=== PATIENT | male | born 1965 | race African-American/Black ===

== ENCOUNTER 2016-09-02 20:37 | Emergency (ER) | payer MEDICAID ==
[~2016-09-02] VITALS: Ht 175.3 cm; Wt 72.6 kg
[~2016-09-02 20:37] MED LIST: ALBUTEROL2 PUFFS/17 IN; AMLO5TAB PO; AMLODIPINE BES10 MG PO; APRESOLINE 10MG10 MG PO; ASPIRIN ADULT L81 M2 PO; ASPIRIN EC81 MG PO; ATORVASTATIN CA20 MG PO; ATORVASTATIN CA80 MG PO; AUGMENTIN 875 M1 TAB PO; CARVEDILOL 25MG25 MG PO; CHEWABLE ASPIRI81 MG PO; COLACE GENERIC100 MG PO; DILTIAZEM CD 2240 MG PO; DILTIAZEM ER 3300 MG PO; FIORINAL CAPSU1 EACH PO; GABAPENTIN300 M1 PO; HYDRALAZINE HCL10 MG OR; HYDROCHLOROTHIA25 M1 PO; HYDROCODONE1 TABLET PO; KEFLEX 500MG.500 MG PO; LISINOPRIL 5MG T5 MG PO; LISINOPRIL40 MG PO; MEDROL 4MG. DOSE4 MG PO; METOPROLOL50 MG PO; NITROGLYCERIN0.4 MG SL; NOMEDS *; PERCOCET 5/3251 EACH PO; PERCOCET1 TAB PO; SEPTRA DS 800 M1 TAB PO; SERTRALINE 50MG50 MG PO; ULTRAM50 MG PO; WARFARIN SOD5 M1 PO
[2016-09-02] MEDS ORDERED: GABAPENTIN 600600 MG PO (20:46)
--- NOTE | 2016-09-02 20:56 | Emergency Room Report ---
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 Onset of symptoms date/time:09/02 or onset unknown for:MEDICAL HX UNKNOWN Treatment Prior to Arrival: NONE, PT RPTS HE WAS PAIN FREE ONCE AMBULANCE ARRIVED TO HIS RESIDENCE. 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 N Clinical Suspician of Infection? N Mental Status: 1 - Regular (Normal Baseline) Sepsis Risk:Low Sepsis Risk Have you (or family members/close friends) recently traveled outside the [place]? N If Yes, where/when: Have you had exposure to infectious disease within the past month? N TB? Other? Specify: Comment The patient states that he was watching TV at home about an hour ago when he had sudden onset of severe pain in his LEFT anterior chest that felt "like it was going to pop". He says the pain is similar to when he had an aortic dissection a year ago. He had surgery at [facility] for that. His pain lasted 1 minute and then went away and now he is completely pain-free as far as his chest pain. He had no shortness of breath, nausea, vomiting, or diaphoresis. He also has pain and redness in his RIGHT leg that he says just started today. He says that his sister trim his toenails yesterday. He has a chronic ulcer on the plantar aspect of his great toe and chronic hyperkeratosis of the skin of his great toe. He also had what sounds like a blood clot with a compartment syndrome in his RIGHT leg when he had the aortic dissection and appears to have had a fasciotomy. He says that this is the first time it has gotten red and painful since that procedure. He denies fever. ALLERGIES Coded Allergies: hydrocodone (From LORTAB) (Mild, VOMITING 11/08/15) Home Medications Active Scripts Amlodipine Besylate (Amlodipine) 5 MG PO DAILY #30 TAB Prov: 01/07/16 Reported Medications Lisinopril (Lisinopril 40MG) 40 MG PO DAILY #60 Aspirin 81 MG PO DAILY #30 Carvedilol (Carvedilol 25MG) 25 MG PO BID #60 Atorvastatin Calcium 80 MG PO DAILY #30 Sertraline Hcl (Sertraline 50MG) 25 MG PO DAILY #30 Warfarin Sodium 5 MG PO QHS Hydralazine Hcl 10 MG OR TID Gabapentin (Gabapentin 600MG) 800 MG PO TID History Medical History General CAD? Yes Angina: Yes [place]: Yes Hypertension? Yes Hyperlipidemia? Yes CHF? No DVT? Yes PE? No COPD? No Asthma? Yes Anemia? No GERD? No Gastric ulcers? No GI Bleed? No Hernia? No Thyroid Problems? No Hypothyroidism? No CVA? Yes Seizures? No Diabetes? No Renal Insuffiency? No End Stage Renal Disease? No UTI? No Stones? No BPH? No GB Disease: No Nephritic Syndrome? No Asplenia? No Hepatitis? No Sickle Cell Disease? No Arthritis? No Migraines? No Cataracts? No Glaucoma? No MRSA? No HIV? No TB? No Anxiety? No Depression? No Cancer? No More? No Immunization Hx DT/Tetanus Unknown Flu Refused Pneumonia Never Had Surgical Hx Previous Surgery?Y CARDIAC CATH X4 AAA RIGHT LEG FASCIOTOMY OPEN HEART SURGERY Family History Family Hx Diabetes Yes CAD Yes Hypertension Yes Hyperlipidemia Yes Cancer Yes TB No Social History Smoking Hx Smoker: Former Smoker Tobacco: No Packs/day N/A Alcohol Alcohol: Yes Additionial History Additional History Last troponins January 2016 was 0.39. His last several troponins have been in that range. Review of Systems All Other Systems Reviewed and Negative Constitutional denies diaphoresis, denies fever Respiratory denies shortness of breath Cardiovascular chest pain, denies syncope Gastrointestinal denies abdominal pain, denies nausea, denies vomiting Musculoskeletal see HPI Physical Exam Vital Signs Vital Signs Date Time Temp Pulse Resp B/P Pulse O2 O2 Flow FiO2 Ox Delivery Rate 09/024 98.0 86 18 131/68 99 09/02 2324 98.0 86 18 131/68 99 09/02 2255 98.4 87 18 121/76 100 09/02 2221 98.4 89 18 134/64 98 04/15 2134 85 16 118/80 97 09/02 2038 98.4 85 16 120/82 97 General Appearance normal appearance, WD/WN Eye Exam - bilateral eye normal exam, bilateral eye PERRL, bilateral eye EOMI Ear, Nose, Throat hearing grossly normal, normal ENT inspection Neck normal inspection, non-tender, supple, full range of motion Respiratory Status Yes: trachea midline, chest symmetrical, non tender chest. No: respiratory distress. Lung Sounds bilateral: normal breath sounds, lungs clear. Cardiovascular normal exam, regular rate/rhythm, no peripheral edema, no gallop, no JVD, no murmur, no rub, normal peripheral pulses Peripheral Pulses Pulses normal Yes Gastrointestinal normal bowel sounds, normal exam, non tender, soft, no organomegaly Extremities fasciotomy scars RIGHT lower leg., generalized erythema and tenderness of RIGHT lower leg from ankle to knee. No palpable cords., foot is warm with good capillary refill and sensation, but pedal pulses not palpable in the RIGHT foot., normal pedal pulses LEFT foot. Normal radial pulses bilaterally., good dorsalis pedis and posterior tibialis pulses on the RIGHT foot by Doppler, 2 cm diameter skin ulcer on the plantar aspect of his RIGHT great toe. Hyperkeratosis of his RIGHT great toe. No drainage or odor. 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 No Results/Orders Laboratory Tests 09/02/162114: PT 12.3 H, INR 1.15 H 09/02/162114: Lactic Acid 1.2, D-Dimer 3390 *H 09/02/162039: Sodium 138, Potassium 3.0 L, Chloride 100, Carbon Dioxide 28, BUN 30 H, Creatinine 1.6 H, Estimated Creat Clear 56, Estimated GFR (MDRD) 46, Glucose 97 , Calcium 9.7, Total Bilirubin 1.9 H, AST 24, ALT 27, Alkaline Phosphatase 86, Creatine Kinase 204, CK-MB (CK-2) Rel Index 1.1, CK and CKMB Interp 2.2, Troponin I 2.20 H, Total Protein 8.4 H, Albumin 3.0 L, Globulin 5.4 H, Albumin/Globulin Ratio 0.6 L, WBC 8.5, RBC 3.95 L, Hgb 13.4 L, Hct 40.4 L, MCV 102.2 H, RDW 11.8, Plt Count 218, MPV 7.1 L, Gran % 73.4, Gran # 6.2, Lymphocytes % 18.2, Monocytes % 5.6, Eosinophils % 2.5, Basophils % 0.3, Lymphocytes # 1.5, Monocytes # 0.5, Eosinophils # 0.2, Basophils # 0.0, PUBS MCHC 33.1, MCH 33.8 H Current Medication Orders Sig/Paul Start time Last Medication Dose Route Stop Time Status Admin Enoxaparin Sodium 70 MG ONCE ONE 09/02 2300 DC 09/02 SC 09/02 230 230 Enoxaparin Sodium 0 .STK-MED ONE 09/02 2300 DC SC Potassium Chloride 40 MEQ ONCE ONE 09/02 2300 DC 09/02 PO 09/02 230 2302 Potassium Chloride 0 .STK-MED ONE 09/02 2300 DC PO Aspirin 0 .STK-MED ONE 09/02 2234 DC .ROUTE Aspirin 324 MG ONCE ONE 09/02 2230 DC 09/02 PO 09/02 223 2235 Enoxaparin Sodium 70 MG ONCE ONE 09/02 2230 CAN SC 09/02 223 Sodium Chloride 10 ML PRN PRN 09/02 2230 AC IV 09/03 222 Sodium Chloride 10 ML PRN PRN 09/02 2100 AC IV 09/03 204 Orders Procedure Date/time Status PROTHROMBIN TIME 09/02 2229 Complete IV SALINE LOCK 09/02 2226 Active D-DIMER 09/02 2129 Complete CULTURE, BLOOD 09/02 2128 Active LACTIC ACID 09/02 2128 Complete ELECTROCARDIOGRAM REQUEST 09/02 2048 Active CHEST(2 VIEWS-NOT PORTABLE) 09/02 2048 Active IV SALINE LOCK 09/02 2048 Active PATCH DRILLER 09/02 2048 Active CBC WITH AUTO DIFF 09/02 2048 Complete CARDIAC ENZYMES 09/02 2048 Complete CHEM 12 PROFILE 09/02 2048 Complete 12 LEAD EKG-RUTH (INITIAL) 09/02 UNK Active CM/EKG CM/EKG Comments EKG interpreted by Lambert Benjamin MD: Rhythm: sinus Rate: 85 [place]: normal Ectopy: none Conduction: normal ST Segment Changes: LVH with repolarization changes T Wave Changes: LVH with repolarization changes Q Waves: none Prior electrocardiograms reviewed, no significant change from prior. ST segments and T waves are all similar. XRAY/CT/US XRAY/CT/US XRAY chest Comment X-ray interpreted by Lambert Benjamin M.D.: Prior sternotomy procedure. No change in the appearance of the mediastinum or heart compared to previous x-ray. No acute change. Progress - 10:25 PM: Case discussed with Dr. 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 We discussed the patient's presentation and laboratory data. He does not feel that a recurrent aortic dissection is in the differential diagnosis since he is artery had a repaired with a [place] graft. He is concerned about possible DVT, PE, and possible non-ST elevation myocardial infarction. We discussed the disposition and imaging. He does not feel imaging needs to be performed here. He recommends treating with aspirin and Lovenox and transferred to [facility] because he is high risk. 11:00 PM: Case discussed with Dr. Faulkner, [facility] emergency physician. He accepts the patient to their emergency department. Departure Departure Disposition DC/XFER from ER to [facility] Clinical Impression Primary Impression: Chest pain Qualifiers: Chest pain type: precordial pain Qualified Code: R07.2 - Precordial pain Secondary Impressions: Elevated d-dimer, Elevated troponin, Leg edema, right, Right leg pain Condition STABLE Referrals Dwight RAMÍREZ,Jefferson Friedman (Family) ED Critical Care Critical Care Yes Time spent 30-74 min Vital system(s) involved: Circulatory Failure I was present at bedside for Coordinating pt's care, Interpreting EKGs/Strips , During my initial exam, Reviewing lab results, Reviewing old records, Discussing pt condition, For re-examinations, Examining radiographs at 2336
[2016-09-02 21:33] LABS: HEMOGLOBIN 13.4 g/dL (14.1-18.0); LYMPH # 1.5 K/mm3 (0.7-4.5); LYMPH % 18.2 % (10-50)
[2016-09-02 23:34] VITALS: BP 131/68
--- NOTE | 2016-09-03 14:14 | RADIOLOGY REPORT PS360 ---
CHEST(2 VIEWS-NOT PORTABLE) COMPARISON: PA and lateral chest 01/06/2016 HISTORY: Chest TECHNIQUE: The a and lateral chest FINDINGS: The lung castañeda are well expanded and appear clear of infiltrate. There is mild aortic tortuosity but no cardiomegaly. Sternal wire sutures are again noted. There is a calcified right hilar node. There are surgical clips projecting over the right upper lateral chest. IMPRESSION: Nonacute chest findings
== END 2016-09-02 23:36 | disposition short-term general hospital (02) ==
LOC: ER 20:37
PROVIDERS: Emergency Medicine
DX: R07.2 Precordial pain (principal); R79.89 Other specified abnormal findings of blood chemistry; R79.1 Abnormal coagulation profile; R60.0 Localized edema; M79.604 Pain in right leg

== ENCOUNTER 2017-03-05 03:54 | Observation (INO) | payer MEDICAID ==
[~2017-03-05] VITALS: Ht 175.3 cm; Wt 75.0 kg
[2017-03-05] VITALS (7 sets, daily range): BP systolic 113–200; BP diastolic 56–119
[~2017-03-05 03:54] MED LIST changes: +GABAPENTIN 600600 MG PO
[2017-03-05 04:19] LABS: HEMOGLOBIN 14.6 g/dL (14.1-18.0); LYMPH # 1.8 K/mm3 (0.7-4.5); LYMPH % 32.4 % (10-50)
--- NOTE | 2017-03-05 05:07 | Emergency Room Report ---
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 N Clinical Suspician of Infection? N Mental Status: 1 - Regular (Normal Baseline) Sepsis Risk:Possible Sepsis Risk Have you (or family members/close friends) recently traveled outside the [place]? N If Yes, where/when: Have you had exposure to infectious disease within the past month? N TB? Other? Specify: Source patient, RN notes reviewed, old records Exam Limitations no limitations Comment pt with onset of intermittant chest pain with pain tonight and today - pt has been noncompliant with meds - last cath last [facility] at [facility] Cardiac Chest Pain Chest pain indicative of cardiac Yes Timing/Duration 1-3 hours, intermittent Severity/Quality moderate, pressure Location central Chest Pain Radiation no radiation Activities at Onset light activity Nitro Today/Relief no nitro taken today Aspirin Treatment Today 325 mg x 1, provided by ED Beta jennifer treatment today no beta jennifer taken Cardiac risk factors + cardiovascular disease, + family history Prior Workup/Intervention cardiac cath Timing/Duration this morning Severity moderate ALLERGIES Coded Allergies: hydrocodone (From LORTAB) (Mild, VOMITING 11/08/15) Home Medications Active Scripts Amlodipine Besylate (Amlodipine) 5 MG PO DAILY #30 TAB Prov: 01/07/16 Reported Medications Lisinopril (Lisinopril 40MG) 40 MG PO DAILY #60 Aspirin 81 MG PO DAILY #30 Carvedilol (Carvedilol 25MG) 25 MG PO BID #60 Atorvastatin Calcium 80 MG PO DAILY #30 Sertraline Hcl (Sertraline 50MG) 25 MG PO DAILY #30 Warfarin Sodium 5 MG PO QHS Hydralazine Hcl 10 MG OR TID Gabapentin (Gabapentin 600MG) 800 MG PO TID History Medical History General CAD? Yes Angina: Yes [place]: Yes Hypertension? Yes Hyperlipidemia? Yes CHF? No DVT? Yes PE? No COPD? No Asthma? Yes Anemia? No GERD? No Gastric ulcers? No GI Bleed? No Hernia? No Thyroid Problems? No Hypothyroidism? No CVA? Yes Seizures? No Diabetes? No Renal Insuffiency? No End Stage Renal Disease? No UTI? No Stones? No BPH? No GB Disease: No Nephritic Syndrome? No Asplenia? No Hepatitis? No Sickle Cell Disease? No Arthritis? No Migraines? No Cataracts? No Glaucoma? No MRSA? No HIV? No TB? No Anxiety? No Depression? No Cancer? No More? No Immunization Hx DT/Tetanus Unknown Flu Refused Pneumonia Never Had Surgical Hx Previous Surgery?Y CARDIAC CATH X4 AAA RIGHT LEG FASCIOTOMY OPEN HEART SURGERY Family History Family Hx Diabetes Yes CAD Yes Hypertension Yes Hyperlipidemia Yes Cancer Yes TB No Social History Smoking Hx Smoker: Never Smoker Tobacco: No Packs/day N/A Alcohol Alcohol: Yes Drugs none Review of Systems All Other Systems Reviewed and Negative Constitutional denies fever Eyes denies drainage ENT denies: ear discharge, epistaxis, throat pain. Respiratory denies cough, denies shortness of breath, denies wheezing Cardiovascular see HPI, chest pain, denies palpitations, denies syncope Gastrointestinal denies abdominal pain, denies diarrhea, denies vomiting Genitourinary denies: dysuria, frequency, hesitancy, hematuria. Musculoskeletal denies back pain, denies joint pain, denies joint swelling, denies neck pain Skin denies rash Psychiatric/Neurological denies headache, denies seizure Physical Exam Vital Signs Vital Signs Date Time Temp Pulse Resp B/P Pulse O2 O2 Flow FiO2 Ox Delivery Rate 03/05 0356 98.5 90 20 200/111 96 - WBC >12,000 or <4,000 or 10% bands? 2 or more SIRS Criteria Met? B/P:200/111 MAP:140 Creatinine >2.0? UA output<0.5ml/kg/hr for 2 hrs? Platelet count >100,000? Lactate >2.0mmol/1? INR >1.2 or PTT > than 60 sec? Evidence of Organ Dysfunction? Provider documented clinical suspician of infection? N Sepsis Criteria Count: 2 Sepsis Risk: Possible Sepsis Risk General Appearance no apparent distress Eye Exam - bilateral eye PERRL, bilateral eye EOMI Ear, Nose, Throat normal ENT inspection Neck supple Respiratory Status No: respiratory distress. Lung Sounds bilateral: lungs clear. 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 No Results/Orders Laboratory Tests 03/05/17 0405: Sodium 138, Potassium 3.3 L, Chloride 103, Carbon Dioxide 27, BUN 16, Creatinine 1.1, Estimated Creat Clear 88, Estimated GFR (MDRD) 70, Glucose 119 H, Calcium 9.0, Total Bilirubin 0.8, AST 20, ALT 21, Alkaline Phosphatase 110, Creatine Kinase 518 H, CK-MB (CK-2) Rel Index 2.2, CK and CKMB Interp 11.2 *H, Troponin I 1.16 H, Total Protein 8.3 H, Albumin 3.7, Globulin 4.6 H, Albumin/ Globulin Ratio 0.8 L, PT 10.7, INR 0.99, APTT 29.7, WBC 5.7, RBC 4.49 L, Hgb 14.6, Hct 45.4, MCV 101.1 H, RDW 12.2, Plt Count 205, MPV 7.8, Gran % 54.9, Gran # 3.1, Lymphocytes % 32.4, Monocytes % 6.6, Eosinophils % 5.1, Basophils % 0.9, Lymphocytes # 1.8, Monocytes # 0.4, Eosinophils # 0.3, Basophils # 0.1, PUBS MCHC 32.2, MCH 32.5 H Current Medication Orders Sig/Paul Start time Last Medication Dose Route Stop Time Status Admin Clopidogrel Bisulfate 300 MG ONCE ONE 03/05 515 DC 03/05 PO 03/05 Clopidogrel Bisulfate 0 .STK-MED ONE 03/05 514 DC PO Aspirin 324 MG ONCE ONE 03/05 415 DC 03/05 PO 03/05 Aspirin 0 .STK-MED ONE 03/05 413 DC .ROUTE Orders Procedure Date/time Status Decision to admit 10/16 0518 Active URINALYSIS/COMPLETE 03/05 050 Active DRUG ABUSE SCREEN (TRIAGE) 03/05 050 Active PARTIAL THROMBOPLASTIN TIME 03/05 040 Complete PROTHROMBIN TIME 03/05 407 Complete ELECTROCARDIOGRAM REQUEST 03/05 359 Active CHEST(2 VIEWS-NOT PORTABLE) 03/05 359 Active IV SALINE LOCK 03/05 359 Active ADMITTING MANAGER 03/05 359 Active CBC WITH AUTO DIFF 03/05 359 Complete CARDIAC ENZYMES 03/05 359 Complete CHEM 12 PROFILE 03/05 359 Complete 12 LEAD EKG-BESSON (INITIAL) 03/05 UNK Active CM/EKG CM/supervisor burling and joining Rhythm Normal Sinus Rhythm EKG compared w/(date of old), non-spec. ST/Twave chgs XRAY/CT/US XRAY/CT/US XRAY chest XR interpretation by reviewed by me Xray Results abnormal (old ) ALAN Score for N-Stemi/Angina ALAN N-STEMI SCORE ALAN N-STEMI SCORE Response Value Age of patient Less than 65 yrs 0 Number of risk factors for CAD Presence of 3 or more 1 Prior coronary artery stenosis (seen in angiography) Less than 50% 0 ST-Segment deviation on ECG (>1 min) Present 1 Prior aspirin intake No ASA in the last 7 days 0 Severe anginal chest pain 2 or more episodes/24hr 1 Elevated cardiac markers(CK-MB or troponin) Present 1 Total 4 Risk Stratification 3-4= Medium Risk Patients Departure Departure Time of Disposition 0514 Disposition Still a Patient Clinical Impression Primary Impression: Non-STEMI (non-ST elevated myocardial infarction) Condition STABLE Referrals Dwight RAMÍREZ,Jefferson Friedman (Family) discussed with dr hogan ED Critical Care Critical Care No at 0521
--- NOTE | 2017-03-05 05:07 | Emergency Room Report ---
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 N Clinical Suspician of Infection? N Mental Status: 1 - Regular (Normal Baseline) Sepsis Risk:Possible Sepsis Risk Have you (or family members/close friends) recently traveled outside the [place]? N If Yes, where/when: Have you had exposure to infectious disease within the past month? N TB? Other? Specify: Source patient, RN notes reviewed, old records Exam Limitations no limitations Comment pt with onset of intermittant chest pain with pain tonight and today - pt has been noncompliant with meds - last cath last yr at [facility] Cardiac Chest Pain Chest pain indicative of cardiac Yes Timing/Duration 1-3 hours, intermittent Severity/Quality moderate, pressure Location central Chest Pain Radiation no radiation Activities at Onset light activity Nitro Today/Relief no nitro taken today Aspirin Treatment Today 325 mg x 1, provided by ED Beta jennifer treatment today no beta jennifer taken Cardiac risk factors + cardiovascular disease, + family history Prior Workup/Intervention cardiac cath Timing/Duration this morning Severity moderate ALLERGIES Coded Allergies: hydrocodone (From LORTAB) (Mild, VOMITING 11/08/15) Home Medications Active Scripts Amlodipine Besylate (Amlodipine) 5 MG PO DAILY #30 TAB Prov: 01/07/16 Reported Medications Lisinopril (Lisinopril 40MG) 40 MG PO DAILY #60 Aspirin 81 MG PO DAILY #30 Carvedilol (Carvedilol 25MG) 25 MG PO BID #60 Atorvastatin Calcium 80 MG PO DAILY #30 Sertraline Hcl (Sertraline 50MG) 25 MG PO DAILY #30 Warfarin Sodium 5 MG PO QHS Hydralazine Hcl 10 MG OR TID Gabapentin (Gabapentin 600MG) 800 MG PO TID History Medical History General CAD? Yes Angina: Yes MO: Yes Hypertension? Yes Hyperlipidemia? Yes CHF? No DVT? Yes PE? No COPD? No Asthma? Yes Anemia? No GERD? No Gastric ulcers? No GI Bleed? No Hernia? No Thyroid Problems? No Hypothyroidism? No CVA? Yes Seizures? No Diabetes? No Renal Insuffiency? No End Stage Renal Disease? No UTI? No Stones? No BPH? No GB Disease: No Nephritic Syndrome? No Asplenia? No Hepatitis? No Sickle Cell Disease? No Arthritis? No Migraines? No Cataracts? No Glaucoma? No MRSA? No HIV? No TB? No Anxiety? No Depression? No Cancer? No More? No Immunization Hx DT/Tetanus Unknown Flu Refused Pneumonia Never Had Surgical Hx Previous Surgery?Y CARDIAC CATH X4 AAA RIGHT LEG FASCIOTOMY OPEN HEART SURGERY Family History Family Hx Diabetes Yes CAD Yes Hypertension Yes Hyperlipidemia Yes Cancer Yes TB No Social History Smoking Hx Smoker: Never Smoker Tobacco: No Packs/day N/A Alcohol Alcohol: Yes Drugs none Review of Systems All Other Systems Reviewed and Negative Constitutional denies fever Eyes denies drainage ENT denies: ear discharge, epistaxis, throat pain. Respiratory denies cough, denies shortness of breath, denies wheezing Cardiovascular see HPI, chest pain, denies palpitations, denies syncope Gastrointestinal denies abdominal pain, denies diarrhea, denies vomiting Genitourinary denies: dysuria, frequency, hesitancy, hematuria. Musculoskeletal denies back pain, denies joint pain, denies joint swelling, denies neck pain Skin denies rash Psychiatric/Neurological denies headache, denies seizure Physical Exam Vital Signs Vital Signs Date Time Temp Pulse Resp B/P Pulse O2 O2 Flow FiO2 Ox Delivery Rate 03/05 0356 98.5 90 20 200/111 96 - WBC >12,000 or <4,000 or 10% bands? 2 or more SIRS Criteria Met? B/P:200/111 MAP:140 Creatinine >2.0? UA output<0.5ml/kg/hr for 2 hrs? Platelet count >100,000? Lactate >2.0mmol/1? INR >1.2 or PTT > than 60 sec? Evidence of Organ Dysfunction? Provider documented clinical suspician of infection? N Sepsis Criteria Count: 2 Sepsis Risk: Possible Sepsis Risk General Appearance no apparent distress Eye Exam - bilateral eye PERRL, bilateral eye EOMI Ear, Nose, Throat normal ENT inspection Neck supple Respiratory Status No: respiratory distress. Lung Sounds bilateral: lungs clear. 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 No Results/Orders Laboratory Tests 03/05/17 0405: Sodium 138, Potassium 3.3 L, Chloride 103, Carbon Dioxide 27, BUN 16, Creatinine 1.1, Estimated Creat Clear 88, Estimated GFR (MDRD) 70, Glucose 119 H, Calcium 9.0, Total Bilirubin 0.8, AST 20, ALT 21, Alkaline Phosphatase 110, Creatine Kinase 518 H, CK-MB (CK-2) Rel Index 2.2, CK and CKMB Interp 11.2 *H, Troponin I 1.16 H, Total Protein 8.3 H, Albumin 3.7, Globulin 4.6 H, Albumin/ Globulin Ratio 0.8 L, PT 10.7, INR 0.99, APTT 29.7, WBC 5.7, RBC 4.49 L, Hgb 14.6, Hct 45.4, MCV 101.1 H, RDW 12.2, Plt Count 205, MPV 7.8, Gran % 54.9, Gran # 3.1, Lymphocytes % 32.4, Monocytes % 6.6, Eosinophils % 5.1, Basophils % 0.9, Lymphocytes # 1.8, Monocytes # 0.4, Eosinophils # 0.3, Basophils # 0.1, PUBS MCHC 32.2, MCH 32.5 H Current Medication Orders Sig/Paul Start time Last Medication Dose Route Stop Time Status Admin Clopidogrel Bisulfate 300 MG ONCE ONE 03/05 515 DC 03/05 PO 03/05 Clopidogrel Bisulfate 0 .STK-MED ONE 03/05 514 DC PO Aspirin 324 MG ONCE ONE 03/05 415 DC 03/05 PO 03/05 Aspirin 0 .STK-MED ONE 03/05 413 DC .ROUTE Orders Procedure Date/time Status Decision to admit 10/16 0518 Active URINALYSIS/COMPLETE 03/05 050 Active DRUG ABUSE SCREEN (TRIAGE) 03/05 050 Active PARTIAL THROMBOPLASTIN TIME 03/05 040 Complete PROTHROMBIN TIME 03/05 407 Complete ELECTROCARDIOGRAM REQUEST 03/05 359 Active CHEST(2 VIEWS-NOT PORTABLE) 03/05 359 Active IV SALINE LOCK 03/05 359 Active GLOVE CUFFER 03/05 359 Active CBC WITH AUTO DIFF 03/05 359 Complete CARDIAC ENZYMES 03/05 359 Complete CHEM 12 PROFILE 03/05 359 Complete 12 LEAD EKG-BESSON (INITIAL) 03/05 UNK Active 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 ST/Twave chgs XRAY/CT/US XRAY/CT/US XRAY chest XR interpretation by reviewed by me Xray Results abnormal (old ) ALAN Score for N-Stemi/Angina ALAN N-STEMI SCORE ALAN N-STEMI SCORE Response Value Age of patient Less than 65 yrs 0 Number of risk factors for CAD Presence of 3 or more 1 Prior coronary artery stenosis (seen in angiography) Less than 50% 0 ST-Segment deviation on ECG (>1 min) Present 1 Prior aspirin intake No ASA in the last 7 days 0 Severe anginal chest pain 2 or more episodes/24hr 1 Elevated cardiac markers(CK-MB or troponin) Present 1 Total 4 Risk Stratification 3-4= Medium Risk Patients Departure Departure Time of Disposition 0514 Disposition Still a Patient Clinical Impression Primary Impression: Non-STEMI (non-ST elevated myocardial infarction) Condition STABLE Referrals Dwight RAMÍREZ,Jefferson Friedman (Family) discussed with dr hogan ED Critical Care [place] Care No [place] 0501
--- OUTSIDE RECORDS SUMMARY | 2017-03-05 05:25 | External Medical Summary Rpt | CCD ---
Author Author , DEVENDRA Organization DEVENDRA Address Unknown Phone [email or web address] Care Team Providers Care Prepress Stripper Name Role Phone [facility] [place], Unavailable Unavailable [facility] [place] [facility] [place], Unavailable Unavailable [facility] [place] AJAY LIS, AJAY Unavailable Unavailable LIS AYOOB AND, AYOOB AND Unavailable Unavailable BEINEKE MELY, BEINEKE Unavailable Unavailable MELY BESSON, BESSON Unavailable Unavailable BESSON GWENDOLYN, BESSON Unavailable Unavailable GWENDOLYN TYLER ALL, TYLER ALL Unavailable Unavailable ANDRE ALHAJI, ANDRE Unavailable Unavailable ALHAJI [facility] Unavailable Unavailable SERVICE, [facility] Unavailable Unavailable SERVICE, [facility] PAIGE LAVELLE, PAIGE Unavailable Unavailable LAVELLE [facility], [facility] TITUS, TITUS Unavailable Unavailable GEORGE, GEORGE Unavailable Unavailable HENRIQUE, HENRIQUE Unavailable Unavailable [facility] Unavailable [facility]available [facility] JORGE ALBERTO SOUMYA, Unavailable Unavailable JORGE ALBERTO SOUMYA RIDGE ADR, RIDGE Unavailable Unavailable ADR DELAHOUSAY ANTOINE, Unavailable Unavailable DELAHOUSAY ANTOINE SHAILA ANT, SHAILA Unavailable Unavailable ANT MARTINEZ, MARTINEZ Unavailable Unavailable ECKERLE GUNNER, ECKERLE Unavailable Unavailable GUNNER EL KHOULI, EL KHOULI Unavailable Unavailable ERLANDSON JUANY, Unavailable Unavailable ERLANDSON JUANY FALLUJI ARELY, FALLUJI Unavailable Unavailable ARELY [facility] Unavailable Unavailable TRANSPORTATION SER, [facility] SAENZ SURJIT, SAENZ Unavailable Unavailable SURJIT PAULINO NAN, PAULINO Unavailable Unavailable JR PROSPER THORPE, Unavailable Unavailable JR PROSPER MOORE SAM ALHAJI, SAM Unavailable Unavailable ALHAJI SAM ALHAJI, SAM Unavailable Unavailable ALHAJI JOSAFAT MAURICE Unavailable Unavailable EWELINA THO, EWELINA THO Unavailable Unavailable [facility] Unavailable Unavailable INC, [facility] Unavailable [facility]available HOSPITAL P, [facility] AIME ANTOINE, AIME Unavailable Unavailable ANTOINE [facility], Unavailable Unavailable [facility] PAYAN GWENDOLYN, PAYAN GWENDOLYN Unavailable Unavailable DB CARL, DB CARL Unavailable Unavailable [facility] Unavailable Unavailable MEDICAL G, [facility] G AVA ROSALBA, AVA ROSALBA Unavailable Unavailable [facility] Un[facility] ZAHEER JAM, ZAHEER JAM Unavailable Unavailable MARTINEZ GWENDOLYN, MARTINEZ GWENDOLYN Unavailable Unavailable ERIN JR DWI, ERIN Unavailable Unavailable JR DWI [facility] Unavailable Unavailable COGOVT, BARRIE FAYETTE URBAN COGOVT [facility] Unavailable Unavailable COGOVT, BARRIE FAYETTE U[facility] COGOVT STAN ROWENA, Unavailable Unavailable STAN ROWENA GOPAL, GOPAL Unavailable Unavailable PÉREZ LIAM, PÉREZ Unavailable Unavailable LIAM Simba Quintanilla MD, Unavailable Unavailable Simba Quintanilla MD MARCHINO GWENDOLYN, Unavailable Unavailable MARCHINO GWENDOLYN RAMOS ROSEMARY, Unavailable Unavailable RAMOS ROSEMARY MINION REINALDO, MINION Unavailable Unavailable REINALDO DUNCAN JUS, Unavailable Unavailable DUNCAN JUS JAY DAVID, JAY DAVID Unavailable Unavailable NELTNER MENDEZ, NELTNER Unavailable Unavailable MENDEZ NICKELS REINALDO, NICKELS Unavailable Unavailable REINALDO ADAM RANDI, ADAM Unavailable Unavailable RANDI GRIFFITH FABIENNE, GRIFFITH FABIENNE Unavailable Unavailable REMINGTON NOHEMY, REMINGTON NOHEMY Unavailable [facility]available [facility]available [facility], [facility], Unavailable Unavailable [facility] CHRISTIE LETY Unavailable Unavailable TOMMY, CHRISTIE LETY TOMMY RASLAU FLA, RASLAU Unavailable Unavailable FLA RENUSCH, RENUSCH Unavailable Unavailable RENUSCH NOHEMY, RENUSCH Unavailable Unavailable NOHEMY CARRILLO JOSESITO, CARRILLO Unavailable Unavailable JOSESITO MARK ANIRUDH, MARK ANIRUDH Unavailable Unavailable MARIA LUZ ANIRUDH, MARIA LUZ Unavailable Unavailable ANIRUDH SCHLEENBAKER RAN, Unavailable Unavailable SCHLEENBAKER RAN [facility], Unavailable Unavailable [facility] SCIFRES ANG, SCIFRES Unavailable Unavailable ANG SCIFRES ANG, SCIFRES Unavailable Unavailable ANG LARISA LIANNA, LARISA LIANNA Unavailable Unavailable SHIRAKBARI ALI, Unavailable Unavailable SHIRAKBARI ALI BELKIS MAT, Unavailable Unavailable BELKIS MAT LEI VIRGILIO, LEI VIRGILIO Unavailable Unavailable [facility] ALOK SHE, Unavailable Unavailable ALOK SHE SZABUNIO MAR, Unavailable Unavailable SZABUNIO MAR [facility] Un[facility], [facility], Unavailable Unavailable [facility] Unavailable [facility]available [facility], [facility] Unavailable Unavailable MARVIN ALHAJI, MARVIN Unavailable Unavailable ALHAJI XENOS TYLER, XENOS TYLER Unavailable Unavailable ZAGUROVSKAYA MAR, Unavailable Unavailable ZAGUROVSKAYA MAR Purpose Continuity of Care Document - 09-10-2012 through 2016 Problems Code Diagnosis DOS Provider Status I10 ESSENTIAL 01-09-2017 [facility], HYPERTENSIO [facility] N Z0289 ENCOUNTER 01-09-2017 [facility] FOR OTHER PHYSICIANS, ADMINISTRAT [facility] IMAN EXAMINATION S I72262 OTHER LONG 01-09-2017 [facility] CURRENT INC DRUG THERAPY Z9114 PATIENTS 01-09-2017 [facility] OT [facility], NONCOMPLIAN [facility] CE W/MEDICATIO N REGIMEN I2510 ASHD LOWER BRULE 09-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 HEALTHCARE 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 HOSPITALS ANGINA 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 HOSPITALS I4581 LONG QT 09-03-2016 [facility] I517 CARDIOMEGAL 09-03-2016 [facility] Y [facility] I7100 DISSECTION 09-03-2016 [facility] OF SERV UNSPECIFIED FOUNDATION SITE OF AORTA I739 PERIPHERAL 09-03-2016 VASCULAR HEALTHCARE DISEASE HOSPITALS UNSPECIFIED M7989 OTHER 09-03-2016 [facility] SPECIFIED SERV SOFT TISSUE FOUNDATION DISORDERS R079 CHEST PAIN 09-03-2016 UNSPECIFIED HEALTHCARE HOSPITALS R9431 ABNORMAL 09-03-2016 [facility] ELECTROCARD SERV IOGRAM FOUNDATION Z8673 PERSONAL HX 09-03-2016 [facility] CEREB HOSPITALS INFARCT NO RESID DEFICIT 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 R0789 OTHER CHEST 01-27-2016 [facility] [facility] Z7901 FORENSIC AUDIT EXPERT 01-27-2016 [facility] NTS Z7982 FORENSIC AUDIT EXPERT 01-27-2016 [facility] Z951 PRESENCE OF 01-27-2016 [facility] AORTOCORONA RY BYPASS GRAFT Z9989 DEPENDENCE 01-27-2016 [facility] ON OTHER [place] ENABLING MACHINES & DEVICES R55 SYNCOPE AND 01-06-2016 [facility] COLLAPSE [facility]IANS, [facility] Z955 PRESENCE OF 01-06-2016 [facility] P IMPLANT & GRAFT I639 CEREBRAL 01-03-2016 [facility] INFARCTION PHYSICIANS UNSPECIFIED GROUP [id number] COMPARTMENT 01-03-2016 [facility] SYNDROME PHYSICIANS UNSPECIFIED GROUP INITIAL ENCNTR G8918 OTHER ACUTE 01-01-2016 [facility] POSTPROCEDU INC RAL PAIN H04035 PAIN IN 01-01-2016 [place] RIGHT LOWER [facility]OS[facility] LEG INC 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 V38485 DYSPHAGIA 12-28-2015 PATIENT FOLLOWING [facility] INC CEREBRAL INFARCTION 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 R1310 DYSPHAGIA 12-28-2015 PATIENT UNSPECIFIED AIDS INC R2681 UNSTEADINES 12-28-2015 PATIENT S ON FEET [facility] INC R269 UNSPECIFIED 12-28-2015 [facility] ABNORMALITI ES OF GAIT AND MOBILITY R5381 OTHER 12-27-2015 [facility] R95033 ENCOUNTER 12-13-2015 [facility] FOLLOW ION SURGERY CIRC SYS M62117 ENCOUNTER 12-13-2015 [facility] FLW SURG ION SKIN&SUBQ TISS Z9889 OTHER 12-13-2015 [facility] SPECIFIED SERV POSTPROCEDU FOUNDATION RAL STATES J90 PLEURAL 12-11-2015 [facility] EFFUSION SERV NOT FOUNDATION ELSEWHERE CLASSIFIED R001 BRADYCARDIA 12-06-2015 [facility] UNSPECIFIED FOUNDATION C41369 ELEVATED 12-01-2015 [facility] WHITE BLOOD SERV CELL COUNT FOUNDATION UNSPECIFIED I447 LEFT 12-01-2015 [facility] BUNDLE-BRAN SERV CH BLOCK FOUNDATION UNSPECIFIED R0602 SHORTNESS 12-01-2015 [facility] OF BREATH SERV [facility]OUNDATION R109 UNSPECIFIED 12-01-2015 [facility] ABDOMINAL SERV PAIN FOUNDATION R932 ABNORMAL 12-01-2015 [facility] FIND ON DX SERV IMAGING FOUNDATION LIVER & BILI TRACT K810 ACUTE 11-30-2015 [facility] CHOLECYSTIT SERV IS FOUNDATION R112 NAUSEA WITH 11-30-2015 [facility] VOMITING SERV UNSPECIFIED FOUNDATION R509 FEVER 11-30-2015 [facility] UNSPECIFIED SERV FOUNDATION J9811 ATELECTASIS 11-29-2015 [facility] Z430 ENCOUNTER 11-29-2015 [facility] FOR SERV ATTENTION FOUND[facility] TO TRACHEOSTOM Y T96187 ACUTE 11-25-2015 [facility] EMBOLISM & SERV THROMBOSIS FOUNDATION SUP VEINS RT UP EXT R0989 OTH SPEC SX 11-25-2015 [facility] & SIGNS SERV INVLV THE FOUNDATION CIRC & RESP SYS Z049 ENCOUNTER 11-25-2015 [facility] EXAMINATION SERV &OBSERVATIO FOUNDATION N FOR UNS REASON I083 COMB 11-23-2015 [facility] RHEUMAT D/O SERV MITRAL FOUNDATION AORTC & TRICUSPID VALVES I371 NONRHEUMATI 11-23-2015 [facility] C PULMONARY SERV VALVE FOUNDATION INSUFFICIEN CY I619 NONTRAUMATI 11-23-2015 [facility] C SERV INTRACEREBR FOUNDATION AL HEMORRHAGE UNS I7771 DISSECTION 11-23-2015 [facility] OF CAROTID SERV ARTERY FOUNDATION I998 OTHER 11-23-2015 [facility] DISORDER OF SERV [facility] CIRCULATORY SYSTEM [id number] TRAUMAT 11-23-2015 [facility] COMPARTMENT SERV SYND RT FOUNDATION LOW EXTREM INIT ENC Z452 ENCOUNTER 11-23-2015 [facility] ADJUSTMENT& SERV MGMT FOUNDATION VASCULAR ACCESS DEVICE D62 ACUTE 11-22-2015 [facility] POSTHEMORRH SERV AGIC ANEMIA FOUNDATION E870 HYPEROSMOLA 11-22-2015 [facility] LITY AND SERV HYPERNATREM FOUNDATION IA I638 OTHER 11-22-2015 [facility] CEREBRAL SERV INFARCTION FOUNDATION J951 ACUTE 11-22-2015 [facility] PULMONARY SERV INSUFF FOUNDATION FOLLOW THORACIC SURGERY R531 WEAKNESS 11-22-2015 [place] [facility] Z4659 ENCOUNTER 11-22-2015 [facility] FIT & SERV ADJUST OTH FOUNDATION GI APPLIANCE & DEVICE Z4682 ENCOUNTER 11-22-2015 [facility] FITTING & SERV ADJUST FOUNDATION NON-VASCULA R CATHETER J984 OTHER 11-21-2015 [facility] DISORDERS SERV OF LUNG FOUNDATION R609 EDEMA 11-21-2015 [facility] UNSPECIFIED SERV FOUNDATION R930 ABNORMAL 11-21-2015 [facility] FINDINGS ON SERV DX IMAGING FOUNDATION SKULL & HEAD NEC E8770 FLUID 2015 [facility] OVERLOAD SERV UNSPECIFIED FOUNDATION J811 CHRONIC 2015 [facility] PULMONARY SERV EDEMA FOUNDATION J9600 ACUTE 2015 [facility] RESPIRATORY SERV FAIL UNS FOUNDATION HYPOXIA/HYP ERCAPNIA M6282 RHABDOMYOLY 2015 [facility] SIS [facility] N179 ACUTE 2015 [facility] KIDNEY SERV FAILURE FOUND[facility] UNSPECIFIED Z930 TRACHEOSTOM 2015 [facility] Y STATUS SERV F[facility] M6289 OTHER 11-17-2015 [facility] DISORDERS HOSPI OF MUSCLE E878 OTHER D/O 11-14-2015 [facility] OF SERV ELECTROLYTE FOUNDATION AND FLUID BALANCE NEC J9691 RESPIRATORY 11-14-2015 [facility] FAILURE SERV UNSPECIFIED FOUNDATION WITH HYPOXIA R633 FEEDING 11-14-2015 [facility] DIFFICULTIE SERV S FOUNDATION R918 OTHER 11-12-2015 [facility] NONSPECIFIC SERV ABNORMAL FOUNDATION FINDING OF LUNG FIELD F80319 ACUTE 11-11-2015 [facility] EMBOLISM & [facility] THROMBOSIS HOSPI RIGHT POPLITEAL VEIN D649 ANEMIA 11-10-2015 [facility] UNSPECIFIED SERV FOUNDATION I743 EMBOLISM & 11-10-2015 [facility] THROMBOSIS SERV ART THE FOUNDATION LOWER EXTREMITIES J982 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[facility] L EMPHYSEMA SERV FOUNDATION R739 HYPERGLYCEM 11-10-2015 [facility] IA SERV UNSPECIFIED FOUNDATION Z048 ENCOUNTER 11-10-2015 [facility] EXAM & SERV OBSERVATION FOUNDATION OTHER SPEC REASONS E785 HYPERLIPIDE 11-09-2015 [facility] NIGEL PHYSICIANS UNSPECIFIED GROUP I209 ANGINA 11-09-2015 [facility] PECTORIS PHYSICIANS UNSPECIFIED GROUP I4901 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-09-2015 [facility] FIBRILLATIO N I493 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-09-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 FOUNDATION ION I700 ATHEROSCLER 11-09-2015 [facility] AORTA HOSPI I7102 DISSECTION 11-09-2015 [facility] OF SERV ABDOMINAL FOUNDATION AORTA 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 J189 PNEUMONIA 11-09-2015 [facility] OR[facility] J09301 ACUTE 11-09-2015 [facility] POSTPROCEDU SERV RAL FOUNDATION RESPIRATORY FAILURE R200 ANESTHESIA 11-09-2015 [facility] OF SKIN SERV FOUNDATION R570 CARDIOGENIC 11-09-2015 [facility] SHOCK SERV [facility] N51793 THORACIC 11-08-2015 [place] [facility] MED[facility] ECTASIA IMAGING ASS M545 LOW BACK 05-04-2015 [place] [facility] INC R030 ELEVATED 03-09-2015 [facility] BLOOD-PRESS AMBULANCE URE READING SERVICE WITHOUT DX HTN R071 CHEST PAIN 03-09-2015 [facility] ON AMBULANCE BREATHING SERVICE 00510 11-09-2014 [facility] ION SER 64094 HELICOBACTE 09-17-2014 [facility] INFECTION 57400 OTHER SPEC 09-17-2014 [facility] GA[facility] WITHOUT MENTION HEMORRHAGE 14392 UNS 09-17-2014 [facility] GASTRITIS&G PHYSICIANS ASTRODUODIT GROUP IS W/O MENTION HEMORR 67189 DIVERTICULO 09-17-2014 [facility] SIS OF PHYSICIANS COLON GROUP 5693 HEMORRHAGE 09-17-2014 [facility] OF RECTUM PHYSICIANS AND ANUS GROUP 5780 HEMATEMESIS 09-17-2014 [facility] PHYSICIANS GROUP 00112 HEMOPTYSIS 09-17-2014 [facility] UNSPECIFIED ANESTH OF THE BLUE 7921 NONSPECIFIC 09-17-2014 COMMUNITY ABNORMAL ANESTH OF FINDING IN THE BLUE STOOL CONTENTS 5781 BLOOD IN 09-03-2014 [facility] STOOL PHYSICIANS GROUP 7871 HEARTBURN 09-03-2014 [facility] PHYSICIANS GROUP V7651 SPECIAL 09-03-2014 [facility] SCREENING PHYSICIANS FOR GROUP MALIGNANT NEOPLASMS COLON 73950 BORDERLINE 08-21-2014 SCIF[facility] ANG GLAUC OPEN ANGLE BL FINDINGS LOW RSK 4019 UNSPECIFIED 08-19-2014 [facility] P N 86103 COR 08-19-2014 [place] ATHEROSLERO [facility] P TYPE VESSEL LOWER BRULE/KI T 96416 ASTHMA, 08-19-2014 [facility] P UNSPECIFIED STATUS 13967 PAIN IN 08-19-2014 [place] [facility] PELVIC IMAGING ASS REGION AND THIGH 7295 PAIN IN 08-19-2014 [place] SOFT MEDICAL TISSUES OF IMAGING ASS LIMB 88951 CHEST PAIN 08-19-2014 [facility] UNSPECIFIED AMBULANCE SERVICE 43565 ACUT W[place] 08-18-2014 [facility] IAL INFARCT MEDICAL G EPIS CARE UNS 5990 URINARY 08-18-2014 [place] TRACT [facility] INFECTION INC SITE NOT SPECIFIED 91014 ABDOMINAL 08-17-2014 [place] PAIN, [facility] UNSPECIFIED HOSPITAL P SITE V4589 OTHER 08-17-2014 [place] [facility] P OTHER 7991 RESPIRATORY 06-05-2014 [facility] FAYETTE ARREST URBAN [place] 63226 POISONING 06-05-2014 [facility] BY HEROIN N EMERGENCY PHYS 9779 POISONING 06-05-2014 [place] [facility] UNSPECIFIED SERV [facility] DRUG/MEDICI NAL SUBSTANCE E9800 POISN-ANALG 06-05-2014 [facility] N EMERGENCY T-ANTIRHEUM PHYS -UNDETERM CAUSE 2724 OTHER AND 04-15-2014 [facility] UNSPECIFIED PHYSICIANS GROUP HYPERLIPIDE NIGEL 56981 CORONARY 02-26-2014 [facility] MEDICAL OSIS LOWER BRULE IMAGING ASS CORONARY ARTERY 41143 OTHER 02-25-2014 [place] [facility] DYSPNEA AND [email or web address] [place] [address] ACUT [place] 02-24-2014 [facility] EMERGENCY IAL INFARCT PHYS INIT EPIS CARE 67853 SHORTNESS 02-24-2014 [place] OF BREATH MEDICAL IMAGING ASS 5939 UNSPECIFIED 10-01-2013 [facility] ALHAJI DISORDER OF KIDNEY AND URETER 29857 PRECORDIAL 10-01-2013 [facility] 401.9 401.9 09-10-2012 Wil[facility] HYPERTENSIO [facility] 410.71 410.71 AC 09-10-2012 Wil[place] MYOCARDIAL [facility] INFARCT,SUB Hospital ENDO INFARCT,INI TIAL EPIS 493.90 493.90 09-10-2012 Wilsey ASTHMA, [facility] UNSPECIFIED Hospital Allergies, Adverse Reactions, Alerts Type Drug Allergy Adverse Reaction to Substance Substance Reaction Severity Hydrocodone I-RASH Intermediate Medications Na ND Rx Da Fi Fi Am Da Di Ph RX Ph St me C No te ll ll ou ys ag ar # ys at rm s nt no ma ic us Or Da si cy ia de te s n re d AM 00 03 04 30 30 00 WA Ac LO 37 -3 -2 .0 00 L- ti DI 85 0- 8- 00 07 MA ve PI 20 20 20 43 RT NE 90 17 17 65 5 16 PH BE AR SY MA LA CY TE 5 #5 91 MG TA B HY 16 03 04 [address] 72 -3 -2 .0 00 L- ti OC 90 0- 8- 00 07 MA ve HL 18 20 20 47 RT OR 31 17 17 51 OT 7 18 PH HI AR AZ MA ID CY E 25 #5 91 MG TA B LI 68 03 04 18 90 00 [place] Ac SI 18 -3 -2 0. 00 L- ti NO 00 0- 8- 00 07 MA ve DC 51 20 20 0 47 RT IL 70 17 17 51 1 34 PH 40 AR MA MG CY TA #5 BL 91 ET CA 68 03 04 60 30 00 WA Ac RV 46 -3 -2 .0 00 L- ti ED 20 0- 8- 00 07 MA ve IL 16 20 20 43 RT OL 50 17 17 47 5 40 PH 25 AR MA MG CY TA #5 BL 91 ET SE 68 03 04 60 30 00 WA Ac RT 64 -3 -2 .0 00 L- ti RA 50 0- 8- 00 07 MA ve LI 52 20 20 43 RT NE 15 17 17 47 4 37 PH HC AR L MA 25 CY MG #5 91 TA BL ET GA 00 03 04 90 30 00 WA Ac BA 22 -3 -2 .0 00 L- ti PE 82 0- 8- 00 07 MA ve NT 63 20 20 44 RT IN 71 17 17 08 1 14 PH 80 AR 0 MA MG CY TA #5 BL 91 ET WA 57 03 04 30 30 00 WA Ac RF 23 -3 -2 .0 00 L- ti AR 70 0- 8- 00 07 MA ve IN 12 20 20 43 RT 40 17 17 47 SO 1 39 PH DI AR UM MA 5 CY MG #5 91 TA BL ET BA 00 03 04 45 30 00 WA Ac CL 83 -3 -2 .0 00 L- ti OF 21 0- 8- 00 07 MA ve EN 02 20 20 44 RT 45 17 17 08 10 0 11 PH AR MG MA CY TA BL #5 ET 91 CA 68 12 01 60 30 00 WA Ac RV 46 -2 -2 .0 00 L- ti ED 20 7- 7- 00 07 MA ve IL 16 20 20 45 RT OL 50 16 17 00 5 57 PH 25 AR MA MG CY TA #5 BL 91 ET SE 68 12 01 60 30 00 WA Ac RT 64 -2 -2 .0 00 L- ti RA 50 7- 7- 00 07 MA ve LI 52 20 20 45 RT NE 15 16 17 00 4 56 PH HC AR L MA 25 CY MG #5 91 TA BL ET LI 68 12 01 60 30 00 WA Ac SI 18 -2 -2 .0 00 L- ti NO 00 8- 7- 00 07 MA ve DC 51 20 20 46 RT IL 70 16 17 10 1 93 PH 40 AR MA MG CY TA #5 BL 91 ET BA 00 12 01 45 30 00 WA Ac CL 83 -2 -2 .0 00 L- ti OF 21 7- 7- 00 07 MA ve EN 02 20 20 44 RT 45 16 17 08 10 0 11 PH AR MG MA CY TA BL #5 ET 91 GA 00 12 01 90 30 00 WA Ac BA 22 -2 -2 .0 00 L- ti PE 82 7- 7- 00 07 MA ve NT 63 20 20 44 RT IN 71 16 17 08 1 14 PH 80 AR 0 MA MG CY TA #5 BL 91 ET AM 00 12 30 30 00 WA Ac LO 37 -2 -2 .0 00 L- ti DI 85 7- 7- 00 07 MA ve PI 20 20 20 44 RT NE 90 16 17 12 5 21 PH BE AR SY MA LA CY TE 5 #5 91 MG TA B HY 68 12 30 [address] 64 -2 -2 .0 00 L- ti OC 50 7- 7- 00 07 MA ve HL 51 20 20 44 RT OR 07 16 17 99 OT 0 71 PH HI AR AZ MA ID CY E 25 #5 91 MG TA B HY 49 12 01 [address] 88 -2 -2 .0 00 L- ti AL 40 7- 7- 00 07 MA ve AZ 02 20 20 44 RT IN 90 16 17 99 E 1 87 PH 10 AR MA MG CY TA #5 BL 91 ET AT 68 12 30 30 00 WA Ac OR 64 -2 -2 .0 00 L- ti VA 50 7- 7- [address] 46 20 20 44 RT AT 05 16 17 12 IN 4 22 PH AR 40 MA CY MG #5 TA 91 BL ET ## 08 01 60 30 00 WA Ac ## -1 -0 .0 00 L- ti ## 0- 9- 00 08 MA ve ## 20 20 83 RT ## 16 17 56 # 47 PH AR MA CY #5 91 Sa 63 04 0 No li 80 -2 ne 70 3- Lo 10 20 ng Fl 07 13 er us 5 h Ac 10 ti ML ve Sy ri ng e As 51 04 0 No pi 07 -2 ri 90 3- Lo n 00 20 ng 32 52 13 er 5M 0 G Ac Ta ti bl ve et Ni 00 04 0 No tr 08 -2 og 81 3- Lo ly 55 20 ng ce 24 13 er ri 9 n Ac 1 ti In ve ch Oi nt Ud p Vital Signs 09-10-2012 22:38 Name Value Interpretat Reference Comment ion Range Body 98.1 [degF] Temperature BP 111 mm[Hg] Diastolic BP Systolic 173 mm[Hg] Heart 72 /min Rate/Pulse O2% 98 % Respiratory 20 /min Rate 09-10-2012 22:20 Name Value Interpretat Reference Comment ion Range Body 98.1 [degF] Temperature 09-10-2012 19:22 Name Value Interpretat Reference Comment ion Range BP 102 mm[Hg] Diastolic BP Systolic 170 mm[Hg] Heart 62 /min Rate/Pulse O2% 100 % Respiratory 24 /min Rate Results Labs Lab Lab Date Result Refere Interp Status Commen Order Detail nces retati t Range on CBC w auto diff (03-05-2017 04:05) Automat = 0.1 0-0.2 complet ed 017 K/MM3 ed blood 04:05 basophi l count (count/ vo Baso % = 0.9 % 0.1-2.0 complet 017 ed 04:05 Automat = 0.3 0.0-0.4 complet ed 017 K/mm3 ed blood 04:05 eosinop hil count Automat = 5.1 % 0.1-12. complet ed 017 0 ed blood 04:05 eosinop hils/10 0 leukocy t Blood = 3.1 1.3-8.0 complet granulo 017 K/mm3 ed cytes 04:05 automat ed count (numb Granulo = 54.9 37.0-80 complet cyte 017 % .0 ed percent 04:05 age Blood = 45.4 42.0-52 complet hematoc 017 % .0 ed rit 04:05 (volume fractio n) Blood = 14.6 14.1-18 complet hemoglo 017 g/dL .0 ed bin 04:05 measure ment (mass/v olum Absolut = 1.8 0.7-4.5 complet e 017 K/mm3 ed lymphoc 04:05 yte count Lymphoc = 32.4 10-50 complet yte 017 % ed count, 04:05 blood, automat ed Mean = 32.5 27-31.2 complet corpusc 017 pg ed ular 04:05 hemoglo bin (MCH) determ Automat = 32.2 31.8-35 complet ed 017 g/dl .4 ed erythro 04:05 cyte mean corpusc ular h Automat = 101.1 82.2-97 complet ed 017 fl .8 ed erythro 04:05 cyte mean corpusc ular v Absolut = 0.4 0.1-1.0 complet e 017 K/mm3 ed monocyt 04:05 e count Harris % = 6.6 % 1.7-9.3 complet 017 ed 04:05 Automat = 7.8 7.4-10. complet ed 017 fl 4 ed blood 04:05 platele t mean volume lakshmi Blood = 205 142-424 complet platele 017 K/mm3 ed t count 04:05 Red = 4.49 4.6-6.2 complet blood 017 M/mm3 ed cell 04:05 count Automat = 12.2 11.5-17 complet ed 017 % .5 ed erythro 04:05 cyte distrib ution width Blood = 5.7 4.8-10. complet leukocy 017 K/MM3 8 ed kailee 04:05 count (number /volume ) Whole blood INR measurement (03-05-2017 04:05) Comment: IS PATIENT ON ANTICOAGULANTS? Y Comment: LIST ANTICOAGULANTS: Comment: COUMADIN Comment: WARFARIN Comment: PTT RESULTS MUST BE CALLED IF PT ON HEPARIN!!! Y Whole = 0.99 0.9-1.1 complet blood 017 ed INR 04:05 measure ment Comment: INDICATION INR RANGE Comment: Comment: THERAPY FOR DVT, PE, ATRIAL FIB; 2.0 - 3.0 Comment: PROPHYLAXIS FOR VTE Comment: Comment: THERAPY FOR MECHANICAL HEART 2.5 - 3.5 Comment: VALVE; PREVENTION OF SYSTEMIC Comment: EMBOLISM SECONDARY TO AMI Prothro 10-16-2 = 10.7 9.4-11. complet mbin 017 SECONDS 8 ed time 04:05 (PT) in platele t poor p Activated partial thromboplastin time (a (03-05-2017 04:05) Comment: IS PATIENT ON ANTICOAGULANTS? Y Comment: LIST ANTICOAGULANTS: Comment: COUMADIN Comment: WARFARIN Comment: PTT RESULTS MUST BE CALLED IF PT ON HEPARIN!!! Y Activat = 29.7 23.6-34 complet ed 017 SECONDS .0 ed partial 04:05 thrombo plastin time (a Cardiac enzymes (03-05-2017 04:05) Serum = 2.2 0-4.0 complet or 017 U/L ed plasma 04:05 creatin e kinase MB (CK-M Serum = 11.2 0.0-3.6 complet or 017 ng/mL ed plasma 04:05 creatin e kinase MB measu Comment: CRITICAL RESULTS Comment: RESULTS CALLED TO: [place] DE LA CRUZ RN 03/05/17450 Gutierrez Das Serum = 518 39-308 complet or 017 U/L ed plasma 04:05 creatin e kinase measure m Serum = 1.16 0.00-0. complet or 017 ng/mL 06 ed plasma 04:05 troponi n i.cardi ac measu Comment: CRITICAL RESULTS Comment: RESULTS CALLED TO: [place] ED LA CRUZ RN 03/05/17 0452 Gutierrez Das Comment: > 0.5 IS CONSISTENT WITH MYOCARDIAL ISCHEMIA OR INFARCTION Comprehensive metabolic panel (03-05-2017 04:05) Serum = 0.8 1.1-1.8 complet or 017 ed plasma 04:05 albumin /globul in mass ra Serum = 3.7 3.4-5.0 complet or 017 gm/dL ed plasma 04:05 albumin measure ment (mas Serum = 110 46-116 complet or 017 U/L ed plasma 04:05 alkalin e phospha tase lakshmi Serum = 0.8 0.2-1.0 complet or 017 mg/dL ed plasma 04:05 total bilirub in measure m Serum = 16 7-18 complet or 017 mg/dL ed plasma 04:05 urea nitroge n measure men Serum = 9.0 8.5-10. complet or 017 mg/dL 1 ed plasma 04:05 calcium measure ment (mas Serum = 103 98-107 complet or 017 mmoL/L ed plasma 04:05 chlorid e measure ment (mo Carbon = 27 21.0-32 complet dioxide 017 mmoL/L .0 ed 04:05 measure ment Serum = 1.1 0.70-1. complet or 017 mg/dL 30 ed plasma 04:05 creatin ine measure ment ( Estimat = 88 50-200 complet ion of 017 ML/MIN ed creatin 04:05 ine renal clearan ce Estimat = 70 >60 complet ed 017 ML/MIN ed glomeru 04:05 lar filtrat ion rate (GF Comment: REFERENCE RANGE: >60 ML/MIN/1.73 SQUARE METERS Comment: If this patient is -Jordanian, then multiply the Comment: result by 1.210. 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 ed SerPl-m 02:01 Cnc Phosphate SerPl-mCnc (09-03-2016 02:01) Phospha 09-03-2 2.8 2.5-4.5 complet te 017 mg/dL ed SerPl-m 02:01 Cnc Magnesium SerPl-mCnc (09-03-2016 02:01) Magnesi 09-03-2 2.2 1.9-2.4 complet um 017 mg/dL ed SerPl-m 02:01 Cnc COMPREHENSIVE METABOLIC PANEL (09-10-2012 18:40) Glucose 09-10-2 98 74-106 complet 013 mg/dL ed Bld-mCn 18:40 c BUN 23-2 16 7-18 complet Bld-mCn 013 mg/dL ed c 18:40 Creat 09-10-2 1.6 0.8-1.3 complet SerPl-m 013 mg/dL ed Cnc 18:40 GFR 09-10-2 47 Greater complet (ESTIMA 013 ML/MIN than ed CHRISTIE) 18:40 60 Sodium 23-2 140 136-145 complet SerPl-s 013 mmoL/L ed Cnc 18:40 Potassi 23-2 4.4 3.5-5.1 complet um 013 mmoL/L ed SerPl-s 18:40 Cnc Chlorid 23-2 103 98-107 complet e 013 mmoL/L ed SerPl-s 18:40 Cnc CO2 23-2 30 21.0-32 complet SerPl-s 013 mmoL/L .0 ed Cnc 18:40 Calcium -23-2 9.2 8.5-10. complet 013 mg/dL 1 ed SerPl-m 18:40 Cnc Prot -23-2 7.5 6.4-8.2 complet SerPl-m 013 gm/dL ed Cnc 18:40 Albumin -23-2 3.8 3.4-5.0 complet 013 gm/dL ed SerPl-m 18:40 Cnc Globuli 23-2 3.7 1.3-3.2 complet n 013 gm/dL ed Ser-mCn 18:40 c Albumin 23-2 1.0 UNK 1.1-1.8 complet /Glob 013 ed SerPl-m 18:40 Rto Bilirub 23-2 0.6 0.2-1.0 complet 013 mg/dL ed SerPl-m 18:40 Cnc AST 23-2 17 U/L 15-37 complet SerPl-c 013 ed Cnc 18:40 ALT 23-2 34 U/L 30-65 complet SerPl-c 013 ed Cnc 18:40 ALP 23-2 117 U/L 50-136 complet SerPl-c 013 ed Cnc 18:40 BNP Bld-mCnc (09-10-2012 18:40) BNP -23-2 184 0-100 complet Bld-mCn 013 pg/mL ed c 18:40 CBC with AUTO DIFF (09-10-2012 18:40) WBC # -23-2 9.0 4.8-10. complet Bld 013 K/MM3 8 ed Auto 18:40 RBC # 04-23-2 4.58 4.6-6.2 complet Bld 013 M/mm3 ed Auto 18:40 Hgb -23-2 14.5 14.1-18 complet Bld-mCn 013 g/dL .0 ed c 18:40 Hct Fr -23-2 46.0 % 42.0-52 complet Bld 013 .0 ed 18:40 MCV RBC 04-23-2 100.5 82.2-97 complet 013 fl .8 ed 18:40 MCH RBC 04-23-2 31.7 pg 27-31.2 complet Qn 013 ed Auto 18:40 MEAN -23-2 31.6 31.8-35 complet CORPUSC 013 g/dl .4 ed ULAR 18:40 HGB CONC RDW RBC 04-23-2 11.9 % 11.5-17 complet Auto 013 .5 ed 18:40 Platele 04-23-2 272 142-424 complet t Bld 013 K/mm3 ed Ql 18:40 Manual MEAN 04-23-2 7.6 fl 7.4-10. complet PLATELE 013 4 ed T 18:40 VOLUME Granulo 04-23-2 64.1 % 37.0-80 complet cytes 013 .0 ed Fr Bld 18:40 Auto LYMPH % 04-23-2 22.8 % 10-50 complet 013 ed 18:40 Monocyt 04-23-2 5.4 % 1.7-9.3 complet es Fr 013 ed Bld 18:40 Auto Eosinop 04-23-2 7.1 % 0.1-12. complet hil Fr 013 0 ed Bld 18:40 Auto Basophi 04-23-2 0.6 % 0.1-2.0 complet ls Fr 013 ed Bld 18:40 Auto Granulo 04-23-2 5.8 1.3-8.0 complet cytes # 013 K/mm3 ed Bld 18:40 Auto Lymphoc 04-23-2 2.1 0.7-4.5 complet ytes Fr 013 K/mm3 ed Bld 18:40 Auto Monocyt 04-23-2 0.5 0.1-1.0 complet es # 013 K/mm3 ed Bld 18:40 Auto Eosinop 04-23-2 0.6 0.0-0.4 complet hil # 013 K/mm3 ed Bld 18:40 Auto Basophi 04-23-2 0.1 0-0.2 complet ls # 013 K/MM3 ed Bld 18:40 Auto Procedures Procedure DOS Code Location Performer Comment BASIC 71316 [place] METABOLIC 7 [facility] PANEL E E CALCIUM [facility] TOTAL THROMBOPL 64976 [facility] ASTIN 7 [facility] TIME E E PARTIAL [facility] PLASMA/[place] [address] [place] MAGNESIUM 7 [facility] HEALTHCAR E E [facility] [place] [address] [place] PHOSPHORU 7 [facility] HEALTH[facility] S E E INORGANIC [facility] ECG 11726 [place] ROUTINE 7 [facility] HE[facility] ECG E E W/LEAST [facility] 12 LDS TRCG ONLY W/O I&R DUP-SCAN 10863 [place] XTR VEINS 7 [facility]ALTH[facility] HEALTHCAR E E UNILATERA [facility] L/LIMITED STUDY INFUSION J7040 [place] NORMAL 7 [facility] HE[facility] SALINE E E SOLUTION [facility] STERILE PROTHROMB 03290 [place] IN TIME 7 [facility] HEALTHCAR E E [facility] DRUG TST G0483 [place] [facility] DEFINITV [address] ID E E METH P [facility] DAY [address] [address] [place] [facility] ANGIOGRAP 7 [facility] HY CHEST E E W/CONTRAS [facility] T/NONCONT RAST NATRIURET 96481 [place] [facility] IC 7 [facility] PEPTIDE [place] [address] [place] [facility] TROPONIN 7 [facility] QUANTITAT E [facility] LOCM Q9967 [facility] 300-399 7 [facility]CAR HEALTHCAR MG/ML E E IODINE [facility] HOSPITALS CONCENTRA TION PER ML ECG 11087 MELISSA VAZQUEZ ROUTINE 7 MEDICAL ECG SERV W/LEAST [facility] 12 LDS N I&R ONLY RADIOLOGI 67180 [place] C EXAM 7 [facility] CHEST 2 E E VIEWS [facility] FRONTAL&L ATERAL RADIOLOGI 41394 ROBBIN SIEGEL C EXAM 7 [facility] CHEST 2 INC INC VIEWS FRONTAL&L ATERAL CULTURE 83933 [facility] SIEGEL BACTERIAL 7 [facility] BLOOD INC INC AEROBIC W/ID ISOLATES ECG 16161 ROB[facility] MIRANDA ROUTINE 7 [facility] W/LEAST P 12 LDS I&R ONLY BLOOD 65119 [facility] SIEGEL COUNT 7 [facility] COMPLETE INC INC AUTO&[place] [address] [facility] SIEGEL TROPONIN 7 [facility] QUANTITAT INC INC IMAN GROUND A0425 [facility] AM[facility]UL[facility] PER SERVICE SERVICE STATUTE MILE AMB A0427 [facility] SERVICE 7 AMBULANCE AMBULANCE ALS SERVICE SERVICE EMERGENCY TRANSPORT LEVEL 1 COMPREHEN 24169 [facility] SIEGEL SIVE 7 [facility] METABOLIC INC INC PANEL PROTHROMB 60919 [facility] SIEGEL IN TIME 7 [facility] INC INC CREATINE 11573 ROBBIN SIEGEL KINASE MB 7 [facility] [place] [address] [facility] SIEGEL LACTATE 7 [facility] INC INC COLLECTIO 62817 [facility] SIEGEL N VENOUS 7 [facility] BLOOD INC INC VENIPUNCT URE CRITICAL 59401 [facility] 7 PHYSICIAN ILL/INJUR S, PLLC ED PATIENT INIT 30-74 MIN THERAPEUT 99535 ROBBIN ROBBIN IC 7 [facility] PROPHYLAC INC INC TIC/DX INJECTION SUBQ/IM ECG 79490 ROBBIN SIEGEL ROUTINE 7 [facility] ECG INC INC W/LEAST 12 LDS TRCG ONLY W/O I&R FIBRIN 47460 [facility] SIEGEL DGRADJ 7 [facility] PRODUCTS INC INC D-DIMER QUAL/SEMI MICHELLE CREATINE 09081 ROB[facility] SIEGEL KINASE 7 MEM [facility] TOTAL INC INC UNCLASSIF J3490 RBOBIN SIEGEL IED DRUGS 7 [facility] INC INC ECG 76780 [facility] ROUTINE 6 Y Y ECG [facility] W/LEAST 12 LDS TRCG ONLY W/O I&R RADEX 04590 [place] [facility] ANKLE 6 MEDICAL Y JUS COMPLETE SERV MINIMUM 3 FOUNDATIO VIEWS N RADEX 45688 [place] FOOT 6 MEDICAL Y JUS COMPLETE SERV MINIMUM 3 FOUNDATIO VIEWS N DRUG TST G0483 [facility] DEFINITV [address] [facility] METH P DAY [address]/[place] [address] [facility] TROPONIN 6 Y [facility] G0378 [facility] OBSERVATI 6 Y Y ON HOSPITAL HOSPITAL SERVICE PER HOUR ECG 60339 [place] CHI ROUTINE 6 MEDICAL ECG SERV W/LEAST FOUNDATIO 12 LDS N I&R ONLY ECG 97809 [place] ROUTINE 6 MEDICAL ECG SERV W/LEAST FOUNDATIO 12 LDS N I&R ONLY BLOOD 93601 UNIVERS UNIVERSIT COUNT 6 Y Y [facility] [place] [address] [facility] TROPONIN 6 Y [facility] B[facility] 07084 [facility] SIEGEL COUNT 6 [facility] COMPLETE INC INC AUTO&AUTO DIFRNTL WBC COMPATIBI 62484 [facility] LITY EACH 6 Y Y UNIT [facility] ELECTRONI C GROUND A0425 [facility] MILEAGE 6 AMBULANCE LAVELLE PER SERVICE STATUTE MILE AMB A0431 AIR AIR SERVICE 6 METHODS METHODS CONVNTION [facility] AIR SRVC TRANSPORT [address] INITIAL 04894 ROB[facility] SIEGEL OBSERVATI 6 [facility] ON INC INC CARE/DAY 50 [place] [address] [facility] INFUSION 6 Y Y THERAPY/P [facility] ROPLAXI S /DX 1ST TO 1 HR ARTL 94017 [place] TITUS CATHJ/CAN 6 MEDICAL NULJ SERV MNTR/PEREYRA FOUNDATIO SFUSION N SPX PRQ PLATELETS P9035 [facility] PHERESIS 6 Y Y [facility] LEUKOCYTE S REDUCED EACH UNIT COMPREHEN 66933 [facility] SIEGEL SIVE 6 [facility] [address] ROB[facility] SIEGEL ANGIOGRAP 6 MEM [facility] HOSP HY CHEST INC INC W/CONTRAS T/NONCONT RAST ANTIBODY 20646 [facility] SCREEN 6 Y Y RBC EACH [facility] SERUM TECHNIQUE BLOOD 46937 [facility] TYPING 6 Y Y SEROLOGIC [facility] ABO AMB A0427 [facility] SERVICE 6 AMBULANCE [place] ALS SERVICE EMERGENCY TRANSPORT LEVEL 1 PROTHROMB 28984 [facility] IN TIME 6 Y Y [facility] CREATINE 62722 ROBBIN SIEGEL KINASE MB 6 MEM [facility] HOSP FRACTION INC INC ONLY COLLECTIO 18477 ROB[facility] SIEGEL N VENOUS 6 MEM [facility] BLOOD INC INC VENIPUNCT URE ECG 80175 [facility] ROUTINE 6 Y Y ECG [facility] W/LEAST 12 LDS TRCG ONLY W/O I&R CREATINE 81878 ROB[facility] SIEGEL KINASE 6 MEM [facility] HOSP TOTAL INC INC BLOOD 31609 [facility] TYPING 6 Y Y SEROLOGIC [facility] RH (D) THROMBOPL 74901 [facility] ASTIN 6 Y Y TIME [facility] PARTIAL PLASMA/WH OLE BLOOD BASIC 21729 [facility] METABOLIC 6 Y Y [facility] CALCIUM TOTAL INFUSION J7040 [facility] NORMAL 6 Y Y [facility] SOLUTION STERILE CRITICAL [address] [place] [address] PHYSICIAN ALHAJI ILL/INJUR S, PLLC ED PATIENT INIT 30-74 MIN INFUSION J7030 [facility] 6 Y Y [facility] SOLUTION [address] [place] [address] [facility] 6 Y Y [facility] PROPHYLAX IS/DX EA HOUR RADIOLOGI 27565 [place] [facility] [facility] C 6 MEDICAL EXAMINATI IMAGING ON CHEST ASS SINGLE VIEW FRONTAL CT THORAX 18470 [facility] ALL 6 MEDICAL W/CONTRAS IMAGING T ASS MATERIAL RADIOLOGI 30155 [place] [facility] C 6 MEDICAL EXAMINATI IMAGING [place] [address] [place] [facility] HEAD/BRAI 6 MEDICAL N W/O IMAGING CONTRAST ASS MATERIAL COLLECTIO 34304 [facility] SIEGEL N VENOUS 6 [facility] BLOOD INC INC VENIPUNCT URE PROTHROMB 93959 [facility] SIEGEL IN TIME 6 [facility] INC INC ECG 89597 ROBBIN MIRANDA ROUTINE 6 [facility] [place] W/LEAST P 12 LDS I&R ONLY DRUG TST G0477 [facility] SIEGEL PRESUMP;C 6 [facility] PBL BEING INC INC READ DC OPT OBV ONLY THERAPEUT 91057 [facility] SIEGEL IC 6 [facility] PROPHYLAC INC INC TIC/DX INJECTION SUBQ/IM PROTHROMB 15691 [facility] SIEGEL IN TIME 6 [facility]OS[facility] INC INC COLLECTIO 53914 ROB[facility] SIEGEL N VENOUS 6 [facility]OS[facility] BLOOD INC INC VENIPUNCT [facility] 67449 [facility] 6 MEDICAL DAY SERV MANAGEMEN FOUNDATIO T > 30 N MIN WALKER E0143 PATIENT MARCHINO FOLDING 6 AIDS INC GWENDOLYN WHEELED ADJUSTABL E/FIXED HEIGHT SBS [address] [place] [address] MEDICAL CARE/DAY SERV 35 FOUNDATIO MINUTES N [facility] [address] [place] [facility] 6 MEDICAL KER RAN CARE/DAY SERV 35 FOUNDATIO MINUTES N SBSQ 92095 [facility] 6 MEDICAL KER RAN CARE/DAY SERV 35 FOUNDATIO MINUTES N SBSQ 09090 [facility] 6 MEDICAL ANIRUDH CARE/DAY SERV 35 FOUNDATIO MINUTES N SBSQ 15019 [facility] 6 MEDICAL JUANY CARE/DAY SERV 35 FOUNDATIO MINUTES N SBSQ 15776 [facility] 6 MEDICAL JUANY CARE/DAY SERV 35 FOUNDATIO MINUTES N SBSQ 06007 [facility] 6 MEDICAL JUANY CARE/DAY SERV 35 FOUNDATIO MINUTES N SBSQ 55835 [facility] 6 MEDICAL JUANY CARE/DAY SERV 35 FOUNDATIO MINUTES N SBSQ [address]805 [place] [address] MEDICAL ROSEMARY CARE/DAY SERV 35 FOUNDATIO MINUTES N SBSQ [address]223 [place] [address] MEDICAL ROSEMARY CARE/DAY SERV 35 FOUNDATIO MINUTES N SBSQ 77004 [place] [address] MEDICAL CARE/DAY SERV 35 FOUNDATIO MINUTES N SBSQ 82195 [facility] 6 MEDICAL CARE/DAY SERV 35 FOUNDATIO MINUTES N SBSQ 06107 [facility] 6 MEDICAL CARE/DAY SERV 35 FOUNDATIO MINUTES N SBSQ [address]187 [place] [address] MEDICAL CARE/DAY SERV 35 FOUNDATIO MINUTES N INITIAL 21714 [facility] 6 MEDICAL CARE/DAY SERV 70 FOUNDATIO MINUTES N RADIOLOGI 98420 [place] GOPAL C 6 MEDICAL EXAMINATI SERV ON CHEST FOUNDATIO SINGLE N VIEW FRONTAL RADIOLOGI 63760 [place] ZAGUROVSK C 6 MEDICAL AYA MAR EXAMINATI SERV ON CHEST FOUNDATIO SINGLE N VIEW FRONTAL ECG 78971 [place] [facility]I ROUTINE 6 MEDICAL ECG SERV W/LEAST FOUNDATIO 12 LDS N I&R ONLY SWALLOWIN 15350 [place] AYOOB AND G FUNCJ 6 MEDICAL W/CINERAD SERV IOGRAPY/V FOUNDATIO IDRADIOG N HEPATOBIL 65085 [place] EL RASHMIOULI IARY SYST 6 MEDICAL IMAGING SERV INCLUDING FOUNDATIO N GALLBLADD ER RADIOLOGI 06078 [place] MARVIN C 6 MEDICAL ALHAJI EXAMINATI SERV ON CHEST FOUNDATIO SINGLE N VIEW FRONTAL ECG 28528 [place] PAULINO ROUTINE 6 MEDICAL NAN ECG SERV W/LEAST FOUNDATIO 12 LDS N I&R ONLY ECG 72921 [place] MARK ANIRUDH ROUTINE 6 MEDICAL ECG SERV W/LEAST FOUNDATIO 12 LDS N I&[place] [address] [place] JAY DAVID ABDOMEN & 6 MEDICAL PELVIS SERV [place] [address] [place] CHRISTIE ABDOMINAL 6 MEDICAL LETY REAL SERV TOMMY TIME FOUNDATIO W/IMAGE N LIMITED ECG 13914 [place] MARK ANIRUDH ROUTINE 6 MEDICAL ECG SERV W/LEAST FOUNDATIO 12 LDS N I&R ONLY RADIOLOGI 46573 [place] GOPAL C 6 MEDICAL EXAMINATI SERV ON CHEST FOUNDATIO SINGLE N VIEW FRONTAL RADIOLOGI 94245 [place] C 6 MEDICAL MEDICAL EXAMINATI SERV SERV ON CHEST FOUNDATIO FOUNDATIO SINGLE N N VIEW FRONTAL RADEX ABD 32908 [place] JAY DAVID COMPL 6 MEDICAL AQT ABD SERV W/S/E/D FOUNDATIO VIEWS 1 N VIEW CH MRI BRAIN 00840 [place] RASLAU BRAIN 6 MEDICAL FLA STEM W/O SERV CONTRAST FOUNDATIO MATERIAL N DUP-SCAN 84131 [place] GRIFFITH FABIENNE XTR VEINS 6 MEDICAL COMPLETE SERV FOUNDATIO BILATERAL N STUDY SWALLOWIN 60187 [place] JAY DAVID G FUNCJ 6 MEDICAL W/CINERAD SERV IOGRAPY/V FOUNDATIO IDRADIOG N RADIOLOGI 31606 [place] GOPAL C 6 MEDICAL EXAMINATI SERV ON CHEST FOUNDATIO SINGLE N VIEW FRONTAL RADIOLOGI 88211 [place] IVELISSEK C 6 MEDICAL AYA MAR EXAMINATI SERV ON CHE[place] [address] [place] AVA ROSALBA ANGIOGRAP 6 MEDICAL HY NECK SERV W/CONTRAS FOUNDATIO T/NONCONT N RAST RADEX 69455 [place] [facility] NOHEMY ABDOMEN 1 6 MEDICAL SERV ANTEROPOS FOUNDATIO TERIOR N VIEW ECHO 34750 [place] JUAN GWENDOLYN TTHRC R-T 6 MEDICAL 2D SERV W/WOM-MOD FOUNDATIO E COMPL N SPEC&[place] [address] [place] AVA NAVARRETE ANGIOGRAP 6 MEDICAL HY HEAD SERV W/CONTRAS FOUNDATIO T/NONCONT N RAST SBSQ 89165 [place] [facility] 6 MEDICAL REINALDO CARE/DAY SERV 15 FOUNDATIO MINUTES N INSERTION [id number] [facility] 6 Y Y [facility] SUPERIOR VENA CAVA PERQ INITIAL 98986 [place] ECKER INPATIENT 6 MEDICAL GUNNER CONSULT SERV NEW/ESTAB FOUNDATIO PT 55 N MIN RADEX 28438 [place] [facility] NOHEMY ABDOMEN 1 6 MEDICAL SERV ANTEROPOS FOUNDATIO TERIOR N VIEW RADIOLOGI 35620 [place] THAI C 6 MEDICAL ALHAJI EXAMINATI SERV ON CHEST FOUNDATIO SINGLE N VIEW FRONTAL SBSQ 73882 [place] [facility] 6 MEDICAL ANT CARE/DAY SERV 25 FOUNDATIO MINUTES N RADIOLOGI 05996 [place] THAI 6 MEDICAL ALHAJI EXAMINATI SERV ON CHEST [place] [address] [place] RASLAU HEAD/BRAI 6 MEDICAL FLA N W/O SERV CONTRAST FOUNDATIO MATERIAL N CRITICAL 01086 [place] [facility] 6 MEDICAL ANT ILL/INJUR SERV ED FOUNDATIO PATIENT N INIT 30-74 MIN CRITICAL 48131 [place] [facility] 6 MEDICAL ANT ILL/INJUR SERV ED FOUNDATIO PATIENT N INIT 30-74 MIN RADIOLOGI 05674 [place] THAI C 6 MEDICAL ALHAJI EXAMINATI SERV ON CHEST FOUNDATIO SINGLE N VIEW FRONTAL RADIOLOGI 78662 [place] JEIMY C 6 MEDICAL AYA MAR EXAMINATI SERV ON CHEST FOUNDATIO SINGLE N VIEW FRONTAL CRITICAL 60214 [place] [facility] 6 MEDICAL ANT ILL/INJUR SERV ED FOUNDATIO PATIENT N INIT 30-74 MIN RADIOLOGI 82822 [place] ANDRE C 6 MEDICAL ALHAJI EXAMINATI SERV ON CHEST FOUNDATIO SINGLE N VIEW FRONTAL RADIOLOGI 96047 [place] JEIMY C 6 MEDICAL AYA MAR EXAMINATI SERV ON CHEST FOUNDATIO SINGLE N VIEW FRONTAL ANES 84377 [place] AJAY NERVE 6 MEDICAL LIS MUSC SERVICES TENDON FASCIA & BURSAE UPPER LEG DEBRIDEME 42746 [place] XENOS TYLER NT MUSCLE 6 MEDICAL & FASCIA SERV 20 SQ FOUNDATIO CM/< N DEBRIDEME 13316 [place] XENOS TYLER NT MUSCLE 6 MEDICAL &/FASCIA SERV EA ADDL FOUNDATIO 20 SQ CM N LEVEL III 42853 [facility] 6 Y OF PATHOLOGY [place] [facility]&ALHAJI ROSCOPIC EXAM RADIOLOGI 76991 [place] REM[facility] SLATER C 6 MEDICAL EXAMINATI SERV ON CHEST FOUNDATIO SINGLE N VIEW FRONTAL RADIOLOGI 36137 [place] ORA GWENDOLYN C 6 MEDICAL EXAMINATI SERV ON CHEST FOUNDATIO SINGLE N VIEW FRONTAL RADIOLOGI 61907 [place] LILA C 6 MEDICAL MAR EXAMINATI SERV ON CHEST FOUNDATIO SINGLE N VIEW FRONTAL CRITICAL 68340 [place] [facility] 6 MEDICAL ANTOINE ILL/INJUR SERV ED FOUNDATIO PATIENT N INIT 30-74 MIN CRITICAL 46907 [place] [facility] 6 MEDICAL ANTOINE ILL/INJUR SERV ED FOUNDATIO PATIENT N INIT 30-74 MIN RADIOLOGI 84527 [place] [facility] NOHEMY C 6 MEDICAL EXAMINATI SERV ON CHEST FOUNDATIO SINGLE N VIEW FRONTAL RADEX 72741 [place] AYOOB AND ABDOMEN 1 6 MEDICAL SERV ANTEROPOS FOUNDATIO TERIOR N VIEW RADEX 09513 [place] RIDGE ABDOMEN 1 6 MEDICAL ADR SERV ANTEROPOS FOUNDATIO TERIOR N VIEW ANES 21519 [place] DELAHOUSA NRV/MUS/T 6 MEDICAL Y ANTOINE ND/FASC SERVICES LOWER LEG/ANKLE /FOOT NOS RADIOLOGI 76130 [place] PAYAN GWENDOLYN C 6 MEDICAL EXAMINATI SERV ON CHEST FOUNDATIO SINGLE N VIEW FRONTAL DCMPRN 17995 [place] GRIFFITH FABIENNE FASCT LEG 6 MEDICAL SERV ANT&/LAT& FOUNDATIO PST CMPRT N CRITICAL 77705 [place] [facility] 6 MEDICAL ANTOINE ILL/INJUR SERV ED FOUNDATIO PATIENT N INIT 30-74 MIN CRITICAL 52664 [place] [facility] 6 MEDICAL ANTOINE ILL/INJUR SERV ED FOUNDATIO PATIENT N INIT 30-74 MIN RADIOLOGI 70154 [place] ANDRE C 6 MEDICAL ALHAJI EXAMINATI SERV ON CHEST FOUNDATIO SINGLE N VIEW FRONTAL REVSC 21969 [place] MELISSA OPN/PRQ 6 MEDICAL MEDICAL ILIAC ART SERV SERV W/STNT FOUNDATIO FOUNDATIO PLMT & N N ANGIOPLST Y LEVEL III 42009 [facility] SURG 6 Y [facility] PATHOLOGY [place] [facility]&ALHAJI ROSCOPIC EXAM INTRAVASC 54617 MELISSA PUCKETTSTAN ULAR US 6 MEDICAL ROWENA NONCORONA SERV RY RS&I FOUNDATIO INTIAL N VESSEL ANESTHESI 79229 [place] ADAM A THER 6 MEDICAL RANDI IVNTL SERVICES RADIOLOGI CORIN ARTERIAL EMBLC/THR 57610 MELISSA PUCKETTSTAN MBC 6 MEDICAL ROWENA FEMORAL SERV POPLITEAL FOUNDATIO N AORTO-YUKO AC ART EXTIRPATI [id number] [facility] ON MATTER 6 Y Y RT EXT [facility] ILIAC ART OPEN APPRCH DIL RT [id number] [facility] ILIAC 6 Y Y ART [facility] INTRALUM DEVICE PERQ APPR DIL LT [id number] [facility] ILIAC 6 Y Y ART [facility] INTRALUM DEVICE PERQ APPR ECG 91785 MELISSA LIMA CHI ROUTINE 6 MEDICAL ECG SERV W/LEAST FOUNDATIO 12 LDS N I&R ONLY CTA ABDL 06935 [place] THAI AORTA&BI 6 MEDICAL ALHAJI ILIOFEM SERV W/CONTRAS FOUNDATIO T&POSTP N RADIOLOGI 77709 [place] PAYAN GWENDOLYN C 6 MEDICAL EXAMINATI SERV ON CHEST FOUNDATIO SINGLE N VIEW FRONTAL CRITICAL 95546 [place] [facility] 6 MEDICAL ANTOINE ILL/INJUR SERV ED FOUNDATIO PATIENT N INIT 30-74 MIN CRITICAL 38284 [facility] 6 MEDICAL SURJIT ILL/INJUR SERV ED FOUNDATIO PATIENT N INIT 30-74 MIN SBSQ 12244 [facility] 6 PHYSICIAN MAT CARE/DAY S GROUP [address] [facility] HRT & 6 PHYSICIAN MAT ARTS S GROUP W/NJX & ANGIO IMG S&I CT ANGIO 97892 MELISSA NICKELS ABD&PLVIS 6 MEDICAL REINALDO CNTRST SERV MTRL W/WO FOUNDATIO CNTRST N IMG AMB A0427 [facility] 6 AMBULANCE AMBULANCE ALS SERVICE SERVICE EMERGENCY TRANSPORT LEVEL 1 LEVEL III 80206 [facility] SURG 6 Y OF MAY PATHOLOGY [place] [facility]&[place] [address] MELISSA RASLAU ANGIOGRAP 6 MEDICAL FLA HY NECK SERV W/CONTRAS FOUNDATIO T/[place] [address] MELISSA NICKELS ANGIOGRAP 6 MEDICAL REINALDO HY CHEST SERV W/CONTRAS FOUNDATIO T/NONCONT N RAST ECG 58847 MELISSA LIMA CHI ROUTINE 6 MEDICAL ECG SERV W/LEAST FOUNDATIO 12 LDS N I&[place] [address] MELISSA RASLAU ANGIOGRAP 6 MEDICAL FLA HY HEAD SERV W/CONTRAS FOUNDATIO T/NONCONT N RAST SPCL STN 19246 [place] [address] I&R 6 Y OF MAY EXCPT [place] [facility] ENZYME/IM CYT INITIAL 42669 [place] [facility] 6 MEDICAL CARE/DAY SERV 70 FOUNDATIO MINUTES N GROUND A0425 [facility]UL[facility] PER SERVICE SERVICE STATUTE MILE REPLACEME [id number] [facility] 6 Y Y [facility] W/SYNTH SUBST OPEN APPRCH GROUND A0425 [facility] AM[facility]ULANCE PER SERVICE SERVICE STATUTE MILE CT THORAX 62817 [place] JORGE ALBERT[facility] W/O 6 MEDICAL [place] CONTRAST IMAGING MATERIAL ASS AMB A0427 [facility] 6 AMBULANCE AMBULANCE ALS SERVICE SERVICE [place] [address] [place] [facility] ABDOMEN & 6 MEDICAL [place] PELVIS IMAGING W/O ASS CONTRAST MATERIAL RADIOLOGI 09195 [place] [facility] C 6 [facility] [place] EXAMINATI IMAGING ON CHEST ASS SINGLE VIEW FRONTAL RADEX ABD 21851 [facility] AZUL COMPL 6 [facility] [place] AQT ABD IMAGING W/S/E/D ASS VIEWS 1 VIEW PHYSICAL 30730 [facility] SIEGEL THERAPY 5 [facility] HOSP EVALUATIO INC INC N GROUND A0425 [facility] 5 AMBULANCE AMBULANCE PER SERVICE SERVICE STATUTE MILE RADIOLOGI 31993 [facility] C 5 MEDICAL EXAMINATI IMAGING ON CHEST ASS SINGLE VIEW FRONTAL AMB A0427 [facility] SERVICE 5 AMBULANCE AMBULANCE ALS SERVICE SERVICE EMERGENCY TRANSPORT LEVEL 1 NONEMERG A0120 FEDERATED FEDERATED TRNSPRT: 5 MINI-BUS TRANSPORT TRANSPORT MTN ATION SER ATION SER AREA/OTH SYS SPECIAL 80468 [facility], PÉREZ STAIN 5 [facility] LIAM GROUP 1 MICROORGA NISMS I&R EGD 80676 ROB[facility] SIEGEL TRANSORAL 5 [facility] HOSP BIOPSY INC INC SING[place] [address] [facility], PÉREZ SURG 5 [facility] LIAM PATHOLOGY GROSS&ALHAJI ROSCOPIC EXAM COLONOSCO 45228 [facility] SUKHDEV PY FLX DX 5 PHYSICIAN CAM W/COLLJ S GROUP SPEC WHEN PFRMD ANES 35026 [facility] LOWER 5 ANESTH SHE INTESTINE OF THE BLUE ENDOSCOPY DISTAL DUODENUM RADIOLOGI 82868 [facility] TOP[facility] C 5 MEDICAL MELY EXAMINATI IMAGING ON CHEST ASS SINGLE VIEW FRONTAL DUP-SCAN 52817 [facility] JORGE ALBERTO XTR VEINS 5 [facility] [place] IMAGING UNILATERA ASS L/LIMITED STUDY RADIOLOGI 81998 [facility] C 5 MEDICAL MELY EXAMINATI IMAGING ON PELVIS ASS 1/2 VIEWS GROUND A0425 [facility] 5 AMBULANCE AMBULANCE PER SERVICE SERVICE STATUTE MILE ECG 33357 ROBBIN KHAN JR ROUTINE 5 [facility] W/LEAST P 12 LDS I&R ONLY AMBULANCE A0429 GENEVIEVE [facility] SERVICE 5 AMBULANCE AMBULANCE BLS SERVICE SERVICE EMERGENCY TRANSPORT CULTURE 33734 [facility] SIEGEL BACTERIAL 5 [facility] INC INC QUANTTATI VE COLONY COUNT URINE CATH PLMT 97709 [facility] FALLUJI L HRT & 5 [facility] W/NJX & G ANGIO IMG S&I CREATINE 90863 [facility] SIEGEL KINASE 5 [facility] TOTAL INC INC CYANOCOBA 66059 [facility] SIEGEL ISSAC 5 [facility] VITAMIN INC INC B-12 CRITICAL 55215 ROB[facility] SIEGEL CARE 5 [facility] ED P P PATIENT INIT 30-74 MIN HEPATITIS 26873 [facility]IEGEL A 5 [facility] ANTIBODY INC INC HAAB COMPREHEN 98923 [facility]GEL SIVE 5 [facility] METABOLIC INC INC PANEL PROTHROMB 23417 [facility] SIEGEL IN TIME 5 [facility] INC INC COLLECTIO 75936 [facility] S[facility] N VENOUS 5 [facility] BLOOD INC INC VENIPUNCT URE CREATINE 38124 [facility] SIEGEL KINASE MB 5 [facility] [place] [address] [facility] SIEGEL FREE 5 [facility] [place] [address] [facility] SIEGEL THYROID 5 [facility] STIMULATI [place] [address] ROBBIN SIEGEL VITAMIN A 5 [facility] INC INC HEPATITIS 93243 [facility] SIEGEL B CORE 5 [facility] [place] [address] [facility] SIEGEL AMMONIA 5 [facility] INC INC ECG 00757 ROBBIN MIRANDA ROUTINE 5 [facility] W/LEAST P 12 LDS I&R ONLY HEMOGLOBI 92110 [facility] SIEGEL N 5 [facility] GLYCOSYLA INC INC CHRISTIE A1C CRITICAL 23768 ROBBIN QUINTANILLA CARE 5 [facility] ILL/INJUR [facility] ED P PATIENT ADDL 30 MIN BLOOD 74938 [facility] SIEGEL COUNT 5 [facility] COMPLETE INC INC AUTO&[place] [address] ROB[facility] SIEGEL TROPONIN 5 [facility] QUANTITAT INC INC IMAN HEPATITIS 75222 [facility] SIEGEL C 5 [facility] ANTIBODY INC INC RADIOLOGI 16664 [facility] EX[facility] 5 MEDICAL MELY CHEST 2 IMAGING VIEWS ASS FRONTAL&L ATERAL HEPATITIS 35971 ROB[facility] SIEGEL B SURF 5 [facility] [address] ROB[facility] SIEGEL HEPATITIS 5 [facility] B INC INC SURFACE ANTIGEN OPHTH 23236 [facility] 5 ANG ANG XM&EVAL COMPRHNSV ESTAB PT 1/> AMB A0427 BARRIE BARRIE SERVICE 5 [facility]AY[facility] FAYET[facility] U[facility]AN U[facility]AN EMERGENCY COGOVT COGOVT TRANSPORT LEVEL 1 RADIOLOGI 92699 MELISSA ZAHEER LAIRD C 5 MEDICAL EXAMINATI SERV ON CHEST FOUNDATIO SINGLE N VIEW FRONTAL GROUND A0425 BARRIE BARRIE MILEAGE 5 FAYETTE FAYETTE PER URBAN URBAN STATUTE COGOVT COGOVT MILE MYOCARDIA 98078 [place] JORGE ALBERT[facility] L SPECT 4 [facility] [place] MULTIPLE IMAGING STUDIES ASS ECHO 04610 MELISSA POOLE TTHRC R-T 4 MEDICAL 2D SERV W/WOM-MOD FOUNDATIO E COMPL N SPEC&COLR D RADIOLOGI 99580 [facility] 4 MEDICAL MELY EXAMINATI IMAGING ON CHEST ASS SINGLE VIEW FRONTAL CRITICAL 47903 [facility] CARE 4 MONCHO ILL/INJUR EMERGENCY ED PHYS PATIENT INIT 30-74 MIN AMB A0427 GENEVIEVE VALLEJO SERVICE 4 AMBULANCE AMBULANCE ALS SERVICE SERVICE EMERGENCY TRANSPORT LEVEL 1 ECG 26060 EWELINA THO EWELINA THO ROUTINE 4 ECG W/LEAST 12 LDS I&R ONLY GROUND A0425 GENEVIEVE VALLEJO MILEAGE 4 AMBULANCE AMBULANCE PER SERVICE SERVICE STATUTE MILE Encounters Encounter Start End Date Code Location Performer Type Date EMERGENCY 02387 [facility] 7 7 [facility] DEPARTMEN INC T VISIT LOW/MODER SEVERITY [facility]OSPITAL [facility] - 7 7 [facility] OUTPATIEN INC T EMERGENCY 50283 MELISSA MARTINEZ 7 7 MEDICAL DEPARTMEN SERV T VISIT FOUNDATIO HIGH/URGE N NT SEVERITY EMERGENCY 96461 DEPT 7 7 [facility] SEVERITY& THREAT [facility] - 7 7 [facility] OUTPATIEN E T HOSPITALS EMERGENCY 29619 [facility] DEPT 7 7 [facility] VISIT INC HIGH SEVERITY& THREAT [facility] ROBBIN - 7 7 [facility] OUTPATIEN INC T EMERGENCY 44302 GABE POLK 6 6 PHYSICIAN NOHEMY [facility] S, [facility] T VISIT MODERATE SEVERITY OFFICE 88437 [facility] 6 6 PHYSICIAN ALHAJI T VISIT S GROUP 15 MINUTES EMERGENCY 64748 [facility] DEPT 6 6 Y VISIT HOSPITAL HIGH SEVERITY& THREAT [facility] UN[facility]IT - 6 6 Y OUTPATI HOSPITAL T EMERGENCY 21283 MELISSA QURESHI 6 6 MEDICAL DEPARTMEN SERV T VISIT FOUNDATIO HIGH/URGE N NT SEVERITY HOSPITAL ROBBIN - 6 6 [facility] OUTPATIEN INC T EMERGENCY 91987 GABE MOORE 6 6 PHYSICIAN JR CHENG [facility] S, [facility] VIS[facility] HIGH/URGE NT SEVERITY OFFICE 70592 [facility] ALHAJI T VISIT S GROUP 15 MINUTES HOSPITAL [facility]BIN - 6 6 [facility] OUTPATIEN INC T EMERGENCY 85026 [facility] 6 6 [facility] DEPARTMEN INC T VISIT LOW/MODER SEVERITY HOSPITAL [facility] - 6 6 [facility] OUTPATIEN INC T EMERGENCY 28244 GABE QUINTANILLA 6 6 PHYSICIAN ALHAJI [facility] S, [facility] T VISIT MODERATE SEVERITY HOSPITAL ROBBIN - 6 6 [facility] OUTPATIEN INC T HOSPITAL CARDINAL - 6 6 [facility] UNIVERSIT - 6 6 INPATIENT HOSPITAL EMERGENCY 81280 MELISSA LORENA 6 6 [facility] T VISIT FOUNDATIO MODERATE N SEVERITY HOSPITAL ROBBIN - 5 5 [facility] OUTPATIEN INC EMERGENCY 24700 GABE QUINTANILLA DEPT 5 5 PHYSICIAN ALHAJI VISIT [facility] SE[facility]& THREAT [facility] ROBBIN - 5 5 [facility] INC T OFFICE 17181 [facility] SUKHDEV OUTPATIEN 5 5 PHYSICIAN CAM T NEW 45 S GROUP MINUTES OFFICE 58863 SCIFRJOHN SCIFRES OUTPATIEN 5 5 ANG ANG T VISIT 15 MINUTES EMERGENCY 74415 ROBBIN QUINTANILLA 5 5 [facility] ALICE T VISIT P HIGH/URGE NT SEVERITY HOSPITAL ROBBIN - 5 5 [facility] OUTPATIEN INC T HOSPITAL ROBBIN - 5 5 [facility] OUTPATIEN INC T EMERGENCY 61864 [facility] DEPT 5 5 [facility] I ALI VISIT EMERGENCY HIGH PHYS SEVERITY& THREAT FUN OFFICE 20542 [facility] [place] 4 4 PHYSICIAN ALHAJI T NEW 30 S GROUP MINUTES EMERGENCY 84305 SAM QUINTANILLA DEPT 4 4 ALHAJI ALHAJI VISIT HIGH SEVERITY& THREAT FUNJ Emergency ARMIDA Quintanilla MD (ER) 3 18:12 3 22:52 [facility]
--- OUTSIDE RECORDS SUMMARY | 2017-03-05 05:25 | External Medical Summary Rpt | CCD ---
Author Author , DEVENDRA Organization DEVENDRA Address Unknown Phone [email or web address] Care Team Providers Care Respite Provider Name Role Phone [facility] [place], Unavailable Unavailable [facility] [place] [facility] [place], Unavailable Unavailable [facility] [place] AJAY LIS, AJAY Unavailable Unavailable LIS AYOOB AND, AYOOB AND Unavailable Unavailable BEINEKE MELY, BEINEKE Unavailable Unavailable MELY BESSON, BESSON Unavailable Unavailable BESSON GWENDOLYN, BESSON Unavailable Unavailable GWENDOLYN TYLER ALL, TYLER ALL Unavailable Unavailable ANDRE ALHAJI, ANDRE Unavailable Unavailable ALHAJI [facility] Unavailable Unavailable SERVICE, [facility]available Unavailable SERVICE, [facility] PAIGE LAVELLE, PAIGE Unavailable Unavailable [facility], [facility] TITUS, TITUS Unavailable Unavailable GEORGE, GEORGE [...] Unavailable EWELINA THO, EWELINA THO Unavailable Unavailable [facility] Un[facility] Unavailable INC, [facility] Unavailable Unavailable HOSPITAL P, [facility] P AIME ANTOINE, AIME Unavailable Unavailable ANTOINE [facility], Unavailable Unavailable [facility] PAYAN GWENDOLYN, PAYAN GWENDOLYN Unavailable Unavailable DB CARL, DB CARL Unavailable Unavailable [facility] Unavailable Unavailable MEDICAL G, [facility] G AVA ROSALBA, AVA ROSALBA Unavailable [...] HEALTHC[facility] Unavailable Unavailable [facility], [facility], Unavailable Unavailable [facility] Unavailable Unavailable [facility] [facility] Unavailable Unavailable MARVIN ALHAJI, MARVIN Unavailable Unavailable ALHAJI XENOS TYLER, XENOS TYLER Unavailable Unavailable ZAGUROVSKAYA MAR, Unavailable Unavailable ZAGUROVSKAYA MAR Purpose Continuity of Care Document - 09-10-2012 through 2016 Problems Code Diagnosis DOS Provider Status I10 ESSENTIAL 01-09-2017 [facility], HYPERTENSIO [facility] N Z0289 ENCOUNTER 01-09-2017 [facility] FOR OTHER PHYSICIANS, ADMINISTRAT [facility] IMAN EXAMINATION S H23877 OTHER LONG 01-09-2017 [facility] CURRENT INC DRUG THERAPY Z9114 PATIENTS 01-09-2017 [facility] OT PHYSICIANS, NONCOMPLIAN [facility] CE W/MEDICATIO N REGIMEN I2510 [facility] [place] 09-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 HEALTHCARE ARTERY W/O HOSPITALS ANGINA 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 I4581 LONG QT 09-03-2016 [facility] SYNDROME SERV [facility]ATION I517 CARDIOMEGAL 09-03-2016 [facility] [employer] MEDICAL Y SERV FOUNDATION I7100 DISSECTION 09-03-2016 [employer] [employer] MEDICAL OF SERV UNSPECIFIED FOUNDATION SITE OF AORTA I739 PERIPHERAL 09-03-2016 VASCULAR [facility]CARE DISEASE HOSPITALS UNSPECIFIED M7989 OTHER 09-03-2016 [place] [facility] SPECIFIED SERV SOFT TISSUE FOUNDATION DISORDERS R079 CHEST PAIN 09-03-2016 UNSPECIFIED HEALTHCARE HOSPITALS R9431 ABNORMAL 09-03-2016 [place] [facility] ELECTROCARD SERV IOGRAM FOUNDATION Z8673 PERSONAL HX 09-03-2016 [facility] INFARCT NO RESID DEFICIT 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 C66904 PAIN IN 09-02-2016 [facility] RIGHT LEG PHYSICIANS, [facility] R072 PRECORDIAL 09-02-2016 [facility] PAIN PHYSICIANS, [facility] R600 LOCALIZED 09-02-2016 [facility] EDEMA PHYSICIANS, [facility] R791 ABNORMAL 09-02-2016 [facility] P R7989 OTHER SPEC 09-02-2016 [facility] ABNORMAL PHYSICIANS, FINDINGS [facility] BLOOD CHEMISTRY Z0389 ENCOUNTER 09-02-2016 [place] [facility] MEDICAL SUSPCT DZ & IMAGING ASS COND RULED OUT V44634 PAIN IN 01-28-2016 [place] [facility] RIGHT FOOT SERV [facility] 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 I7101 DISSECTION 01-27-2016 [facility] AORTA [facility] P I719 AORTIC 01-27-2016 [facility] ANEURYSM PHYSICIANS, UNSPECIFIED PLL SITE WITHOUT RUPTURE 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 R0789 OTHER CHEST 01-27-2016 [place] [facility] 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-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 [facility] Z951 PRESENCE OF 01-27-2016 [facility] AORTOCORONA RY BYPASS GRAFT Z9989 DEPENDENCE 01-27-2016 [facility] ON OTHER [place] ENABLING MACHINES & DEVICES R55 SYNCOPE AND 01-06-2016 [facility] COLLAPSE PHYSICIANS, [facility] Z955 PRESENCE OF 01-06-2016 [facility] P IMPLANT & GRAFT 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 PHYSICIANS UNSPECIFIED GROUP [id number] COMPARTMENT 01-03-2016 [facility] SYNDROME PHYSICIANS UNSPECIFIED GROUP INITIAL ENCNTR G8918 OTHER ACUTE 01-01-2016 [facility] POSTPROCEDU INC RAL PAIN U71233 PAIN IN 01-01-2016 [facility] RIGHT LOWER [facility] LEG INC 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 Y95752 DYSPHAGIA 12-28-2015 PATIENT FOLLOWING 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 R1310 DYSPHAGIA 12-28-2015 PATIENT UNSPECIFIED AIDS INC R2681 UNSTEADINES 12-28-2015 PATIENT S ON FEET AIDS INC R269 UNSPECIFIED 12-28-2015 PATIENT AIDS INC ABNORMALITI ES OF GAIT AND MOBILITY R5381 OTHER 12-27-2015 [place] [facility] MALAISE SERV [facility] H24977 ENCOUNTER 12-13-2015 [facility] FOLLOW ION SURGERY CIRC SYS X48744 ENCOUNTER 12-13-2015 [facility] AFTERCARE REHABILITAT FLW SURG ION SKIN&SUBQ TISS Z9889 OTHER 12-13-2015 [place] [facility] SPECIFIED SERV POSTPROCEDU FOUNDATION RAL STATES J90 PLEURAL 12-11-2015 [place] [facility] EFFUSION SERV NOT FOUNDATION ELSEWHERE CLASSIFIED R001 BRADYCARDIA 12-06-2015 [place] [facility] SERV UNSPECIFIED FOUNDATION H35895 ELEVATED 12-01-2015 [place] [facility] WHITE BLOOD SERV CELL COUNT FOUNDATION UNSPECIFIED I447 LEFT 12-01-2015 [place] [facility] BUNDLE-BRAN SERV CH BLOCK FOUNDATION UNSPECIFIED R0602 SHORTNESS 12-01-2015 [place] [facility] OF BREATH SERV FOUNDATION R109 UNSPECIFIED 12-01-2015 [place] [facility] ABDOMINAL SERV PAIN FOUNDATION R932 ABNORMAL 12-01-2015 [place] [facility] FIND ON DX SERV IMAGING FOUNDATION LIVER & BILI TRACT K810 ACUTE 11-30-2015 [place] [facility] CHOLECYSTIT SERV IS FOUNDATION R112 NAUSEA WITH 11-30-2015 [place] [facility] VOMITING SERV UNSPECIFIED FOUNDATION R509 FEVER 11-30-2015 [place] [facility] UNSPECIFIED SERV FOUNDATION J9811 ATELECTASIS 11-29-2015 [place] [facility] SERV [facility] Z430 ENCOUNTER 11-29-2015 [place] [facility] FOR SERV ATTENTION FOUNDATION TO TRACHEOSTOM Y A53522 ACUTE 11-25-2015 [place] [facility] EMBOLISM & SERV THROMBOSIS FOUNDATION SUP VEINS RT UP EXT R0989 OTH SPEC SX 11-25-2015 [place] [facility] & SIGNS SERV INVLV THE FOUNDATION CIRC & RESP SYS Z049 ENCOUNTER 11-25-2015 [place] [facility] EXAMINATION SERV &OBSERVATIO FOUNDATION N FOR UNS REASON I083 COMB 11-23-2015 [place] [facility] RHEUMAT D/O SERV MITRAL FOUNDATION AORTC & TRICUSPID VALVES I371 NONRHEUMATI 11-23-2015 [place] [facility] C PULMONARY SERV VALVE FOUNDATION INSUFFICIEN CY I619 NONTRAUMATI 11-23-2015 [place] [facility] C SERV INTRACEREBR FOUNDATION AL HEMORRHAGE UNS I7771 DISSECTION 11-23-2015 [place] [facility] OF CAROTID SERV ARTERY FOUNDATION I998 OTHER 11-23-2015 [place] [facility] DISORDER OF SERV FOUNDATION CIRCULATORY SYSTEM [id number] TRAUMAT 11-23-2015 [place] [facility] COMPARTMENT SERV SYND RT FOUNDATION LOW EXTREM INIT ENC Z452 ENCOUNTER 11-23-2015 [place] [facility] ADJUSTMENT& SERV MGMT FOUNDATION VASCULAR ACCESS DEVICE D62 ACUTE 11-22-2015 [place] [facility] POSTHEMORRH SERV AGIC ANEMIA FOUNDATION E870 HYPEROSMOLA 11-22-2015 [place] [facility] LITY AND SERV HYPERNATREM FOUNDATION IA I638 OTHER 11-22-2015 [place] [facility] CEREBRAL SERV INFARCTION FOUNDATION J951 ACUTE 11-22-2015 [place] [facility] PULMONARY SERV INSUFF FOUNDATION FOLLOW THORACIC SURGERY R531 WEAKNESS 11-22-2015 [place] [facility] SERV [facility] Z4659 ENCOUNTER 11-22-2015 [place] [facility] FIT & SERV ADJUST OTH FOUNDATION GI APPLIANCE & DEVICE Z4682 ENCOUNTER 11-22-2015 [place] [facility] FITTING & SERV ADJUST FOUNDATION NON-VASCULA R CATHETER J984 OTHER 11-21-2015 [place] [facility] DISORDERS SERV OF LUNG FOUNDATION R609 EDEMA 11-21-2015 [place] [facility] UNSPECIFIED SERV FOUNDATION R930 ABNORMAL 11-21-2015 [place] [facility] FINDINGS ON SERV DX IMAGING FOUNDATION SKULL & HEAD NEC E8770 FLUID 2015 [place] [facility] OVERLOAD SERV UNSPECIFIED FOUNDATION J811 CHRONIC 2015 [place] [facility] PULMONARY SERV EDEMA FOUNDATION J9600 ACUTE 2015 [place] [facility] RESPIRATORY SERV FAIL UNS FOUNDATION HYPOXIA/HYP ERCAPNIA M6282 RHABDOMYOLY 2015 [place] [facility] SIS [facility] N179 ACUTE 2015 [place] [facility] KIDNEY SERV FAILURE FOUNDATION UNSPECIFIED Z930 TRACHEOSTOM 2015 [place] [facility] Y STATUS SERV FOUNDATION M6289 OTHER 11-17-2015 [facility] DISORDERS HOSPI OF MUSCLE E878 OTHER D/O 11-14-2015 [place] [facility] OF SERV ELECTROLYTE FOUNDATION AND FLUID BALANCE NEC J9691 RESPIRATORY 11-14-2015 [place] [facility] FAILURE SERV UNSPECIFIED FOUNDATION WITH HYPOXIA R633 FEEDING 11-14-2015 [place] [facility] DIFFICULTIE SERV S FOUNDATION R918 OTHER 11-12-2015 [place] [facility] NONSPECIFIC SERV ABNORMAL FOUNDATION FINDING OF LUNG FIELD T67187 ACUTE 11-11-2015 [facility] THROMBOSIS HOSPI RIGHT POPLITEAL VEIN D649 ANEMIA 11-10-2015 [place] [facility] UNSPECIFIED SERV FOUNDATION I743 EMBOLISM & 11-10-2015 [place] [facility] THROMBOSIS SERV ART THE FOUNDATION LOWER EXTREMITIES J982 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[place] [facility] L EMPHYSEMA SERV FOUNDATION R739 HYPERGLYCEM 11-10-2015 [place] [facility] IA SERV UNSPECIFIED FOUNDATION Z048 ENCOUNTER 11-10-2015 [place] [facility] EXAM & SERV OBSERVATION FOUNDATION OTHER SPEC REASONS E785 HYPERLIPIDE 11-09-2015 [facility] NIGEL PHYSICIANS UNSPECIFIED GROUP I209 ANGINA 11-09-2015 [facility] PECTORIS PHYSICIANS UNSPECIFIED GROUP I4901 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-09-2015 [facility] FIBRILLATIO N 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 ION I700 ATHEROSCLER 11-09-2015 [place] [facility] [facility] AORTA HOSPI I7102 DISSECTION 11-09-2015 [place] [facility] OF SERV ABDOMINAL FOUNDATION AORTA 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 J189 PNEUMONIA 11-09-2015 [facility] [facility] ORGAN[facility] T88637 ACUTE 11-09-2015 [place] [facility] POSTPROCEDU SERV RAL FOUNDATION RESPIRATORY FAILURE R200 ANESTHESIA 11-09-2015 [place] [facility] OF SKIN SERV FOUNDATION R570 CARDIOGENIC 11-09-2015 [place] [facility] SHOCK SERV [facility]OUNDATION I24630 THORACIC 11-08-2015 [place] [facility] MEDICAL ECTASIA IMAGING ASS M545 LOW BACK 05-04-2015 [facility] INC R030 ELEVATED 03-09-2015 [facility] BLOOD-PRESS AMBULANCE URE READING SERVICE WITHOUT DX HTN R071 CHEST PAIN 03-09-2015 [facility] ON AMBULANCE BREATHING SERVICE 49852 11-09-2014 [facility] 50985 HELICOBACTE 09-17-2014 [facility] INFECTION 90065 OTHER SPEC 09-17-2014 [facility] WITHOUT MENTION HEMORRHAGE 39698 UNS 09-17-2014 [facility] GASTRITIS&G PHYSICIANS ASTRODUODIT GROUP IS W/O MENTION HEMORR 19399 DIVERTICULO 09-17-2014 [facility] SIS OF PHYSICIANS COLON GROUP 5693 HEMORRHAGE 09-17-2014 [facility] OF RECTUM PHYSICIANS AND ANUS GROUP 5780 HEMATEMESIS 09-17-2014 [facility] PHYSICIANS GROUP 35792 HEMOPTYSIS 09-17-2014 [facility] UNSPECIFIED ANESTH OF THE BLUE 7921 NONSPECIFIC 09-17-2014 COMMUNITY ABNORMAL ANESTH OF FINDING IN THE BLUE STOOL CONTENTS 5781 BLOOD IN 09-03-2014 [facility] STOOL PHYSICIANS GROUP 7871 HEARTBURN 09-03-2014 [facility] PH[facility]ANS GROUP V7651 SPECIAL 09-03-2014 [facility] SCREENING PHYSICIANS FOR GROUP MALIGNANT NEOPLASMS COLON 74250 BORDERLINE 08-21-2014 [facility] OPEN ANGLE BL FINDINGS LOW RSK 4019 UNSPECIFIED 08-19-2014 [facility] P N 52167 COR 08-19-2014 [place] ATHEROSLERO [facility] P TYPE VESSEL [place]/KI T [address] ASTHMA, 08-19-2014 [facility] P UNSPECIFIED STATUS 71840 PAIN IN 08-19-2014 [place] JOINT MEDICAL PELVIC IMAGING ASS REGION AND THIGH 7295 PAIN IN 08-19-2014 [place] SOFT MEDICAL TISSUES OF IMAGING ASS LIMB 29322 CHEST PAIN 08-19-2014 [facility] UNSPECIFIED AMBULANCE SERVICE 32883 ACUT ND 08-18-2014 [facility] IAL INFARCT MEDICAL G EPIS CARE UNS 5990 URINARY 08-18-2014 [facility] TRACT [facility] INFECTION INC SITE NOT SPECIFIED 98659 ABDOMINAL 08-17-2014 [place] PAIN, [facility] UNSPECIFIED HOSPITAL P SITE V4589 OTHER 08-17-2014 [facility] P OTHER 7991 RESPIRATORY 06-05-2014 [facility] ARREST URBAN COGOVT 95577 POISONING 06-05-2014 [facility] BY HEROIN N EMERGENCY PHYS 9779 POISONING 06-05-2014 [place] [facility] UNSPECIFIED SERV [facility] DRUG/MEDICI NAL SUBSTANCE E9800 POISN-ANALG 06-05-2014 [facility] N EMERGENCY T-ANTIRHEUM PHYS -UNDETERM CAUSE 2724 OTHER AND 04-15-2014 [facility] UNSPECIFIED PHYSICIANS GROUP HYPERLIPIDE NIGEL 72793 CORONARY 02-26-2014 [facility] MEDICAL [place] IMAGING ASS CORONARY ARTERY 78247 OTHER 02-25-2014 [place] [facility] DYSPNEA AND [facility] [place] [address] ACUT ND 02-24-2014 [facility] EMERGENCY IAL INFARCT PHYS INIT EPIS CARE 72168 SHORTNESS 02-24-2014 [place] OF BREATH MEDICAL IMAGING ASS 5939 UNSPECIFIED 10-01-2013 [facility] ALHAJI DISORDER OF KIDNEY AND URETER 49352 PRECORDIAL 10-01-2013 [facility] 401.9 401.9 09-10-2012 [place] HYPERTENSIO [facility] 410.71 410.71 AC 09-10-2012 [place] MYOCARDIAL [facility] INFARCT,SUB Hospital ENDO INFARCT,INI TIAL EPIS 493.90 493.90 09-10-2012 [place] ASTHMA, [facility] UNSPECIFIED Hospital Allergies, Adverse Reactions, Alerts [...] 00 0- 8- 00 07 MA ve GA 51 20 20 0 47 RT IL [...] 00 8- 7- 00 07 MA ve GA 51 20 20 46 RT IL 70 [...] B HY 68 12 [address] 64 -2 -2 .0 00 L- ti OC 50 7- 7- 00 07 MA ve HL 51 20 20 44 RT OR 07 16 17 99 OT 0 71 PH HI AR AZ MA ID CY E 25 #5 91 MG TA B HY 49 12 01 [address] 88 -2 -2 .0 00 [...] 017 K/mm3 ed monocyt 04:05 e count [place] % = 6.6 % 1.7-9.3 complet 017 [...] CALLED TO: Kenya DE LA CRUZ RN 03/05/17 0452 Gutierrez Das [...] SQUARE METERS Comment: If this patient is -Nigerien, then multiply the Comment: result by 1.210. 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 SERVICE SPECIALIST 017 pg/mL ed SerPl-m 02:01 Cnc Phosphate [...] Procedure DOS Code Location Performer Comment BASIC 92798 [facility] METABOLIC 7 [facility] PANEL E E CALCIUM [facility] TOTAL THROMBOPL 91748 [facility] ASTIN 7 [facility] TIME E E PARTIAL [facility] PLASMA/[place] B[place] [address] [facility] MAGNESIUM 7 [facility]ALTH[facility] HEALTH[facility] [place] [facility] [place] [address] [facility] PHOSPHORU 7 [facility]ALTH[facility] S E E INORGANIC [facility] ECG 16050 [facility] ROUTINE 7 [facility] ECG E E W/LEAST [facility] 12 LDS TRCG ONLY W/O I&R DUP-SCAN 88226 [facility] XTR VEINS 7 [facility] HEALTHCAR E E UNILATERA [facility] L/LIMITED STUDY INFUSION J7040 [facility] NORMAL 7 [facility] SALINE E E SOLUTION [facility] STERILE PROTHROMB 02932 [facility] IN TIME 7 [facility] HEALTHCAR E E HOSP[facility]ALS [facility] DRUG TST G0483 [facility] DEFINITV [address] ID E E METH P [facility] DAY 22/[place] [address] [facility] ANGIOGRAP 7 [facility] HY CHEST E E W/CONTRAS [facility]ALS [facility]ALS T/NONCONT RAST NATRIURET 00428 [facility] IC 7 [facility] PEPTIDE [place] [address] [facility] TROPONIN 7 [facility] QUANTITAT E E IMAN [facility] LOCM Q9967 [facility] [phone] HEALTHCAR HEALTHCAR MG/ML E E IODINE [facility] HOSPITALS CONCENTRA TION PER ML ECG 25425 MELISSA VAZQUEZ ROUTINE 7 MEDICAL ECG SERV W/LEAST FOUNDAT[facility] 12 LDS N I&R ONLY RADIOLOGI 21850 [facility] C EXAM 7 [facility]ALTHCAR HEALTHCAR CHEST 2 E E VIEWS [facility] FRONTAL&L ATERAL RADIOLOGI 45275 [facility] SIEGEL C EXAM 7 MEM H[facility] CHEST 2 INC INC VIEWS FRONTAL&L ATERAL CULTURE 28122 [facility] S[facility] BACTERIAL 7 [facility] H[facility] BLOOD INC INC AEROBIC W/ID ISOLATES ECG 34507 [facility] MIRANDA ROUTINE 7 [facility] W/LEAST P 12 LDS I&R ONLY BLOOD 73410 [facility] SIEGEL COUNT 7 [facility] COMPLETE INC INC AUTO&[place] [address] [facility] SIEGEL TROPONIN 7 MEM HOSP [facility] QUANTITAT INC INC IMAN GROUND A0425 [facility] AMBULANCE PER SERVICE SERVICE STATUTE MILE AMB A0427 [facility] SERVICE 7 AMBULANCE AMBULANCE ALS SERVICE SERVICE EMERGENCY TRANSPORT LEVEL 1 COMPREHEN 79602 [facility] SIVE 7 MEM H[facility] METABOLIC INC INC PANEL PROTHROMB 35661 [facility] IN TIME 7 MEM H[facility] INC INC CREATINE 81141 ROB[facility] SIEGEL KINASE MB 7 MEM HOS[facility] [place] [address] [facility] SIE[facility] LACTATE 7 MEM H[facility]OS[facility] INC INC COLLECTIO 53874 [facility] SIEGEL N VENOUS 7 MEM HOS[facility]OS[facility] BLOOD INC INC VENIPUNCT URE CRITICAL 93283 [facility] 7 PHYSICIAN ILL/INJUR S, PLLC ED PATIENT INIT 30-74 MIN THERAPEUT 69290 ROBBIN ROBBIN IC 7 [facility] PROPHYLAC INC INC TIC/DX INJECTION SUBQ/IM ECG 89350 [facility]EL ROUTINE 7 [facility] ECG INC INC W/LEAST 12 LDS TRCG ONLY W/O I&R FIBRIN 70410 [facility] DGRADJ 7 MEM [facility] PRODUCTS INC INC D-DIMER QUAL/SEMI MICHELLE CREATINE 09368 [facility] KINASE 7 MEM HOSP [facility] TOTAL INC INC UNCLASSIF J3490 [facility] IED DRUGS 7 [facility] INC INC ECG 56471 [facility] ROUTINE [address] [facility] W/LEAST 12 LDS TRCG ONLY W/O I&R RADEX 33351 [place] [facility] ANKLE 6 MEDICAL Y JUS COMPLETE SERV MINIMUM 3 FOUNDATIO VIEWS N RADEX 74924 [place] [facility] FOOT 6 MEDICAL Y JUS COMPLETE SERV MINIMUM 3 FOUNDATIO VIEWS N DRUG TST G0483 [facility] DEFINITV [address] [facility] METH P DAY 22/[place] [address] [facility] TROPONIN 6 [facility] G[facility]8 [facility] OBSERVATI 6 Y Y ON HOSPITAL HOSPITAL SERVICE PER HOUR ECG 90505 [place] [facility] ROUTINE 6 MEDICAL ECG SERV W/LEAST FOUNDATIO 12 LDS N I&R ONLY ECG 26005 [place] [facility] [facility] ROUTINE 6 MEDICAL ECG SERV W/LEAST FOUNDATIO 12 LDS N I&R ONLY BLOOD 07168 [facility] UNIVERSIT COUNT 6 Y Y [facility] [place] [address] [facility] TROPONIN 6 Y Y QUANTITGOOD [facility] BLOOD 85812 [facility]IEGEL COUNT 6 [facility] COMPLETE INC INC AUTO&AUTO DIFRNTL WBC COMPATIBI 51523 [facility] LITY EACH [address] [facility] ELECTRONI C GROUND A0425 [facility] MILEAGE 6 AMBULANCE LAVELLE PER SERVICE STATUTE MILE AMB A0431 AIR AIR SERVICE 6 METHODS METHODS CONVNTION [facility] AIR SRVC TRANSPORT [address] INITIAL 94103 [facility] ISEGEL OBSERVATI 6 [facility] ON INC INC CARE/DAY 50 [place] [address] [facility] INFUSION 6 Y Y THERAPY/P [facility] ROPLAXI S /DX 1ST TO 1 HR ARTL 55272 [place] TITUS CATHJ/CAN 6 MEDICAL NULJ SERV MNTR/PEREYRA FOUNDATIO SFUSION N SPX PRQ PLATELETS P9035 [facility] PHERESIS [address] [facility] LEUKOCYTE S REDUCED EACH UNIT COMPREHEN 85506 [facility] S[facility] SIVE 6 [facility] [address] [facility] SIEGEL ANGIOGRAP 6 MEM [facility] HOSP HY CHEST INC INC W/CONTRAS T/NONCONT RAST ANTIBODY 98784 [facility] SCREEN 6 Y Y RBC EACH [facility] SERUM TECHNIQUE BLOOD 31881 [facility] TYPING [address] [facility] ABO AMB A0427 [facility] SERVICE 6 AMBULANCE LAVELLE ALS SERVICE EMERGENCY TRANSPORT LEVEL 1 PROTHROMB 73882 [facility] IN TIME [address] [facility] CREATINE 20964 [facility] SIEGEL KINASE MB 6 MEM [facility] HOSP FRACTION INC INC ONLY COLLECTIO 26661 [facility] SIEGEL N VENOUS 6 MEM [facility] BLOOD INC INC VENIPUNCT URE ECG 65497 [facility] ROUTINE [address] [facility] W/LEAST 12 LDS TRCG ONLY W/O I&R CREATINE 17143 [facility] KINASE 6 MEM [facility] HOSP TOTAL INC INC BLOOD 61326 [facility] TYPING [address] [facility] RH (D) THROMBOPL 37008 [facility] ASTIN [address] [facility] PARTIAL PLASMA/WH OLE BLOOD BASIC 81481 [facility] METABOLIC [address] [facility] CALCIUM TOTAL INFUSION J7040 [facility] NORMAL 6 Y Y [facility] SOLUTION STERILE CRITICAL [address] [place] [address] PHYSICIAN ALHAJI ILL/INJUR S, PLLC ED PATIENT INIT 30-74 MIN INFUSION J7030 [facility] 6 Y Y [facility] [place] [address] [place] [address] [facility] [place] 6 Y Y [facility] PROPHYLAX IS/DX EA HOUR RADIOLOGI 12070 [place] [facility] C 6 MEDICAL EXAMINATI IMAGING ON CHEST ASS SINGLE VIEW FRONTAL CT THORAX 26294 [facility] ALL 6 MEDICAL W/CONTRAS IMAGING T ASS MATERIAL RADIOLOGI 86406 [place] [facility] C 6 MEDICAL EXAMINATI IMAGING [place] [address] [place] [facility] ALL HEAD/BRAI 6 MEDICAL N W/O IMAGING CONTRAST ASS MATERIAL COLLECTIO 61978 [facility] N VENOUS 6 [facility] BLOOD INC INC VENIPUNCT URE PROTHROMB 40083 [facility] IN TIME 6 [facility] INC INC ECG 11019 ROB[facility] MIRANDA ROUTINE [address] [facility] W/LEAST P 12 LDS I&R ONLY DRUG TST G0477 [facility] PRESUMP;C 6 [facility] INC READ DC OPT OBV ONLY THERAPEUT 95296 [facility] IC 6 [facility] PROPHYLAC INC INC TIC/DX INJECTION SUBQ/IM PROTHROMB 68294 [facility] IN TIME 6 [facility] INC INC COLLECTIO 99288 [facility] N VENOUS 6 [facility] BLOOD INC INC VENIPUNCT [facility] 35184 [facility] 6 MEDICAL DAY SERV MANAGEMEN FOUNDATIO T > 30 N MIN WALKER [id number] PATIENT [facility] [facility] 6 AIDS INC [facility] WHEELED ADJUSTABL E/FIXED HEIGHT SBS [address] [place] [address] MEDICAL CARE/DAY SERV 35 FOUNDATIO MINUTES N [facility] [address] [facility] 6 MEDICAL KER RAN CARE/DAY SERV 35 FOUNDATIO MINUTES N SBSQ 35917 [facility] 6 MEDICAL KER RAN CARE/DAY SERV 35 FOUNDATIO MINUTES N SBSQ 88982 [facility] 6 MEDICAL ANIRUDH CARE/DAY SERV 35 FOUNDATIO MINUTES N SBSQ 46770 [facility] 6 MEDICAL JUANY CARE/DAY SERV 35 FOUNDATIO MINUTES N [place] [address] [place] [facility] 6 MEDICAL JUANY CARE/DAY SERV 35 FOUNDATIO MINUTES N SBSQ 63836 [place] [facility] 6 MEDICAL JUANY CARE/DAY SERV 35 FOUNDATIO MINUTES N SBSQ 50872 [place] [facility] 6 MEDICAL JUANY CARE/DAY SERV 35 FOUNDATIO MINUTES N SBSQ [address]48 [place] [address] MEDICAL ROSEMARY CARE/DAY SERV 35 FOUNDATIO MINUTES N SBSQ 94227 [place] [address] MEDICAL ROSEMARY CARE/DAY SERV 35 FOUNDATIO MINUTES N SBSQ 94150 [place] [address] MEDICAL CARE/DAY SERV 35 FOUNDATIO MINUTES N SBSQ 98451 [facility] 6 MEDICAL CARE/DAY SERV 35 FOUNDATIO MINUTES N SBSQ 02687 [facility] 6 MEDICAL CARE/DAY SERV 35 FOUNDATIO MINUTES N SBSQ 53060 [place] [address] MEDICAL CARE/DAY SERV 35 FOUNDATIO MINUTES N INITIAL 74315 [facility] 6 MEDICAL CARE/DAY SERV 70 FOUNDATIO MINUTES N RADIOLOGI 71244 [place] GOPAL C 6 MEDICAL EXAMINATI SERV ON CHEST FOUNDATIO SINGLE N VIEW FRONTAL RADIOLOGI 84741 [place] ZAGUROVSK C 6 MEDICAL AYA MAR EXAMINATI SERV ON CHEST FOUNDATIO SINGLE N VIEW FRONTAL ECG 10150 [place] LIM[place] CHI ROUTINE 6 MEDICAL ECG SERV W/LEAST FOUNDATIO 12 LDS N I&R ONLY SWALLOWIN 63702 [place] AYOOB AND G FUNCJ 6 MEDICAL W/CINERAD SERV IOGRAPY/V FOUNDATIO IDRADIOG N HEPATOBIL 49542 [place] EL RASHMIOULI IARY SYST 6 MEDICAL IMAGING SERV INCLUDING FOUNDATIO N GALLBLADD ER RADIOLOGI 32206 [place] MARVIN C 6 MEDICAL ALHAJI EXAMINATI SERV ON CHEST FOUNDATIO SINGLE N VIEW FRONTAL ECG 92002 [place] PAULINO ROUTINE 6 MEDICAL NAN ECG SERV W/LEAST FOUNDATIO 12 LDS N I&R ONLY ECG 42126 [place] MARK ANIRUDH ROUTINE 6 MEDICAL ECG SERV W/LEAST FOUNDATIO 12 LDS N I&[place] [address] [place] JAY DAVID ABDOMEN & 6 MEDICAL PELVIS SERV [place] [address] [place] CHRISTIE ABDOMINAL 6 MEDICAL LETY REAL SERV TOMMY TIME FOUNDATIO W/IMAGE N LIMITED ECG 90588 [place] MARK ANIRUDH ROUTINE 6 MEDICAL ECG SERV W/LEAST FOUNDATIO 12 LDS N I&R ONLY RADIOLOGI 26577 [place] GOPAL C 6 MEDICAL EXAMINATI SERV ON CHEST FOUNDATIO SINGLE N VIEW FRONTAL RADIOLOGI 01176 [place] C 6 MEDICAL MEDICAL EXAMINATI SERV SERV ON CHEST FOUNDATIO FOUNDATIO SINGLE N N VIEW FRONTAL RADEX ABD 81699 [place] JAY DAVID COMPL 6 MEDICAL AQT ABD SERV W/S/E/D FOUNDATIO VIEWS 1 N VIEW CH MRI BRAIN 74075 [place] RASLAU BRAIN 6 MEDICAL FLA STEM W/O SERV CONTRAST FOUNDATIO MATERIAL N DUP-SCAN 58629 [place] GRIFFITH FABIENNE XTR VEINS 6 MEDICAL COMPLETE SERV FOUNDATIO BILATERAL N STUDY SWALLOWIN 76058 [place] JAY DAVID G FUNCJ 6 MEDICAL W/CINERAD SERV IOGRAPY/V FOUNDATIO IDRADIOG N RADIOLOGI 88425 [place] GOPAL C 6 MEDICAL EXAMINATI SERV ON CHEST FOUNDATIO SINGLE N VIEW FRONTAL RADIOLOGI 89745 [place] IVELISSEK C 6 MEDICAL AYA MAR EXAMINATI SERV ON CHE[place] [address] [place] AVA ROSALBA ANGIOGRAP 6 MEDICAL HY NECK SERV W/CONTRAS FOUNDATIO T/NONCONT N RAST RADEX 93105 [place] [facility] NOHEMY ABDOMEN 1 6 MEDICAL SERV ANTEROPOS FOUNDATIO TERIOR N VIEW ECHO 62893 [place] JUAN GWENDOLYN TTHRC R-T 6 MEDICAL 2D SERV W/WOM-MOD FOUNDATIO E COMPL N SPEC&[place] [address] [place] AVA NAVARRETE ANGIOGRAP 6 MEDICAL HY HEAD SERV W/CONTRAS FOUNDATIO T/NONCONT N RAST SBSQ 86377 [place] [facility] 6 MEDICAL REINALDO CARE/DAY SERV 15 FOUNDATIO MINUTES N INSERTION [id number] [facility] [place] 6 Y Y [facility] SUPERIOR VENA CAVA PERQ INITIAL 61680 [place] ECKER INPATIENT 6 MEDICAL GUNNER CONSULT SERV NEW/ESTAB FOUNDATIO PT 55 N MIN RADEX 64459 [place] [facility] ABDOMEN 1 6 MEDICAL SERV ANTEROPOS FOUNDATIO TERIOR N VIEW RADIOLOGI 76763 [place] THAI C 6 MEDICAL ALHAJI EXAMINATI SERV ON CHEST FOUNDATIO SINGLE N VIEW FRONTAL SBSQ 84531 [place] [facility] 6 MEDICAL ANT CARE/DAY SERV 25 FOUNDATIO MINUTES N RADIOLOGI 99259 [place] THAI 6 MEDICAL ALHAJI EXAMINATI SERV ON CHE[place] [address] [place] RASLAU HEAD/BRAI 6 MEDICAL FLA N W/O SERV CONTRAST FOUNDATIO MATERIAL N CRITICAL 23409 [place] [facility] 6 MEDICAL ANT ILL/INJUR SERV ED FOUNDATIO PATIENT N INIT 30-74 MIN CRITICAL 15824 [place] [facility] 6 MEDICAL ANT ILL/INJUR SERV ED FOUNDATIO PATIENT N INIT 30-74 MIN RADIOLOGI 74862 [place] THAI C 6 MEDICAL ALHAJI EXAMINATI SERV ON CHEST FOUNDATIO SINGLE N VIEW FRONTAL RADIOLOGI 07312 [place] JEIMY C 6 MEDICAL AYA MAR EXAMINATI SERV ON CHEST FOUNDATIO SINGLE N VIEW FRONTAL CRITICAL 82829 [place] [facility] 6 MEDICAL ANT ILL/INJUR SERV ED FOUNDATIO PATIENT N INIT 30-74 MIN RADIOLOGI 79631 [place] ANDRE C 6 MEDICAL ALHAJI EXAMINATI SERV ON CHEST FOUNDATIO SINGLE N VIEW FRONTAL RADIOLOGI 09898 [place] JEIMY C 6 MEDICAL AYA MAR EXAMINATI SERV ON CHEST FOUNDATIO SINGLE N VIEW FRONTAL ANES 76599 [place] AJAY NERVE 6 MEDICAL LIS MUSC SERVICES TENDON FASCIA & BURSAE UPPER LEG DEBRIDEME 75147 [place] XENOS TYLER NT MUSCLE 6 MEDICAL & FASCIA SERV 20 SQ FOUNDATIO CM/< N DEBRIDEME 86868 [place] XENOS TYLER NT MUSCLE 6 MEDICAL &/FASCIA SERV EA ADDL FOUNDATIO 20 SQ CM N LEVEL III 93872 [facility] SURG 6 [facility] PATHOLOG[facility] [place] [facility]&ALHAJI ROSCOPIC EXAM RADIOLOGI 64487 [place] [facility] C 6 MEDICAL EXAMINATI SERV ON CHEST FOUNDATIO SINGLE N VIEW FRONTAL RADIOLOGI 60221 [place] ORA GWENDOLYN C 6 MEDICAL EXAMINATI SERV ON CHEST FOUNDATIO SINGLE N VIEW FRONTAL RADIOLOGI 07999 [place] LILA C 6 MEDICAL MAR EXAMINATI SERV ON CHEST FOUNDATIO SINGLE N VIEW FRONTAL CRITICAL 85233 [place] [facility] 6 MEDICAL ANTOINE ILL/INJUR SERV ED FOUNDATIO PATIENT N INIT 30-74 MIN CRITICAL 88071 [place] [facility] 6 MEDICAL ANTOINE ILL/INJUR SERV ED FOUNDATIO PATIENT N INIT 30-74 MIN RADIOLOGI 00346 [place] [facility] NO[facility]MY C 6 MEDICAL EXAMINATI SERV ON CHEST FOUNDATIO SINGLE N VIEW FRONTAL RADEX 06421 [place] AYOOB AND ABDOMEN 1 6 MEDICAL SERV ANTEROPOS FOUNDATIO TERIOR N VIEW RADEX 63864 [place] RIDGE ABDOMEN 1 6 MEDICAL ADR SERV ANTEROPOS FOUNDATIO TERIOR N VIEW ANES 97298 [place] DELAHOUSA NRV/MUS/T 6 MEDICAL Y ANTOINE ND/FASC SERVICES LOWER LEG/ANKLE /FOOT NOS RADIOLOGI 53430 [place] PAYAN GWENDOLYN C 6 MEDICAL EXAMINATI SERV ON CHEST FOUNDATIO SINGLE N VIEW FRONTAL DCMPRN 37928 [place] GRIFFITH FABIENNE FASCT LEG 6 MEDICAL SERV ANT&/LAT& FOUNDATIO PST CMPRT N CRITICAL 26132 [place] [facility] 6 MEDICAL ANTOINE ILL/INJUR SERV ED FOUNDATIO PATIENT N INIT 30-74 MIN CRITICAL 30651 [place] [facility] 6 MEDICAL ANTOINE ILL/INJUR SERV ED FOUNDATIO PATIENT N INIT 30-74 MIN RADIOLOGI 03581 [place] ANDRE C 6 MEDICAL ALHAJI EXAMINATI SERV ON CHEST FOUNDATIO SINGLE N VIEW FRONTAL REVSC 62978 [place] MELISSA OPN/PRQ 6 MEDICAL MEDICAL ILIAC ART SERV SERV W/STNT FOUNDATIO FOUNDATIO PLMT & N N ANGIOPLST Y LEVEL III [address] [facility] SURG 6 [place] [facility] PATHOLOGY [place] [facility] GROSS&ALHAJI ROSCOPIC EXAM INTRAVASC 12560 MELISSA PUCKETTSTAN ULAR US 6 MEDICAL ROWENA NONCORONA SERV RY RS&I FOUNDATIO INTIAL N VESSEL ANESTHESI 63728 [place] ADAM A THER 6 MEDICAL RANDI IVNTL SERVICES RADIOLOGI CORIN ARTERIAL EMBLC/THR 57496 MELISSA PUCKETTSTAN MBC 6 MEDICAL ROWENA FEMORAL SERV POPLITEAL FOUNDATIO N AORTO-YUKO AC ART EXTIRPATI [id number] [facility] ON MATTER 6 Y Y RT EXT HOSP[facility] ILIAC ART OPEN APPRCH DIL RT [id number] [facility] ILIAC [address] [facility] INTRALUM DEVICE PERQ APPR DIL LT [id number] [facility] ILIAC [address] [facility] INTRALUM DEVICE PERQ APPR ECG 48225 MELISSA LIMA CHI ROUTINE 6 MEDICAL ECG SERV W/LEAST FOUNDATIO 12 LDS N I&R ONLY CTA ABDL 13514 [place] THAI AORTA&BI 6 MEDICAL ALHAJI ILIOFEM SERV W/CONTRAS FOUNDATIO T&POSTP N RADIOLOGI 78094 [place] PAYAN GWENDOLYN C 6 MEDICAL EXAMINATI SERV ON CHEST FOUNDATIO SINGLE N VIEW FRONTAL CRITICAL 00167 [place] [facility] 6 MEDICAL ANTOINE ILL/INJUR SERV ED FOUNDATIO PATIENT N INIT 30-74 MIN CRITICAL [address] [facility] 6 MEDICAL SURJIT ILL/INJUR SERV ED FOUNDATIO PATIENT N INIT 30-74 MIN SBSQ 09271 [facility] 6 PHYSICIAN MAT CARE/DAY S GROUP 25 MINUTES CATH PLMT 27575 [facility] HRT & 6 PHYSICIAN MAT ARTS S GROUP W/NJX & ANGIO IMG S&I CT ANGIO 46951 MELISSA NICKELS ABD&PLVIS 6 MEDICAL REINALDO CNTRST SERV MTRL W/WO FOUNDATIO CNTRST N IMG AMB A0427 [facility] 6 AMBULANCE AMBULANCE ALS SERVICE SERVICE EMERGENCY TRANSPORT LEVEL 1 LEVEL III 46627 [facility] SURG 6 Y OF MAY PATHOLOGY [place] [facility] [address] MELISSA RASLAU ANGIOGRAP 6 MEDICAL FLA HY NECK SERV W/CONTRAS FOUNDAT[place] T/[place] [address] MELISSA NICKELS ANGIOGRAP 6 MEDICAL REINALDO HY CHEST SERV W/CONTRAS FOUNDATIO T/NONCONT N RAST ECG 83294 MELISSA LIMA CHI ROUTINE 6 MEDICAL ECG SERV W/LEAST FOUNDATIO 12 LDS N I&[place] [address] MELISSA RASLAU ANGIOGRAP 6 MEDICAL FLA HY HEAD SERV W/CONTRAS FOUNDATIO T/NONCONT N RAST SPCL STN 84681 [place] [address] I&R 6 Y OF MAY EXCPT [place] [facility] ENZYME/IM CYT INITIAL 08718 [place] [facility] 6 MEDICAL CARE/DAY SERV 70 FOUNDATIO MINUTES N GROUND A0425 [facility]ULANCE AMBULANCE PER SERVICE SERVICE STATUTE MILE REPLACEME [id number] [facility] 6 Y Y [facility] W/SYNTH SUBST OPEN APPRCH GROUND A0425 [facility] 6 AMBULANCE AMBULANCE PER SERVICE SERVICE STATUTE MILE CT THORAX 20630 [place] JORGE ALBERTO W/O 6 MEDICAL [place] CONTRAST IMAGING MATERIAL ASS AMB A0427 [facility] 6 AMBULANCE AMBULANCE ALS SERVICE [place] [address] [place] JORGE ALBERTO ABDOMEN & 6 MEDICAL [place] PELVIS IMAGING W/O ASS CONTRAST MATERIAL RADIOLOGI 20958 [place] JORGE ALBERTO C 6 MEDICAL [place] EXAMINATI IMAGING ON CHEST ASS SINGLE VIEW FRONTAL RADEX ABD 13885 [place] AZUL COMPL 6 MEDICAL [place] AQT ABD IMAGING W/S/E/D ASS VIEWS 1 VIEW PHYSICAL 63526 [facility] SIEGEL THERAPY 5 [facility] EVALUATIO INC INC N GROUND A0425 [facility] 5 AMBULANCE AMBULANCE PER SERVICE SERVICE STATUTE MILE RADIOLOGI 29350 [facility] C 5 MEDICAL EXAMINATI IMAGING ON CHEST ASS SINGLE VIEW FRONTAL AMB A0427 [facility] SERVICE 5 AMBULANCE AMBULANCE ALS SERVICE SERVICE EMERGENCY TRANSPORT LEVEL 1 NONEMERG A0120 [facility] FEDERATED TRNSPRT: 5 MINI-BUS TRANSPORT TRANSPORT MTN ATION SER ATION SER AREA/OTH SYS SPECIAL 64474 [facility] STAIN 5 [facility] GROUP 1 MICROORGA NISMS I&R EGD 68361 [facility] SIEGEL TRANSORAL 5 [facility] HOSP BIOPSY INC INC SINGLE/[place] [address] [facility] SURG [facility] PATHOLOG[facility] GROSS&ALHAJI ROSCOPIC EXAM COLONOSCO 85019 [facility] SUKHDEV PY FLX DX 5 PHYSICIAN CAM W/COLLJ S GROUP SPEC WHEN PFRMD ANES 27602 [facility] LOWER 5 ANESTH SHE INTESTINE OF THE BLUE ENDOSCOPY DISTAL DUODENUM RADIOLOGI 02847 [facility] 5 MEDICAL MELY EXAMINATI IMAGING ON CHEST ASS SINGLE VIEW FRONTAL DUP-SCAN 20611 [facility] JORGE ALBERTO XTR VEINS 5 MEDICAL [place] IMAGING UNILATERA ASS L/LIMITED STUDY RADIOLOGI 60487 [facility] GWINNET[facility] OBANDO C 5 MEDICAL MELY EXAMINATI IMAGING ON PELVIS ASS 1/2 VIEWS GROUND A0425 [facility] 5 AMBULANCE AMBULANCE PER SERVICE SERVICE STATUTE MILE ECG 46537 ROB[facility] KHAN JR ROUTINE 5 [facility] W/LEAST P 12 LDS I&R ONLY AMBULANCE A0429 GENEVIEVE [facility] SERVICE 5 AMBULANCE AMBULANCE BLS SERVICE SERVICE EMERGENCY TRANSPORT CULTURE 95159 [facility] SIEGEL BACTERIAL 5 [facility] INC INC QUANTTATI VE COLONY COUNT URINE CATH PLMT 91735 [facility] FALLUJI L HRT & 5 [facility] W/NJX & G ANGIO IMG S&I CREATINE 36027 [facility] SIEGEL KINASE 5 [facility] TOTAL INC INC CYANOCOBA 93562 [facility] SIEGEL ISSAC 5 [facility] VITAMIN INC INC B-12 CRITICAL 70412 ROB[facility] SIEGEL CARE 5 [facility] ED P P PATIENT INIT 30-74 MIN HEPATITIS 97186 [facility] SIEGEL A 5 [facility] ANTIBODY INC INC HAAB COMPREHEN 65709 [facility] SIEGEL SIVE 5 [facility] METABOLIC INC INC PANEL PROTHROMB 43697 [facility] SIEGEL IN TIME 5 [facility] INC INC COLLECTIO 94628 [facility] S[facility]GEL N VENOUS 5 [facility] BLOOD INC INC VENIPUNCT URE CREATINE 16355 [facility] SIEGEL KINASE MB 5 [facility] [place] [address] [facility] SIEGEL FREE 5 [facility] [place] [address] [facility] SIEGEL THYROID 5 [facility] STIMULATI [place] [address] [facility] SIEGEL VITAMIN A 5 [facility] INC INC HEPATITIS 13081 [facility] SIEGEL B CORE 5 [facility] [place] [address] [facility] SIEGEL AMMONIA 5 [facility] INC INC ECG 70347 ROB[facility] MIRANDA ROUTINE [address] [facility] W/LEAST P 12 LDS I&R ONLY HEMOGLOBI 86099 [facility] SIEGEL N 5 [facility] GLYCOSYLA INC INC CHRISTIE A1C CRITICAL 46428 ROBBIN QUINTANILLA CARE 5 [facility] ILL/INJUR [facility] ED P PATIENT ADDL 30 MIN BLOOD 06727 [facility] SIEGEL COUNT 5 [facility] COMPLETE INC INC AUTO&[place] [address] [facility] SIEGEL TROPONIN 5 [facility] QUANTITAT INC INC IMAN HEPATITIS 60773 [facility] SIEGEL C 5 [facility] ANTIBODY INC INC RADIOLOGI 77222 [place] [facility] 5 MEDICAL MELY CHEST 2 IMAGING VIEWS ASS FRONTAL&L ATERAL HEPATITIS 42775 [facility] SIEGEL B SURF 5 [facility] [address] ROB[facility] SIEGEL HEPATITIS 5 [facility] B INC INC SURFACE ANTIGEN OPHTH 35710 [facility] MEDICAL 5 ANG ANG XM&EVAL COMPRHNSV ESTAB PT 1/> AMB A0427 BARRIE BARRIE SERVICE 5 [facility]AY[facility] FAYETTE ALS URBAN URBAN EMERGENCY COGOVT COGOVT TRANSPORT LEVEL 1 RADIOLOGI 10114 MELISSA ZAHEER LAIRD C 5 MEDICAL EXAMINATI SERV ON CHEST FOUNDATIO SINGLE N VIEW FRONTAL GROUND A0425 BARRIE BARRIE MILEAGE 5 FAYETTE FAYETTE PER URBAN URBAN STATUTE COGOVT COGOVT MILE MYOCARDIA 50609 [place]ORGE ALBERTO L SPECT 4 MEDICAL [place] MULTIPLE IMAGING STUDIES ASS ECHO 16752 MELISSA POOLE TTHRC R-T 4 MEDICAL 2D SERV W/WOM-MOD FOUNDATIO E COMPL N SPEC&COLR D RADIOLOGI 59512 [facility] 4 MEDICAL MELY EXAMINATI IMAGING ON CHEST ASS SINGLE VIEW FRONTAL CRITICAL 80545 [facility] CARE 4 MON[place] ILL/INJUR EMERGENCY ED PHYS PATIENT INIT 30-74 MIN AMB A0427 GENEVIEVE VALLEJO SERVICE 4 AMBULANCE AMBULANCE ALS SERVICE SERVICE EMERGENCY TRANSPORT LEVEL 1 ECG 52794 EWELINA THO EWELINA THO ROUTINE 4 ECG W/LEAST 12 LDS I&R ONLY GROUND A0425 GENEVIEVE VALLEJO MILEAGE 4 AMBULANCE AMBULANCE PER SERVICE SERVICE STATUTE MILE Encounters Encounter Start End Date Code Location Performer Type Date EMERGENCY 33216 [facility] 7 7 [facility] DEPARTMEN INC T VISIT LOW/MODER SEVERITY [facility]OSPITAL [facility] - 7 7 [facility] OUTPATIEN INC T EMERGENCY 32539 MELISSA MARTINEZ 7 7 MEDICAL DEPARTMEN SERV T VISIT FOUNDATIO HIGH/URGE N NT SEVERITY EMERGENCY 10022 DEPT 7 7 [facility] VIS[facility] SEVERITY& THREAT [facility]ICAL [facility] HOSP[facility] - 7 7 [facility] OUTPATIEN E T HOSPITALS EMERGENCY 17252 ROB[facility] DEPT 7 7 [facility] VISIT INC HIGH SEVERITY& THREAT [facility] ROBBIN - 7 7 [facility] OUTPATIEN INC T EMERGENCY 78802 GABE POLK 6 6 PHYSICIAN NOHEMY [facility], [facility] T VISIT MODERATE SEVERITY OFFICE 19329 [facility] 6 6 PHYSICIAN ALHAJI T VISIT S GROUP 15 MINUTES EMERGENCY 53614 [facility] DEPT 6 6 Y VISIT HOSPITAL HIGH SEVERITY& THREAT CRITICAL ACCESS HOSPITAL HOSPITAL UNIVERSIT - 6 6 Y OUTPATI HOSPITAL T EMERGENCY 29717 MELISSA QURESHI 6 6 MEDICAL DEPARTMEN SERV T VISIT FOUNDATIO HIGH/URGE N NT SEVERITY HOSPITAL ROBBIN - 6 6 [facility] OUTPATIEN INC T EMERGENCY 25851 GABE MOORE 6 6 PHYSICIAN JR CHENG [facility] HIGH/URGE NT SEVERITY OFFICE 49865 [facility] 6 6 PHYSICIAN ALHAJI T VISIT S GROUP 15 MINUTES HOSPITAL ROBBIN - 6 6 [facility] OUTPATIEN INC T EMERGENCY 86803 [facility] 6 6 [facility] DEPARTMEN INC T VISIT LOW/MODER SEVERITY HOSPITAL ROBBIN - 6 6 [facility] OUTPATIEN INC T EMERGENCY 22602 GABE QUINTANILLA 6 6 PHYSICIAN ALHAJI [facility] S, [facility] T VISIT MODERATE SEVERITY HOSPITAL ROBBIN - 6 6 [facility] OUTPATIEN INC T HOSPITAL CARDINAL - 6 6 [facility] UNIVERSIT - 6 6 INPATIENT HOSPITAL EMERGENCY 64119 MELISSA LORENA 6 6 [facility] T VISIT FOUNDATIO MODERATE N SEVERITY HOSPITAL ROBBIN - 5 5 [facility] OUTPATIEN INC EMERGENCY 18266 GABE QUINTANILLA DEPT 5 5 PHYSICIAN ALHAJI VISIT [facility] HIGH SEVERITY& THREAT [facility] ROBBIN - 5 5 [facility] OUTPATIEN INC T OFFICE 18011 [facility] SUKHDEV OUTPATIEN 5 5 PHYSICIAN CAM T NEW 45 S GROUP MINUTES OFFICE 69475 [facility] OUTPATIEN 5 5 ANG ANG T VISIT 15 MINUTES EMERGENCY 95909 [facility] QUINTANILLA 5 5 [facility] T VISIT P HIGH/URGE NT SEVERITY HOSPITAL ROBBIN - 5 5 [facility] OUTPATIEN INC T HOSPITAL ROBBIN - 5 5 [facility] OUTPATIEN INC T EMERGENCY 26430 [facility] DEPT 5 5 [place] I ALI VISIT EMERGENCY HIGH PHYS SEVERITY& THREAT FUN OFFICE 73508 [facility] SAM [place] 4 4 PHYSICIAN ALHAJI T NEW 30 S GROUP MINUTES EMERGENCY 88516 SAM QUINTANILLA DEPT 4 4 ALHAJI ALHAJI VISIT HIGH SEVERITY& THREAT FUNJ Emergency ARMIDA Quintanilla MD (ER) 3 18:12 3 22:52 [facility]
--- OUTSIDE RECORDS SUMMARY | 2017-03-05 05:30 | External Medical Summary Rpt | CCD ---
Author Author , DEVENDRA CARABALLOBRIAN Address Unknown Phone [email or web address] Care Team Providers Care Federal Appellate Law Clerk Name Role Phone [facility], Unavailable Unavailable [facility], Unavailable Unavailable [facility] AJAY LIS, AJAY Unavailable Unavailable LIS AYOOB AND, AYOOB AND Unavailable Unavailable BEINEKE MELY, BEINEKE Unavailable Unavailable MELY BESSON, BESSON Unavailable Unavailable BESSON GWENDOLYN, BESSON Unavailable Unavailable GWENDOLYN TYLER ALL, TYLER ALL Unavailable Unavailable ANDRE ALHAJI, ANDRE Unavailable Unavailable ALHAJI [facility] Unavailable Unavailable SERVICE, [facility] Unavailable Unavailable SERVICE, [facility] PAIGE LAVELLE, PAIGE Unavailable Unavailable LAVELLE [facility] Unavailable Unavailable REHABILITATION, [facility] TITUS, TITUS Unavailable Unavailable GEORGE, GEORGE Unavailable Unavailable HENRIQUE, HENRIQUE Unavailable Unavailable [facility] Unavailable Unavailable [facility], [facility] JORGE ALBERTO SOUMYA, Unavailable Unavailable JORGE ALBERTO SOUMYA DELAHOUSAY ANTOINE, Unavailable Unavailable DELAHOUSAY ANTOINE SHAILA ANT, SHAILA Unavailable Unavailable ANT MARTINEZ, MARTINEZ Unavailable Unavailable ECKERLE GUNNER, ECKERLE Unavailable Unavailable GUNNER EL KHOULI, EL KHOULI Unavailable Unavailable ERLANDSON JUANY, Unavailable Unavailable ERLANDSON JUANY FALLUJI ARELY, FALLUJI Unavailable Unavailable ARELY [facility] Unavailable Unavailable TRANSPORTATION SER, [facility] SAENZ SURJIT, SAENZ Unavailable Unavailable SURJIT PAULINO NAN, PAULINO Unavailable Unavailable DIANE MOORE JR ELZ, Unavailable Unavailable JR DANIEL MOOREZ SAM ALHAJI, SAM Unavailable Unavailable ALHAJI SAM ALHAJI, SAM Unavailable Unavailable ALHAJI MAURICE, MAURICE Unavailable Unavailable EWELINA THO, EWELINA THO Unavailable Unavailable [facility] Unavailable Unavailable INC, [facility] Unavailable Un[facility]ITAL P, [facility] AIME ANTOINE, AIME Unavailable Unavailable ANTOINE [facility], Unavailable Unavailable [facility] PAYAN GWENDOLYN, PAYAN GWENDOLYN Unavailable Unavailable DB CARL, DB CARL Unavailable Unavailable [facility] Unavailable Unavailable MEDICAL G, [facility] AVA ROSALBA, AVA ROSALBA [...] Unavailable PÉREZ LIAM, PÉREZ Unavailable Unavailable LIAM MARCHINO GWENDOLYN, Unavailable Unavailable MARCHINO GWENDOLYN RAMOS ROSEMARY, Unavailable Unavailable RAMOS ROSEMARY MINION REINALDO, MINION Unavailable Unavailable REINALDO JAY DAVID, JAY DAVID Unavailable Unavailable NELTNER [...] SHE [facility], Unavailable Unavailable [facility] Unavailable Unavailable [facility], [facility], Unavailable [facility]available [facility] Unavailable Unavailable [facility] DOYLINE SHA, DOYLINE SHA Unavailable Unavailable MARVIN ALHAJI, MARVIN Unavailable Unavailable ALHAJI XENOS TYLER, XENOS TYLER Unavailable Unavailable ZAGUROVSKAYA MAR, Unavailable Unavailable ZAGUROVSKAYA MAR Purpose Continuity of Care Document - 10-01-2013 through 2016 Problems Code Diagnosis DOS Provider Status I10 ESSENTIAL 01-09-2017 [facility]IMARY [facility], HYPERTENSIO [facility] N Z0289 ENCOUNTER 01-09-2017 [facility] FOR OTHER PHYSICIANS, ADMINISTRAT [facility] IMAN EXAMINATION S I77690 OTHER LONG 01-09-2017 [facility] CURRENT INC DRUG THERAPY Z9114 PATIENTS 01-09-2017 [facility] OT PHYSICIANS, NONCOMPLIAN [facility] CE W/MEDICATIO N REGIMEN 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 HEALTHCARE 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 HOSPITALS ANGINA 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 [facility] I4581 LONG QT 09-03-2016 [place] [facility] I517 CARDIOMEGAL 09-03-2016 [facility] Y [facility] I7100 DISSECTION 09-03-2016 [place] [facility] UNSPECIFIED FOUNDATION SITE OF AORTA I739 PERIPHERAL 09-03-2016 VASCULAR HEALTHCARE DISEASE HOSPITALS UNSPECIFIED M7989 OTHER 09-03-2016 [facility] SPECIFIED SERV SOFT TISSUE FOUNDATION DISORDERS R079 CHEST PAIN 09-03-2016 UNSPECIFIED HEALTHCARE HOSPITALS R9431 ABNORMAL 09-03-2016 [facility] ELECTROCARD SERV IOGRAM FOUNDATION Z8673 PERSONAL HX 09-03-2016 [facility] INFARCT NO RESID DEFICIT 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-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 [facility] [place] DEPENDENCE D49638 PAIN IN 09-02-2016 [facility] RIGHT LEG PHYSICIANS, [facility] R072 PRECORDIAL 09-02-2016 [facility] PAIN PHYSICIANS, [facility] R600 LOCALIZED 09-02-2016 [facility] EDEMA PHYSICIANS, [facility] R791 ABNORMAL 09-02-2016 [facility] CO[facility]UL[facility] P R7989 OTHER SPEC 09-02-2016 [facility] ABNORMAL PHYSICIANS, FINDINGS [facility] BLOOD CHEMISTRY Z0389 ENCOUNTER 09-02-2016 [facility] MEDICAL SUSPCT DZ & IMAGING ASS COND RULED OUT S84726 PAIN IN 01-28-2016 [place] [facility] RIGHT FOOT [facility] 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 R0789 OTHER CHEST 01-27-2016 [facility] Z7901 EPIC AMBULATORY SPECIALISTS 01-27-2016 [facility] NTS Z7982 EPIC AMBULATORY SPECIALISTS 01-27-2016 [facility] Z951 PRESENCE OF 01-27-2016 [facility] AORTOCORONA RY BYPASS GRAFT Z9989 DEPENDENCE 01-27-2016 AIR [facility] ON OTHER [facility] ENABLING MACHINES & DEVICES R55 SYNCOPE AND 01-06-2016 [facility] COLLAPSE PHYSICIANS, [facility] Z955 PRESENCE OF 01-06-2016 [facility] IMPLANT & GRAFT 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 PHYSICIANS UNSPECIFIED GROUP [id number] COMPARTMENT 01-03-2016 [facility] SYNDROME PHYSICIANS UNSPECIFIED GROUP INITIAL ENCNTR G8918 OTHER ACUTE 01-01-2016 [facility] POSTPROCEDU INC RAL PAIN Y41001 PAIN IN 01-01-2016 [facility] RIGHT LOWER [facility] LEG INC 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 O02040 DYSPHAGIA 12-28-2015 PATIENT FOLLOWING AIDS INC CEREBRAL INFARCTION 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-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 R1310 DYSPHAGIA 12-28-2015 PATIENT UNSPECIFIED AIDS INC R2681 UNSTEADINES 12-28-2015 PATIENT S ON FEET AIDS INC R269 UNSPECIFIED 12-28-2015 PATIENT AIDS INC ABNORMALITI ES OF GAIT AND MOBILITY R5381 OTHER 12-27-2015 [facility] K01892 ENCOUNTER 12-13-2015 [facility] FOLLOW ION SURGERY CIRC SYS U80061 ENCOUNTER 12-13-2015 [facility] FLW SURG ION SKIN&SUBQ TISS Z9889 OTHER 12-13-2015 [facility] SPECIFIED SERV POSTPROCEDU FOUNDATION RAL STATES J90 PLEURAL 12-11-2015 [place] [facility] EFFUSION SERV NOT FOUNDATION ELSEWHERE CLASSIFIED R001 BRADYCARDIA 12-06-2015 [place] [facility] UNSPECIFIED FOUNDATION Z95517 ELEVATED 12-01-2015 [facility] WHITE BLOOD SERV CELL COUNT FOUNDATION UNSPECIFIED I447 LEFT 12-01-2015 [facility] BUNDLE-BRAN SERV CH BLOCK FOUNDATION UNSPECIFIED R0602 SHORTNESS 12-01-2015 [place] [facility] OF BREATH SERV [facility] R109 UNSPECIFIED 12-01-2015 [facility] ABDOMINAL SERV PAIN [facility]OUNDATION R932 ABNORMAL 12-01-2015 [facility] FIND ON DX SERV IMAGING FOUNDATION LIVER & BILI TRACT K810 ACUTE 11-30-2015 [facility] CHOLECYSTIT SERV IS FOUNDATION R112 NAUSEA WITH 11-30-2015 [facility] VOMITING SERV UNSPECIFIED FOUNDATION R509 FEVER 11-30-2015 [facility] UNSPECIFIED SERV [facility] J9811 ATELECTASIS 11-29-2015 [facility] Z430 ENCOUNTER 11-29-2015 [facility] FOR [facility] ATTENTION [facility]OUND[facility] TO TRACHEOSTOM Y S97837 ACUTE 11-25-2015 [facility] EMBOLISM & SERV THROMBOSIS FOUNDATION SUP VEINS RT UP EXT R0989 OTH SPEC SX 11-25-2015 [facility] & SIGNS SERV INVLV THE FOUNDATION CIRC & RESP SYS Z049 ENCOUNTER 11-25-2015 [facility] EXAMINATION SERV &OBSERVATIO FOUNDATION N FOR UNS REASON I083 COMB 11-23-2015 [facility] RHEUMAT D/O SERV MITRAL FOUNDATION AORTC & TRICUSPID VALVES I371 NONRHEUMATI 11-23-2015 [facility] C PULMONARY SERV VALVE FOUNDATION INSUFFICIEN CY I619 NONTRAUMATI 11-23-2015 [facility] C SERV INTRACEREBR [facility]OUNDATION AL HEMORRHAGE UNS I7771 DISSECTION 11-23-2015 [place] [facility] OF CAROTID SERV ARTERY FOUNDATION I998 OTHER 11-23-2015 [facility] DISORDER OF SERV [facility] CIRCULATORY SYSTEM [id number] TRAUMAT 11-23-2015 [facility] COMPARTMENT [facility] SYND RT FOUNDATION LOW EXTREM INIT ENC Z452 ENCOUNTER 11-23-2015 [facility] ADJUSTMENT& SERV MGMT [facility]OUNDATION VASCULAR ACCESS DEVICE D62 ACUTE 11-22-2015 [facility] POSTHEMORRH SERV AGIC ANEMIA FOUNDATION E870 HYPEROSMOLA 11-22-2015 [facility] LITY AND SERV HYPERNATREM FOUNDATION IA I638 OTHER 11-22-2015 [facility] CEREBRAL SERV INFARCTION FOUNDATION J951 ACUTE 11-22-2015 [facility] PULMONARY SERV INSUFF [facility]OUNDATION FOLLOW THORACIC SURGERY R531 WEAKNESS 11-22-2015 [facility] Z4659 ENCOUNTER 11-22-2015 [facility] FIT [facility] ADJUST OTH [facility]OUNDATION GI APPLIANCE & DEVICE Z4682 ENCOUNTER 11-22-2015 [facility]TING [facility] SERV ADJUST [facility] NON-VASCULA R CATHETER J984 OTHER 11-21-2015 [facility] DISORDERS SERV OF LUNG FOUNDATION R609 EDEMA 11-21-2015 [facility] UNSPECIFIED SERV FOUNDATION R930 ABNORMAL 11-21-2015 [facility] FINDINGS ON SERV DX IMAGING FOUNDATION SKULL & HEAD NEC E8770 FLUID 2015 [facility] OVERLOAD SERV UNSPECIFIED FOUNDATION J811 CHRONIC 2015 [facility] PULMONARY SERV EDEMA FOUNDATION J9600 ACUTE 2015 [facility] RESPIRATORY SERV FAIL UNS FOUNDATION HYPOXIA/HYP ERCAPNIA M6282 RHABDOMYOLY 2015 [facility] SIS [facility] N179 ACUTE 2015 [facility] KIDNEY SERV FAILURE [facility]OUND[facility] UNSPECIFIED Z930 TRACHEOSTOM 2015 [facility] Y STATUS SERV [facility] M6289 OTHER 11-17-2015 [facility] DISORDERS HOSPI OF MUSCLE E878 OTHER D/O 11-14-2015 [place] [facility] OF SERV ELECTROLYTE FOUNDATION AND FLUID BALANCE NEC J9691 RESPIRATORY 11-14-2015 [facility] FAILURE SERV UNSPECIFIED FOUNDATION WITH HYPOXIA R633 FEEDING 11-14-2015 [facility] DIFFICULTIE SERV S FOUNDATION R918 OTHER 11-12-2015 [facility] NONSPECIFIC SERV ABNORMAL FOUNDATION FINDING OF LUNG FIELD G58314 ACUTE 11-11-2015 [facility] EMBOLISM & [facility]ROM[facility] HOSPI RIGHT POPLITEAL VEIN D649 ANEMIA 11-10-2015 [facility] UNSPECIFIED SERV FOUNDATION I743 EMBOLISM & 11-10-2015 [facility] THROMBOSIS SERV ART THE FOUNDATION LOWER EXTREMITIES J982 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[facility] L EMPHYSEMA SERV FOUNDATION R739 HYPERGLYCEM 11-10-2015 [facility] IA SERV UNSPECIFIED FOUNDATION Z048 ENCOUNTER 11-10-2015 [facility] EXAM & SERV OBSERVATION FOUNDATION OTHER SPEC REASONS E785 HYPERLIPIDE 11-09-2015 [facility] NIGEL PHYSICIANS UNSPECIFIED GROUP I209 ANGINA 11-09-2015 [facility] PECTORIS PHYSICIANS UNSPECIFIED GROUP I4901 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-09-2015 [facility] FIBRILLATIO N 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 ION I700 ATHEROSCLER 11-09-2015 [facility] AORTA HOSPI I7102 DISSECTION 11-09-2015 [facility] OF SERV ABDOMINAL FOUNDATION AORTA 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 J189 PNEUMONIA 11-09-2015 [facility] ORGANISM L35157 ACUTE 11-09-2015 [facility] POSTPROCEDU SERV RAL FOUNDATION RESPIRATORY FAILURE R200 ANESTHESIA 11-09-2015 [facility] SKIN SERV FOUNDATION R570 CARDIOGENIC 11-09-2015 [facility] SHOCK [facility] P60566 THORACIC 11-08-2015 [facility] MEDICAL ECTASIA IMAGING ASS M545 LOW BACK 05-04-2015 [facility] INC R030 ELEVATED 03-09-2015 [facility] BLOOD-PRESS AMBULANCE URE READING SERVICE WITHOUT DX HTN R071 CHEST PAIN 03-09-2015 [facility] ON AMBULANCE BREATHING SERVICE 56869 11-09-2014 [facility] ION SER 74268 HELICOBACTE 09-17-2014 [facility] INFECTION 13026 OTHER SPEC 09-17-2014 [facility] WITHOUT MENTION HEMORRHAGE 19917 UNS 09-17-2014 [facility] GA[facility]&G PHYSICIANS ASTRODUODIT GROUP IS W/O MENTION HEMORR 08740 DIVERTICULO 09-17-2014 [facility] SIS OF PHYSICIANS COLON GROUP 5693 HEMORRHAGE 09-17-2014 [facility] OF RECTUM PHYSICIANS AND ANUS GROUP 5780 HEMATEMESIS 09-17-2014 [facility] PHYSICIANS GROUP 64716 HEMOPTYSIS 09-17-2014 [facility] UNSPECIFIED ANESTH OF THE BLUE 7921 NONSPECIFIC 09-17-2014 COMMUNITY ABNORMAL ANESTH OF FINDING IN THE BLUE STOOL CONTENTS 5781 BLOOD IN 09-03-2014 [facility] STOOL PHYSICIANS GROUP 7871 HEARTBURN 09-03-2014 [facility] PHYSICIANS GROUP V7651 SPECIAL 09-03-2014 [facility] SCREENING PHYSICIANS FOR GROUP MALIGNANT NEOPLASMS COLON 15609 BORDERLINE 08-21-2014 [facility]LAUC OPEN ANGLE BL FINDINGS LOW RSK 4019 UNSPECIFIED 08-19-2014 [facility] P N 22566 COR 08-19-2014 [facility] P TYPE VESSEL STILLAGUAMISH/KI T [address]11 ASTHMA, 08-19-2014 [facility] P UNSPECIFIED STATUS 71271 PAIN IN 08-19-2014 [facility] JOINT [facility]ICAL PELVIC IMAGING ASS REGION AND THIGH 7295 PAIN IN 08-19-2014 [facility] SOFT MEDICAL TISSUES OF IMAGING ASS LIMB 09070 CHEST PAIN 08-19-2014 [facility] UNSPECIFIED AMBULANCE SERVICE 92817 ACUT [place] 08-18-2014 [facility] IAL INFARCT MEDICAL G EPIS CARE UNS 5990 URINARY 08-18-2014 [facility] INFECTION INC SITE NOT SPECIFIED 03065 ABDOMINAL 08-17-2014 [facility] P SITE V4589 OTHER 08-17-2014 [facility] POSTSURGICA [facility]US [facility] P OTHER 7991 RESPIRATORY 06-05-2014 [facility]REST [facility] 81416 POISONING 06-05-2014 [facility] BY HEROIN N EMERGENCY PHYS 9779 POISONING 06-05-2014 [facility] UNSPECIFIED SERV [place] [facility] DRUG/MEDICI NAL SUBSTANCE E9800 POISN-ANALG 06-05-2014 [facility] ES-ANTIPYRE N EMERGENCY T-ANTIRHEUM PHYS -UNDETERM CAUSE 2724 OTHER AND 04-15-2014 [facility] UNSPECIFIED PHYSICIANS GROUP HYPERLIPIDE NIGEL 64312 CORONARY 02-26-2014 [facility] MEDICAL OSIS STILLAGUAMISH IMAGING ASS CORONARY ARTERY 12552 OTHER 02-25-2014 [facility] DYSPNEA AND [employer] [place] [facility] [place] [address] ACUT [place] 02-24-2014 [facility] SUBENDOCARD N EMERGENCY IAL INFARCT PHYS INIT EPIS CARE 78494 SHORTNESS 02-24-2014 [facility] MEDICAL IMAGING ASS 5939 UNSPECIFIED 10-01-2013 [facility] DISORDER OF KIDNEY AND URETER 71024 PRECORDIAL 10-01-2013 [facility] AMBULANCE SERVICE Medications Na ND Rx Da Fi Fi Am Da Di Ph RX Ph St me C No te ll ll ou ys ag ar # ys at rm s nt no ma ic us Or Da si cy ia de te s n re d BA 00 03 04 45 30 00 ND Ac CL 83 -3 -2 .0 00 L- ti OF 21 0- 8- 00 07 MA ve EN 02 20 20 44 RT 45 17 17 08 10 0 11 PH AR MG MA CY TA BL #5 ET 91 AM 00 03 04 30 30 00 ND Ac LO 37 -3 -2 .0 00 L- ti DI 85 0- 8- 00 07 MA ve PI 20 20 20 43 RT NE 90 17 17 65 5 16 PH BE AR SY MA LA CY TE 5 #5 91 MG TA B HY 16 03 04 30 [address] 72 -3 -2 .0 00 L- ti OC 90 0- 8- 00 07 MA ve HL 18 20 20 47 RT OR 31 17 17 51 OT 7 18 PH HI AR AZ MA ID CY E 25 #5 91 MG TA B LI 68 03 04 18 90 00 ND Ac SI 18 -3 -2 0. 00 L- ti NO 00 0- 8- 00 07 MA ve MN 51 20 20 0 47 RT IL 70 17 17 51 1 34 PH 40 AR MA MG CY TA #5 BL 91 ET CA 68 03 04 60 30 00 ND Ac RV 46 -3 -2 .0 00 [...] #5 91 TA BL ET BA 00 12 01 45 30 [...] #5 BL 91 ET AM 00 12 01 30 30 00 ND Ac LO 37 -2 -2 .0 00 L- ti DI 85 7- 7- 00 07 MA ve PI 20 20 20 44 RT NE 90 16 17 12 5 21 PH BE AR SY MA LA CY TE 5 #5 91 MG TA B HY 68 12 01 30 [address] 64 -2 -2 .0 00 L- ti OC 50 7- 7- 00 07 MA ve HL 51 20 20 44 RT OR 07 16 17 99 OT 0 71 PH HI AR AZ MA ID CY E 25 #5 91 MG TA B HY 49 12 01 90 [address] 88 -2 -2 .0 00 L- ti AL 40 7- 7- 00 07 MA ve AZ 02 20 20 44 RT IN 90 16 17 99 E 1 87 PH 10 AR MA MG CY TA #5 BL 91 ET AT 68 12 01 30 30 00 WA Ac OR 64 -2 -2 .0 00 L- ti VA 50 7- 7- [address] 46 20 20 44 RT AT 05 16 17 12 IN 4 22 PH AR 40 MA CY MG #5 TA 91 BL ET CA 68 12 01 60 30 00 [...] 00 8- 7- 00 07 MA ve MN 51 20 20 46 RT IL 70 16 17 10 1 93 PH 40 AR MA MG CY TA #5 BL 91 ET ## 08 01 60 30 00 WA Ac ## -1 -0 .0 00 L- ti ## 0- 9- 00 08 MA ve ## 20 20 83 RT ## 16 17 56 # 47 PH AR MA CY #5 91 Procedures Procedure DOS Code Location Performer Comment BASIC 75998 [facility] METABOLIC 7 [facility] PANEL E E [facility] TOTAL THROMBOPL 61387 [facility] ASTIN 7 [facility] TIME E E PARTIAL [facility]OSPITALS HOSPITALS PLASMA/WH OLE BLOOD RADIOLOGI 13971 [facility] C EXAM 7 [facility] CHEST 2 E E VIEWS [facility] FRONTAL&L ATERAL LOCM Q9967 [facility] [phone] [facility] MG/ML E E IODINE [facility] CONCENTRA TION PER ML PROTHROMB 64857 [facility] IN TIME 7 [facility] HEALTH[facility] E E HOSPITALS HOSPITALS DRUG TST G0483 [facility] DEFINITV [address] ID E E METH P [facility] DAY 22/MORE DR CL ECG 06227 [facility] ROUTINE 7 [facility] HEALTHCAR ECG E E W/LEAST [facility] 12 LDS TRCG ONLY W/O I&R DUP-SCAN 77135 [facility] XTR VEINS 7 [facility] E E [facility] L/[place] [address] [facility] ANGIOGRAP 7 [facility] HY CHEST E E W/[facility]AS [facility] HOSP[facility]ALS T/[place] [address] [facility] MAGNESIUM 7 [facility]ALTH[facility] [place] [address] [facility] PHOSPHORU 7 [facility] HEALTHCAR S E E INORGANIC [facility]OSPITALS HOSPITALS INFUSION J7040 [facility] NORMAL 7 [facility] HEALTHCAR SALINE E E SOLUTION HOSPITALS HOSPITALS STERILE ECG 62537 [place] [facility] ROUTINE 7 MEDICAL ECG SERV W/LEAST FOUNDATIO 12 LDS N I&R ONLY NATRIURET 89274 [facility] IC 7 [facility] [place]PT[place] [address] [facility] TROPONIN 7 [facility]ALTHCAR HEALTHCAR QUANTITAT E E IMAN [facility] [place] [address] [facility] TROPONIN 7 MEM HOSP MEM HOSP QUANTITAT INC INC IMNA BLOOD 99712 [facility] COUNT 7 [facility] MEM [facility]OS[facility] COMPLETE INC INC AUTO&AUTO DIFRNTL WBC ECG 63032 [facility] MIRANDA ROUTINE 7 [facility] W/LEAST P 12 LDS I&R ONLY CREATINE 07807 [facility]IEGEL KINASE MB 7 MEM HOSP [place] [address] [facility] LACTATE 7 [facility]OS[facility] INC INC FIBRIN 69120 [facility] DGRADJ 7 MEM HOS[facility] MEM HOSP PRODUCTS INC INC D-DIMER QUAL/SEMI MICHELLE THERAPEUT 12942 [facility] IC 7 MEM H[facility] MEM HOSP PROPHYLAC INC INC TIC/DX INJECTION SUBQ/IM CREATINE 66899 [facility] KINASE 7 [facility]OS[facility] TOTAL INC INC ECG 24324 [facility] ROUTINE 7 [facility] ECG INC INC W/LEAST 12 LDS TRCG ONLY W/O I&R UNCLASSIF J3490 [facility] IED DRUGS 7 [facility]OS[facility] INC INC PROTHROMB 26157 [facility] IN TIME 7 [facility]OS[facility] INC INC COLLECTIO 92195 [facility] S[facility] N VENOUS 7 [facility] BLOOD INC INC VENIPUNCT URE RADIOLOGI 41722 [facility] C EXAM 7 [facility] CHEST 2 INC INC VIEWS FRONTAL&L ATERAL CULTURE 73910 [facility] BACTERIAL 7 [facility] HOSP BLOOD INC INC AEROBIC W/ID ISOLATES AMB A0427 [facility] SERVICE 7 AMBULANCE AMBULANCE ALS SERVICE SERVICE EMERGENCY TRANSPORT LEVEL 1 GROUND A0425 [facility] MILEAGE 7 AMBULANCE AMBULANCE PER SERVICE SERVICE STATUTE MILE CRITICAL 52545 [facility] 7 PHYSICIAN ILL/INJUR S, PLLC ED PATIENT INIT 30-74 MIN COMPREHEN 30940 [facility] SIVE 7 [facility]OSP METABOLIC INC INC PANEL ECG 26343 [facility] ROUTINE 6 Y Y ECG [facility] W/LEAST 12 LDS TRCG ONLY W/O I&R DRUG TST G0483 [facility] DEFINITV [address] ID [facility]PITAL METH P DAY 22/MORE DR CL RADEX 17068 [facility] ANKLE 6 Y Y [facility] MINIMUM 3 VIEWS RADEX 32809 [facility] FOOT 6 Y Y [facility] MINIMUM 3 VIEWS [facility] G0378 [facility] OBSERVATI 6 Y Y ON HOSPITAL HOSPITAL SERVICE PER HOUR ECG 35914 [place] [facility] ROUTINE 6 MEDICAL ECG SERV W/LEAST FOUNDATIO 12 LDS [place] I&[place] [address] [facility] TROPONIN 6 Y Y [facility] [place] [address] [facility] TROPONIN 6 MEM H[facility] QUANTITAT INC INC IMAN BLOOD 35596 [facility] COUNT 6 [facility] COMPLETE INC INC AUTO&[place] [address] [facility] INFUSION 6 Y Y THERAPY/P [facility] ROPHYLAXI S /DX 1ST TO 1 HR BLOOD 47151 [facility] COUNT 6 Y Y [facility] AUTOMATED ECG 42104 [facility] MIRANDA ROUTINE 6 [facility] W/LEAST P 12 LDS I&R ONLY CREATINE 52728 [facility] S[facility] KINASE MB 6 [facility] HOSP FRACTION INC INC ONLY INFUSION J7040 [facility] NORMAL Y Y [facility] SOLUTION STERILE CREATINE 08931 ROBBIN SIEGEL KINASE 6 [facility] [place] [address] [facility] INFUSION Y Y [facility] PROPHYLAX IS/DX EA HOUR ECG 61346 ROBBIN SIEGEL ROUTINE 6 [facility] ECG INC INC W/LEAST 12 LDS TRCG ONLY W/O I&R INFUSION J7030 [place] [address] Y Y [facility] SOLUTION 1000 CC PROTHROMB 38968 ROBBIN SIEGEL IN TIME 6 [facility] INC INC AMB A0431 AIR AIR SERVICE 6 METHODS METHODS CONVNTION [facility] AIR SRVC TRANSPORT [address] COMPREHEN [id number] ROBBIN SIEGEL SIVE 6 [facility] METABOLIC INC INC PANEL BASIC 17284 [facility] METABOLIC Y Y [facility] CALCIUM TOTAL GROUND A0425 [facility] MILEAGE 6 AMBULANCE [place] PER SERVICE STATUTE MILE INITIAL 87125 ROBBIN SIEGEL OBSERVATI 6 [facility] ON INC INC CARE/DAY 50 MINUTES AMB A0427 [facility] SERVICE 6 [facility]BULANCE [place] ALS SERVICE EMERGENCY TRANSPORT LEVEL 1 THROMBOPL 28952 [facility] ASTIN 6 Y Y TIME [facility] PARTIAL PLASMA/WH OLE BLOOD BLOOD 38146 [facility] TYPING 6 Y Y SEROLOGIC [facility] RH (D) PLATELETS P9035 [facility] PHERESIS [address] [place] [address] LEUKOCYTE S REDUCED EACH UNIT CRITICAL 06315 [facility] 6 PHYSICIAN ALHAJI ILL/INJUR S, PLLC ED PATIENT INIT 30-74 MIN ARTL 00581 [place] TIT[place] CATHJ/CAN 6 MEDICAL NULJ SERV MNTR/PEREYRA FOUNDATIO SFUSION N SPX PRQ COMPATIBI 77315 [facility] LITY EACH 6 Y Y UNIT [facility] ELECTRONI C RADIOLOGI 20759 ROBBIN SIEGEL C 6 [facility] EXAMINATI INC [place] [address] ROB[facility] SIEGEL ANGIOGRAP 6 [facility] HY CHEST INC INC W/CONTRAS T/NONCONT RAST COLLECTIO 88668 ROBBIN SIEGEL N VENOUS 6 [facility] BLOOD INC INC VENIPUNCT URE ANTIBODY 52790 [facility] SCREEN 6 Y Y [facility] SERUM TECHNIQUE BLOOD 90704 [facility] TYPING 6 Y Y SEROLOGIC [facility] ABO CT THORAX 94781 [place] [facility] ALL 6 MEDICAL W/CONTRAS IMAGING T ASS MATERIAL COLLECTIO 46687 ROBBIN SIEGEL N VENOUS 6 [facility] BLOOD INC INC VENIPUNCT URE RADIOLOGI 90707 [place] [facility] ALL C 6 MEDICAL EXAMINATI IMAGING [place] [address] [place] [facility] ALL HEAD/BRAI 6 MEDICAL N W/O IMAGING CONTRAST ASS MATERIAL PROTHROMB 47573 ROBBIN SIEGEL IN TIME 6 [facility] INC INC ECG 65090 ROBBIN MIRANDA ROUTINE 6 [facility] W/LEAST P 12 LDS I&R ONLY DRUG TST [id number] ROBBIN SIEGEL PRESUMP;C 6 [facility] PBL BEING INC INC READ DC OPT OBV ONLY THERAPEUT 31800 ROBBIN SIEGEL IC 6 [facility] PROPHYLAC INC INC TIC/DX INJECTION SUBQ/IM PROTHROMB 47364 ROBBIN SIEGEL IN TIME 6 [facility] INC INC COLLECTIO 19684 ROBBIN SIEGEL N VENOUS 6 [facility] HOSP BLOOD INC INC VENIPUNCT URE WALKER E0143 PATIENT MARCHINO FOLDING 6 [facility] E/FIXED [facility] [address] [place] [address] MEDICAL DAY SERV MANAGEMEN FOUNDATIO T > 30 N MIN SBSQ 17093 [facility] 6 MEDICAL CARE/DAY SERV 35 FOUNDATIO MINUTES N SBSQ 08953 [facility] 6 MEDICAL KER RAN CARE/DAY SERV 35 FOUNDATIO MINUTES N SBSQ 62614 [facility] 6 MEDICAL KER RAN CARE/DAY SERV 35 FOUNDATIO MINUTES N SBSQ 77771 [place] [address] MEDICAL ANIRUDH CARE/DAY SERV 35 FOUNDATIO MINUTES N SBSQ 29001 [facility] 6 MEDICAL JUANY CARE/DAY SERV 35 FOUNDATIO MINUTES N SBSQ 19898 [place] [address] MEDICAL JUANY CARE/DAY SERV 35 FOUNDATIO MINUTES N SBSQ 32842 [facility] 6 MEDICAL JUANY CARE/DAY SERV 35 FOUNDATIO MINUTES N SBSQ 36460 [place] [address] MEDICAL JUANY CARE/DAY SERV 35 FOUNDATIO MINUTES N SBSQ 66591 [place] [address] MEDICAL ROSEMARY CARE/DAY SERV 35 FOUNDATIO MINUTES N SBSQ 78081 [place] [address] MEDICAL ROSEMARY CARE/DAY SERV 35 FOUNDATIO MINUTES N SBSQ 42425 [place] [address] MEDICAL CARE/DAY SERV 35 FOUNDATIO MINUTES N SBSQ 18044 [place] [address] MEDICAL CARE/DAY SERV 35 FOUNDATIO MINUTES N SBSQ 80876 [place] [address] MEDICAL CARE/DAY SERV 35 FOUNDATIO MINUTES N SBSQ 85111 [place] [address] MEDICAL CARE/DAY SERV 35 FOUNDATIO MINUTES N RADIOLOGI 71964 [facility] 6 MEDICAL EXAMINATI SERV ON CHEST FOUNDATIO SINGLE N [place]IEW FRONTAL INITIAL 89537 [facility] 6 MEDICAL CARE/DAY SERV 70 FOUNDATIO MINUTES N RADIOLOGI 57238 [place] JEIMY 6 MEDICAL AYA MAR EXAMINATI SERV ON CHEST FOUNDATIO SINGLE N VIEW FRONTAL ECG 80243 [place] LIMA CHI ROUTINE 6 MEDICAL ECG SERV W/LEAST FOUNDATIO 12 LDS N I&R ONLY SWALLOWIN 20798 [place] AYOOB AND G FUNCJ 6 MEDICAL W/CINERAD SERV IOGRAPY/V FOUNDATIO IDRADIOG N ECG 34378 [place] PAULINO ROUTINE 6 MEDICAL NAN ECG SERV W/LEAST FOUNDATIO 12 LDS N I&R ONLY RADIOLOGI 84444 [place] MARVIN C 6 MEDICAL ALHAJI EXAMINATI SERV ON CHEST FOUNDATIO SING[place] HEPATOBIL 71248 [place] EL KHOULI IARY SYST 6 MEDICAL IMAGING [place] [address] [place] CHRISTIE ABDOMINAL 6 MEDICAL LETY REAL SERV TOMMY TIME FOUNDATIO W/[place] [address] [place] JAY DAVID ABDOMEN & 6 MEDICAL PELVIS SERV W/CONTRAS FOUNDATIO T N MATERIAL ECG 35661 [place] MARK ANIRUDH ROUTINE 6 MEDICAL ECG SERV W/LEAST FOUNDATIO 12 LDS N I&R ONLY ECG 11575 [place] MARK ANIRUDH ROUTINE 6 MEDICAL ECG SERV W/LEAST FOUNDATIO 12 LDS N I&R ONLY RADIOLOGI 49985 [place] GOPAL C 6 MEDICAL EXAMINATI SERV ON CHEST FOUNDATIO SINGLE N VIEW FRONTAL RADIOLOGI 97288 [place] C 6 MEDICAL MEDICAL EXAMINATI SERV SERV ON CHEST FOUNDATIO FOUNDATIO SINGLE N N VIEW FRONTAL RADEX ABD 46239 [place] JAY DAVID COMPL 6 MEDICAL AQT ABD SERV W/S/E/D FOUNDATIO VIEWS 1 N VIEW CH DUP-SCAN 92267 [place] GRIFFITH FABIENNE XTR VEINS 6 MEDICAL COMPLETE SERV FOUNDATIO BILATERAL N STUDY MRI BRAIN 97163 [place] RASLAU BRAIN 6 MEDICAL FLA STEM W/O SERV CONTRAST FOUNDATIO MATERIAL N SWALLOWIN 46166 [place] JAY DAVID G FUNCJ 6 MEDICAL W/CINERAD SERV IOGRAPY/V FOUNDATIO IDRADIOG N RADIOLOGI 66844 [place] GOPAL C 6 MEDICAL EXAMINATI SERV ON CHE[place] [address] [place] AVA ROSALBA ANGIOGRAP 6 MEDICAL HY HEAD SERV W/CONTRAS FOUNDATIO T/NONCONT N RAST RADIOLOGI 55079 [place] JEIMY C 6 MEDICAL AYA MAR EXAMINATI SERV ON CHEST [place] [address] [place] AVA ROSALBA ANGIOGRAP 6 MEDICAL HY NECK SERV W/CONTRAS FOUNDATIO T/NONCONT N RAST SBSQ 86532 [place] [facility] 6 MEDICAL REINALDO CARE/DAY SERV 15 FOUNDATIO MINUTES N RADEX 29343 [place] [facility] NO[facility]MY ABDOMEN 1 6 MEDICAL SERV ANTEROPOS FOUNDATIO TERIOR N VIEW ECHO 34454 [place] JUAN GWENDOLYN TTHR R-T 6 MEDICAL 2D SERV W/WOM-MOD FOUNDATIO E COMPL N SPEC&COLR D INSERTION [id number] [facility] 6 Y Y [facility] SUPERIOR VENA CAVA PERQ RADEX 76009 [place] [facility] NOHEMY ABDOMEN 1 6 MEDICAL SERV ANTEROPOS FOUNDATIO TERIOR N VIEW RADIOLOGI 11314 [place] ANDRE C 6 MEDICAL ALHAJI EXAMINATI SERV ON CHEST FOUNDATIO SINGLE N [place]IEW FRONTAL INITIAL 81793 [place] [facility] IN[facility] 6 MEDICAL GUNNER CONSULT SERV NEW/ESTAB FOUNDATIO PT 55 N MIN SBSQ [address] [place] [facility] 6 MEDICAL ANT CARE/DAY SERV 25 FOUNDATIO MINUTES N CRITICAL 69202 [place] [facility] 6 MEDICAL ANT ILL/INJUR SERV ED FOUNDATIO PATIENT N INIT 30-74 MIN RADIOLOGI 04886 [place] ANDRE C 6 MEDICAL ALHAJI EXAMINATI SERV ON CHEST [place] [address] [place] RASLAU HEAD/BRAI 6 MEDICAL FLA N W/O SERV CONTRAST FOUNDATIO MATERIAL N RADIOLOGI 41801 [place] ANDRE C 6 MEDICAL ALHAJI EXAMINATI SERV ON CHEST FOUNDATIO SINGLE N VIEW FRONTAL CRITICAL 71239 [place] [facility] 6 MEDICAL ANT ILL/INJUR SERV ED FOUNDATIO PATIENT N INIT 30-74 MIN CRITICAL 48755 [place] [facility] 6 MEDICAL ANT ILL/INJUR SERV ED FOUNDATIO PATIENT N INIT 30-74 MIN RADIOLOGI 92828 [place] JEIMY C 6 MEDICAL AYA MAR EXAMINATI SERV ON CHEST FOUNDATIO SINGLE N VIEW FRONTAL RADIOLOGI 59807 [place] ANDRE C 6 MEDICAL ALHAJI EXAMINATI SERV ON CHEST FOUNDATIO SINGLE N VIEW FRONTAL RADIOLOGI 54790 [place] JEIMY C 6 MEDICAL AYA MAR EXAMINATI SERV ON CHEST FOUNDATIO SINGLE N VIEW FRONTAL LEVEL III 81852 [facility] SURG 6 Y OF PATHOLOGY [facility] GROSS&ALHAJI ROSCOPIC EXAM ANES 69640 [place] AJAY NERVE 6 MEDICAL LIS MUSC SERVICES TENDON FASCIA & BURSAE UPPER LEG DEBRIDEME 71739 [place] XENOS TYLER NT MUSCLE 6 MEDICAL & FASCIA SERV 20 SQ FOUNDATIO CM/< N DEBRIDEME 66458 [place] XENOS TYLER NT MUSCLE 6 MEDICAL &/FASCIA SERV EA ADDL FOUNDATIO 20 SQ CM N RADIOLOGI 19670 [place] [facility] C 6 MEDICAL EXAMINATI SERV ON CHEST FOUNDATIO SINGLE N VIEW FRONTAL RADIOLOGI 60422 [place] PAYAN GWENDOLYN C 6 MEDICAL EXAMINATI SERV ON CHEST FOUNDATIO SINGLE N VIEW FRONTAL RADIOLOGI 39720 [place] LILA C 6 MEDICAL MAR EXAMINATI SERV ON CHEST FOUNDATIO SINGLE N VIEW FRONTAL CRITICAL 13643 [place] [facility] 6 MEDICAL ANTOINE ILL/INJUR SERV ED FOUNDATIO PATIENT N INIT 30-74 MIN CRITICAL 87085 [place] [facility] 6 MEDICAL ANTOINE ILL/INJUR SERV ED FOUNDATIO PATIENT N INIT 30-74 MIN RADIOLOGI 62717 [place] [facility] NOHEMY C 6 MEDICAL EXAMINATI SERV ON CHEST FOUNDATIO SINGLE N VIEW FRONTAL RADEX 14452 [place] AYOOB AND ABDOMEN 1 6 MEDICAL SERV ANTEROPOS FOUNDATIO TERIOR N VIEW ANES 37525 [place] DELAHOUSA NRV/MUS/T 6 MEDICAL Y ANTOINE ND/FASC SERVICES LOWER LEG/ANKLE /FOOT NOS RADEX 70205 [place] GOPAL ABDOMEN 1 6 MEDICAL SERV ANTEROPOS FOUNDATIO TERIOR N VIEW DCMPRN 35909 [place] GRIFFITH FABIENNE FASCT LEG 6 MEDICAL SERV ANT&/LAT& FOUNDATIO PST CMPRT N RADIOLOGI 85105 [place] PAYAN GWENDOLYN C 6 MEDICAL EXAMINATI SERV ON CHEST FOUNDATIO SINGLE N [place]IEW FRONTAL CRITICAL 10409 [place] [facility] 6 MEDICAL ANTOINE ILL/INJUR SERV ED FOUNDATIO PATIENT N INIT 30-74 MIN ANESTHESI 00476 [place] ADAM A THER 6 MEDICAL RANDI IVNTL SERVICES RADIOLOGI CORIN ARTERIAL EMBLC/THR 70635 [place] STAN MBC 6 MEDICAL ROWENA FEMORAL SERV POPLITEAL FOUNDATIO N AORTO-YUKO AC ART CRITICAL 77221 [place] [facility] 6 MEDICAL ANTOINE ILL/INJUR SERV ED FOUNDATIO PATIENT N INIT 30-74 MIN RADIOLOGI 53667 [place] ANDRE C 6 MEDICAL ALHAJI EXAMINATI SERV ON CHEST FOUNDATIO SINGLE N [place]IEW FRONTAL REVSC 99744 [place] MELISSA OPN/PRQ 6 MEDICAL MEDICAL ILIAC ART SERV SERV W/STNT FOUNDATIO FOUNDATIO PLMT & N N ANGIOPLST Y LEVEL III 49101 [facility] SURG 6 Y OF PATHOLOGY [facility] GROSS&ALHAJI ROSCOPIC EXAM INTRAVASC 43187 [place] STAN ULAR US 6 MEDICAL ROWENA NONCORONA SERV RY RS&I FOUNDATIO INTIAL N VESSEL DIL RT [id number] [facility] ILIAC 6 Y Y [facility] INTRALUM DEVICE PERQ APPR DIL LT [id number] [facility] ILIAC 6 Y Y [facility] INTRALUM DEVICE PERQ APPR EXTIRPATI [id number] [facility] 6 Y Y RT EXT [facility] ILIAC ART OPEN APPRCH ECG 86422 [place] LIMA CHI ROUTINE 6 MEDICAL ECG SERV W/LEAST FOUNDATIO 12 LDS N I&R ONLY CTA ABDL 73612 [place] ANDRE AORTA&BI 6 MEDICAL ALHAJI ILIOFEM SERV W/CONTRAS FOUNDATIO T&POSTP N RADIOLOGI 11296 [place] PAYAN GWENDOLYN C 6 MEDICAL EXAMINATI SERV ON CHEST FOUNDATIO SINGLE N [place]IEW FRONTAL CRITICAL 49768 [place] [facility] 6 MEDICAL ANTOINE ILL/INJUR SERV ED FOUNDATIO PATIENT N INIT 30-74 MIN SBSQ 11568 [place] [address] PHYSICIAN MAT CARE/DAY S GROUP 25 MINUTES AMB A0427 [facility] SERVICE 6 AMBULANCE AMBULANCE ALS SERVICE SERVICE EMERGENCY TRANSPORT LEVEL 1 CRITICAL 18942 [place] [address] MEDICAL SURJIT ILL/INJUR SERV ED FOUNDATIO PATIENT N INIT 30-74 MIN GROUND A0425 [facility] MILEAGE 6 AMBULANCE AMBULANCE [place] [address] [place] RASLAU ANGIOGRAP 6 MEDICAL FLA HY HEAD SERV W/CONTRAS FOUNDATIO T/NONCONT N RAST LEVEL III 84535 [facility] SURG 6 Y OF MAY PATHOLOGY [facility] GROSS&[place] [address] MELISSA NICKELS ANGIOGRAP 6 MEDICAL REINALDO HY CHEST SERV W/CONTRAS FOUNDATIO T/NONCONT N RAST CATH PLMT 61741 [facility] HRT & 6 PHYSICIAN MAT ARTS S GROUP W/NJX & ANGIO IMG S&I CT ANGIO 15552 [place] NICKELS ABD&PLVIS 6 MEDICAL REINALDO CNTRST SERV MTRL W/WO FOUNDATIO CNTRST N IMG SPCL STN 77528 [facility] 2 I&R 6 Y OF MAY EXCPT [place] [facility]/ [facility]OSPI ENZYME/[place] [address] [place] RASLAU ANGIOGRAP 6 MEDICAL FLA HY NECK SERV W/CONTRAS FOUNDATIO T/NONCONT N RAST INITIAL 99889 [place] [facility] 6 MEDICAL CARE/DAY SERV 70 FOUNDATIO MINUTES N ECG 31507 MELISSA LIMA CHI ROUTINE 6 MEDICAL ECG SERV W/LEAST FOUNDATIO 12 LDS N I&R ONLY REPLACEME [id number] [facility] 6 Y Y [facility] W/[place] [address] [place] JORGE ALBERTO ABDOMEN & 6 MEDICAL [place] PELVIS IMAGING W/O ASS CONTRAST MATERIAL RADEX ABD 00483 [place] JORGE ALBERTO COMPL 6 MEDICAL [place] AQT ABD IMAGING W/S/E/D ASS VIEWS [address] THORAX 69707 [facility] JORGE ALBERTO W/O 6 MEDICAL [place] CONTRAST IMAGING MATERIAL ASS RADIOLOGI 57782 HIP[facility] WARDUTCHER C 6 MEDICAL [place] EXAMINATI IMAGING ON CHEST ASS SINGLE VIEW FRONTAL GROUND A0425 [facility] MILEAGE 6 AMBULANCE AMBULANCE PER SERVICE SERVICE STATUTE [place] AMB A0427 [facility] SERVICE 6 AMBULANCE AMBULANCE ALS SERVICE SERVICE EMERGENCY TRANSPORT LEVEL 1 PHYSICAL 53969 ROBBIN SIEGEL THERAPY 5 [facility] EVALUATIO INC INC N RADIOLOGI 86085 HIPOLITO TYLER ALL C 5 MEDICAL EXAMINATI IMAGING ON CHEST ASS SINGLE VIEW FRONTAL AMB A0427 [facility] SERVICE 5 AMBULANCE AMBULANCE ALS SERVICE SERVICE EMERGENCY TRANSPORT LEVEL 1 GROUND A0425 [facility]ANCE AMBULANCE PER SERVICE SERVICE STATUTE [place] NONEMERG A0120 [facility] FEDERATED TRNSPRT: 5 MINI-BUS TRANSPORT TRANSPORT MTN ATION SER ATION SER AREA/OTH SYS COLONOSCO 37419 [facility] SUKHDEV PY FLX DX 5 PHYSICIAN CAM W/COLLJ S GROUP SPEC WHEN PFRMD EGD 15542 [facility] SUKHDEV TRANSORAL 5 PHYSICIAN CAM BIOPSY S GROUP SING[place] [address] [facility] LIAM PATHOLOGY GROSS&ALHAJI ROSCOPIC EXAM ANES 27291 [facility] LOWER 5 ANESTH SHE INTESTINE OF THE BLUE ENDOSCOPY DISTAL DUODENUM SPECIAL 71347 [facility] STAIN [facility] LIAM GROUP 1 MICROORGA NISMS I&R DUP-SCAN 14557 HIPOLITO WARDUTCHER XTR VEINS 5 MEDICAL [place] IMAGING UNILATERA ASS L/LIMITED STUDY ECG 11597 ROBBIN KHAN JR ROUTINE 5 [facility] W/LEAST P 12 LDS I&R ONLY RADIOLOGI 45835 HIPOL[facility]O TOPHER C 5 MEDICAL MELY EXAMINATI IMAGING ON CHEST ASS SINGLE VIEW FRONTAL RADIOLOGI 33672 HIPOL[facility]O LUTHERINE C 5 MEDICAL MELY EXAMINATI IMAGING ON PELVIS ASS 1/2 VIEWS GROUND A0425 GENEVIEVE VALLEJO MILEAGE 5 AMBULANCE AMBULANCE PER SERVICE SERVICE STATUTE MILE AMBULANCE A0429 [facility] SERVICE 5 AMBULANCE AMBULANCE BLS SERVICE SERVICE EMERGENCY TRANSPORT CULTURE 94599 ROBBIN SIEGEL BACTERIAL 5 [facility] INC INC QUANTTATI VE COLONY COUNT URINE CATH PLMT 26597 [facility] FALLUJI L HRT & 5 [place] eDealya [facility] W/NJX & G ANGIO IMG S&I COLLECTIO 16055 ROBBIN SIEGEL N VENOUS 5 [facility] BLOOD INC INC VENIPUNCT URE HEPATITIS 30879 [facility] SIEGEL A 5 [facility] ANTIBODY INC INC HAAB RADIOLOGI 48535 [facility] EX[facility] 5 MEDICAL MELY CHEST 2 IMAGING VIEWS ASS FRONTAL&L ATERAL HEPATITIS 85607 ROBBIN SIEGEL C 5 [facility] ANTIBODY INC INC CRITICAL 71615 ROBBIN SIEGEL CARE 5 [facility] ED P P PATIENT INIT 30-74 MIN CRITICAL 33778 ROBBIN VARGAS CARE 5 [facility] ILL/INJUR [facility] ED P PATIENT ADDL 30 MIN COMPREHEN 02314 ROBBIN SIEGEL SIVE 5 [facility] METABOLIC INC INC PANEL ECG 60644 ROBBIN MIRANDA ROUTINE 5 [facility] W/LEAST P 12 LDS I&[place] [address] ROBBIN SIEGEL AMMONIA 5 [facility] INC INC CREATINE 81208 ROBBIN SIEGEL KINASE MB 5 [facility] [place] [address] ROBBIN SIEGEL FREE 5 [facility] [place] [address] ROBBIN SIEGEL THYROID 5 [facility] STIMULATI [place] [address] ROBBIN SIEGEL VITAMIN A 5 [facility] INC INC CYANOCOBA 91378 ROBBIN SIEGEL ISSAC 5 [facility] VITAMIN INC INC B-12 CREATINE 00717 ROBBIN ROBBIN KINASE 5 [facility] TOTAL INC INC HEPATITIS 10290 ROBBIN Orellana CORE 5 [facility] ANTIBODY INC INC HBCAB TOTAL HEPATITIS 18913 ROBBIN ROBBIN Esteban SURF 5 [facility] [place] [address] ROBBIN SIEGEL HEPATITIS 5 [facility] B INC INC SURFACE ANTIGEN PROTHROMB 78057 ROBBIN ROBBIN IN TIME 5 [facility] INC INC BLOOD 47856 ROBBIN SIEGEL COUNT 5 [facility] COMPLETE INC INC AUTO&[place] [address] ROBBINKERRIE SIEGEL TROPONIN 5 [facility] H[facility] QUANTITAT INC INC IMAN HEMOGLOBI 01977 ROBBIN ROBBIN N 5 [facility]OS[facility] GLYCOSYLA INC INC CHRISTIE A1C OPHTH 12017 [facility] MEDICAL 5 ANG ANG XM&EVAL COMPRHNSV ESTAB PT 1/> AMB A0427 BARRIE BARRIE SERVICE 5 [place] ALS URBAN URBAN EMERGENCY COGOVT COGOVT TRANSPORT LEVEL 1 GROUND A0425 BARRIE BARRIE MILEAGE 5 [place] PER URBAN URBAN STATUTE COGOVT COGOVT MILE RADIOLOGI 36104 MELISSA ZAHEER LAIRD C 5 MEDICAL EXAMINATI SERV ON CHEST FOUNDATIO SINGLE N VIEW FRONTAL MYOCARDIA 27798 [place] JORGE ALBERTO Olguin SPECT 4 MEDICAL [place] MULTIPLE IMAGING STUDIES ASS ECHO 02201 MELISSA POOLE TTHRC R-T 4 MEDICAL 2D SERV W/WOM-MOD FOUNDATIO E COMPL N SPEC&COLR D CRITICAL 98826 [facility] CARE 4 MONCHO ILL/INJUR EMERGENCY ED PHYS PATIENT INIT 30-74 MIN RADIOLOGI 04514 [facility] Coy 4 MEDICAL MELY EXAMINATI IMAGING ON CHEST ASS SINGLE VIEW FRONTAL ECG 74998 EWELINA THO EWELINA THO ROUTINE 4 ECG W/LEAST 12 LDS I&R ONLY GROUND A0425 GENEVIEVE VALLEJO MILEAGE 4 AMBULANCE AMBULANCE PER SERVICE SERVICE STATUTE [facility] A0427 [facility] SERVICE 4 AMBULANCE AMBULANCE ALS SERVICE SERVICE EMERGENCY TRANSPORT LEVEL 1 Encounters Encounter Start End Date Code Location Performer Type Date [facility] - 7 7 [facility] OUTPATIEN INC T EMERGENCY 75777 ROB[facility] 7 7 [facility] DEPARTMEN INC T VISIT LOW/MODER SEVERITY EMERGENCY 39565 DEPT 7 7 [facility] VISIT [facility] SEVERITY& THREAT [facility] - 7 7 [facility] OUTPATIEN E T HOSPITALS EMERGENCY 26356 MELISSA MARTINEZ 7 7 MEDICAL DEPARTMEN SERV T VISIT FOUNDATIO HIGH/URGE N NT SEVERITY HOSPITAL ROBBIN - 7 7 [facility] OUTPATIEN INC T EMERGENCY 41071 ROB[facility] DEPT 7 7 [facility] VISIT INC HIGH SEVERITY& THREAT FUNCJ EMERGENCY 40709 GABE POLK 6 6 PHYSICIAN NOHEMY GIBBONS S, PLLC T VISIT MODERATE SEVERITY OFFICE 42716 [facility] 6 6 PHYSICIAN ALHAJI T VISIT S GROUP 15 MINUTES EMERGENCY 87010 MELISSA QURESHI 6 6 MEDICAL DEPARTMEN SERV T VISIT FOUNDATIO HIGH/URGE N NT SEVERITY [facility] 87668 ROB[facility] DEPT 6 6 [facility] VISIT INC HIGH SEVERITY& THREAT FUNCJ EMERGENCY 57612 GABE MOORE 6 6 PHYSICIAN JR CHENG DEPARTMEN S, PLLC T VISIT HIGH/URGE NT SEVERITY HOSPITAL ROBBIN - 6 6 [facility]PAT[facility]EN INC T [facility] 50897 [facility]IAN ALHAJI T VISIT S GROUP 15 MINUTES HOSPITAL ROBBIN - 6 6 [facility] OUTPATIEN INC T EMERGENCY 03031 GABE VARGAS 6 6 PHYSICIAN ALHAJI DEPARTMEN S, PLLC T VISIT MODERATE SEVERITY HOSPITAL ROBBIN - 6 6 [facility] OUTPATIEN INC T EMERGENCY 29769 [facility] 6 6 [facility] LOW/MODER SEVERITY [facility]OSP[facility] ROBBIN - 6 6 [facility] OUTPATIEN INC T HOSPITAL [facility] - 6 6 [facility] UNIVERSIT - 6 6 Y INPATIENT HOSPITAL EMERGENCY 38968 MELISSA CARRILLO 6 6 [facility] VISIT FOUNDATIO MODERATE N SEVERITY HOSPITAL ROBBIN - 5 5 MEM [facility] OUTPATIEN INC T EMERGENCY 65478 GABE VARGAS DEPT 5 5 PHYSICIAN ALHAJI VISIT S, PLLC HIGH SEVERITY& THREAT [facility] ROBBIN - 5 5 [facility] OUTPATIEN INC T OFFICE 87010 [facility] SCHULSTMARVIN OUTPATIEN 5 5 PHYSICIAN CAM T NEW 45 S GROUP MINUTES OFFICE 74073 [facility]RES SCIFRES OUTPATIEN 5 5 ANG ANG T VISIT 15 MINUTES EMERGENCY 02241 ROBBIN VARGAS 5 5 [facility] T VISIT P HIGH/URGE NT SEVERITY HOSPITAL ROBBIN - 5 5 [facility] OUTPATIEN INC T HOSPITAL ROBBIN - 5 5 [facility] OUTPATIEN INC T EMERGENCY 88055 [facility] DEPT 5 5 MONCHO I ALI VISIT EMERGENCY HIGH PHYS SEVERITY& THREAT FUNCJ OFFICE 74494 [facility] SAM JACOBEN 4 4 PHYSICIAN ALHAJI T NEW 30 S GROUP MINUTES EMERGENCY 03643 SAM VARGAS DEPT 4 4 ALHAJI ALHAJI VISIT HIGH SEVERITY& THREAT FUNCJ
--- OUTSIDE RECORDS SUMMARY | 2017-03-05 05:30 | External Medical Summary Rpt | CCD ---
Author Author , DEVENDRA CARABALLOBRIAN Address Unknown Phone [email or web address] Care Team Providers Care [employer] Name Role Phone [facility], Unavailable Unavailable [facility], Unavailable Unavailable [facility] AJAY LIS, AJAY Unavailable Unavailable LIS AYOOB AND, AYOOB AND Unavailable Unavailable BEINEKE MELY, BEINEKE Unavailable Unavailable MELY BESSON, BESSON Unavailable Unavailable BESSON GWENDOLYN, BESSON Unavailable Unavailable GWENDOLYN TYLER ALL, TYLER ALL Unavailable Unavailable ANDRE ALHAJI, ANDRE Unavailable Unavailable ALHAJI [facility] Unavailable Unavailable SERVICE, [facility] Unavailable Unavailable SERVICE, [facility] PAIGE LAVELLE, PAIGE Unavailable Unavailable LAVELLE [facility] Unavailable Unavailable REHABILITATION, [facility] TITUS, TITUS Unavailable Unavailable GEORGE, [...] Unavailable EWELINA THO, EWELINA THO Unavailable Unavailable [facility] Unavailable Unavailable INC, [facility] Unavailable [facility]available HOSPITAL P, [facility]ITAL P AIME ANTOINE, AIME Unavailable Unavailable ANTOINE [facility], Unavailable Unavailable [facility] PAYAN GWENDOLYN, PAYAN GWENDOLYN Unavailable Unavailable DB CARL, DB CARL Unavailable Unavailable [facility] Unavailable Unavailable MEDICAL G, [facility] AVA ROSALBA, AVA ROSALBA Unavailable [...] FABIENNE, GRIFFITH FABIENNE Unavailable Unavailable [facility] NOHEMY, REMINGTNO NOHEMY Unavailable Unavailable [facility] Unavailable [facility] Unavailable Unavailable [facility]PIT[facility], [facility], Unavailable Unavailable [facility] Un[facility] MUSCOTAH SHA, MUSCOTAH SHA Unavailable Unavailable MARVIN ALHAJI, MARVIN Unavailable Unavailable ALHAJI XENOS TYLER, XENOS TYLER Unavailable Unavailable ZAGUROVSKAYA MAR, Unavailable Unavailable ZAGUROVSKAYA MAR Purpose Continuity of Care Document - 10-01-2013 through 2016 Problems Code Diagnosis DOS Provider Status I10 ESSENTIAL 01-09-2017 [facility], HYPERTENSIO [facility] N Z0289 ENCOUNTER 01-09-2017 [facility] FOR OTHER PHYSICIANS, ADMINISTRAT [facility] IMAN EXAMINATION S U05693 OTHER LONG 01-09-2017 [facility] CURRENT INC DRUG THERAPY Z9114 PATIENTS 01-09-2017 [facility] OT PHYSICIANS, NONCOMPLIAN [facility] CE W/MEDICATIO N REGIMEN I2510 ASHD [place] 09-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 HEALTHCARE ARTERY W/O HOSPITALS ANGINA 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 [facility] I4581 LONG QT 09-03-2016 [place] [facility] I517 CARDIOMEGAL 09-03-2016 [facility] Y [facility] I7100 DISSECTION 09-03-2016 [facility]ICAL OF SERV UNSPECIFIED FOUNDATION SITE OF AORTA I739 PERIPHERAL 09-03-2016 VASCULAR [facility]CARE DISEASE HOSPITALS UNSPECIFIED M7989 OTHER 09-03-2016 [facility] SPECIFIED SERV SOFT TISSUE FOUNDATION DISORDERS R079 CHEST PAIN 09-03-2016 UNSPECIFIED HEALTHCARE HOSPITALS R9431 ABNORMAL 09-03-2016 [facility] ELECTROCARD SERV IOGRAM FOUNDATION Z8673 PERSONAL HX 09-03-2016 [facility] INFARCT NO RESID DEFICIT B26521 PERSONAL 09-03-2016 [facility] [place] [facility] DEPENDENCE W78412 PAIN IN 09-02-2016 [facility] RIGHT LEG PHYSICIANS, [facility] R072 PRECORDIAL 09-02-2016 [facility] PAIN PHYSICIANS, [facility] R600 LOCALIZED 09-02-2016 [facility] EDEMA PHYSICIANS, [facility] R791 ABNORMAL 09-02-2016 [facility] COAGULATION [facility] P R7989 OTHER SPEC 09-02-2016 [facility] ABNORMAL PHYSICIANS, FINDINGS [facility] BLOOD CHEMISTRY Z0389 ENCOUNTER 09-02-2016 [facility] MEDICAL SUSPCT DZ & IMAGING ASS COND RULED OUT K88695 PAIN IN 01-28-2016 [facility] RIGHT FOOT SERV FOUNDATION 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 AORTOCORONA RY BYPASS GRAFT Z9989 DEPENDENCE 01-27-2016 [facility] ON OTHER [facility]ACH[facility]ES & DEVICES R55 SYNCOPE AND 01-06-2016 [facility] COLLAPSE PHYSICIANS, [facility] Z955 PRESENCE OF 01-06-2016 [facility] P IMPLANT & GRAFT I639 CEREBRAL 01-03-2016 [facility] INFARCTION PHYSICIANS UNSPECIFIED GROUP [id number] COMPARTMENT 01-03-2016 [facility] SYNDROME PHYSICIANS UNSPECIFIED GROUP INITIAL ENCNTR G8918 OTHER ACUTE 01-01-2016 [facility] POSTPROCEDU INC RAL PAIN H47264 PAIN IN 01-01-2016 [facility] RIGHT LOWER [facility] LEG INC 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 DYSPHAGIA 12-28-2015 PATIENT 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 R1310 DYSPHAGIA 12-28-2015 PATIENT UNSPECIFIED AIDS INC R2681 UNSTEADINES 12-28-2015 PATIENT S ON FEET AIDS INC R269 UNSPECIFIED 12-28-2015 PATIENT AIDS INC ABNORMALITI ES OF GAIT AND MOBILITY R5381 OTHER 12-27-2015 [facility] MALAISE SERV FOUNDATION Q02203 ENCOUNTER 12-13-2015 [facility] AFTERCARE REHABILITAT FOLLOW ION SURGERY CIRC SYS N77864 ENCOUNTER 12-13-2015 [facility] AFTERCARE REHABILIT[facility] FLW SURG ION SKIN&SUBQ TISS Z9889 OTHER 12-13-2015 [facility] SPECIFIED SERV POSTPROCEDU FOUNDATION RAL STATES J90 PLEURAL 12-11-2015 [place] [facility] EFFUSION SERV NOT FOUNDATION ELSEWHERE CLASSIFIED R001 BRADYCARDIA 12-06-2015 [place] [facility] UNSPECIFIED FOUNDATION G36528 ELEVATED 12-01-2015 [facility] WHITE BLOOD SERV CELL COUNT FOUNDATION UNSPECIFIED I447 LEFT 12-01-2015 [facility] BUNDLE-BRAN SERV CH BLOCK FOUNDATION UNSPECIFIED R0602 SHORTNESS 12-01-2015 [facility] OF BREATH SERV FOUNDATION R109 UNSPECIFIED 12-01-2015 [facility] ABDOMINAL SERV PAIN FOUNDATION R932 ABNORMAL 12-01-2015 [facility] FIND ON DX SERV IMAGING FOUNDATION LIVER & BILI TRACT K810 ACUTE 11-30-2015 [facility] CHOLECYSTIT SERV IS FOUNDATION R112 NAUSEA WITH 11-30-2015 [facility] VOMITING SERV UNSPECIFIED FOUNDATION R509 FEVER 11-30-2015 [facility] UNSPECIFIED SERV FOUNDATION J9811 ATELECTASIS 11-29-2015 [facility] Z430 ENCOUNTER 11-29-2015 [facility] FOR SERV ATTENTION FOUNDATION TO TRACHEOSTOM Y [id number] ACUTE 11-25-2015 [facility] EMBOLISM & SERV THROMBOSIS FOUNDATION SUP VEINS RT UP EXT R0989 OTH SPEC SX 11-25-2015 [facility] & SIGNS SERV INVLV THE FOUNDATION CIRC & RESP SYS Z049 ENCOUNTER 11-25-2015 [facility] EXAMINATION SERV &OBSERVATIO FOUNDATION N FOR UNS REASON I083 COMB 11-23-2015 [facility] RHEUMAT D/O SERV MITRAL FOUNDATION AORTC & TRICUSPID VALVES I371 NONRHEUMATI 11-23-2015 [facility] C PULMONARY SERV VALVE FOUNDATION INSUFFICIEN CY I619 NONTRAUMATI 11-23-2015 [facility] C SERV INTRACEREBR FOUNDATION AL HEMORRHAGE UNS I7771 DISSECTION 11-23-2015 [facility] OF CAROTID SERV ARTERY FOUNDATION I998 OTHER 11-23-2015 [facility] DISORDER OF SERV FOUNDATION CIRCULATORY SYSTEM [id number] TRAUMAT 11-23-2015 [facility] COMPARTMENT SERV SYND RT FOUNDATION LOW EXTREM INIT ENC Z452 ENCOUNTER 11-23-2015 [facility] ADJUSTMENT& SERV MGMT FOUNDATION VASCULAR ACCESS DEVICE D62 ACUTE 11-22-2015 [facility] POSTHEMORRH SERV AGIC ANEMIA FOUNDATION E870 HYPEROSMOLA 11-22-2015 [facility] LITY AND SERV HYPERNATREM FOUNDATION IA I638 OTHER 11-22-2015 [facility] CEREBRAL SERV INFARCTION FOUNDATION J951 ACUTE 11-22-2015 [facility] PULMONARY SERV INSUFF FOUNDATION FOLLOW THORACIC SURGERY R531 WEAKNESS 11-22-2015 [place] [facility] Z4659 ENCOUNTER 11-22-2015 [facility] FIT & SERV ADJUST OTH FOUNDATION GI APPLIANCE & DEVICE Z4682 ENCOUNTER 11-22-2015 [facility] FITTING & SERV ADJUST FOUNDATION NON-VASCULA R CATHETER J984 OTHER 11-21-2015 [facility] DISORDERS SERV OF LUNG FOUNDATION R609 EDEMA 11-21-2015 [facility] UNSPECIFIED SERV FOUNDATION R930 ABNORMAL 11-21-2015 [facility] FINDINGS ON SERV DX IMAGING FOUNDATION SKULL & HEAD NEC E8770 FLUID 2015 [facility] OVERLOAD SERV UNSPECIFIED FOUNDATION J811 CHRONIC 2015 [facility] PULMONARY SERV EDEMA FOUNDATION J9600 ACUTE 2015 [facility] RESPIRATORY SERV FAIL UNS FOUNDATION HYPOXIA/HYP ERCAPNIA M6282 RHABDOMYOLY 2015 [facility] SIS SERV FOUNDATION N179 ACUTE 2015 [facility] KIDNEY SERV FAILURE FOUNDATION UNSPECIFIED Z930 TRACHEOSTOM 2015 ID [facility] Y STATUS SERV FOUNDATION M6289 OTHER 11-17-2015 [facility] DISORDERS HOSPI OF MUSCLE E878 OTHER D/O 11-14-2015 [facility] OF SERV ELECTROLYTE FOUNDATION AND FLUID BALANCE NEC J9691 RESPIRATORY 11-14-2015 [facility] FAILURE SERV UNSPECIFIED FOUNDATION WITH HYPOXIA R633 FEEDING 11-14-2015 [facility] DIFFICULTIE SERV S FOUNDATION R918 OTHER 11-12-2015 [facility] NONSPECIFIC SERV ABNORMAL FOUNDATION FINDING OF LUNG FIELD Y33088 ACUTE 11-11-2015 [facility] [place] [facility] THROM[facility]OSIS HOSPI RIGHT POPLITEAL VEIN D649 ANEMIA 11-10-2015 [facility] UNSPECIFIED SERV FOUNDATION I743 EMBOLISM & 11-10-2015 [facility] THROMBOSIS SERV ART THE FOUNDATION LOWER EXTREMITIES J982 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 BLOOD-PRESS AMBULANCE URE READING SERVICE WITHOUT DX HTN R071 CHEST PAIN 03-09-2015 [facility] ON AMBULANCE BREATHING SERVICE 82590 11-09-2014 [facility] 23001 HELICOBACTE 09-17-2014 [facility] INFECTION 32064 OTHER SPEC 09-17-2014 [facility] WITHOUT MENTION HEMORRHAGE 58018 UNS 09-17-2014 [facility] GASTRITIS&G PHYSICIANS ASTRODUODIT GROUP IS W/O MENTION HEMORR 49651 DIVERTICULO 09-17-2014 [facility] SIS OF PHYSICIANS COLON GROUP 5693 HEMORRHAGE 09-17-2014 [facility] OF RECTUM PHYSICIANS AND ANUS GROUP 5780 HEMATEMESIS 09-17-2014 [facility] PHYSICIANS GROUP 40555 HEMOPTYSIS 09-17-2014 COMMUNITY UNSPECIFIED ANESTH OF THE BLUE 7921 NONSPECIFIC 09-17-2014 COMMUNITY ABNORMAL ANESTH OF FINDING IN THE BLUE STOOL CONTENTS 5781 BLOOD IN 09-03-2014 [facility] STOOL PHYSICIANS GROUP 7871 HEARTBURN 09-03-2014 [facility] V7651 SPECIAL 09-03-2014 [facility] SCREENING PHYSICIANS FOR GROUP MALIGNANT NEOPLASMS COLON 42021 BORDERLINE 08-21-2014 [facility] ANG GLAUC OPEN ANGLE BL FINDINGS LOW RSK 4019 UNSPECIFIED 08-19-2014 [facility] N 38498 COR 08-19-2014 [facility]OSLERO [facility]OSP[facility] P TYPE VESSEL [place]/KI T 32144 ASTHMA, 08-19-2014 [facility] P UNSPECIFIED STATUS 20243 PAIN IN 08-19-2014 [facility] PELVIC IMAGING ASS REGION AND THIGH 7295 PAIN IN 08-19-2014 [facility] SOFT MEDICAL TISSUES OF IMAGING ASS LIMB 84329 CHEST PAIN 08-19-2014 [facility] UNSPECIFIED AMBULANCE SERVICE 33633 ACUT NC 08-18-2014 [facility] IAL INFARCT MEDICAL G EPIS CARE UNS 5990 URINARY 08-18-2014 [facility] TRACT [facility] INFECTION INC SITE NOT SPECIFIED 74714 ABDOMINAL 08-17-2014 [facility] UNSPECIFIED HOSPITAL P SITE V4589 OTHER 08-17-2014 [facility] POSTSURGICA [facility] P OTHER 7991 RESPIRATORY 06-05-2014 [facility] [place] ARREST [facility] 41085 POISONING 06-05-2014 [facility] BY HEROIN N EMERGENCY PHYS 9779 POISONING 06-05-2014 ID MEDICAL UNSPECIFIED SERV [facility] DRUG/MEDICI NAL SUBSTANCE E9800 POISN-ANALG 06-05-2014 [facility] ES-ANTIPYRE N EMERGENCY T-ANTIRHEUM PHYS -UNDETERM CAUSE 2724 OTHER AND 04-15-2014 [facility] UNSPECIFIED PHYSICIANS GROUP HYPERLIPIDE NIGEL 71041 CORONARY 02-26-2014 [facility] MEDICAL OS[facility] [place] IMAGING ASS CORONARY ARTERY 47538 OTHER 02-25-2014 ID MEDICAL DYSPNEA AND Giv[facility] [place] [address] ACUT NC 02-24-2014 [facility] SUBENDOCARD N EMERGENCY IAL INFARCT PHYS INIT EPIS CARE 67284 SHORTNESS 02-24-2014 [facility] MEDICAL IMAGING ASS 5939 UNSPECIFIED 10-01-2013 [facility] DISORDER OF KIDNEY AND URETER 70361 PRECORDIAL 10-01-2013 [facility] AMBULANCE SERVICE Medications Na ND Rx Da Fi Fi Am Da Di Ph RX Ph St me C No te ll ll ou ys ag ar # ys at rm s nt no ma ic us Or Da si cy ia de te s n re d BA 00 03 04 45 30 00 ID Ac CL 83 -3 -2 .0 00 L- ti OF 21 0- 8- 00 07 MA ve EN 02 20 20 44 RT 45 17 17 08 10 0 11 PH AR MG MA CY TA BL #5 ET 91 AM 00 03 04 30 30 00 ID Ac LO 37 -3 -2 .0 00 L- ti DI 85 0- 8- 00 07 MA ve PI 20 20 20 43 RT NE 90 17 17 65 5 16 PH BE AR SY MA LA CY TE 5 #5 91 MG TA B HY 16 03 04 [address] 72 -3 -2 .0 00 L- ti OC 90 0- 8- 00 07 MA ve HL 18 20 20 47 RT OR 31 17 17 51 OT 7 18 PH HI AR AZ MA ID CY E 25 #5 91 MG TA B LI 68 03 04 18 90 00 ID Ac SI 18 -3 -2 0. 00 L- ti NO 00 0- 8- 00 07 MA ve NC 51 20 20 0 47 RT IL 70 17 17 51 1 34 PH 40 AR MA MG CY TA #5 BL 91 ET CA 68 03 04 60 30 00 ID Ac RV 46 -3 -2 .0 00 [...] AM 00 12 01 30 30 00 ID Ac LO 37 -2 -2 .0 00 [...] HY 49 12 01 [address] 88 -2 -2 .0 00 [...] 00 8- 7- 00 07 MA ve NC 51 20 20 46 RT IL 70 [...] Procedure DOS Code Location Performer Comment BASIC 90242 [facility] METABOLIC 7 [facility] PANEL E E CALCIUM [facility] TOTAL THROMBOPL 99833 [facility] ASTIN 7 [facility]ALTH[facility] TIME E E PARTIAL HOSPITALS HOSPITALS PLASMA/WH OLE BLOOD RADIOLOGI 69781 [facility] EXAM 7 [facility] HEALTHCAR CHEST 2 E E VIEWS [facility] FRONTAL&L ATERAL LOCM Q9967 [facility] [phone] [facility]ALTHCAR HEALTHCAR MG/ML E E IODINE [facility] CONCENTRA TION PER ML PROTHROMB 34660 [facility] IN TIME 7 [facility]ALTHCAR HEALTHCAR E E HOSPITALS HOSPITALS DRUG TST G0483 [facility] DEFINITV [address] ID E E METH P [facility] DAY 22/MORE DR CL ECG 67801 [facility] ROUTINE 7 [facility]ALTHCAR HEALTHCAR ECG E E W/LEAST [facility] 12 LDS TRCG ONLY W/O I&R DUP-SCAN 14590 [facility] XTR VEINS 7 [facility]ALTH[facility] HEALTHCAR E E [facility] L/[place] [address] [facility] ANGIOGRAP 7 [facility] HEALTHCAR HY CHEST E E W/CONTRAS HOSPITALS HOSPITALS T/[place] [address] [facility] MAGNESIUM 7 [facility] HEALTHCAR [place] [address] [facility] PHOSPHORU 7 [facility]ALTHCAR HEALTHCAR S E E INORGANIC HOSPITALS HOSPITALS INFUSION J7040 [facility] NORMAL 7 [facility]ALTHCAR HEALTHCAR SALINE E E SOLUTION HOSPITALS HOSPITALS STERILE ECG 81971 [place] [facility] ROUTINE 7 MEDICAL ECG SERV W/LEAST FOUNDATIO 12 LDS N I&R ONLY NATRIURET 29495 [facility] IC 7 [facility] HEALTHCAR PEPTIDE [place] [address] [facility] TROPONIN 7 HEALTHCAR HEALTHCAR QUANTITAT E E IMAN [facility] [address] [facility] TROPONIN 7 MEM HOS[facility] MEM HOSP QUANTITAT INC INC IMAN BLOOD 10505 [facility] COUNT 7 [facility] MEM [facility]OS[facility] COMPLETE INC INC AUTO&AUTO DIFRNTL WBC ECG 76032 [facility] MIRANDA ROUTINE 7 [facility] W/LEAST P 12 LDS I&R ONLY CREATINE 91645 [facility] KINASE MB 7 MEM [facility] [place] [address] [facility] LACTATE 7 [facility]OS[facility] INC INC FIBRIN 78131 [facility] DGRADJ 7 MEM HOSP MEM HOSP PRODUCTS INC INC D-DIMER QUAL/SEMI MICHELLE THERAPEUT 22092 [facility] IC 7 MEM H[facility]P MEM HOSP PROPHYLAC INC INC TIC/DX INJECTION SUBQ/IM CREATINE 72926 [facility] KINASE 7 [facility]OS[facility] TOTAL INC INC ECG 37598 [facility] ROUTINE 7 [facility]OSP ECG INC INC W/LEAST 12 LDS TRCG ONLY W/O I&R UNCLASSIF J3490 [facility] IED DRUGS 7 [facility]OSP INC INC PROTHROMB 27528 [facility] IN TIME 7 [facility]OS[facility] INC INC COLLECTIO 11895 [facility] S[facility] N VENOUS 7 [facility] H[facility] BLOOD INC INC VENIPUNCT URE RADIOLOGI 62828 [facility] C EXAM [address] [facility] CHEST 2 INC INC VIEWS FRONTAL&L ATERAL CULTURE 18200 [facility] BACTERIAL [address] [facility] BLOOD INC INC AEROBIC W/ID ISOLATES AMB A0427 [facility] SERVICE 7 AMBULANCE AMBULANCE ALS SERVICE SERVICE EMERGENCY TRANSPORT LEVEL 1 GROUND A0425 [facility] MILEAGE 7 AMBULANCE AMBULANCE PER SERVICE SERVICE STATUTE MILE CRITICAL 97571 [facility] 7 PHYSICIAN ILL/INJUR S, PLLC ED PATIENT INIT 30-74 MIN COMPREHEN 57352 [facility] SIVE [address] [facility] METABOLIC INC INC PANEL ECG 90059 [facility] ROUTINE 6 Y Y ECG [facility] HOSPITAL W/LEAST 12 LDS TRCG ONLY W/O I&R DRUG TST G0483 [facility] DEFINITV [address] ID [facility] HOSPITAL METH P DAY 22/MORE DR CL RADEX 50878 [facility] ANKLE 6 Y Y [facility] MINIMUM 3 VIEWS RADEX 64549 [facility] FOOT 6 Y Y [facility] MINIMUM 3 VIEWS [facility] G0378 [facility] OBSERVATI 6 Y Y ON HOSPITAL HOSPITAL SERVICE PER HOUR ECG 36839 [place] [facility] ROUTINE 6 MEDICAL ECG SERV W/LEAST FOUNDATIO 12 LDS N I&[place] [address] [facility] TROPONIN [address] [facility] [address] [facility] TROPONIN 6 [facility] QUANTITAT INC INC IMAN BLOOD 02983 [facility] COUNT 6 [facility] COMPLETE INC INC AUTO&[place] [address] [facility] INFUSION 6 Y Y THERAPY/P [facility] ROPHYLAXI S /DX 1ST TO 1 HR BLOOD 96244 [facility] COUNT 6 Y Y [facility] AUTOMATED ECG 93353 [facility]ANDA ROUTINE 6 [facility] W/LEAST P 12 LDS I&R ONLY CREATINE 08981 [facility] S[facility] KINASE MB 6 [facility] HOSP FRACTION INC INC ONLY INFUSION J7040 [facility] NORMAL Y Y [facility] SOLUTION STERILE CREATINE 67768 [facility] S[facility] KINASE 6 [facility] [place] [address] [facility] INFUSION Y Y [facility] PROPHYLAX IS/DX EA HOUR ECG 87382 [facility] ROUTINE 6 [facility] ECG INC INC W/LEAST 12 LDS TRCG ONLY W/O I&R INFUSION J7030 [place] [address] Y Y [facility] SOLUTION 1000 CC PROTHROMB 14507 [facility] IN TIME 6 [facility] INC INC AMB A0431 AIR AIR SERVICE 6 METHODS METHODS CONVNTION [facility] AIR SRVC TRANSPORT [address] COMPREHEN 54816 [facility] SIVE 6 [facility] METABOLIC INC INC PANEL BASIC 00443 [facility] METABOLIC Y Y [facility] CALCIUM TOTAL GROUND A0425 [facility] MILEAGE 6 AMBULANCE LAVELLE PER SERVICE STATUTE MILE INITIAL 54847 [facility] S[facility] OBSERVATI 6 [facility] ON INC INC CARE/DAY 50 MINUTES AMB A0427 [facility] SERVICE 6 [facility] [place] ALS SERVICE EMERGENCY TRANSPORT LEVEL 1 THROMBOPL 71203 [facility] ASTIN 6 Y Y TIME [facility] PARTIAL PLASMA/WH OLE BLOOD BLOOD 22723 [facility] TYPING 6 Y Y SEROLOGIC [facility] RH (D) PLATELETS [id number] [facility] PHERESIS [address] [place] [address] LEUKOCYTE S REDUCED EACH UNIT CRITICAL [address] [facility] [address] 6 PHYSICIAN ALHAJI ILL/INJUR S, PLLC ED PATIENT INIT 30-74 MIN ARTL 86716 [place] TITUS CATHJ/CAN 6 MEDICAL NULJ SERV MNTR/PEREYRA FOUNDATIO SFUSION N SPX PRQ COMPATIBI 69147 [facility] LITY EACH 6 Y Y UNIT [facility] ELECTRONI C RADIOLOGI 06842 [facility] S[facility] C 6 [facility] EXAMINATI [place] [address] [facility] ANGIOGRAP 6 [facility] HY CHEST INC INC W/CONTRAS T/NONCONT RAST COLLECTIO 47350 [facility] SIEGEL N VENOUS [address] [facility] BLOOD INC INC VENIPUNCT URE ANTIBODY 40194 [facility] SCREEN 6 Y Y [facility] SER[facility] TECHNIQUE BLO[facility] 76074 [facility] TYPING 6 Y Y SEROLOGIC [facility] ABO CT THORAX 36857 [place] [facility] 6 MEDICAL W/CONTRAS IMAGING T ASS MATERIAL COLLECTIO 95216 [facility] SIEGEL N VENOUS 6 [facility] BLOOD INC INC VENIPUNCT URE RADIOLOGI 04943 [place] [facility] C 6 MEDICAL EXAMINATI IMAGING [place] [address] [place] [facility] HEAD/BRAI 6 MEDICAL N W/O IMAGING CONTRAST ASS MATERIAL PROTHROMB 48362 [facility]GEL IN TIME 6 [facility] INC INC ECG 95702 [facility] MIRANDA ROUTINE 6 [facility] W/LEAST P 12 LDS I&R ONLY DRUG TST G0477 [facility] PRESUMP;C 6 [facility] PBL BEING INC INC READ DC OPT OBV ONLY THERAPEUT 35583 [facility] SIEGEL [facility] PROPHYLAC INC INC TIC/DX INJECTION SUBQ/IM PROTHROMB 26230 [facility] SIEGEL IN TIME 6 [facility] INC INC COLLECTIO 12695 ROBBIN SIEGEL N VENOUS [address] [facility] BLOOD INC INC VENIPUNCT URE WALKER [id number] PATIENT MARCHINO FOLDING 6 AIDS [facility] E/FIXED HEIGHT [facility] [address] [place] [address] MEDICAL DAY SERV MANAGEMEN FOUNDATIO T > 30 N MIN SBSQ 94050 [facility] 6 MEDICAL CARE/DAY SERV 35 FOUNDATIO MINUTES N SBSQ 68272 [facility] 6 MEDICAL KER RAN CARE/DAY SERV 35 FOUNDATIO MINUTES N SBSQ 29795 [facility] 6 MEDICAL KER RAN CARE/DAY SERV 35 FOUNDATIO MINUTES N SBSQ 56313 [place] [address] MEDICAL ANIRUDH CARE/DAY SERV 35 FOUNDATIO MINUTES N SBSQ 78141 [facility] 6 MEDICAL JUANY CARE/DAY SERV 35 FOUNDATIO MINUTES N SBSQ 26514 [place] [address] MEDICAL JUANY CARE/DAY SERV 35 FOUNDATIO MINUTES N SBSQ 68667 [facility] 6 MEDICAL JUANY CARE/DAY SERV 35 FOUNDATIO MINUTES N SBSQ 67850 [place] [address] MEDICAL JUANY CARE/DAY SERV 35 FOUNDATIO MINUTES N SBSQ 33778 [place] [address] MEDICAL ROSEMARY CARE/DAY SERV 35 FOUNDATIO MINUTES N SBSQ 54711 [place] [address] MEDICAL ROSEMARY CARE/DAY SERV 35 FOUNDATIO MINUTES N SBSQ 11565 [place] [address] MEDICAL CARE/DAY SERV 35 FOUNDATIO MINUTES N SBSQ 35503 [place] [address] MEDICAL CARE/DAY SERV 35 FOUNDATIO MINUTES N SBSQ 32369 [place] [address] MEDICAL CARE/DAY SERV 35 FOUNDATIO MINUTES N SBSQ 78972 [place] [address] MEDICAL CARE/DAY SERV 35 FOUNDATIO MINUTES N RADIOLOGI 76738 [facility] 6 MEDICAL EXAMINATI SERV ON CHEST FOUNDATIO SINGLE N [place]ONT[place] INITIAL 24524 [facility] 6 MEDICAL CARE/DAY SERV 70 FOUNDATIO MINUTES N RADIOLOGI 93063 ID JEIMY 6 MEDICAL AYA MAR EXAMINATI SERV ON CHEST FOUNDATIO SINGLE N [place]IEW FR[place] ECG 06423 [place] LIMA CHI ROUTINE 6 MEDICAL ECG SERV W/LEAST FOUNDATIO 12 LDS N I&R ONLY SWALLOWIN 60765 [place] AYOOB AND G FUNCJ 6 MEDICAL W/CINERAD SERV IOGRAPY/V FOUNDATIO IDRADIOG N ECG 05361 [place] PAULINO ROUTINE 6 MEDICAL NAN ECG SERV W/LEAST FOUNDATIO 12 LDS N I&R ONLY RADIOLOGI 30927 [place] MARVIN C 6 MEDICAL ALHAJI EXAMINATI SERV ON CHEST FOUNDATIO SINGLE N [place] HEPATOBIL 92433 [place] EL KHOULI IARY SYST 6 MEDICAL IMAGING SERV [place] [address] [place] CHRISTIE ABDOMINAL 6 MEDICAL LETY REAL SERV TOMMY TIME FOUNDATIO W/[place] [address] [place] JAY DAVID ABDOMEN & 6 MEDICAL PELVIS SERV W/CONTRAS FOUNDATIO T N MATERIAL ECG 25469 [place] MARK ANIRUDH ROUTINE 6 MEDICAL ECG SERV W/LEAST FOUNDATIO 12 LDS N I&R ONLY ECG 46392 [place] MARK ANIRUDH ROUTINE 6 MEDICAL ECG SERV W/LEAST FOUNDATIO 12 LDS N I&R ONLY RADIOLOGI 88534 [place] GOPAL C 6 MEDICAL EXAMINATI SERV ON CHEST FOUNDATIO SINGLE N VIEW FRONTAL RADIOLOGI 97258 [place] C 6 MEDICAL MEDICAL EXAMINATI SERV SERV ON CHEST FOUNDATIO FOUNDATIO SINGLE N N VIEW FRONTAL RADEX ABD 25464 [place] JAY DAVID COMPL 6 MEDICAL AQT ABD SERV W/S/E/D FOUNDATIO VIEWS 1 N VIEW CH DUP-SCAN 36280 [place] GRIFFITH FABIENNE XTR VEINS 6 MEDICAL COMPLETE SERV FOUNDATIO BILATERAL N STUDY MRI BRAIN 45504 [place] RASLAU BRAIN 6 MEDICAL FLA STEM W/O SERV CONTRAST FOUNDATIO MATERIAL N SWALLOWIN 26362 [place] JAY DAVID G FUNCJ 6 MEDICAL W/CINERAD SERV IOGRAPY/V FOUNDATIO IDRADIOG N RADIOLOGI 30824 [place] GOPAL C 6 MEDICAL EXAMINATI SERV ON [place] [address] [place] AVA ROSALBA ANGIOGRAP 6 MEDICAL HY HEAD SERV W/CONTRAS FOUNDATIO T/NONCONT N RAST RADIOLOGI 06569 [place] JEIMY C 6 MEDICAL AYA MAR EXAMINATI SERV ON CHE[place] [address] [place] AV[place] ROSALBA ANGIOGRAP 6 MEDICAL HY NECK SERV W/CONTRAS FOUNDATIO T/NONCONT N RAST SBSQ 40000 [place] [facility] 6 MEDICAL REINALDO CARE/DAY SERV 15 FOUNDATIO MINUTES N RADEX 36647 [place] [facility] NO[facility]MY ABDOMEN 1 6 MEDICAL SERV ANTEROPOS FOUNDATIO TERIOR N VIEW ECHO 84845 [place] JUAN GWENDOLYN TTHR R-T 6 MEDICAL 2D SERV W/WOM-MOD FOUNDATIO E COMPL N SPEC&COLR D INSERTION [id number] [facility] 6 Y Y [facility] SUPERIOR VENA CAVA PERQ RADEX 58921 [place] [facility] NO[facility]MY ABDOMEN 1 6 MEDICAL SERV ANTEROPOS FOUNDATIO TERIOR N VIEW RADIOLOGI 07883 [place] ANDRE C 6 MEDICAL ALHAJI EXAMINATI SERV ON CHEST FOUNDATIO SINGLE N VIEW FRONTAL INITIAL 69385 [facility] 6 MEDICAL GUNNER CONSULT SERV NEW/ESTAB FOUNDATIO PT 55 N MIN SBSQ 64545 [place] [facility] 6 MEDICAL ANT CARE/DAY SERV 25 FOUNDATIO MINUTES N CRITICAL 36938 [place] [facility] 6 MEDICAL ANT ILL/INJUR SERV ED FOUNDATIO PATIENT N INIT 30-74 MIN RADIOLOGI 26362 [place] ANDRE C 6 MEDICAL ALHAJI EXAMINATI SERV ON CHE[place] [address] [place] RASLAU HEAD/BRAI 6 MEDICAL FLA N W/O SERV CONTRAST FOUNDATIO MATERIAL N RADIOLOGI 41510 [place] ANDRE C 6 MEDICAL ALHAJI EXAMINATI SERV ON CHEST FOUNDATIO SINGLE N VIEW FRONTAL CRITICAL 02630 [place] [facility] 6 MEDICAL ANT ILL/INJUR SERV ED FOUNDATIO PATIENT N INIT 30-74 MIN CRITICAL 69253 [place] [facility] CARE 6 MEDICAL ANT ILL/INJUR SERV ED FOUNDATIO PATIENT N INIT 30-74 MIN RADIOLOGI 15797 [place] JEIMY C 6 MEDICAL AYA MAR EXAMINATI SERV ON CHEST FOUNDATIO SINGLE N VIEW FRONTAL RADIOLOGI 40877 [place] ANDRE C 6 MEDICAL ALHAJI EXAMINATI SERV ON CHEST FOUNDATIO SINGLE N VIEW FRONTAL RADIOLOGI 41841 [place] JEIMY C 6 MEDICAL AYA MAR EXAMINATI SERV ON CHEST FOUNDATIO SINGLE N VIEW FRONTAL LEVEL III 22875 [facility] SURG 6 [facility]OLOG[facility]&ALHAJI ROSCOPIC EXAM ANES 11848 [place] AJAY NERVE 6 MEDICAL LIS MUSC SERVICES TENDON FASCIA & BURSAE UPPER LEG DEBRIDEME 05554 [place] XENOS TYLER NT MUSCLE 6 MEDICAL & FASCIA SERV 20 SQ FOUNDATIO CM/< N DEBRIDEME 55600 [place] XENOS TYLER NT MUSCLE 6 MEDICAL &/FASCIA SERV EA ADDL FOUNDATIO 20 SQ CM N RADIOLOGI 51271 [place] [facility] C 6 MEDICAL EXAMINATI SERV ON CHEST FOUNDATIO SINGLE N VIEW FRONTAL RADIOLOGI 74311 [place] PAYAN GWENDOLYN C 6 MEDICAL EXAMINATI SERV ON CHEST FOUNDATIO SINGLE N VIEW FRONTAL RADIOLOGI 74025 [place] LILA C 6 MEDICAL MAR EXAMINATI SERV ON CHEST FOUNDATIO SINGLE N VIEW FRONTAL CRITICAL 14966 [place] [facility] 6 MEDICAL ANTOINE ILL/INJUR SERV ED FOUNDATIO PATIENT N INIT 30-74 MIN CRITICAL 86524 [place] [facility] 6 MEDICAL ANTOINE ILL/INJUR SERV ED FOUNDATIO PATIENT N INIT 30-74 MIN RADIOLOGI 53707 [place] [facility] NO[facility]MY C 6 MEDICAL EXAMINATI SERV ON CHEST FOUNDATIO SINGLE N VIEW FRONTAL RADEX 25083 [place] AYOOB AND ABDOMEN 1 6 MEDICAL SERV ANTEROPOS FOUNDATIO TERIOR N VIEW ANES 02596 [place] DELAHOUSA NRV/MUS/T 6 MEDICAL Y ANTOINE ND/FASC SERVICES LOWER LEG/ANKLE /FOOT NOS RADEX 59278 [place] GOPAL ABDOMEN 1 6 MEDICAL SERV ANTEROPOS FOUNDATIO TERIOR N VIEW DCMPRN 24678 [place] GRIFFITH FABIENNE FASCT LEG 6 MEDICAL SERV ANT&/LAT& FOUNDATIO PST CMPRT N RADIOLOGI 41245 [place] PAYAN GWENDOLYN C 6 MEDICAL EXAMINATI SERV ON CHEST FOUNDATIO SINGLE N [place]IEW FRONTAL CRITICAL 86872 [place] [facility] 6 MEDICAL ANTOINE ILL/INJUR SERV ED FOUNDATIO PATIENT N INIT 30-74 MIN ANESTHESI 83185 [place] ADAM A THER 6 MEDICAL RANDI IVNTL SERVICES RADIOLOGI CORIN ARTERIAL EMBLC/THR 21075 [place] STAN MBC 6 MEDICAL ROWENA FEMORAL SERV POPLITEAL FOUNDATIO N AORTO-YUKO AC ART CRITICAL 20630 [place] [facility] 6 MEDICAL ANTOINE ILL/INJUR SERV ED FOUNDATIO PATIENT N INIT 30-74 MIN RADIOLOGI 06405 [place] ANDRE C 6 MEDICAL ALHAJI EXAMINATI SERV ON CHEST FOUNDATIO SINGLE N VIEW FRONTAL REVSC 67368 [place] MELISSA OPN/PRQ 6 MEDICAL MEDICAL ILIAC ART SERV SERV W/STNT FOUNDATIO FOUNDATIO PLMT & N N ANGIOPLST Y LEVEL III 41692 [facility] SURG 6 Y OF PATHOLOGY [facility] GROSS&ALHAJI ROSCOPIC EXAM INTRAVASC 77282 [place] STAN ULAR US 6 MEDICAL ROWENA NONCORONA SERV RY RS&I FOUNDATIO INTIAL N VESSEL DIL RT [id number] [facility] ILIAC 6 Y Y [facility] INTRALUM DEVICE PERQ APPR DIL LT [id number] [facility] ILIAC 6 Y Y [facility] INTRALUM DEVICE PERQ APPR EXTIRPATI [id number] [facility] ON MATTER 6 Y Y RT EXT [facility] ILIAC ART OPEN APPRCH ECG 12578 [place] LIMA CHI ROUTINE 6 MEDICAL ECG SERV W/LEAST FOUNDATIO 12 LDS N I&R ONLY CTA ABDL 84722 [place] NADRE AORTA&BI 6 MEDICAL ALHAJI ILIOFEM SERV W/CONTRAS FOUNDATIO T&POSTP N RADIOLOGI 46493 [place] PAYAN GWENDOLYN C 6 MEDICAL EXAMINATI SERV ON CHEST FOUNDATIO SINGLE N VIEW FRONTAL CRITICAL 23007 [place] [facility] 6 MEDICAL ANTOINE ILL/INJUR SERV ED FOUNDATIO PATIENT N INIT 30-74 MIN SBSQ 51118 [place] [address] PHYSICIAN MAT CARE/DAY S GROUP 25 MINUTES AMB A0427 [facility] SERVICE 6 AMBULANCE AMBULANCE ALS SERVICE SERVICE EMERGENCY TRANSPORT LEVEL 1 CRITICAL 00674 [place] [address] MEDICAL SURJIT ILL/INJUR SERV ED FOUNDATIO PATIENT N INIT 30-74 MIN GROUND A0425 [facility] MILEAGE 6 AMBULANCE AMBULANCE [place] [address] ID RASLAU ANGIOGRAP 6 MEDICAL FLA HY HEAD SERV W/CONTRAS FOUNDATIO T/NONCONT N RAST LEVEL III 88333 [facility] SURG 6 Y OF MAY PATHOLOGY [facility] [address] MELISSA NICKELS ANGIOGRAP 6 MEDICAL REINALDO HY CHEST SERV W/CONTRAS FOUNDATIO T/NONCONT N RAST CATH PLMT 54189 [facility] HRT & 6 PHYSICIAN MAT ARTS S GROUP W/NJX & ANGIO IMG S&I CT ANGIO 94440 [place] NICKELS ABD&PLVIS 6 MEDICAL REINALDO CNTRST SERV MTRL W/WO FOUNDATIO CNTRST N IMG SPCL STN 67105 [facility] 2 I&R 6 Y OF MAY EXCPT [place] [facility] ENZYME/[place] [address] ID RASLAU ANGIOGRAP 6 MEDICAL FLA HY NECK SERV W/CONTRAS FOUNDATIO T/NONCONT N RAST INITIAL 87340 [place] [facility] 6 MEDICAL CARE/DAY SERV 70 FOUNDATIO MINUTES N ECG 00398 MELISSA LIMA CHI ROUTINE 6 MEDICAL ECG SERV W/LEAST FOUNDATIO 12 LDS N I&R ONLY REPLACEME [id number] [facility] 6 Y Y [facility] W/[place] [address] [place] JORGE ALBERTO ABDOMEN & 6 MEDICAL [place] PELVIS IMAGING W/O ASS CONTRAST MATERIAL RADEX ABD 85451 [place] [facility] COMPL 6 MEDICAL [place] AQT ABD IMAGING W/S/E/D ASS VIEWS [address] THORAX 94575 HIP[facility] JORGE ALBERTO W/O 6 MEDICAL [place] CONTRAST IMAGING MATERIAL ASS RADIOLOGI 46551 HIP[facility]O WARDUTCHER C 6 MEDICAL [place] EXAMINATI IMAGING ON CHEST ASS SINGLE VIEW FRONTAL GROUND A0425 [facility] MILEAGE 6 AMBULANCE AMBULANCE PER SERVICE SERVICE STATUTE MILE AMB A0427 [facility] SERVICE 6 AMBULANCE AMBULANCE ALS SERVICE SERVICE EMERGENCY TRANSPORT LEVEL 1 PHYSICAL 06478 ROBBIN SIEGEL THERAPY 5 [facility] EVALUATIO INC INC N RADIOLOGI 61262 HIPOLITO TYLER ALL C 5 MEDICAL EXAMINATI IMAGING ON CHEST ASS SINGLE VIEW FRONTAL AMB A0427 [facility] SERVICE 5 AMBULANCE AMBULANCE ALS SERVICE SERVICE EMERGENCY TRANSPORT LEVEL 1 GROUND A0425 [facility] AM[facility]ULANCE PER SERVICE SERVICE STATUTE MI[place] NONEMERG A0120 FEDERATED FEDERATED TRNSPRT: 5 MINI-BUS TRANSPORT TRANSPORT MTN ATION SER ATION SER AREA/OTH SYS COLONOSCO 94600 [facility] SUKHDEV PY FLX DX 5 PHYSICIAN CAM W/COLLJ S GROUP SPEC WHEN PFRMD EGD 22441 [facility] SUKHDEV TRANSORAL 5 PHYSICIAN CAM BIOPSY S GROUP SING[place] [address] [facility] LIAM PATHOLOGY GROSS&ALHAJI ROSCOPIC EXAM ANES 34679 [facility] 5 ANESTH SHE INTESTINE OF THE BLUE ENDOSCOPY DISTAL DUODENUM SPECIAL 23195 [facility] STAIN [facility] LIAM GROUP 1 MICROORGA NISMS I&R DUP-SCAN 18375 HIPOLITO WARDUTCHER XTR VEINS 5 MEDICAL [place] IMAGING UNILATERA ASS L/LIMITED STUDY ECG 11040 ROBBIN KHAN JR ROUTINE 5 [facility] W/LEAST P 12 LDS I&R ONLY RADIOLOGI 76983 HIPOLITO TOPHER C 5 MEDICAL MELY EXAMINATI IMAGING ON CHEST ASS SINGLE VIEW FRONTAL RADIOLOGI 40516 HIPOLITO LUTHERINE C 5 MEDICAL MELY EXAMINATI IMAGING ON PELVIS ASS 1/2 VIEWS GROUND A0425 GENEV[facility]E VALLEJO MILEAGE 5 AMBULANCE AMBULANCE PER SERVICE SERVICE STATUTE MILE AMBULANCE A[address] [facility] SERVICE 5 AMBULANCE AMBULANCE BLS SERVICE SERVICE EMERGENCY TRANSPORT CULTURE 46556 ROBBIN SIEGEL BACTERIAL 5 [facility] INC INC QUANTTATI VE COLONY COUNT URINE CATH PLMT 63670 [facility] FALLUJI L HRT & 5 [place] [facility] W/NJX & G ANGIO IMG S&I COLLECTIO 90294 ROBBIN SIEGEL N VENOUS 5 [facility] BLOOD INC INC VENIPUNCT URE HEPATITIS 87068 [facility] SIEGEL A 5 [facility] ANTIBODY INC INC HAAB RADIOLOGI 26128 [facility] 5 MEDICAL MELY CHEST 2 IMAGING VIEWS ASS FRONTAL&L ATERAL HEPATITIS 43432 ROBBIN SIEGEL C 5 [facility] ANTIBODY INC INC CRITICAL 41351 ROBBIN SIEGEL CARE 5 [facility] ED P P PATIENT INIT 30-74 MIN CRITICAL 77000 ROBBIN VARGAS CARE 5 [facility] ILL/INJUR [facility] ED P PATIENT ADDL 30 MIN COMPREHEN 22871 ROB[facility] SIEGEL SIVE 5 [facility] METABOLIC INC INC PANEL ECG 94777 ROBBIN MIRANDA ROUTINE 5 [facility] W/LEAST P 12 LDS I&[place] [address] ROBBIN SIEGEL AMMONIA 5 [facility] INC INC CREATINE 47596 ROBBIN SIEGEL KINASE MB 5 [facility] [place] [address] ROBBIN SIEGEL FREE 5 [facility] [place] [address] ROBBIN SIEGEL THYROID 5 [facility] STIMULATI [place] [address] ROBBIN SIEGEL VITAMIN A 5 [facility] INC INC CYANOCOBA 88811 ROBBIN SIEGEL ISSAC 5 [facility] VITAMIN INC INC B-12 CREATINE 38439 ROBBIN ROBBIN KINASE 5 [facility] TOTAL INC INC HEPATITIS 06970 ROBBIN Orellana CORE 5 [facility] ANTIBODY INC INC HBCAB TOTAL HEPATITIS 55922 ROBBIN ROBBIN Esteban SURF 5 [facility] [address] ROBBIN SIEGEL HEPATITIS 5 [facility] B INC INC SURFACE ANTIGEN PROTHROMB 68002 ROBBIN ROBBIN IN TIME 5 [facility] INC INC BLOOD 46526 ROBBIN SIEGEL COUNT 5 [facility] COMPLETE INC INC AUTO&[place] [address] ROBBINKERRIE SIEGEL TROPONIN 5 [facility] QUANTITAT INC INC IMAN HEMOGLOBI 27015 ROBBIN ROBBIN N 5 [facility] GLYCOSYLA INC INC CHRISTIE A1C OPHTH 47105 [facility] MEDICAL 5 ANG ANG XM&EVAL COMPRHNSV ESTAB PT 1/> AMB A0427 BARRIE BARRIE SERVICE 5 [place] F[facility] ALS URBAN URBAN EMERGENCY COGOVT COGOVT TRANSPORT LEVEL 1 GROUND A0425 BARRIE BARRIE MILEAGE 5 [place]AY[place]AY[place]TE PER URBAN URBAN STATUTE COGOVT COGOVT MILE RADIOLOGI 97977 MELISSA ZAHEER LAIRD C 5 MEDICAL EXAMINATI SERV ON CHEST FOUNDATIO SINGLE N VIEW FRONTAL MYOCARDIA 77321 [place] Olguin SPECT 4 MEDICAL [place] MULTIPLE IMAGING STUDIES ASS ECHO 17045 MELISSA POOLE TTHRC R-T 4 MEDICAL 2D SERV W/WOM-MOD FOUNDATIO E COMPL N SPEC&COLR D CRITICAL 78510 [facility] CARE 4 MONCHO ILL/INJUR EMERGENCY ED PHYS PATIENT INIT 30-74 MIN RADIOLOGI 13916 [facility] 4 MEDICAL MELY EXAMINATI IMAGING ON CHEST ASS SINGLE VIEW FRONTAL ECG 79052 EWELINA THO EWELINA THO ROUTINE 4 ECG W/LEAST 12 LDS I&R ONLY GROUND A0425 GENEVIEVE VALLEJO MILEAGE 4 AMBULANCE AMBULANCE PER SERVICE SERVICE STATUTE [facility] A0427 [facility] SERVICE 4 AMBULANCE AMBULANCE ALS SERVICE SERVICE EMERGENCY TRANSPORT LEVEL 1 Encounters Encounter Start End Date Code Location Performer Type Date [facility] - 7 7 [facility] OUTPATIEN INC T EMERGENCY 60530 [facility] 7 7 [facility] DEPARTMEN INC T VISIT LOW/MODER SEVERITY EMERGENCY 12242 DEPT 7 7 [facility] VISIT E [facility]PIT[facility] SEVERITY& THREAT [facility] - 7 7 [facility] OUTPATIEN E T HOSPITALS EMERGENCY 57106 MELISSA MARTINEZ 7 7 MEDICAL DEPARTMEN SERV T VISIT FOUNDATIO HIGH/URGE N NT SEVERITY HOSPITAL ROBBIN - 7 7 [facility] OUTPATIEN INC T EMERGENCY 63567 ROB[facility] DEPT 7 7 [facility] VISIT INC HIGH SEVERITY& THREAT FUNCJ EMERGENCY 62463 GABE POLK 6 6 PHYSICIAN NOHEMY GIBBONS S, PLLC T VISIT MODERATE SEVERITY OFFICE 15365 [facility] 6 6 PHYSICIAN ALHAJI T VISIT S GROUP 15 MINUTES EMERGENCY 41529 MELISSA QURESHI 6 6 MEDICAL DEPARTMEN SERV T VISIT FOUNDATIO HIGH/URGE N NT SEVERITY [facility] 65175 [facility] DEPT 6 6 [facility] VISIT INC HIGH SEVERITY& THREAT FUNCJ EMERGENCY 37491 GABE MOORE 6 6 PHYSICIAN JR CHENG DEPARTMEN S, PLLC T VISIT HIGH/URGE NT SEVERITY HOSPITAL ROBBIN - 6 6 [facility] 81771 [facility]IC[facility] ALHAJI T VISIT S GROUP 15 MINUTES HOSPITAL ROBBIN - 6 6 [facility] OUTPATIEN INC T EMERGENCY 89547 GABE VARGAS 6 6 PHYSICIAN ALHAJI DEPARTMEN S, PLLC T VISIT MODERATE SEVERITY HOSPITAL ROBBIN - 6 6 [facility] OUTPATIEN INC T EMERGENCY 41468 [facility] 6 6 [facility] VISIT LOW/MODER SEVERITY HOSPITAL ROBBIN - 6 6 [facility] OUTPATIEN INC T HOSPITAL CARDINAL - 6 6 [facility] UNIVERSIT - 6 6 Y INPATIENT HOSPITAL EMERGENCY 53221 MELISSA CARRILLO 6 6 [facility]ICAL [facility] SERV T VISIT FOUNDATIO MODERATE N SEVERITY HOSPITAL ROBBIN - 5 5 [facility] OUTPATIEN INC T EMERGENCY 99920 GABE VARGAS DEPT 5 5 PHYSICIAN ALHAJI VISIT S, PLLC HIGH SEVERITY& THREAT [facility] ROBBIN - 5 5 [facility] OUTPATIEN INC T OFFICE 53520 [facility] SCHULSTMARVIN OUTPATIEN 5 5 PHYSICIAN CAM T NEW 45 S GROUP MINUTES OFFICE 31046 SCIFRES SCIFRES OUTPATIEN 5 5 ANG ANG T VISIT 15 MINUTES EMERGENCY 89127 ROBBIN VARGAS 5 5 [facility] T VISIT P HIGH/URGE NT SEVERITY HOSPITAL ROBBIN - 5 5 [facility] OUTPATIEN INC T HOSPITAL ROBBIN - 5 5 [facility] OUTPATIEN INC T EMERGENCY 91624 [facility] DEPT 5 5 MONCHO I ALI VISIT EMERGENCY HIGH PHYS SEVERITY& THREAT FUNCJ OFFICE 65562 [facility] SAM JACOBEN 4 4 PHYSICIAN ALHAJI T NEW 30 S GROUP MINUTES EMERGENCY 35273 SAM VARGAS DEPT 4 4 ALHAJI ALHAJI VISIT HIGH SEVERITY& THREAT FUNCJ
--- OUTSIDE RECORDS SUMMARY | 2017-03-05 05:31 | External Medical Summary Rpt ---
Author Author DEVENDRA Salazar, DEVENDRA [employer] Organization [employer] Address Unknown Phone Unavailable Results Cardiac enzymes Observa Value Referen Units Interpr Notes Date tion ce etation Range Creatine 0 - 4.0 U/L No No Mar 05 kinase.MB informati informati 2016 4:05 /Creatine on in on in AM source source kinase.to data data nola [Ratio] in Serum or Plasma Creatine 0.0 - 3.6 ng/mL High Mar 05 kinase.MB alert 2016 4:05 CRITICAL AM [Mass/vol RESULTS ume] in Serum or RESU Plasma LTS CALLED TO: Kenya DE LA CRUZ RN 03/05/17 0451 Savannah Das Creatine 39 - 308 U/L High No Mar 05 kinase informati 2016 4:05 [Enzymati on in AM c source activity/ data volume] in Serum or Plasma Troponin 0.00 - ng/mL High Mar 05 I.cardiac 0.06 2016 4:05 CRITICAL AM [Mass/vol RESULTS ume] in Serum or RESU Plasma LTS CALLED TO: Kenya DE LA CRUZ RN 03/05/17 0452 Savannah Das hn> 0.5 IS CONSISTEN T WITH MYOCARDIA L ISCHEMIA OR INFARCTIO N Comprehensive metabolic 2000 panel in Serum or Plasma Observa Value Referen Units Interpr Notes Date tion ce etation Range Albumin/G 1.1 - 1.8 No Low No Mar 05 lobulin informati informati 2016 4:05 [Mass on in on in AM ratio] in source source Serum or data data Plasma Albumin 3.4 - 5.0 gm/dL Normal No Mar 05 [Mass/vol informati 2016 4:05 ume] in on in AM Serum or source Plasma data Alkaline 46 - 116 U/L Normal No Oct 16 phosphata informati 2016 4:05 se on in AM [Enzymati source c data activity/ volume] in Serum or Plasma Bilirubin 0.2 - 1.0 mg/dL Normal No Feb 16 .total informati 2016 4:05 [Mass/vol on in AM ume] in source Serum or data Plasma Urea 7 - 18 mg/dL Normal No Feb 16 nitrogen informati 2016 4:05 [Mass/vol on in AM ume] in source Serum or data Plasma Calcium 8.5 - mg/dL Normal No Feb 16 [Mass/vol 10.1 informati 2016 4:05 ume] in on in AM Serum or source Plasma data Chloride 98 - 107 mmoL/L Normal No Feb 16 [Moles/vo informati 2016 4:05 lume] in on in AM Serum or source Plasma data Carbon 21.0 - mmoL/L Normal No Feb 16 dioxide, 32.0 informati 2017 4:05 total on in AM [Moles/vo source lume] in data Serum or Plasma Creatinin 0.70 - mg/dL Normal No Feb 16 e 1.30 informati 2016 4:05 [Mass/vol on in AM ume] in source Serum or data Plasma Creatinin 50 - 200 ML/MIN Normal No Feb 16 e renal informati 2017 4:05 clearance on in AM source predicted data by Cockcroft -Gault formula Estimated >60 ML/MIN No REFERENCE Feb 16 informati RANGE: 2017 4:05 glomerula on in >60 AM r source ML/MIN/1. filtratio data 73 SQUARE n rate METERSIf (GF this patient is -A merican, then multiply theresult by 1.210. Globulin 1.3 - 3.2 gm/dL High No Feb 16 [Mass/vol informati 2016 4:05 ume] in on in AM Serum source data Glucose 74 - 106 mg/dL High No Feb 16 [Mass/vol informati 2016 4:05 ume] in on in AM Serum or source Plasma data Potassium 3.5 - 5.1 mmoL/L Low No Oct 16 informati 2016 4:05 [Moles/vo on in AM lume] in source Serum or data Plasma Sodium 136 - 145 mmoL/L Normal No Oct 16 [Moles/vo informati 2017 4:05 lume] in on in AM Serum or source Plasma data Aspartate 15 - 37 U/L Normal No Oct 16 informati 2017 4:05 aminotran on in AM sferase source [Enzymati data c activity/ volume] in Serum or Plasma Alanine 12 - 78 U/L Normal No Mar 05 aminotran inform2016 4:05 sferase on in AM [Enzymati source c data activity/ volume] in Serum or Plasma Protein 6.4 - 8.2 gm/dL High No Mar 05 [Mass/vol inform2016 4:05 ume] in on in AM Serum or source Plasma data INR in Blood by Coagulation assay Observa Value Referen Units Interpr Notes Date tion ce etation Range IS PATIENT ON ANTICOAGULANTS? Y LIST ANTICOAGULANTS: COUMADIN WARFARIN PTT RESULTS MUST BE CALLED IF PT ON HEPARIN!!! Y INR in 0.9 - 1.1 No Normal INDICATIO Mar 05 Blood by informati N 2016 4:05 Coagulati on in AM on assay source INR data RANGETHER APY FOR DVT, PE, ATRIAL FIB; 2.0 - 3.0PROPHY LAXIS FOR VTETHERAP Y FOR MECHANICA L HEART 2.5 - 3.5VALVE; PREVENTIO N OF SYSTEMICE MBOLISM SECONDARY TO AMI Prothromb 9.4 - SECONDS Normal No Mar 05 in time 11.8 informati 2016 4:05 (PT) in on in AM Platelet source poor data plasma by Coagulati on assay Activated partial thrombplastin time (aPTT) in Platelet poor plasma by Coagulation assay Observa Value Referen Units Interpr Notes Date tion ce etation Range IS PATIENT ON ANTICOAGULANTS? Y LIST ANTICOAGULANTS: COUMADIN WARFARIN PTT RESULTS MUST BE CALLED IF PT ON HEPARIN!!! Y Activated 23.6 - SECONDS Normal No Mar 05 partial 34.0 informati 2016 4:05 thrombpla on in AM stin time source (aPTT) data in Platelet poor plasma by Coagulati on assay CBC W Auto Differential panel in Blood Observa Value Referen Units Interpr Notes Date tion ce etation Range Basophils 0 - 0.2 K/MM3 Normal No Mar 052016 4:05 [#/volume on in AM ] in source Blood by data Automated count Basophils 0.1 - 2.0 % Normal No Mar 05 /100 inform2016 4:05 leukocyte on in AM s in source Blood by data Automated count Eosinophi 0.0 - 0.4 K/mm3 Normal No Oct 16 ls informati 2016 4:05 [#/volume on in AM ] in source Blood by data Automated count Eosinophi 0.1 - % Normal No Feb 16 ls/100 12.0 informati 2016 4:05 leukocyte on in AM s in source Blood by data Automated count Granulocy 1.3 - 8.0 K/mm3 Normal No Feb 16 kailee informati 2016 4:05 [#/volume on in AM ] in source Blood by data Automated count Granulocy 37.0 - % Normal No Mar 05 kailee/100 80.0 informati 2017 4:05 leukocyte on in AM s in source Blood by data Automated count Hematocri 42.0 - % Normal No Mar 05 t [Volume 52.0 informati 2016 4:05 on in AM Fraction] source of Blood data Hemoglobi 14.1 - g/dL Normal No Mar 05 n 18.0 informati 2016 4:05 [Mass/vol on in AM ume] in source Blood data Lymphocyt 0.7 - 4.5 K/mm3 Normal No Mar 05 es informati 2016 4:05 [#/volume on in AM ] in source Unspecifi data ed specimen by Automated count Lymphocyt 10 - 50 % Normal No Mar 05 es informati 2016 4:05 [#/volume on in AM ] in source Unspecifi data ed specimen by Automated count Erythrocy 27 - 31.2 pg High No Mar 05 te mean informati 2016 4:05 corpuscul on in AM ar source hemoglobi data n [Entitic mass] Erythrocy 31.8 - g/dl Normal No Mar 05 te mean 35.4 informati 2016 4:05 corpuscul on in AM ar source hemoglobi data n concentra tion [Mass/vol ume] by Automated count Erythrocy 82.2 - fl High No Mar 05 te mean 97.8 informati 2016 4:05 corpuscul on in AM ar volume source [Entitic data volume] by Automated count Monocytes 0.1 - 1.0 K/mm3 Normal No Feb 16 informati 2016 4:05 [#/volume on in AM ] in source Blood by data Automated count Monocytes 1.7 - 9.3 % Normal No Feb 16 /100 informati 2017 4:05 leukocyte on in AM s in source Blood by data Automated count Platelet 7.4 - fl Normal No Mar 05 mean 10.4 informati 2017 4:05 volume on in AM [Entitic source volume] data in Blood by Automated count Platelets 142 - 424 K/mm3 Normal No Mar 05 informati 2016 4:05 [#/volume on in AM ] in source Blood data Erythrocy 4.6 - 6.2 M/mm3 Low No Mar 05 kailee informati 2016 4:05 [#/volume on in AM ] in source Amniotic data fluid Erythrocy 11.5 - % Normal No Mar 05 te 17.5 informati 2016 4:05 distribut on in AM ion width source [Entitic data volume] by Automated count Leukocyte 4.8 - K/MM3 Normal No Mar 05 s 10.8 informati 2017 4:05 [#/volume on in AM ] in source Blood data
--- OUTSIDE RECORDS SUMMARY | 2017-03-05 05:31 | External Medical Summary Rpt | CCD ---
Demographics Preferred Language Estonian Marital Status Unknown Judaism Affiliation Unknown Race Unknown Ethnic Group Unknown Author Author , ALEIDA RAMSAY Address Unknown Phone [email or web address] Immunization Name Date Rout CVX Reac Dose Comm Prov Is Faci e tion ent ider Refu lity Give sed n Td 03-0 9 999 Hist H149 No H149 (dada 6-19 ori lt), 97 al Info adso rmat rbed ion - Sour ce Unsp ecif ied
--- OUTSIDE RECORDS SUMMARY | 2017-03-05 05:31 | External Medical Summary Rpt | CCD ---
Demographics Preferred Language Citizen Of [place] Marital Status Unknown Episcopalian Affiliation Unknown Race Unknown Ethnic Group Unknown Author Author , ALEIDA RAMSAY Address Unknown Phone [email or web address] Immunization Name Date Rout CVX Reac Dose Comm Prov Is Faci e tion ent ider Refu lity Give sed n Td 03-0 9 999 Hist H149 No H149 (dada 6-19 ori lt), 97 al Info adso rmat rbed ion - Sour ce Unsp ecif ied
--- OUTSIDE RECORDS SUMMARY | 2017-03-05 05:31 | External Medical Summary Rpt ---
Author Author DEVENDRA Salazar, DEV[employer]DRA [employer] Organization [employer] Address Unknown Phone Unavailable [...]
--- NOTE | 2017-03-05 05:37 | RADIOLOGY REPORT PS360 ---
CHEST(2 VIEWS-NOT PORTABLE) HISTORY: Chest pain CP ORDERING PHYSICIAN: Simab Quintanilla MD PATIENT AGE: 51 years COMPARISON: 09/02/2016 FINDINGS: There has been prior median sternotomy. Normal heart size. Surgical clips are present in the right axilla. No lobar consolidation or collapse. Calcified lymph node is present in the right hilum. Lungs are free of acute infiltrate. No acute bony anomalies. IMPRESSION: No change with no acute finding. Postsurgical changes
--- NOTE | 2017-03-05 08:06 | PHARMACY CLINIC NOTE ---
Patient Demographics Patient Demographics Admission date: 03/05/17 Date: 03/05/17 Time: 0806 Allergies Coded Allergies: hydrocodone (From LORTAB) (Mild, VOMITING 03/05/17) HEIGHT- FT: 5 IN: 9.00 K.380 VTE General Information Labs: Laboratory Tests 03/05 0405 Coagulation PT (9.4 - 11.8 SECONDS) 10.7 INR (0.9 - 1.1) 0.99 APTT (23.6 - 34.0 SECONDS) 29.7 Hematology Hgb (14.1 - 18.0 g/dL) 14.6 Hct (42.0 - 52.0 %) 45.4 Plt Count (142 - 424 K/mm3) 205 Disclaimer The following section includes nursing documentation that has been pulled in for pharmacy review. Patient's VTE score: 6 Patient's VTE Risk: MOD RISK Clinical trial participant? No VTE prophylaxis NQF [id number] VTE prophylaxis ordered? Yes Type of prophylaxis/treatment: CHRISTIE at 0806
--- NOTE | 2017-03-05 08:10 | CONSULT NOTE ---
Standard Demographics Patient Demo Date of Consultation: 03/05/17 Referring Provider: Thomas Quintanilla MD Reason for Consultation: NSTEMI PRIMARY DIAGNOSIS: N STEMI Problem list Problem list: 1. Previous hospitalizations for elevated troponins A. Reportedly has have >5 cardiac cath B. 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 Cardiac cath Results: 1. The left main artery normal 2. The left anterior descending artery mild proximal 20% stenosis 3. The circumflex artery nondominant normal 4. The right coronary artery dominant normal 5. The SLAUGHTER ventriculogram reveals hyperdynamic ejection fraction 80% 6. The left ventricular end-diastolic pressure 10 mmHg 7. The ascending aorta is mildly dilated and has a dissection flap on the right side of the ascending aorta 8. Brachiocephalic is normal 9. The left subclavian artery is compromised ostially that has normal antegrade flow 10. The left subclavian artery has antegrade flow however the ostium was not adequately visualized 11. The right renal artery is singular and widely patent without compromise 12. The left renal artery appears patent but was not completely identified on this angiogram. There appears to be some compromise from the dissection 13. The inferior mesenteric arteries patent but is ostially compromised. There is normal flow distally C. s/p Asc Aortic dissection repair D. RIGHT lower extremity vascular compromise with resultant fasciotomy post dissection repair. Chronic limb pain. 2. Malignant hypertension A. Chronic hypertensive changes by electrocardiogram B. Echocardiogram, 03/05/17, preliminary report shows hyperdynamic LEFT ventricular ejection fraction with severe left ventricular hypertrophy. Interventricular septal thickness estimated at 2.3 cm without evidence of outflow obstruction. 3. History of crack cocaine use 4. Tobacco use 5. Alcohol use History of present illness: History of present illness: 51-year-old black male with known history of ascending aortic dissection with inclusion of the LEFT subclavian artery ostium, LEFT renal artery ostium and mesenteric artery ostium for which she was transferred to for surgical repair in October 2015 was admitted this morning for recurrent chest pain with some radiation to the LEFT shoulder and in the LEFT abdomen during emotionally charged argument. Patient was being arrested for an outstanding warrant for failure to provide child support and chest pain became worse and he requested medical evaluation. He was brought to the emergency department for evaluation with elevated troponin noted. Patient was admitted with cardiology consultation for further evaluation. Patient currently in bed without significant signs of distress. He relates chest soreness. He does admit to recent crack cocaine use within the last 48-72 hours. He does continue to smoke and uses occasional alcohol. He states he has been out of all of his blood pressure medications for over a month. He has not followed up with post surgery due to transportation issues. EKG shows NSR at 90 bpm with LVH and repolarization abnormalities, QTc of 513 ms. No acute changes compared with previous tracings. Past Medical History: General: Hypertension Yes CVA Yes Seizures No TB No COPD No Asthma Yes Diabetes No Angina Yes NE Yes Hyperlipidemia Yes Urinary No Cancer No Rheumatic H.D. No Ulcers No MRSA No GB Disease No Past Surgical HX: Previous Surgery?Y CARDIAC CATH X4 AAA RIGHT LEG FASCIOTOMY OPEN HEART SURGERY Allergies Coded Allergies: hydrocodone (From LORTAB) (Mild, VOMITING 03/05/17) Home medications: Active Scripts Amlodipine Besylate (Amlodipine) 5 MG PO DAILY #30 TAB Prov: 01/07/16 Reported Medications Lisinopril (Lisinopril 40MG) 40 MG PO DAILY #60 Aspirin 81 MG PO DAILY #30 Carvedilol (Carvedilol 25MG) 25 MG PO BID #60 Atorvastatin Calcium 80 MG PO DAILY #30 Sertraline Hcl (Sertraline 50MG) 25 MG PO DAILY #30 Warfarin Sodium 5 MG PO QHS Hydralazine Hcl 10 MG OR TID Gabapentin (Gabapentin 600MG) 800 MG PO TID Current Medications: Current Medications Atorvastatin Calcium 80 MG QHS PO Amlodipine Besylate 5 MG DAILY PO Aspirin 81 MG DAILY PO Carvedilol 25 MG BID PO Gabapentin 800 MG TID PO Hydralazine HCl 10 MG TID PO Lisinopril 40 MG DAILY PO Polyethylene Glycol 17 GM DAILY PO Sertraline HCl 25 MG DAILY PO Sodium Chloride 10 ML PRN PRN IV Acetaminophen 650 MG Q4HP PRN PO Influenza Virus Vaccine Quadrival 0.5 ML PRN PRN IM Ondansetron HCl 4 MG Q6HP PRN IV Sodium Chloride 1,000 ML .Q20H IV Metoprolol Tartrate 0 .STK-MED ONE IV (DC) Metoprolol Tartrate 2.5 MG ONCE ONE IV (DC) Clopidogrel Bisulfate 300 MG ONCE ONE PO (DC) Clopidogrel Bisulfate 0 .STK-MED ONE PO (DC) Aspirin 324 MG ONCE ONE PO (DC) Aspirin 0 .STK-MED ONE .ROUTE (DC) Immunization HX DT/Tetanus Unknown Flu Refused Pneumonia Never Had TB Test in last year Yes Result Negative Family history Family HX Family Hx Insignificant No Diabetes Yes CAD Yes Hypertension Yes Hyperlipidemia Yes Cancer Yes TB No Social Hx: Smoking HX Tobacco No Packs/day N/A Are you/the child exposed to second-hand smoke: No Alcohol Alcohol: Yes How much do you drink 3-4 BEERS DAILY For how long Longer Than 5 Years When was your last drink 03-04- Hx of Drug Use Drug Use? No Review of systems: Constitutional No: no symptoms reported. Respiratory No: no symptoms reported. Cardiovascular see HPI, chest pain Gastrointestinal/Abdominal No no symptoms reported Genitourinary No: no symptoms reported. Musculoskeletal muscle pain. Neurological No: no symptoms reported. Exam: Admission Vital Signs: 1ST Vital Signs Result Date Time Pulse Ox 96 03/05 356 B/P 200/111 03/05 356 Temp 98.5 03/05 356 Pulse 90 03/05 356 Resp 20 03/05 356 O2 Delivery ROOM AIR 03/05 635 Last Vital Signs: Vital Signs Result Date Time Pulse 87 03/05 635 Pulse Ox 98 03/05 635 O2 Delivery ROOM AIR 03/05 635 B/P 185/111 03/05 628 Temp 98.5 03/05 628 Resp 20 03/05 628 Exam General appearance: alert, awake, no acute distress Neck: no carotid bruit, no JVD Cardiovascular: regular rate and rhythm with grade 2/6 systolic ejection murmur noted at the LEFT sternal border. Respiratory: clear to auscultation ABD: soft, no tenderness Extremities: moves all, fasciotomy scars noted in the RIGHT lower extremity below the knee. Good dorsalis pedis pulses bilaterally. Equal radial pulses as well. Neuro: alert, intact, oriented Laboratory data: Laboratory Tests 03/05/17 0405: Sodium 138, Potassium 3.3 L, Chloride 103, Carbon Dioxide 27, BUN 16, Creatinine 1.1, Estimated Creat Clear 88, Estimated GFR (MDRD) 70, Glucose 119 H, Calcium 9.0, Total Bilirubin 0.8, AST 20, ALT 21, Alkaline Phosphatase 110, Creatine Kinase 518 H, CK-MB (CK-2) Rel Index 2.2, CK and CKMB Interp 11.2 *H, Troponin I 1.16 H, Total Protein 8.3 H, Albumin 3.7, Globulin 4.6 H, Albumin/ Globulin Ratio 0.8 L, PT 10.7, INR 0.99, APTT 29.7, WBC 5.7, RBC 4.49 L, Hgb 14.6, Hct 45.4, MCV 101.1 H, RDW 12.2, Plt Count 205, MPV 7.8, Gran % 54.9, Gran # 3.1, Lymphocytes % 32.4, Monocytes % 6.6, Eosinophils % 5.1, Basophils % 0.9, Lymphocytes # 1.8, Monocytes # 0.4, Eosinophils # 0.3, Basophils # 0.1, PUBS MCHC 32.2, MCH 32.5 H Plan: Assessment: 1. Elevated troponin consistent with non-ST elevation myocardial infarction likely due to medication noncompliance in setting of malignant hypertension and recent crack cocaine use. Patient has previously had cardiac catheterization showing non-flow limiting coronary artery disease in October 2015. Discussed with Dr. Hankins. Would not recommend repeating cardiac catheterization at this time. Would focus more on blood pressure management. 2. Malignant hypertension 3. Hypokalemia 4. Ascending aortic dissection with repair, October/2015. Recommendations: 1. Will replace potassium. 2. We'll switch Norvasc to diltiazem due to malignant hypertension and hyperdynamic ejection fraction noted on echocardiogram. 3. No further cardiac testing at this time. 4. Discharge home when BP improved. at 0821
--- NOTE | 2017-03-05 09:16 | HISTORY AND PHYSICAL REPORT ---
Demographics: Admit date: 03/05/17 Chief complaint: chest pain PRIMARY DIAGNOSIS: N STEMI Allergies: Coded Allergies: hydrocodone (From LORTAB) (Mild, VOMITING 03/05/17) History of present illness: History of present illness: 51-year-old black male with known history of ascending aortic dissection with inclusion of the LEFT subclavian artery ostium, LEFT renal artery ostium and mesenteric artery ostium for which she was transferred to for surgical repair in October 2015 was admitted this morning for recurrent chest pain with some radiation to the LEFT shoulder and in the LEFT abdomen during emotionally charged argument. Patient was being arrested for an outstanding warrant for failure to provide child support and chest pain became worse and he requested medical evaluation. He was brought to the emergency department for evaluation with elevated troponin noted. Patient was admitted with cardiology consultation for further evaluation. Patient currently in bed without significant signs of distress. He relates chest soreness. He does admit to recent crack cocaine use within the last 48-72 hours. He does continue to smoke and uses occasional alcohol. He states he has been out of all of his blood pressure medications for over a month. He has not followed up with post surgery due to transportation issues. EKG shows NSR at 90 bpm with LVH and repolarization abnormalities, QTc of 513 ms. No acute changes compared with previous tracings. pt also has pain rt foot with hx of nail issues and pain rt great toe - pt reports sx have increased over the last few days Past medical history: Family HX Diabetes Yes CAD Yes Hypertension Yes Hyperlipidemia Yes Cancer Yes TB No Immunization HX DT/Tetanus Unknown Flu Refused Pneumonia Never Had TB Test in last year Yes Result Negative General CAD? Yes Angina: Yes CO: Yes Hypertension? Yes Hyperlipidemia? Yes CHF? No DVT? Yes PE? No COPD? No Asthma? Yes Anemia? No GERD? No Gastric ulcers? No GI Bleed? No Hernia? No Thyroid Problems? No Hypothyroidism? No CVA? Yes Seizures? No Diabetes? No Renal Insuffiency? No UTI? No Stones? No BPH? No GB Disease: No Nephritic Syndrome? No Asplenia? No Hepatitis? No Sickle Cell Disease? No Arthritis? No Migraines? No Cataracts? No Glaucoma? No MRSA? No HIV? No TB? No Anxiety? No Depression? No Cancer? No More? No Past Surgical HX Previous Surgery?Y CARDIAC CATH X4 AAA RIGHT LEG FASCIOTOMY OPEN HEART SURGERY Current home meds: Active Scripts Amlodipine Besylate (Amlodipine) 5 MG PO DAILY #30 TAB Prov: 01/07/16 Reported Medications Lisinopril (Lisinopril 40MG) 40 MG PO DAILY #60 Aspirin 81 MG PO DAILY #30 Carvedilol (Carvedilol 25MG) 25 MG PO BID #60 Atorvastatin Calcium 80 MG PO DAILY #30 Sertraline Hcl (Sertraline 50MG) 25 MG PO DAILY #30 Warfarin Sodium 5 MG PO QHS Hydralazine Hcl 10 MG OR TID Gabapentin (Gabapentin 600MG) 800 MG PO TID Social Hx: Smoking HX Tobacco No Packs/day N/A Are you/the child exposed to second-hand smoke: No Alcohol Alcohol: Yes How much do you drink 3-4 BEERS DAILY For how long Longer Than 5 Years When was your last drink 03-04- Hx of Drug Use Drug Use? No Patien't marital status is Patient's support system is good Review of systems: Constitutional No: fever. Eyes No: drainage. Ears, Nose, Mouth, Throat No ear discharge, No epistaxis, No throat pain Respiratory No: cough. Cardiovascular No chest pain, No palpitations Gastrointestinal/Abdominal poor appetite, poor fluid intake, No vomiting Genitourinary No: dysuria, frequency, hesitancy, hematuria. Musculoskeletal No: back pain, joint pain, joint swelling, neck pain. Skin No: rash. Neurological No: headache, seizure disorder. Psychiatric No: depressed. Exam: Lab data for last 24 hours: Laboratory Tests 03/05/17 0810: Triglycerides 33, Cholesterol 193, LDL Cholesterol 90.4, VLDL Cholesterol 6.6, HDL Cholesterol 96.0 H 03/05/17 0405: Sodium 138, Potassium 3.3 L, Chloride 103, Carbon Dioxide 27, BUN 16, Creatinine 1.1, Estimated Creat Clear 88, Estimated GFR (MDRD) 70, Glucose 119 H, Calcium 9.0, Total Bilirubin 0.8, AST 20, ALT 21, Alkaline Phosphatase 110, Creatine Kinase 518 H, CK-MB (CK-2) Rel Index 2.2, CK and CKMB Interp 11.2 *H, Troponin I 1.16 H, Total Protein 8.3 H, Albumin 3.7, Globulin 4.6 H, Albumin/ Globulin Ratio 0.8 L, PT 10.7, INR 0.99, APTT 29.7, WBC 5.7, RBC 4.49 L, Hgb 14.6, Hct 45.4, MCV 101.1 H, RDW 12.2, Plt Count 205, MPV 7.8, Gran % 54.9, Gran # 3.1, Lymphocytes % 32.4, Monocytes % 6.6, Eosinophils % 5.1, Basophils % 0.9, Lymphocytes # 1.8, Monocytes # 0.4, Eosinophils # 0.3, Basophils # 0.1, PUBS MCHC 32.2, MCH 32.5 H Admission vital signs: 1ST Vital Signs Result Date Time Pulse Ox 96 03/05 356 B/P 200/111 03/05 356 Temp 98.5 03/05 356 Pulse 90 03/05 356 Resp 20 03/05 356 O2 Delivery ROOM AIR 03/05 0635 Exam General appearance: alert, awake Eyes: PERRLA ENT: dry mucous membranes Neck: no JVD Cardiovascular: regular rate & rhythm, murmur Respiratory: no respiratory distress, diminished breath sounds ABD: soft Genitourinary: no hematuria Extremities: changes with possible infection/gangrene rt great toe with nail with fungal changes Musculoskeletal: equal muscle strength Skin: changes rt great toe Neuro: alert, [employer] II-XII nml as tested Additional information: will work to get bp improved and check echo and will as podiatry to see pt about foot Plan: Problem List 1. Noncompliance with medication regimen 2. History of aortic dissection 3. Tobacco abuse Status Chronic 4. HTN (hypertension) Status Chronic 5. Non-STEMI (non-ST elevated myocardial infarction) 6. Hypertensive crisis 7. Cellulitis of foot, right Plan: will see card and podiatry eval at 0915
--- NOTE | 2017-03-05 10:15 | RADIOLOGY REPORT PS360 ---
FOOT-RT-3 VIEWS HISTORY: PAIN/GREAT TOE ULCER ORDERING PHYSICIAN: Jefferson Quintanilla MD PATIENT AGE: 51 years COMPARISON: None FINDINGS: There is some minor cortical irregularity/please correlate as to the area of patient's pain and ulceration. Erosion involving the tuft of the distal phalanx of the great toe suspicious for osteomyelitis.. There is mild varus angulation of the distal phalanx with flexion deformity of the toes. No fracture or dislocation. IMPRESSION: Minimal cortical irregularity/erosive change of the tuft of the distal findings of the great toe suspicious for osteomyelitis
[2017-03-05] MEDS ORDERED: ZOLOFT25 MG PO (10:31)
[2017-03-05] MEDS ORDERED: CARDIZEM CD300 MG PO (10:31)
--- NOTE | 2017-03-05 12:47 | CONSULT NOTE-PODIATRY ---
Podiatry consult Date of admission: 03/05/17 Chief complaint: Right hallux gangrene History: History of Present Illness: Mr. White is a 51-year-old male who presents and was admitted for chest pain. Patient has gangrenous changes to the right big toe. The right lower extremity has been discolored for several months he states. Patient unsure of how long the right hallux has been discolored. He admits to some drainage but cannot tell me when the last time drainage occurred. Patient denies prior foot ulcerations. Past Medical History: Medical History: CAD? Yes Angina: Yes DE: Yes Hypertension? Yes Hyperlipidemia? Yes CHF? No DVT? Yes PE? No COPD? No Asthma? Yes Anemia? No GERD? No Gastric ulcers? No GI Bleed? No Hernia? No Thyroid Problems? No Hypothyroidism? No CVA? Yes Seizures? No Diabetes? No Renal Insuffiency? No UTI? No Stones? No BPH? No GB Disease: No Nephritic Syndrome? No Asplenia? No Hepatitis? No Sickle Cell Disease? No Arthritis? No Migraines? No Cataracts? No Glaucoma? No MRSA? No HIV? No TB? No Anxiety? No Depression? No Cancer? No More? No Surgical history: Previous Surgery?Y CARDIAC CATH X4 AAA RIGHT LEG FASCIOTOMY OPEN HEART SURGERY Medications: Active Scripts Amlodipine Besylate (Amlodipine) 5 MG PO DAILY #30 TAB Prov: 01/07/16 Reported Medications Aspirin 81 MG PO DAILY #30 Carvedilol (Carvedilol 25MG) 25 MG PO BID #60 Atorvastatin Calcium 80 MG PO DAILY #30 Warfarin Sodium 5 MG PO QHS Lisinopril (Lisinopril 40MG) 40 MG PO BID #60 TAB DILTIAZEM HCL (Diltiazem 24HR ER) 300 MG PO DAILY Sertraline Hcl (Zoloft 25MG) 25 MG PO DAILY Hydralazine Hcl 10 MG OR TID Gabapentin (Gabapentin 600MG) 800 MG PO TID Allergies: Coded Allergies: hydrocodone (From LORTAB) (Mild, VOMITING 03/05/17) Family History: Family history: Postive for: HTN. Social History: Smoking Hx Tobacco: Yes Smoker: Never Smoker Type: Cigarettes Packs/day: N/A Are you exposed to second hand No Alcohol: Alcohol: Yes How much do you drink 3-4 BEERS DAILY For how long Longer Than 5 Years When was your last drink 03-04-17 Hx of Drug Use: Drug Use? No Review of Systems: Patient unresponsive? No Constitutional No: chills. Physical Exam: Vital signs: Vital Signs Result Date Time Pulse Ox 92 03/05 1600 B/P 117/73 03/05 1600 O2 Delivery ROOM AIR 03/05 1600 Temp 97.7 03/05 1600 Pulse 68 03/05 1600 Resp 18 03/05 1600 Exam: General appearance: awake, no acute distress Extremities: full range of motion, cool, pedal pulses, no calf tenderness Musculoskeletal: equal muscle strength, motor intact, sensation intact Skin: dry Neuro: normal exam Lab data: Labs: Laboratory Tests 03/05/17 0810: Triglycerides 33, Cholesterol 193, LDL Cholesterol 90.4, VLDL Cholesterol 6.6, HDL Cholesterol 96.0 H 03/05/17 0405: Sodium 138, Potassium 3.3 L, Chloride 103, Carbon Dioxide 27, BUN 16, Creatinine 1.1, Estimated Creat Clear 88, Estimated GFR (MDRD) 70, Glucose 119 H, Calcium 9.0, Total Bilirubin 0.8, AST 20, ALT 21, Alkaline Phosphatase 110, Creatine Kinase 518 H, CK-MB (CK-2) Rel Index 2.2, CK and CKMB Interp 11.2 *H, Troponin I 1.16 H, Total Protein 8.3 H, Albumin 3.7, Globulin 4.6 H, Albumin/ Globulin Ratio 0.8 L, PT 10.7, INR 0.99, APTT 29.7, WBC 5.7, RBC 4.49 L, Hgb 14.6, Hct 45.4, MCV 101.1 H, RDW 12.2, Plt Count 205, MPV 7.8, Gran % 54.9, Gran # 3.1, Lymphocytes % 32.4, Monocytes % 6.6, Eosinophils % 5.1, Basophils % 0.9, Lymphocytes # 1.8, Monocytes # 0.4, Eosinophils # 0.3, Basophils # 0.1, PUBS MCHC 32.2, MCH 32.5 H Radiology results: Radiology results: Right foot x-ray 3 views: distal phalanx suspicious for osteomyelitis Diagnosis(es): 1. Noncompliance with medication regimen 2. History of aortic dissection 3. Tobacco abuse Status: Chronic 4. HTN (hypertension) Status: Chronic 5. Non-STEMI (non-ST elevated myocardial infarction) 6. Hypertensive crisis 7. Cellulitis of foot, right Additional information: EFRA: Vascular: DP/PT pedal pulses weakly palpable, minimal pedal hair growth, CFT wnl , skin temp warm to cool, negative varicose veins, RLE darker than the left Dermatologic: callus noted to the distal tip of right great toe with underlying ulceration, toenails elongated such that the toenail is curved under and digging into skin, no inter-digital macerations, visible fasciotomy scar noted to the anterior medial right leg Neurologic: light touch protective sensation intact, no focal deficits, normal muscle mass Musculoskeletal: muscle strength wnl b/l, decreased arch height b/l, no pain noted with active or passive ROM to ankle, STJ, or midtarsal joints Pain to the right distal hallux Plan: RIGHT HALLUX DISTAL PHALANX OSTEOMYELITIS: Attention was directed to the right hallux where callus was noted distally. Utilizing a 15 blade the callus was sharply debrided through skin to subcu or an ulceration was noted. Ulcer measured approximately 0.2 x 0.3 cm and probed deeply to the bone. No active purulence or drainage noted. No malodor, no cellulitis or ascending lymphangitis noted. The right hallux is dusky and the entire right lower extremity compared to the left lower extremity was darker with gangrenous changes. Discussed x-ray results with patient. Also discussed ASHKAN results with the patient. ASHKAN right 0.9, left 0.8. TBI right 0.62, left 0.70. Mild arthrosclerotic disease. Normal waveforms and pulses. Discussed outpatient antibiotic therapy and local wound care versus surgical intervention. Concerned about patient's compliance. Would recommend holding off on the hallux amputation for now as the patient is not septic or grossly infected with active purulence. Discuss with Dr. Quintanilla. Recommend to follow up with me out pt in one week for local wound care. Can do outpatient right hallux amp if needed. at 1702
--- NOTE | 2017-03-05 15:07 | RADIOLOGY REPORT PS360 ---
ARTERIAL/RKA-RHEDBFTAWEM-UHE NON HEALING WOUND nonhealing ulcer right great toe, peripheral vascular disease, smoker ORDERING PHYSICIAN: Jefferson Quintanilla MD PATIENT AGE: 51 years TECHNIQUE: Segmental pressures obtained of both right and left leg. These are compared to brachial blood pressure to yield index at each level sampled including summary ASHKAN. The data sheets from the procedure are available in PACS FINDINGS Rest study only performed today No prior studies available for comparison. Blood pressures reported are in millimeters mercury. RIGHT LEG ASHKAN = 0.9. Brachial BP: 127 Thigh BP: 108 Calf BP: 118 Ankle PT: 124 Ankle DP : 118 Digit =83 LEFT LEG ASHKAN = 0.8 Brachial BPD: 133 Thigh BP: 108 Calf BP: 112 Ankle PT:112 Ankle DP: 116 Digit = 93 Pulses and waveforms: Normal IMPRESSION: 1. Slightly low left ASHKAN indicating some mild arterial disease. 2. Normal right ASHKAN. 3. Normal waveforms and pulses
--- NOTE | 2017-03-05 20:40 | RADIOLOGY REPORT PS360 ---
ECHO ADULT PROCEDURE: INDICATIONS FOR THE TEST: Chest pain + COPD Heart Murmur Tobacco Smoking+ Palpitations Fatigue Syncope Edema Hypertension+Diabetes Mellitus Rheumatic Fever SOB CHACON Obesity Hyperlipidemia+ Family History HD Additional History COCAINE USE SAT NIGHT, ALCOHOL USE, NON COMPLIANT, CVA, AORTIC DISSECTION WITH REPAIR 11/03, CABG PATIENT INFORMATION HEIGHT: 69 WEIGHT:175 GENDER: Male B/P:185/11 2-D/M-MODE INTERPRETATION: 2-D MEASUREMENTS OBSERVED VALUES IN CMS Right Ventricular Dimension (RVDd) 1.7 Interventricular Septum (Thickness)(IVsd) 2.0 Left Ventricular Internal Dimensions(LVIDd) 3.8 Left Ventricular Posterior Wall (Thickness)(LVPWd) 1.9 Aortic Root 1.3 Aortic Cusp Separation Left Atrial Dimensions (LAD) 3.5 2D 1. Left atrium is mildly enlarged, left ventricle is normal size, there is marked concentric left ventricular hypertrophy present, visually estimated ejection fraction 55%, with no obvious regional wall motion abnormality, there is complete cavity obliteration during systole. 2. The right atrium and right ventricle are normal size and contractility. 3. The aortic root and ascending aorta is enlarged measuring 4.3 cm, aortic valve is minimally thickened and calcified. 4. The mitral and tricuspid valve leaflets are minimally thickened. 5. The pulmonic valve is poorly visualized. 6. No significant pericardial effusion noted. DOPPLER INTERROGATION: Doppler interrogation of the aortic, mitral and tricuspid valvular presence of mild mitral, mild aortic and mild tricuspid regurgitation, tricuspid and jet velocity insufficient for calculation of the right ventricular systolic pressure, Doppler evidence of impaired LV relaxation seen. CONCLUSION: 1. Mildly enlarged left atrium, normal left ventricular size, mild concentric left ventricular hypertrophy present, visually estimated ejection fraction 55% with no obvious regional wall motion abnormality, Doppler evidence of impaired LV relaxation seen, there is complete cavity obliteration during systole. 2. Mild aortic, mild mitral and tricuspid regurgitation. 3. The aortic root and ascending aorta is enlarged measuring 4.3 cm 4. No significant pericardial effusion noted.
[2017-03-06 00:22] VITALS: BP 118/71
[2017-03-06 01:35] VITALS: BP 118/71
[2017-03-06 03:56] VITALS: BP 130/70
[2017-03-06 06:47] LABS: HEMOGLOBIN 14.2 g/dL (14.1-18.0); LYMPH # 1.8 K/mm3 (0.7-4.5); LYMPH % 26.8 % (10-50)
[2017-03-06 07:56] VITALS: BP 129/93
[2017-03-06] MEDS ORDERED: CARVEDILOL 1212.5 MG PO (09:09)
[2017-03-06] MEDS ORDERED: TIAZAC180 MG PO (09:09)
[2017-03-06] MEDS ORDERED: LISINOPRIL 20MG20 MG PO (09:09)
--- NOTE | 2017-03-06 11:22 | CARDIOVASCULAR REPORT ---
"Venous Exam Indications: 729.5 Pain in limb. Right hallux ulcer. IMPRESSIONS No evidence of deep or superficial vein thrombosis involving the right lower extremity and left lower extremity History: Right lower extremity pain. Ulcers of the right leg. Risk factors: Hypertension. Complete lower extremity venous duplex evaluation. Doppler flow study including spectral analysis, color and espitia scale imaging. Location: Bedside. Patient status: Inpatient. Tables: Venous flow and imaging: + +-------+ + |Location |Overall|Flow properties | + +-------+ + |Right common femoral |Patent |Normal phasicity; spontaneous; | | | |normal augmentation; compressible| + +-------+ + |Right saphenofemoral junction|Patent |Compressible | + +-------+ + |Right profunda femoral |Patent |Compressible | + +-------+ + |Right femoral |Patent |Normal phasicity; spontaneous; | | | |normal augmentation; | | | |compressible; no reflux | + +-------+ + |Right greater saphenous |Patent |Normal phasicity; spontaneous; | | | |normal augmentation; compressible| + +-------+ + |Right popliteal |Patent |Normal phasicity; spontaneous; | | | |normal augmentation; compressible| + +-------+ + |Right posterior tibial |Patent |Compressible | + +-------+ + |Right peroneal |Patent |Compressible | + +-------+ + |Right gastrocnemius |Patent |Compressible | + +-------+ + |Right soleal |Patent |Compressible | + +-------+ + |Left common femoral |Patent |Normal phasicity; spontaneous; | | | |normal augmentation; compressible| + +-------+ + |Left saphenofemoral junction |Patent |Compressible | + +-------+ + |Left profunda femoral |Patent |Compressible | + +-------+ + |Left femoral |Patent |Normal phasicity; spontaneous; | | | |normal augmentation; compressible| + +-------+ + |Left greater saphenous |Patent |Normal phasicity; spontaneous; | | | |normal augmentation; compressible| + +-------+ + |Left popliteal |Patent |Normal phasicity; spontaneous; | | | |normal augmentation; compressible| + +-------+ + |Left posterior tibial |Patent |Compressible | + +-------+ + |Left peroneal |Patent |Compressible | + +-------+ + |Left gastrocnemius |Patent |Compressible | + +-------+ + |Left soleal |Patent |Compressible | + +-------+ + (Report amended ) Electronically signed by: Pablo Sanchez [id number]"
[2017-03-06 11:47] VITALS: BP 131/77
[2017-03-06 12:00] VITALS: BP 136/76
--- NOTE | 2017-03-06 14:04 | ACUTE CARE PROGRESS NOTE (QUA) ---
Progress Notes Subjective Date 03/06/17 Time 0815 Patient/family reports: feeling better, no complaints Nursing reports: alert Objective Findings Laboratory Tests 03/06/17 0615: Sodium 143, Potassium 3.9, Chloride 108 H, Carbon Dioxide 28, BUN 15, Creatinine 1.2, Estimated Creat Clear 76, Estimated GFR (MDRD) 64, Glucose 93, Calcium 8.9, WBC 6.6, RBC 4.37 L, Hgb 14.2, Hct 45.1, MCV 103.3 H, RDW 12.1, Plt Count 171, MPV 8.3, Gran % 59.2, Gran # 3.9, Lymphocytes % 26.8, Monocytes % 7.5, Eosinophils % 5.9, Basophils % 0.6, Lymphocytes # 1.8, Monocytes # 0.5, Eosinophils # 0.4, Basophils # 0.0, PUBS MCHC 31.4 L, MCH 32.4 H Vital Signs Date Time Temp Pulse Resp B/P Pulse O2 O2 Flow FiO2 Ox Delivery Rate 03/06 1147 98.5 60 18 131/77 100 ROOM AIR 03/06 0756 98.4 66 16 129/93 99 ROOM AIR 03/06 0356 98.2 65 18 130/70 99 ROOM AIR 03/06 0135 97.9 65 18 118/71 99 03/06 0022 97.9 65 18 118/71 99 ROOM AIR 03/05 2017 97.6 70 18 122/69 95 ROOM AIR 03/05 1600 97.7 68 18 117/73 92 ROOM AIR Last VS-Temp:98.5 B/P:131/77 Pulse:60 Resp:18 SaO2:100 ROOM AIR Last weight lbs:165 oz:4 [id number] Method:Bed Scales Exam General appearance: normal appearance, awake, no acute distress Eyes: normal exam ENT: normal exam Neck: normal inspection, non-tender, full range of motion Respiratory: normal exam, clear to auscultation, good air movement, no respiratory distress ABD: normal exam, normal bowel sounds, soft Genitourinary: normal voiding & quantity Extremities: normal exam, moves all Musculoskeletal: normal exam Skin: normal exam, intact, warm Neuro: normal exam, alert, intact, oriented Reviewed: allergies, medications, vital signs, lab results, radiology report, consult note Assessment/Plan Problem List 1. Noncompliance with medication regimen 2. History of aortic dissection 3. Tobacco abuse Status: Chronic 4. HTN (hypertension) Status: Chronic 5. Non-STEMI (non-ST elevated myocardial infarction) 6. Hypertensive crisis 7. Cellulitis of foot, right Patient condition Stable Plan: initiate discharge plan This inpt stay is expected to cross 2 MNs from start of care No Comments: rounded with irena at 1407
--- NOTE | 2017-03-06 14:13 | DISCHARGE SUMMARY STANDARD ---
Demographics Admit date: 03/05/17 Discharge date: 03/06/17 History of present illness History of present illness 51-year-old black male with known history of ascending aortic dissection with inclusion of the LEFT subclavian artery ostium, LEFT renal artery ostium and mesenteric artery ostium for which she was transferred to for surgical repair in October 2015 was admitted this morning for recurrent chest pain with some radiation to the LEFT shoulder and in the LEFT abdomen during emotionally charged argument. Patient was being arrested for an outstanding warrant for failure to provide child support and chest pain became worse and he requested medical evaluation. He was brought to the emergency department for evaluation with elevated troponin noted. Patient was admitted with cardiology consultation for further evaluation. Patient currently in bed without significant signs of distress. He relates chest soreness. He does admit to recent crack cocaine use within the last 48-72 hours. He does continue to smoke and uses occasional alcohol. He states he has been out of all of his blood pressure medications for over a month. He has not followed up with post surgery due to transportation issues. EKG shows NSR at 90 bpm with LVH and repolarization abnormalities, QTc of 513 ms. No acute changes compared with previous tracings. pt also has pain rt foot with hx of nail issues and pain rt great toe - pt reports sx have increased over the last few days Hospital Course Hospital Course: pt states he quit taking coumidin months ago and was taking it for dvt in 2014. venous doppler: IMPRESSIONS No evidence of deep or superficial vein thrombosis involving the right lower extremity and left lower extremity Cardiology consult:Assessment: 1. Elevated troponin consistent with non-ST elevation myocardial infarction likely due to medication noncompliance in setting of malignant hypertension and recent crack cocaine use. Patient has previously had cardiac catheterization showing non-flow limiting coronary artery disease in October 2015. Discussed with Dr. Hankins. Would not recommend repeating cardiac catheterization at this time. Would focus more on blood pressure management. 2. Malignant hypertension 3. Hypokalemia 4. Ascending aortic dissection with repair, October/2015. Recommendations: 1. Will replace potassium. 2. We'll switch Norvasc to diltiazem due to malignant hypertension and hyperdynamic ejection fraction noted on echocardiogram. 3. No further cardiac testing at this time. 4. Discharge home when BP improved. Poditory consult:Discussed x-ray results with patient. Also discussed ASHKAN results with the patient. ASHKAN right 0.9, left 0.8. TBI right 0.62, left 0.70. Mild arthrosclerotic disease. Normal waveforms and pulses. Discussed outpatient antibiotic therapy and local wound care versus surgical intervention. Concerned about patient's compliance. Would recommend holding off on the hallux amputation for now as the patient is not septic or grossly infected with active purulence. Long discussion with pt about medication and treatment compliance and the need to keep follow up appointments Discharge diagnoses Problem List 1. Noncompliance with medication regimen 2. History of aortic dissection 3. Tobacco abuse Status Chronic 4. HTN (hypertension) Status Chronic 5. Non-STEMI (non-ST elevated myocardial infarction) 6. Hypertensive crisis 7. Cellulitis of foot, right Medications Medications: Discharge meds are as noted. Follow up Follow up in office in: 5 DAYS with: Dwight RAMÍREZ,Jefferson Friedman Comment: rounded with nan osborn to dc by cardiology at 1419
--- NOTE | 2017-03-06 14:18 | ACUTE CARE PROGRESS NOTE (QUA) ---
Progress Notes Subjective Date 03/06/17 Time 0820 Patient/family reports: feeling better, no complaints Nursing reports: alert Objective Findings Laboratory Tests 03/06/17 0615: Sodium 143, Potassium 3.9, Chloride 108 H, Carbon Dioxide 28, BUN 15, Creatinine 1.2, Estimated Creat Clear 76, Estimated GFR (MDRD) 64, Glucose 93, Calcium 8.9, WBC 6.6, RBC 4.37 L, Hgb 14.2, Hct 45.1, MCV 103.3 H, RDW 12.1, Plt Count 171, MPV 8.3, Gran % 59.2, Gran # 3.9, Lymphocytes % 26.8, Monocytes % 7.5, Eosinophils % 5.9, Basophils % 0.6, Lymphocytes # 1.8, Monocytes # 0.5, Eosinophils # 0.4, Basophils # 0.0, PUBS MCHC 31.4 L, MCH 32.4 H Vital Signs Date Time Temp Pulse Resp B/P Pulse O2 O2 Flow FiO2 Ox Delivery Rate 03/06 1147 98.5 60 18 131/77 100 ROOM AIR 03/06 0756 98.4 66 16 129/93 99 ROOM AIR 03/06 0356 98.2 65 18 130/70 99 ROOM AIR 03/06 0135 97.9 65 18 118/71 99 03/06 0022 97.9 65 18 118/71 99 ROOM AIR 03/05 2017 97.6 70 18 122/69 95 ROOM AIR 03/05 1600 97.7 68 18 117/73 92 ROOM AIR Current Medications Lisinopril 20 MG BID PO Atorvastatin Calcium 0 .STK-MED ONE PO (DC) Atorvastatin Calcium 80 MG QHS PO Carvedilol 12.5 MG BID PO Aspirin 81 MG DAILY PO Carvedilol 25 MG BID PO (DC) Diltiazem HCl 180 MG BID PO Gabapentin 800 MG TID PO Hydralazine HCl 10 MG TID PO Lisinopril 40 MG DAILY PO (DC) Polyethylene Glycol 17 GM DAILY PO Potassium Chloride 40 MEQ DAILY PO Sertraline HCl 25 MG DAILY PO Sodium Chloride 10 ML PRN PRN IV Acetaminophen 650 MG Q4HP PRN PO Influenza Virus Vaccine Quadrival 0.5 ML PRN PRN IM Ondansetron HCl 4 MG Q6HP PRN IV Sodium Chloride 1,000 ML .Q20H IV Last VS-Temp:98.5 B/P:131/77 Pulse:60 Resp:18 SaO2:100 ROOM AIR Last weight lbs:165 oz:4 [id number] Method:Bed Scales Exam General appearance: normal appearance, awake, no acute distress Eyes: normal exam ENT: normal exam Neck: normal inspection, full range of motion Cardiovascular: normal exam, regular rate & rhythm Respiratory: normal exam, clear to auscultation, good air movement ABD: normal exam, soft, no tenderness Genitourinary: normal voiding & quantity Extremities: normal exam, moves all Musculoskeletal: normal exam Skin: normal exam, intact, normal color Neuro: normal exam, alert, intact, oriented Reviewed: allergies, medications, vital signs, lab results, radiology report, consult note Assessment/Plan Problem List 1. Noncompliance with medication regimen 2. History of aortic dissection 3. Tobacco abuse Status: Chronic 4. HTN (hypertension) Status: Chronic 5. Non-STEMI (non-ST elevated myocardial infarction) 6. Hypertensive crisis 7. Cellulitis of foot, right Patient condition Stable Plan: initiate discharge plan This inpt stay is expected to cross 2 MNs from start of care No Comments: rounded with irena keep out appointments at 1410
== END 2017-03-06 14:15 | disposition home or self-care (01) ==
LOC: ER 03:54 → 2ND 05:17 → ER 05:17 → 2ND 05:17
PROVIDERS: Emergency Medicine
PROC: 0QBQ0ZZ Excision of Right Toe Phalanx, Open Approach (ICD-10-PCS; principal; 2017-03-05)
DX: M86.8X7 Other osteomyelitis, ankle and foot (principal); I21.4 Non-ST elevation (NSTEMI) myocardial infarction; L03.115 Cellulitis of right lower limb; J45.909 Unspecified asthma, uncomplicated; Z23 Encounter for immunization; I25.2 Old myocardial infarction; I25.10 Atherosclerotic heart disease of native coronary artery without angina pectoris; E78.5 Hyperlipidemia, unspecified; Z91.14 Patient's other noncompliance with medication regimen; F14.10 Cocaine abuse, uncomplicated; F17.210 Nicotine dependence, cigarettes, uncomplicated; Z86.718 Personal history of other venous thrombosis and embolism; E87.6 Hypokalemia; Z79.01 Long term (current) use of anticoagulants; Z79.82 Long term (current) use of aspirin; Z79.899 Other long term (current) drug therapy
CPT/HCPCS: G0378

== ENCOUNTER 2017-03-13 15:57 | Observation (INO) | payer MEDICAID ==
[~2017-03-13] VITALS: Ht 175.3 cm; Wt 77.7 kg
[2017-03-13 15:57] VITALS: BP 197/97
[~2017-03-13 15:57] MED LIST changes: +CARDIZEM CD300 MG PO; +CARVEDILOL 1212.5 MG PO; +LISINOPRIL 20MG20 MG PO; +TIAZAC180 MG PO; +ZOLOFT25 MG PO
--- OUTSIDE RECORDS SUMMARY | 2017-03-13 16:06 | External Medical Summary Rpt | CCD ---
Author Author , DEVENDRA Organization DEVENDRA Address Unknown Phone [email or web address] Providers Care Entry Processor Name Role Phone Simba Quintanilla MD, Unavailable Unavailable Simba Quintanilla MD Purpose Continuity of Care Document - 09-10-2012 through 2016 Problems Code Diagnosis DOS Provider Status 401.9 401.9 [facility] 410.71 AC 09-10-2012 [facility] INFARCT,[facility] ENDO INFARCT,INI TIAL EPIS 493.90 493.90 09-10-2012 [place] [facility], [facility] UNSPECIFIED Hospital Allergies, Adverse Reactions, Alerts [...] ia de te s n re d Sa 63 04 0 No li 80 [...] Order Detail nces retati t Range on Basic metabolic panel (03-06-2017 06:15) Serum = 143 136-145 complet sodium 017 mmoL/L ed measure 06:15 ment Serum 2 = 3.9 3.5-5.1 complet potassi 017 mmoL/L ed um 06:15 measure ment Serum = 93 74-106 complet or 017 mg/dL ed plasma 06:15 glucose measure ment (mas Estimat = 64 >60 complet ed 017 ML/MIN ed glomeru 06:15 lar filtrat ion rate (GF Comment: REFERENCE RANGE: >60 ML/MIN/1.73 SQUARE METERS Comment: If this patient is -[place], then multiply the Comment: result by 1.210. Estimat = 76 50-200 complet ion of 017 ML/MIN ed creatin 06:15 ine renal clearan ce Serum = 1.2 0.70-1. complet or 017 mg/dL 30 ed plasma 06:15 creatin ine measure ment ( Carbon = 28 21.0-32 complet dioxide 017 mmoL/L .0 ed 06:15 measure ment Serum = 108 98-107 complet or 017 mmoL/L ed plasma 06:15 chlorid e measure ment (mo Serum = 8.9 8.5-10. complet or 017 mg/dL 1 ed plasma 06:15 calcium measure ment (mas Serum = 15 7-18 complet or 017 mg/dL ed plasma 06:15 urea nitroge n measure men CBC w auto diff (03-06-2017 06:15) Blood = 6.6 4.8-10. complet leukocy 017 K/MM3 8 ed kailee 06:15 count (number /volume ) Automat = 12.1 11.5-17 complet ed 017 % .5 ed erythro 06:15 cyte distrib ution width Red = 4.37 4.6-6.2 complet blood 017 M/mm3 ed cell 06:15 count Blood = 171 142-424 complet platele 017 K/mm3 ed t count 06:15 Automat = 8.3 7.4-10. complet ed 017 fl 4 ed blood 06:15 platele t mean volume lakshmi [place] % = 7.5 % 1.7-9.3 complet 017 ed 06:15 Absolut = 0.5 0.1-1.0 complet e 017 K/mm3 ed monocyt 06:15 e count Automat = 103.3 82.2-97 complet ed 017 fl .8 ed erythro 06:15 cyte mean corpusc ular v Automat = 31.4 31.8-35 complet ed 017 g/dl .4 ed erythro 06:15 cyte mean corpusc ular h Mean = 32.4 27-31.2 complet corpusc 017 pg ed ular 06:15 hemoglo bin (MCH) determ Lymphoc = 26.8 10-50 complet yte 017 % ed count, 06:15 blood, automat ed Absolut = 1.8 0.7-4.5 complet e 017 K/mm3 ed lymphoc 06:15 yte count Blood = 14.2 14.1-18 complet hemoglo 017 g/dL .0 ed bin 06:15 measure ment (mass/v olum Blood = 45.1 42.0-52 complet hematoc 017 % .0 ed rit 06:15 (volume fractio n) Granulo = 59.2 37.0-80 complet cyte 017 % .0 ed percent 06:15 age Blood = 3.9 1.3-8.0 complet granulo 017 K/mm3 ed cytes 06:15 automat ed count (numb Automat = 5.9 % 0.1-12. complet ed 017 0 ed blood 06:15 eosinop hils/10 0 leukocy t Automat = 0.4 0.0-0.4 complet ed 017 K/mm3 ed blood 06:15 eosinop hil count Baso % = 0.6 % 0.1-2.0 complet 017 ed 06:15 Automat 03-06-2 = 0.0 0-0.2 complet ed 017 K/MM3 ed blood 06:15 basophi l count (count/ vo Lipid profile (03-05-2017 08:10) Comment: COMMENTS TO BARREL ROLLER: PER [place] PROTOCOL Serum = 6.6 0-40 complet or 017 ed plasma 08:10 cholest christine in VLDL terrence Serum = 33 30-200 complet or 017 mg/dL ed plasma 08:10 triglyc eride measure ment Serum = 90.4 0-130 complet or 017 mg/dL ed plasma 08:10 cholest christine in LDL measu Serum = 96.0 40-60 complet or 017 MG/DL ed plasma 08:10 cholest christine in HDL measu Total = 193 < 200 complet cholest 017 mg/dL ed christine 08:10 measure ment Activated partial thromboplastin time (a (03-05-2017 04:05) Comment: IS PATIENT ON ANTICOAGULANTS? Y Comment: LIST ANTICOAGULANTS: Comment: COUMADIN Comment: WARFARIN Comment: PTT RESULTS MUST BE CALLED IF PT ON HEPARIN!!! Y Activat = 29.7 23.6-34 complet ed 017 SECONDS .0 ed partial 04:05 thrombo plastin time (a Whole blood INR measurement (03-05-2017 04:05) Comment: IS PATIENT ON ANTICOAGULANTS? Y Comment: LIST ANTICOAGULANTS: Comment: COUMADIN Comment: WARFARIN Comment: PTT RESULTS MUST BE CALLED IF PT ON HEPARIN!!! Y Prothro = 10.7 9.4-11. complet mbin 017 SECONDS 8 ed time 04:05 (PT) in platele t poor p Whole = 0.99 0.9-1.1 complet blood 017 ed INR 04:05 measure ment Comment: INDICATION INR RANGE Comment: Comment: THERAPY FOR DVT, PE, ATRIAL FIB; 2.0 - 3.0 Comment: PROPHYLAXIS FOR VTE Comment: Comment: THERAPY FOR MECHANICAL HEART 2.5 - 3.5 Comment: VALVE; PREVENTION OF SYSTEMIC Comment: EMBOLISM SECONDARY TO AMI CBC w auto diff (03-05-2017 04:05) Blood = 5.7 4.8-10. complet leukocy 017 K/MM3 8 ed kailee 04:05 count (number /volume ) Automat = 12.2 11.5-17 complet ed 017 % .5 ed erythro 04:05 cyte distrib ution width Red = 4.49 4.6-6.2 complet blood 017 M/mm3 ed cell 04:05 count Blood = 205 142-424 complet platele 017 K/mm3 ed t count 04:05 Automat = 7.8 7.4-10. complet ed 017 fl 4 ed blood 04:05 platele t mean volume lakshmi [place] % = 6.6 % 1.7-9.3 complet 017 ed 04:05 Absolut = 0.4 0.1-1.0 complet e 017 K/mm3 ed monocyt 04:05 e count Automat = 101.1 82.2-97 complet ed 017 fl .8 ed erythro 04:05 cyte mean corpusc ular v Automat = 32.2 31.8-35 complet ed 017 g/dl .4 ed erythro 04:05 cyte mean corpusc ular h Mean = 32.5 27-31.2 complet corpusc 017 pg ed ular 04:05 hemoglo bin (MCH) determ Lymphoc = 32.4 10-50 complet yte 017 % ed count, 04:05 blood, automat ed Absolut = 1.8 0.7-4.5 complet e 017 K/mm3 ed lymphoc 04:05 yte count Blood = 14.6 14.1-18 complet hemoglo 017 g/dL .0 ed bin 04:05 measure ment (mass/v olum Blood = 45.4 42.0-52 complet hematoc 017 % .0 ed rit 04:05 (volume fractio n) Granulo = 54.9 37.0-80 complet cyte 017 % .0 ed percent 04:05 age Blood = 3.1 1.3-8.0 complet granulo 017 K/mm3 ed cytes 04:05 automat ed count (numb Automat = 5.1 % 0.1-12. complet ed 017 0 ed blood 04:05 eosinop hils/10 0 leukocy t Automat = 0.3 0.0-0.4 complet ed 017 K/mm3 ed blood 04:05 eosinop hil count Baso % = 0.9 % 0.1-2.0 complet 017 ed 04:05 Automat = 0.1 0-0.2 complet ed 017 K/MM3 ed blood 04:05 basophi l count (count/ vo Comprehensive metabolic panel (03-05-2017 04:05) Protein = 8.3 6.4-8.2 complet total 017 gm/dL ed ser/jose 04:05 s ALT = 21 12-78 complet (SGPT) 017 U/L ed ser/jose 04:05 s Serum = 20 15-37 complet or 017 U/L ed plasma 04:05 asparta te aminotr ansfera Serum = 138 136-145 complet sodium 017 mmoL/L ed measure 04:05 ment Serum = 3.3 3.5-5.1 complet potassi 017 mmoL/L ed um 04:05 measure ment Serum = 119 74-106 complet or 017 mg/dL ed plasma 04:05 glucose measure ment (mas Serum = 4.6 1.3-3.2 complet globuli 017 gm/dL ed n 04:05 measure ment (mass/v olume) Estimat = 70 >60 complet ed 017 ML/MIN ed glomeru 04:05 lar filtrat ion rate (GF Comment: REFERENCE RANGE: >60 ML/MIN/1.73 SQUARE METERS Comment: If this patient is -[place], then multiply the Comment: result by 1.210. Estimat = 88 50-200 complet ion of 017 ML/MIN ed creatin 04:05 ine renal clearan ce Serum = 1.1 0.70-1. complet or 017 mg/dL 30 ed plasma 04:05 creatin ine measure ment ( Carbon = 27 21.0-32 complet dioxide 017 mmoL/L .0 ed 04:05 measure ment Serum = 103 98-107 complet or 017 mmoL/L ed plasma 04:05 chlorid e measure ment (mo Serum = 9.0 8.5-10. complet or 017 mg/dL 1 ed plasma 04:05 calcium measure ment (mas Serum = 16 7-18 complet or 017 mg/dL ed plasma 04:05 urea nitroge n measure men Serum = 0.8 0.2-1.0 complet or 017 mg/dL ed plasma 04:05 total bilirub in measure m Serum = 110 46-116 complet or 017 U/L ed plasma 04:05 alkalin e phospha tase lakshmi Serum = 3.7 3.4-5.0 complet or 017 gm/dL ed plasma 04:05 albumin measure ment (mas Serum = 0.8 1.1-1.8 complet or 017 ed plasma 04:05 albumin /globul in mass ra Cardiac enzymes (03-05-2017 04:05) Serum = 1.16 0.00-0. complet or 017 ng/mL 06 ed plasma 04:05 troponi n i.cardi ac measu Comment: CRITICAL RESULTS Comment: RESULTS CALLED TO: Kenya DE LA CRUZ RN 03/05/17 045 Gutierrez Das Comment: > 0.5 IS CONSISTENT WITH MYOCARDIAL ISCHEMIA OR INFARCTION Serum = 518 39-308 complet or 017 U/L ed plasma 04:05 creatin e kinase measure m Serum = 11.2 0.0-3.6 complet or 017 ng/mL ed plasma 04:05 creatin e kinase MB measu Comment: CRITICAL RESULTS Comment: RESULTS CALLED TO: Kenya DE LA CRUZ RN 03/05/17450 Gutierrez Das Serum = 2.2 0-4.0 complet or 017 U/L ed plasma 04:05 creatin e kinase MB (CK-M NT-proBNP SerPl-mCnc (09-03-2016 02:01) NT-proB 574 0-899 complet CONTROLS DESIGNER 017 pg/mL ed SerPl-m 02:01 Cnc Phosphate SerPl-mCnc (09-03-2016 02:01) Phospha 2.8 2.5-4.5 complet te 017 mg/dL ed SerPl-m 02:01 Cnc Magnesium SerPl-mCnc (09-03-2016 02:01) Magnesi 2.2 1.9-2.4 complet um 017 mg/dL ed SerPl-m 02:01 Cnc COMPREHENSIVE METABOLIC PANEL (09-10-2012 18:40) Glucose 98 74-106 complet 013 mg/dL ed Bld-mCn 18:40 c BUN 16 7-18 complet Bld-mCn 013 mg/dL ed c 18:40 Creat 09-10-2 1.6 0.8-1.3 complet SerPl-m 013 mg/dL ed Cnc 18:40 GFR 09-10-2 47 Greater complet (ESTIMA 013 ML/MIN than ed CHRISTIE) 18:40 60 Sodium 09-10-2 140 136-145 complet SerPl-s 013 mmoL/L ed Cnc 18:40 Potassi 09-10-2 4.4 3.5-5.1 complet um 013 mmoL/L ed SerPl-s 18:40 Cnc Chlorid 09-10- 103 98-107 complet e 013 mmoL/L ed SerPl-s 18:40 Cnc CO2 09-10-2 30 21.0-32 complet SerPl-s 013 mmoL/L .0 ed Cnc 18:40 Calcium 09-10-2 9.2 8.5-10. complet 013 mg/dL 1 ed SerPl-m 18:40 Cnc Prot 23-2 7.5 6.4-8.2 complet SerPl-m 013 gm/dL ed Cnc 18:40 Albumin 23-2 3.8 3.4-5.0 complet 013 gm/dL ed SerPl-m 18:40 Cnc Globuli 04-23-2 3.7 1.3-3.2 complet n 013 gm/dL ed Ser-mCn 18:40 c Albumin 04-23-2 1.0 UNK 1.1-1.8 complet /Glob 013 ed SerPl-m 18:40 Rto Bilirub 04-23-2 0.6 0.2-1.0 complet 013 mg/dL ed SerPl-m 18:40 Cnc AST 04-23-2 17 U/L 15-37 complet SerPl-c 013 ed Cnc 18:40 ALT 04-23-2 34 U/L 30-65 complet SerPl-c 013 ed Cnc 18:40 ALP 04-23-2 117 U/L 50-136 complet SerPl-c 013 ed Cnc 18:40 BNP Bld-mCnc (09-10-2012 18:40) BNP 04-23-2 184 0-100 complet Bld-mCn 013 pg/mL ed c 18:40 CBC with AUTO DIFF (09-10-2012 18:40) WBC # 04-23-2 9.0 4.8-10. complet Bld 013 K/MM3 8 ed Auto 18:40 RBC # 04-23-2 4.58 4.6-6.2 complet Bld 013 M/mm3 ed Auto 18:40 Hgb 04-23-2 14.5 14.1-18 complet Bld-mCn 013 g/dL .0 ed c 18:40 Hct Fr 04-23-2 46.0 % 42.0-52 complet Bld 013 .0 ed 18:40 MCV RBC 04-23-2 100.5 82.2-97 complet 013 fl .8 ed 18:40 MCH RBC 04-23-2 31.7 pg 27-31.2 complet Qn 013 ed Auto 18:40 MEAN 04-23-2 31.6 31.8-35 complet CORPUSC 013 g/dl .4 [...] # 013 K/MM3 ed Bld 18:40 Auto Encounters Encounter Start End Date Code Location Performer Type Date Emergency ARMIDA Quintanilla MD (ER) 3 18:12 3 22:52 [facility]
--- OUTSIDE RECORDS SUMMARY | 2017-03-13 16:06 | External Medical Summary Rpt | CCD ---
Author Author , DEVENDRA Organization DEVENDRA Address Unknown Phone [email or web address] Care Team Providers Care Behavior Support Specialist Name Role Phone Simba Quintanilla MD, Unavailable Unavailable Simba Quintanilla MD Purpose Continuity of Care Document - 09-10-2012 through 2016 Problems Code Diagnosis DOS Provider Status 401.9 401.9 [facility] 410.71 AC 09-10-2012 [facility] INFARCT,[facility] ENDO INFARCT,INI TIAL EPIS 493.90 493.90 09-10-2012 [place] ASTHMA, [facility] UNSPECIFIED Hospital Allergies, Adverse Reactions, Alerts Type [...] SQUARE METERS Comment: If this patient is -[place], then multiply the Comment: result by 1.210. [...] ed blood 06:15 platele t mean volume laskhmi [place] % = 7.5 % 1.7-9.3 complet 017 [...] Lipid profile (03-05-2017 08:10) Comment: COMMENTS TO [employer] ARCHITECT: PER [place] PROTOCOL Serum = 6.6 0-40 complet or [...] blood 04:05 platele t mean volume lakshmi [place] % = 6.6 % 1.7-9.3 complet 017 [...] SQUARE METERS Comment: If this patient is -[place], then multiply the Comment: result by 1.210. [...] SerPl-mCnc (09-03-2016 02:01) NT-proB 574 0-899 complet SUGAR TRUCKER 017 pg/mL ed SerPl-m 02:01 Cnc Phosphate [...] Quintanilla MD (ER) 3 18:12 3 22:52 [facility]
--- OUTSIDE RECORDS SUMMARY | 2017-03-13 16:11 | External Medical Summary Rpt | CCD ---
Author Author , DEVENDRA CARABALLOBRIAN Address Unknown Phone [email or web address] Momit Care Team Providers Care Cane Flume Watcher Name Role Phone [facility] [place], Unavailable Unavailable [facility] [place], Unavailable Unavailable [facility] [place] AJAY LIS, AJAY Unavailable Unavailable LIS AYOOB AND, AYOOB AND Unavailable Unavailable BEINEKE MELY, BEINEKE Unavailable Unavailable MELY BESSON, BESSON Unavailable Unavailable BESSON GWENDOLYN, BESSON Unavailable Unavailable GWENDOLYN TYLER ALL, TYLER ALL Unavailable Unavailable ANDRE ALHAJI, ANDRE Unavailable Unavailable ALHAJI [facility] Unavailable Unavailable SERV[facility], [facility] Unavailable Unavailable SERVICE, [facility] PAIGE LAVELLE, PAIGE Unavailable Unavailable [facility]AVEL[facility] Unavailable Unavailable [facility]ILITATION, [facility] TITUS, TITUS Unavailable Unavailable GEORGE, GEORGE [...] Unavailable SURJIT PAULINO NAN, PAULINO Unavailable Unavailable NAN JR OSCAR ELZ, Unavailable Unavailable JR OSCAR ELZ SAM ALHAJI, SAM Unavailable Unavailable ALHAJI SAM ALHAJI, SAM Unavailable Unavailable ALHAJI MAURICE, MAURICE Unavailable Unavailable [facility] Unavailable Unavailable INC, [facility] Unavailable Unavailable HOSPITAL P, [facility] AIME ANTOINE, AIME Unavailable Unavailable ANTOINE [facility], Unavailable Unavailable [facility] PAYAN GWENDOLYN, PAYAN GWENDOLYN Unavailable Unavailable DB CARL, DB CARL Unavailable Unavailable [facility] Unavailable Unavailable MEDICAL G, [facility] AVA ROSALBA, AVA ROSALBA Unavailable [...] Unavailable [facility] Unavailable Unavailable [facility]PIT[facility], [facility], Unavailable Unavailable [facility] Unavailable Unavailable [facility], [place] [facility] Unavailable Unavailable MARVIN ALHAJI, MARVIN Unavailable Unavailable ALHAJI XENOS TYLER, XENOS TYLER Unavailable Unavailable ZAGUROVSKAYA MAR, Unavailable Unavailable ZAGUROVSKAYA MAR Purpose Continuity of Care Document - 10-01-2013 through 2016 Problems Code Diagnosis DOS Provider Status I10 ESSENTIAL 01-09-2017 [facility], HYPERTENSIO [facility] N Z0289 ENCOUNTER 01-09-2017 [facility] FOR OTHER PHYSICIANS, ADMINISTRAT [facility] IMAN EXAMINATION S [id number] OTHER LONG 01-09-2017 [place] [facility] CURRENT INC DRUG THERAPY Z9114 PATIENTS 01-09-2017 [facility] OT PHYSICIANS, NONCOMPLIAN [facility] CE W/MEDICATIO N REGIMEN 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 HEALTHCARE ARTERY W/O HOSPITALS ANGINA 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 HOSPITALS I4581 LONG QT 09-03-2016 [place] [facility] I517 CARDIOMEGAL 09-03-2016 [facility] Y [facility] I7100 DISSECTION 09-03-2016 [place] [facility] OF SERV UNSPECIFIED FOUNDATION SITE OF AORTA I739 PERIPHERAL 09-03-2016 VASCULAR HEALTHCARE DISEASE HOSPITALS UNSPECIFIED M7989 OTHER 09-03-2016 [place] [facility] SPECIFIED SERV SOFT TISSUE FOUNDATION DISORDERS R079 CHEST PAIN 09-03-2016 UNSPECIFIED HEALTHCARE HOSPITALS R9431 ABNORMAL 09-03-2016 [facility] ELECTROCARD SERV IOGRAM FOUNDATION Z8673 PERSONAL HX 09-03-2016 [facility] INFARCT NO RESID DEFICIT 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 D78790 PAIN IN 09-02-2016 [facility] RIGHT LEG PHYSICIANS, [facility] R072 PRECORDIAL 09-02-2016 [facility] PAIN PHYSICIANS, [facility] R600 LOCALIZED 09-02-2016 [facility] EDEMA PHYSIC[facility], [facility] R791 ABNORMAL 09-02-2016 [place] [facility] P R7989 OTHER SPEC 09-02-2016 [facility] ABNORMAL PHYSICIANS, FINDINGS [facility] BLOOD CHEMISTRY Z0389 ENCOUNTER 09-02-2016 [facility] MEDICAL SUSPCT DZ & IMAGING ASS COND RULED OUT C00819 PAIN IN 01-28-2016 [place] [facility] RIGHT FOOT [facility] 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 I7101 DISSECTION 01-27-2016 [place] OF [facility] P I719 AORTIC 01-27-2016 [facility] ANEURYSM PHYSICIANS, UNSPECIFIED [facility] SITE WITHOUT RUPTURE 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 R0789 OTHER CHEST 01-27-2016 [facility] Z7901 FDC 01-27-2016 [place] [place] NTS Z7982 FOREST RESOURCE SPECIALIST 01-27-2016 [facility] [place]IR[facility] Z951 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 Z9989 DEPENDENCE 01-27-2016 [facility] ON OTHER [place] ENABLING MACHINES & DEVICES R55 SYNCOPE AND 01-06-2016 [facility] COLLAPSE PHYSICIANS, [facility] Z955 PRESENCE OF 01-06-2016 [facility] P IMPLANT & GRAFT I639 CEREBRAL 01-03-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[facility] INFARCTION PHYSICIANS UNSPECIFIED GROUP [id number] COMPARTMENT 01-03-2016 [facility] SYNDROME PHYSICIANS UNSPECIFIED GROUP INITIAL ENCNTR G8918 OTHER ACUTE 01-01-2016 [place] [facility] POSTPROCEDU INC RAL PAIN L45492 PAIN IN 01-01-2016 [place] RIGHT LOWER [facility] LEG INC 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 AFTERCARE REHABILITAT FOLLOW ION SURGERY CIRC SYS E56596 ENCOUNTER 12-13-2015 [facility] AFTERCARE REHABILITAT FLW SURG ION SKIN&SUBQ TISS Z9889 OTHER 12-13-2015 [facility] SPECIFIED SERV POSTPROCEDU FOUNDATION RAL STATES J90 PLEURAL 12-11-2015 [place] [facility] EFFUSION SERV NOT FOUNDATION ELSEWHERE CLASSIFIED R001 BRADYCARDIA 12-06-2015 [place] [facility] UNSPECIFIED F[facility]ATION H33876 ELEVATED 12-01-2015 [facility] WHITE BLOOD SERV CELL COUNT FOUNDATION UNSPECIFIED I447 LEFT 12-01-2015 [facility] BUNDLE-BRAN SERV CH BLOCK FOUNDATION UNSPECIFIED R0602 SHORTNESS 12-01-2015 [facility] OF BREATH SERV FOUNDATION R109 UNSPECIFIED 12-01-2015 [facility] ABDOMINAL SERV PAIN FOUNDATION R932 ABNORMAL 12-01-2015 [facility] FIND ON DX SERV IMAGING FOUNDATION LIVER & BILI TRACT K810 ACUTE 11-30-2015 [facility] CHOLECYSTIT SERV IS FOUNDATION R112 NAUSEA WITH 11-30-2015 [facility] VOMITING SERV UNSPECIFIED FOUNDATION R509 FEVER 11-30-2015 [facility] UNSPECIFIED SERV FOUNDATION J9811 ATELECTASIS 11-29-2015 [place] [facility] Z430 ENCOUNTER 11-29-2015 [facility] FOR SERV ATTENTION FOUNDATION TO TRACHEOSTOM Y C47407 ACUTE 11-25-2015 [facility] EMBOLISM & SERV THROMBOSIS FOUNDATION SUP VEINS RT UP EXT R0989 OTH SPEC SX 11-25-2015 [facility] & SIGNS SERV INVLV THE FOUNDATION CIRC & RESP SYS Z049 ENCOUNTER 11-25-2015 [facility] EXAMINATION SERV &OBSERVATIO FOUNDATION N FOR UNS REASON I083 COMB 11-23-2015 [facility] RHEUMAT D/O SERV MITRAL FOUNDATION AORTC & TRICUSPID VALVES I371 NONRHEUMATI 11-23-2015 [facility] C PULMONARY SERV VALVE FOUNDATION INSUFFICIEN CY I619 NONTRAUMATI 11-23-2015 [facility] C SERV INTRACEREBR FOUNDATION AL HEMORRHAGE UNS I7771 DISSECTION 11-23-2015 [facility] OF CAROTID SERV ARTERY FOUNDATION I998 OTHER 11-23-2015 [facility] DISORDER OF SERV FOUNDATION CIRCULATORY SYSTEM [id number] TRAUMAT 11-23-2015 [facility] COMPARTMENT SERV SYND RT FOUNDATION LOW EXTREM INIT ENC Z452 ENCOUNTER 11-23-2015 [facility] ADJUSTMENT& SERV MGMT FOUNDATION VASCULAR ACCESS DEVICE D62 ACUTE 11-22-2015 [facility] POSTHEMORRH SERV AGIC ANEMIA FOUNDATION E870 HYPEROSMOLA 11-22-2015 [facility] LITY AND SERV HYPERNATREM FOUNDATION IA I638 OTHER 11-22-2015 [facility] CEREBRAL SERV INFARCTION FOUNDATION J951 ACUTE 11-22-2015 [facility] PULMONARY SERV INSUFF FOUNDATION FOLLOW THORACIC SURGERY R531 WEAKNESS 11-22-2015 [place] [facility] Z4659 ENCOUNTER 11-22-2015 [facility] FIT & SERV ADJUST OTH FOUNDATION GI APPLIANCE & DEVICE Z4682 ENCOUNTER 11-22-2015 [facility] FITTING & SERV ADJUST FOUNDATION NON-VASCULA R CATHETER J984 OTHER 11-21-2015 [facility] DISORDERS SERV OF LUNG FOUNDATION R609 EDEMA 11-21-2015 [facility] UNSPECIFIED SERV FOUNDATION R930 ABNORMAL 11-21-2015 [facility] FINDINGS ON SERV DX IMAGING FOUNDATION SKULL & HEAD NEC E8770 FLUID 2015 [facility] OVERLOAD SERV UNSPECIFIED FOUNDATION J811 CHRONIC 2015 [facility] PULMONARY SERV EDEMA FOUNDATION J9600 ACUTE 2015 [facility] RESPIRATORY SERV FAIL UNS FOUNDATION HYPOXIA/HYP ERCAPNIA M6282 RHABDOMYOLY 2015 [facility] SIS SERV [facility] N179 ACUTE 2015 [facility] KIDNEY SERV FAILURE FOUNDATION UNSPECIFIED Z930 TRACHEOSTOM 2015 [facility] Y STATUS SERV FOUNDATION M6289 OTHER 11-17-2015 [facility] OF MUSCLE E878 OTHER D/O 11-14-2015 [facility] OF SERV ELECTROLYTE FOUNDATION AND FLUID BALANCE NEC J9691 RESPIRATORY 11-14-2015 [facility] FAILURE SERV UNSPECIFIED FOUNDATION WITH HYPOXIA R633 FEEDING 11-14-2015 [facility] DIFFICULTIE SERV S FOUNDATION R918 OTHER 11-12-2015 [facility] NONSPECIFIC SERV ABNORMAL FOUNDATION FINDING OF LUNG FIELD W50251 ACUTE 11-11-2015 [facility] THROMBOSIS HOSPI RIGHT POPLITEAL VEIN D649 ANEMIA 11-10-2015 [facility] UNSPECIFIED SERV FOUNDATION I743 EMBOLISM & 11-10-2015 [facility] THROMBOSIS SERV ART THE FOUNDATION LOWER EXTREMITIES J982 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 SERV FOUNDATION R739 HYPERGLYCEM 11-10-2015 [facility] IA SERV UNSPECIFIED FOUNDATION Z048 ENCOUNTER 11-10-2015 [facility] EXAM & SERV OBSERVATION FOUNDATION OTHER SPEC REASONS E785 HYPERLIPIDE 11-09-2015 [facility] NIGEL PHYSICIANS UNSPECIFIED GROUP I209 ANGINA 11-09-2015 [facility] PECTORIS PHYSICIANS UNSPECIFIED GROUP I4901 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-09-2015 [facility] FIBRILLATIO N 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 ION I700 ATHEROSCLER 11-09-2015 [facility] AORTA HOSPI I7102 DISSECTION 11-09-2015 [facility] OF SERV ABDOMINAL FOUNDATION AORTA 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 J189 PNEUMONIA 11-09-2015 [facility] ORGANISM Q93701 ACUTE 11-09-2015 [facility] POSTPROCEDU SERV RAL FOUNDATION RESPIRATORY FAILURE R200 ANESTHESIA 11-09-2015 [facility] OF SKIN SERV FOUNDATION R570 CARDIOGENIC 11-09-2015 [facility] SHOCK [facility] K13717 THORACIC 11-08-2015 [place] [facility] ECTASIA IMAGING ASS M545 LOW BACK 05-04-2015 [facility] INC R030 ELEVATED 03-09-2015 [facility] BLOOD-PRESS AMBULANCE URE READING SERVICE WITHOUT DX HTN R071 CHEST PAIN 03-09-2015 [facility] ON AMBULANCE BREATHING SERVICE 40931 11-09-2014 [facility] [facility] 85633 HELICOBACTE 09-17-2014 [facility] INFECTION 34516 OTHER SPEC 09-17-2014 [facility] WITHOUT MENTION HEMORRHAGE 07789 UNS 09-17-2014 [facility] GASTRITIS&G PHYSICIANS ASTRODUODIT GROUP IS W/O MENTION HEMORR 36406 DIVERTICULO 09-17-2014 [facility] SIS OF PHYSICIANS COLON GROUP 5693 HEMORRHAGE 09-17-2014 [facility] OF RECTUM PHYSICIANS AND ANUS GROUP 5780 HEMATEMESIS 09-17-2014 [facility] PHYSICIANS GROUP 36460 HEMOPTYSIS 09-17-2014 [facility] UNSPECIFIED ANESTH OF THE BLUE 7921 NONSPECIFIC 09-17-2014 COMM[facility] ABNORMAL ANESTH OF FINDING IN THE BLUE STOOL CONTENTS 5781 BLOOD IN 09-03-2014 [facility] STOOL PHYSICIANS GROUP 7871 HEARTBURN 09-03-2014 [facility] PHYSIC[facility]ANS GROUP V7651 SPECIAL 09-03-2014 [facility] SCREENING PHYSICIANS FOR GROUP MALIGNANT NEOPLASMS COLON 26036 BORDERLINE 08-21-2014 [facility]LAUC OPEN ANGLE BL FINDINGS LOW RSK 4019 UNSPECIFIED 08-19-2014 [facility] HYPERTENS HOSPITAL P N 71282 COR 08-19-2014 [place] [facility] TYPE VESSEL LAC VIEUX/KI T [address] ASTHMA, 08-19-2014 [facility] , HOSPITAL P UNSPECIFIED STATUS 43033 PAIN IN 08-19-2014 [facility] PELVIC IMAGING ASS REGION AND THIGH 7295 PAIN IN 08-19-2014 [place] SOFT MEDICAL TISSUES OF IMAGING ASS LIMB 15133 CHEST PAIN 08-19-2014 [facility] UNSPECIFIED AMBULANCE SERVICE 07260 ACUT W[place] 08-18-2014 [facility] IAL INFARCT MEDICAL G EPIS CARE UNS 5990 URINARY 08-18-2014 [place] [facility]CT [facility] INFECTION INC SITE NOT SPECIFIED 32929 ABDOMINAL 08-17-2014 [facility] UNSPECIFIED HOSPITAL P SITE V4589 OTHER 08-17-2014 [place] [facility] P OTHER 7991 RESPIRATORY 06-05-2014 [facility] 53760 POISONING 06-05-2014 [facility] BY HEROIN N EMERGENCY PHYS 9779 POISONING 06-05-2014 [facility] UNSPECIFIED SERV [facility] DRUG/MEDICI NAL SUBSTANCE E9800 POISN-ANALG 06-05-2014 [facility] ES-ANTIPYRE N EMERGENCY T-ANTIRHEUM PHYS -UNDETERM CAUSE 2724 OTHER AND 04-15-2014 [facility] UNSPECIFIED PHYSICIANS GROUP HYPERLIPIDE NIGEL 25391 CORONARY 02-26-2014 [facility] LAC VIEUX IMAGING ASS CORONARY ARTERY 01281 OTHER 02-25-2014 [facility] DYSPNEA AND [facility]a [facility] [place] [address] ACUT [place] 02-24-2014 [facility] SUBENDOCARD N EMERGENCY IAL INFARCT PHYS INIT EPIS CARE 08649 SHORTNESS 02-24-2014 [facility] BREATH MEDICAL IMAGING ASS 5939 UNSPECIFIED 10-01-2013 [facility] DISORDER OF KIDNEY AND URETER 58487 PRECORDIAL 10-01-2013 [facility] AMBULANCE SERVICE Medications Na ND Rx Da Fi Fi Am Da Di Ph RX Ph St me C No te ll ll ou ys ag ar # ys at rm s nt no ma ic us Or Da si cy ia de te s n re d GA 00 03 04 90 30 00 [...] 00 0- 8- 00 07 MA ve AL 51 20 20 0 47 RT IL [...] CY MG #5 91 TA BL ET AM 00 12 01 30 30 00 WA Ac LO 37 [...] E 25 #5 91 MG TA B BA 00 12 01 45 30 00 [...] MG CY TA #5 BL 91 ET HY 49 12 01 [address] 88 -2 -2 .0 00 [...] -2 .0 00 L- ti NO 00 8 7- 07 MA ve AL 51 20 20 46 RT IL 70 [...] Procedures Procedure DOS Code Location Performer Comment NATRIURET 53720 [place] [facility] IC 7 [facility] HEALTHCAR PEPTIDE E E [facility] [place] [address] [place] [facility] TROPONIN 7 [facility] QUANTITAT E E IMAN [facility] [place] [address] [place] MAGNESIUM 7 HEALTHCAR HEALTHCAR E E [facility] [place] [address] [place] [facility] PHOSPHORU 7 HEALTHCAR HEALTHCAR S E E INORGANIC [facility] ECG 93150 [facility] ROUTINE 7 HEALTHCAR HEALTHCAR ECG E E W/LEAST [facility] 12 LDS TRCG ONLY W/O I&R DUP-SCAN 08613 [facility] XTR VEINS 7 [facility]ALTHCAR HEALTHCAR E E UNILATERA [facility] L/[place] [address] [facility] ANGIOGRAP 7 [facility]ALTH[facility] HEALTHCAR HY CHEST E E W/CONTRAS [facility] T/NONCONT RAST PROTHROMB 06255 [facility] IN TIME 7 HEALTHCAR HEALTHCAR E E HOSPITALS HOSPITALS BASIC 72975 [facility] METABOLIC 7 [facility]ALTHCAR HEALTHCAR PANEL E E CALCIUM [facility] TOTAL DRUG TST G0483 [facility] DEFINITV [address] ID E E METH P [facility] DAY 22/MORE DR LILIAM LOCM Q9967 [facility] [phone] HEALTHCAR HEALTHCAR MG/ML E E IODINE [facility] CONCENTRA TION PER ML INFUSION J7040 [facility] NORMAL 7 [facility]ALTHCAR HEALTHCAR SALINE E E SOLUTION [facility] STERILE THROMBOPL 21195 [facility] ASTIN 7 HEALTHCAR HEALTHCAR TIME E E PARTIAL [facility]IT[facility] PLASMA/WH OLE BLOOD ECG 58966 MELISSA VAZQUEZ ROUTINE 7 MEDICAL ECG SERV W/LEAST FOUNDATIO 12 LDS N I&R ONLY RADIOLOGI 20165 [facility] C EXAM 7 HEALTHCAR HEALTHCAR CHEST 2 E E VIEWS [facility] FRONTAL&L ATERAL RADIOLOGI 54210 [facility] C EXAM 7 MEM HOSP MEM HOSP CHEST 2 INC INC VIEWS FRONTAL&L ATERAL CULTURE 37114 [facility] BACTERIAL 7 MEM HOSP MEM HOSP BLOOD INC INC AEROBIC W/ID ISOLATES AMB A0427 [facility] SERVICE 7 AMBULANCE AMBULANCE ALS SERVICE SERVICE EMERGENCY TRANSPORT LEVEL 1 UNCLASSIF J3490 [facility] IED DRUGS 7 MEM HOSP MEM HOS[facility] INC INC ECG 19843 [facility] MIRANDA ROUTINE 7 [facility] W/LEAST P 12 LDS I&R ONLY CRITICAL 52581 [facility] 7 PHYSICIAN ILL/INJUR S, [facility] PATIENT INIT 30-74 MIN GROUND A0425 [facility] MILEAGE 7 AMBULANCE AMBULANCE PER SERVICE SERVICE STATUTE MILE PROTHROMB 90865 [facility] IN TIME 7 MEM HOSP MEM HOS[facility] INC INC FIBRIN 30485 [facility] DGRADJ 7 MEM HOSP [facility]OS[facility] PRODUCTS INC INC D-DIMER QUAL/SEMI MICHELLE THERAPEUT 32935 [facility] IC 7 MEM H[facility]P [facility] PROPHYLAC INC INC TIC/DX INJECTION SUBQ/IM ECG 49728 [facility] ROUTINE 7 MEM H[facility] MEM [facility]OS[facility] ECG INC INC W/LEAST 12 LDS TRCG ONLY W/O I&R COLLECTIO 14931 [facility] N VENOUS 7 [facility] BLOOD INC INC VENIPUNCT URE CREATINE 43347 [facility] KINASE 7 [facility] [place] [place] [address] [facility] TROPONIN 7 MEM HOS[facility] MEM [facility]OS[facility] QUANTITAT INC INC IMAN BLOOD 92613 [facility] COUNT 7 MEM [facility] MEM HOSP COMPLETE INC INC AUTO&AUTO DIFRNTL WBC COMPREHEN 70751 [facility] SIVE 7 MEM HOS[facility] MEM HOSP METABOLIC INC INC PANEL CREATINE 84907 [facility] KINASE MB 7 MEM HOSP [place] [address] [facility] S[facility] LACTATE 7 MEM HOSP MEM HOSP INC INC HOSPITAL G0378 [facility] Y ON [facility] HOSPITAL SERVICE PER HOUR ECG 98995 [place] [facility] ROUTINE 6 MEDICAL ECG SERV W/LEAST FOUNDATIO 12 LDS [place] I&[place] [address] [facility] TROPONIN 6 Y Y [facility] IMAN [facility] 04455 [facility] ROUTINE 6 Y Y ECG [facility] W/LEAST 12 LDS TRCG ONLY W/O I&R RADEX 86039 [facility] ANKLE 6 Y Y [facility] MINIMUM 3 VIEWS RADEX 60038 [facility] FOOT 6 Y Y [facility] MINIMUM 3 VIEWS DRUG TST G0483 [facility] DEFINITV [address] ID HOSPITAL HOSPITAL METH P DAY 22/MORE DR CL BASIC 25382 [facility] METABOLIC 6 Y Y [facility] CALCIUM TOTAL AMB A0431 AIR AIR SERVICE 6 METHODS METHODS CONVNTION [facility] AIR SRVC TRANSPORT [address] PROTHROMB 38576 [facility] IN TIME 6 Y Y [facility] RADIOLOGI 23418 [facility] ROBBIN C 6 MEM HOSP MEM HOSP EXAMINATI INC INC ON CHEST [place] FRONTAL INFUSION J7040 [facility] 6 Y Y SALINE [facility] SOLUTION STERILE ANTIBODY 86789 [facility] SCREEN 6 Y Y RBC [facility] SERUM TECHNIQUE BLOOD 57149 [facility] TYPING 6 Y Y SEROLOGIC [facility] ABO CREATINE 81070 [facility] KINASE 6 MEM HOSP [facility] [place] [address] [facility] ANGIOGRAP 6 MEM HOSP [facility] HY CHEST INC INC W/CONTRAS T/NONCONT RAST ECG 83017 [facility] ROUTINE 6 Y Y ECG [facility] W/LEAST 12 LDS TRCG ONLY W/O I&[place] [address] [facility] TROPONIN 6 Y Y [facility] IMAN BLOOD 26764 [facility] COUNT 6 Y Y [facility] AUTOMATED BLOOD 36496 [facility] COUNT 6 [facility] HOS[facility] COMPLETE INC INC AUTO&AUTO DIFRNTL WBC COMPREHEN 98767 ROBBINKERRIE SIEGEL SIVE 6 MEM HOS[facility] METABOLIC INC INC PANEL CREATINE 90513 ROB[facility] ROBBIN KINASE MB 6 MEM [facility] FRACTION INC INC ONLY COLLECTIO 09298 [facility] S[facility] N VENOUS 6 MEM [facility] BLOOD INC INC VENIPUNCT URE GROUND A0425 [facility] MILEAGE 6 AMBULANCE [place] PER SERVICE STATUTE MILE PLATELETS P9035 [facility] PHERESIS 6 Y Y [facility] LEUKOCYTE S REDUCED EACH UNIT COMPATIBI 24086 [facility] LITY EACH 6 Y Y UNIT [facility] ELECTRONI C AMB A0427 [facility] SERVICE 6 AMBULANCE [place] ALS SERVICE EMERGENCY TRANSPORT LEVEL 1 CRITICAL 40769 [facility] 6 PHYSICIAN ALHAJI ILL/INJUR S, PLLC ED PATIENT INIT 30-74 MIN BLOOD 67081 [facility] TYPING 6 Y Y SEROLOGIC [facility] RH (D) [place] [address] [facility] INFUSION 6 Y Y THERAPY [facility] PROPHYLAX IS/DX EA HOUR CT THORAX 22321 [place] [facility] 6 MEDICAL W/CONTRAS IMAGING T ASS MATERIAL THROMBOPL 43537 [facility] ASTIN 6 Y Y TIME [facility] PARTIAL PLASMA/WH OLE BLOOD ECG 82063 ROBBIN MIRANDA ROUTINE 6 [facility] W/LEAST P 12 LDS I&R ONLY ARTL 93745 MELISSA TITUS CATHJ/CAN 6 MEDICAL NULJ SERV MNTR/PEREYRA FOUNDATIO SFUSION N SPX PRQ INFUSION [id number] [facility] NORMAL 6 Y Y SALINE [facility] SOLUTION 1000 [place] [address] [facility] INFUSION 6 Y Y THERAPY/P [facility] ROPHYLAXI S /DX 1ST TO 1 HR INITIAL 74679 ROBBIN SIEGEL OBSERVATI 6 [facility] ON [facility] INC CARE/DAY 50 MINUTES COLLECTIO 36566 ROBBIN SIEGEL N VENOUS 6 [facility] HOSP BLOOD INC INC VENIPUNCT URE ECG 88939 ROBBIN MIRANDA ROUTINE 6 [facility] W/LEAST P 12 LDS I&R ONLY RADIOLOGI 87636 [place] C 6 MEDICAL EXAMINATI IMAGING ON CHEST ASS SINGLE VIEW FRONTAL PROTHROMB 32009 ROBBIN SIEGEL IN TIME 6 [place] [address] [place] ALL HEAD/BRAI 6 MEDICAL N W/O IMAGING CONTRAST ASS MATERIAL DRUG TST [id number] ROB[facility] SIEGEL PRESUMP;C 6 [facility] HOSP PBL BEING INC INC READ DC OPT OBV ONLY THERAPEUT 14566 ROB[facility] SIEGEL IC 6 [facility] PROPHYLAC INC INC TIC/DX INJECTION SUBQ/IM PROTHROMB 60220 [facility] SIEGEL IN TIME 6 [facility] INC COLLECTIO 92265 [facility] SIEGEL N VENOUS 6 [facility] BLOOD INC INC VENIPUNCT URE WALKER E0143 PATIENT [facility] [facility]OLDING 6 AIDS INC [facility] 48615 [facility] DISCHARGE 6 MEDICAL DAY SERV MANAGEMEN FOUNDATIO T > 30 N MIN SBSQ 27382 [facility] 6 MEDICAL CARE/DAY SERV 35 FOUNDATIO MINUTES N SBSQ 08-07-201 36909 [facility] 6 MEDICAL KER RAN CARE/DAY SERV 35 FOUNDATIO MINUTES N SBSQ 41628 [facility] 6 MEDICAL KER RAN CARE/DAY SERV 35 FOUNDATIO MINUTES [address] [facility] 6 MEDICAL ANIRUDH CARE/DAY SERV 35 FOUNDATIO MINUTES N SBSQ 61351 [facility] 6 MEDICAL JUANY CARE/DAY SERV 35 FOUNDATIO MINUTES N SBSQ [address] [place] [address] MEDICAL JUANY CARE/DAY SERV 35 FOUNDATIO MINUTES N SBSQ 09985 [facility] 6 MEDICAL JUANY CARE/DAY SERV 35 FOUNDATIO MINUTES N SBSQ [address]98 [place] [address] MEDICAL JUANY CARE/DAY SERV 35 FOUNDATIO MINUTES N SBSQ 76497 [place] [address] MEDICAL ROSEMARY CARE/DAY SERV 35 FOUNDATIO MINUTES N SBSQ 80188 [place] [address] MEDICAL ROSEMARY CARE/DAY SERV 35 FOUNDATIO MINUTES N SBSQ 95157 [place] [address] MEDICAL CARE/DAY SERV 35 FOUNDATIO MINUTES N SBSQ 73183 [place] [address] MEDICAL CARE/DAY SERV 35 FOUNDATIO MINUTES N SBSQ 05567 [place] [address] MEDICAL CARE/DAY SERV 35 FOUNDATIO MINUTES N SBSQ 82796 [facility] 6 MEDICAL CARE/DAY SERV 35 FOUNDATIO MINUTES N RADIOLOGI 19009 [facility] 6 MEDICAL EXAMINATI SERV ON CHEST FOUNDATIO SINGLE N VIEW FRONTAL INITIAL 68130 [facility] 6 MEDICAL CARE/DAY SERV 70 FOUNDATIO MINUTES N RADIOLOGI 37360 SD JEIMY 6 MEDICAL AYA MAR EXAMINATI SERV ON CHEST FOUNDATIO SINGLE N [place]IEW FRONTAL ECG 76774 [place] LIMA CHI ROUTINE 6 MEDICAL ECG SERV W/LEAST FOUNDATIO 12 LDS N I&R ONLY SWALLOWIN 43117 [place] AYJAMESB AND G FUNCJ 6 MEDICAL W/CINERAD SERV IOGRAPY/V FOUNDATIO IDRADIOG N HEPATOBIL 53323 [place] EL RASHMIOULI IARY SYST 6 MEDICAL IMAGING SERV INCLUDING FOUNDATIO N GALLBLADD ER ECG 53430 [place] PAULINO ROUTINE 6 MEDICAL NAN ECG SERV W/LEAST FOUNDATIO 12 LDS N I&R ONLY RADIOLOGI 38484 [place] MARVIN C 6 MEDICAL ALHAJI EXAMINATI SERV ON CHEST FOUNDATIO SINGLE N VIEW FRONTAL ECG 03840 [place] MARK ANIRUDH ROUTINE 6 MEDICAL ECG SERV W/LEAST FOUNDATIO 12 LDS N I&[place] [address] [place] JAY DAVID ABDOMEN & 6 MEDICAL PELVIS SERV [place] [address] [place] CHRISTIE ABDOMINAL 6 MEDICAL LETY REAL SERV TOMMY TIME FOUNDATIO W/IMAGE N LIMITED RADIOLOGI 67834 [place] GOPAL C 6 MEDICAL EXAMINATI SERV ON CHEST FOUNDATIO SINGLE N VIEW FRONTAL ECG 69753 [place] MARK ANIRUDH ROUTINE 6 MEDICAL ECG SERV W/LEAST FOUNDATIO 12 LDS N I&R ONLY RADIOLOGI 74699 [place] C 6 MEDICAL MEDICAL EXAMINATI SERV SERV ON CHEST FOUNDATIO FOUNDATIO SINGLE N N VIEW FRONTAL RADEX ABD 71797 [place] JAY DAVID COMPL 6 MEDICAL AQT ABD SERV W/S/E/D FOUNDATIO VIEWS 1 N VIEW CH MRI BRAIN 58042 [place] RASLAU BRAIN 6 MEDICAL FLA STEM W/O SERV CONTRAST FOUNDATIO MATERIAL N DUP-SCAN 04822 [place] GRIFFITH FABIENNE XTR VEINS 6 MEDICAL COMPLETE SERV FOUNDATIO BILATERAL N STUDY SWALLOWIN 02754 [place] JAY DAVID G FUNCJ 6 MEDICAL W/CINERAD SERV IOGRAPY/V FOUNDATIO IDRADIOG N RADIOLOGI 52015 [place] GOPAL C 6 MEDICAL EXAMINATI SERV ON CHEST FOUNDATIO SINGLE N VIEW FRONTAL SBSQ [address] [facility] 6 MEDICAL REINALDO CARE/DAY SERV 15 FOUNDATIO MINUTES N RADEX 60231 [place] [facility] NOHEMY ABDOMEN 1 6 MEDICAL SERV [place] [address] [place] AVA NAVARRETE ANGIOGRAP 6 MEDICAL HY NECK SERV W/CONTRAS FOUNDATIO T/NONCONT N RAST RADIOLOGI 70172 [place] IVELISSEK C 6 MEDICAL AYA MAR EXAMINATI SERV ON CHEST FOUNDATIO SINGLE N VIEW FRONTAL ECHO 65054 [place] JUAN GWENDOLYN TTHRC R-T 6 MEDICAL 2D SERV W/WOM-MOD FOUNDATIO E COMPL N SPEC&[place] [address] [place] AVA NAVARRETE ANGIOGRAP 6 MEDICAL HY HEAD SERV W/CONTRAS FOUNDATIO T/NONCONT N RAST INSERTION [id number] [facility] 6 Y Y [facility] SUPERIOR VENA CAVA PERQ SBSQ 85796 [place] [facility] 6 MEDICAL ANT CARE/DAY SERV 25 FOUNDATIO MINUTES N RADEX 00886 [place] [facility] NO[facility] ABDOMEN 1 6 MEDICAL SERV ANTEROPOS FOUNDATIO TERIOR N [place]IEW INITIAL 11554 [place] ECKERLE INPATIENT 6 MEDICAL GUNNER CONSULT SERV NEW/ESTAB FOUNDATIO PT 55 N MIN RADIOLOGI 23221 [place] ANDRE C 6 MEDICAL ALHAJI EXAMINATI SERV ON CHEST FOUNDATIO SINGLE N VIEW FRONTAL RADIOLOGI 36960 [place] ANDRE C 6 MEDICAL ALHAJI EXAMINATI SERV [place] [address] [place] RASLAU HEAD/BRAI 6 MEDICAL FLA N W/O SERV CONTRAST FOUNDATIO MATERIAL N CRITICAL 25158 [place] [facility] CARE 6 MEDICAL ANT ILL/INJUR SERV ED FOUNDATIO PATIENT N INIT 30-74 MIN CRITICAL 12242 [place] [facility] CARE 6 MEDICAL ANT ILL/INJUR SERV ED FOUNDATIO PATIENT N INIT 30-74 MIN RADIOLOGI 16646 [place] ANDRE C 6 MEDICAL ALHAJI EXAMINATI SERV ON CHEST FOUNDATIO SINGLE N VIEW FRONTAL RADIOLOGI 84998 [place] DANIELAURAK C 6 MEDICAL AYA MAR EXAMINATI SERV ON CHEST FOUNDATIO SINGLE N VIEW FRONTAL CRITICAL 69791 [place] [facility] 6 MEDICAL ANT ILL/INJUR SERV ED FOUNDATIO PATIENT N INIT 30-74 MIN RADIOLOGI 95870 [place] ANDRE C 6 MEDICAL ALHAJI EXAMINATI SERV ON CHEST FOUNDATIO SINGLE N VIEW FRONTAL ANES 52495 [place] AJAY NERVE 6 MEDICAL LIS MUSC SERVICES TENDON FASCIA & BURSAE UPPER LEG LEVEL III 77449 [facility] SURG 6 Y OF PATHOLOGY [place] [facility] GROSS&ALHAJI ROSCOPIC EXAM DEBRIDEME 36048 [place] XENOS TYLER NT MUSCLE 6 MEDICAL & FASCIA SERV 20 SQ FOUNDATIO CM/< N DEBRIDEME 13195 [place] XENOS TYLER NT MUSCLE 6 MEDICAL &/FASCIA SERV EA ADDL FOUNDATIO 20 SQ CM N RADIOLOGI 51308 [place] JEIMY C 6 MEDICAL AYA MAR EXAMINATI SERV ON CHEST FOUNDATIO SINGLE N VIEW FRONTAL RADIOLOGI 43337 [place] [facility] NOHEMY C 6 MEDICAL EXAMINATI SERV ON CHEST FOUNDATIO SINGLE N VIEW FRONTAL RADIOLOGI 76566 [place] ORA GWENDOLYN C 6 MEDICAL EXAMINATI SERV ON CHEST FOUNDATIO SINGLE N VIEW FRONTAL RADIOLOGI 04490 [place] VINCEUNIO C 6 MEDICAL MAR EXAMINATI SERV ON CHEST FOUNDATIO SINGLE N VIEW FRONTAL CRITICAL 56653 [place] AIME CARE 6 MEDICAL ANTOINE ILL/INJUR SERV ED FOUNDATIO PATIENT N INIT 30-74 MIN CRITICAL 98054 [place] AIME CARE 6 MEDICAL ANTOINE ILL/INJUR SERV ED FOUNDATIO PATIENT N INIT 30-74 MIN RADIOLOGI 89070 [place] [facility] NOHEMY C 6 MEDICAL EXAMINATI SERV ON CHEST FOUNDATIO SINGLE N VIEW FRONTAL RADEX 02401 [place] AYOOB AND ABDOMEN 1 6 MEDICAL SERV ANTEROPOS FOUNDATIO TERIOR N VIEW RADEX 01903 [place] RIDGE ABDOMEN 1 6 MEDICAL ADR SERV ANTEROPOS FOUNDATIO TERIOR N VIEW ANES 22983 [place] ERNA NRV/MUS/T 6 MEDICAL Y ANTOINE ND/FASC SERVICES LOWER LEG/ANKLE /FOOT NOS RADIOLOGI 65652 [place] PAYAN GWENDOLYN C 6 MEDICAL EXAMINATI SERV ON CHEST FOUNDATIO SINGLE N VIEW FRONTAL DCMPRN 20975 [place] GRIFFITH FABIENNE FASCT LEG 6 MEDICAL SERV ANT&/LAT& FOUNDATIO PST CMPRT N CRITICAL 67797 [place] ITMANN CARE 6 MEDICAL ANTOINE ILL/INJUR SERV ED FOUNDATIO PATIENT N INIT 30-74 MIN CRITICAL 91461 [place] [facility] 6 MEDICAL ANTOINE ILL/INJUR SERV ED FOUNDATIO PATIENT N INIT 30-74 MIN EMBLC/THR 68634 [place] STAN MBC 6 MEDICAL ROWENA FEMORAL SERV POPLITEAL FOUNDATIO N AORTO-YUKO AC ART DIL LT [id number] [facility] CMN ILIAC 6 Y Y ART [facility] INTRALUM DEVICE PERQ APPR EXTIRPATI [id number] [facility] ON MATTER 6 Y Y RT EXT [facility] ILIAC ART OPEN APPRCH DIL RT [id number] [facility] IL[facility] Y ART [facility] INTRALUM DEVICE PERQ APPR RADIOLOGI 29236 [place] ANDRE C 6 MEDICAL ALHAJI EXAMINATI SERV ON CHEST FOUNDATIO SINGLE N VIEW FRONTAL ANESTHESI 32689 [place] ADAM A THER 6 MEDICAL RANDI IVNTL SERVICES RADIOLOGI CORIN ARTERIAL INTRAVASC 00920 [place] STAN ULAR US 6 MEDICAL ROWENA NONCORONA SERV RY RS&I FOUNDATIO INTIAL N VESSEL REVSC 20492 [place] OPN/PRQ 6 MEDICAL MEDICAL ILIAC ART SERV SERV W/STNT FOUNDATIO FOUNDATIO PLMT & N N ANGIOPLST Y LEVEL III [address] [facility] [place] SURG 6 Y OF PATHOLOGY [place] [facility] GROSS&ALHAJI ROSCOPIC EXAM RADIOLOGI 08189 [place] PAYAN GWENDOLYN C 6 MEDICAL EXAMINATI SERV ON CHEST FOUNDATIO SINGLE N VIEW FRONTAL CTA ABDL 12594 [place] ANDRE AORTA&BI 6 MEDICAL ALHAJI ILIOFEM SERV W/CONTRAS FOUNDATIO T&POSTP N ECG 15012 [place] LIMA CHI ROUTINE 6 MEDICAL ECG SERV W/LEAST FOUNDATIO 12 LDS N I&R ONLY CRITICAL 42013 [place] [facility] 6 MEDICAL ANTOINE ILL/INJUR SERV ED FOUNDATIO PATIENT N INIT 30-[address] [facility] 6 MEDICAL SURJIT ILL/INJUR SERV ED FOUNDATIO PATIENT N INIT 30-74 MIN AMB A0427 [facility] SERVICE 6 AMBULANCE AMBULANCE ALS SERVICE SERVICE EMERGENCY TRANSPORT LEVEL 1 SBSQ 72642 [facility] 6 PHYSICIAN MAT CARE/DAY S GROUP 25 MINUTES ECG 31417 MELISSA LIMA CHI ROUTINE 6 MEDICAL ECG SERV W/LEAST FOUNDATIO 12 LDS N I&[place] [address] MELISSA RASLAU ANGIOGRAP 6 MEDICAL FLA HY HEAD SERV W/CONTRAS FOUNDATIO T/NONCONT N RAST REPLACEME [id number] [facility] 6 Y Y [facility] W/SYNTH SUBST OPEN APPRCH GROUND A0425 [facility] MILEAGE 6 AMBULANCE AMBULANCE PER SERVICE SERVICE STATUTE MILE SPCL STN 08508 [facility] 2 I&R 6 Y OF MAY EXCPT [place] MICROORG/ HOSPI ENZYME/IM CYT INITIAL 29768 MELISSA [facility] 6 MEDICAL CARE/DAY SERV 70 FOUNDATIO MINUTES N CATH PLMT 08229 [facility] HRT & 6 PHYSICIAN MAT ARTS S GROUP W/NJX & ANGIO IMG S&I CT ANGIO 61013 MELISSA NICKELS ABD&PLVIS 6 MEDICAL REINALDO CNTRST SERV MTRL W/WO FOUNDATIO CNTRST N IMG LEVEL III 95143 [facility] SURG 6 Y OF MAY PATHOLOGY [place] [facility] GROSS&[place] [address] [place] RASLAU ANGIOGRAP 6 MEDICAL FLA HY NECK SERV W/CONTRAS FOUNDATIO T/[place] [address] MELISSA NICKELS ANGIOGRAP 6 MEDICAL REINALDO HY CHEST SERV W/CONTRAS FOUNDATIO T/[place] [address] [facility] ABDOMEN & 6 MEDICAL [place] PELVIS IMAGING W/O ASS CONTRAST MATERIAL RADIOLOGI 50422 [place] JORGE ALBERTO C 6 MEDICAL [place] EXAMINATI IMAGING ON CHEST ASS SINGLE VIEW FRONTAL GROUND A0425 [facility] MILEAGE 6 AMBULANCE AMBULANCE PER SERVICE SERVICE STATUTE MILE CT THORAX 41579 HIPOLITO CLARKECHER W/O 6 MEDICAL [place] CONTRAST IMAGING MATERIAL ASS RADEX ABD 49890 HIPOL[facility]O AZUL COMPL 6 MEDICAL [place] AQT ABD IMAGING W/S/E/D ASS VIEWS 1 VIEW CH AMB A0427 [facility] SERVICE 6 AMBULANCE AMBULANCE ALS SERVICE SERVICE EMERGENCY TRANSPORT LEVEL 1 PHYSICAL 16305 ROB[facility] SIEGEL THERAPY 5 [facility] EVALUATIO INC INC N RADIOLOGI 78247 [place] TYLER ALL C 5 MEDICAL EXAMINATI IMAGING ON CHEST ASS SINGLE VIEW FRONTAL AMB A0427 [facility] SERVICE 5 AMBULANCE AMBULANCE ALS SERVICE SERVICE EMERGENCY TRANSPORT LEVEL [address] AMBULANCE PER SERVICE SERVICE STATUTE MILE NONEMERG A0120 FEDERATED FEDERATED TRNSPRT: 5 MINI-BUS TRANSPORT TRANSPORT MTN ATION SER ATION SER AREA/OTH SYS ANES 93776 [facility] LOWER 5 ANESTH SHE INTESTINE OF THE BLUE ENDOSCOPY DISTAL DUODENUM EGD 99222 ROBBIN SIEGEL TRANSORAL 5 [facility] HOSP BIOPSY INC INC SINGLE/MU LTIPLE SPECIAL 98398 [facility] STAIN [facility] LIAM GROUP 1 MICROORGA NISMS I&R COLONOSCO 60795 [facility] SUKHDEV PY FLX DX 5 PHYSICIAN CAM W/COLLJ [place] [address] [facility] SURG 5 [facility] LIAM PATHOLOGY GROSS&ALHAJI ROSCOPIC EXAM DUP-SCAN 88369 HIPOLITO AZUL XTR VEINS 5 MEDICAL [place] IMAGING UNILATERA ASS L/LIMITED STUDY RADIOLOGI 27529 [facility] Coy 5 MEDICAL MELY EXAMINATI IMAGING ON CHEST ASS SINGLE VIEW FRONTAL ECG 27602 ROBBIN KHAN JR ROUTINE 5 [facility] W/LEAST P 12 LDS I&R ONLY RADIOLOGI 46926 [facility] MEDICAL MELY EXAMINATI IMAGING ON PELVIS ASS 1/2 VIEWS GROUND A0425 GENEVIEVE VALLEJO MILEAGE 5 AMBULANCE AMBULANCE PER SERVICE SERVICE STATUTE MILE AMBULANCE A0429 [facility] SERVICE 5 AMBULANCE AMBULANCE BLS SERVICE SERVICE EMERGENCY TRANSPORT CULTURE 62454 ROB[facility] SIEGEL BACTERIAL 5 [facility] INC INC QUANTTATI VE COLONY COUNT URINE CATH PLMT 22277 [facility] CORRINEUJI L HRT & 5 [facility] eOn Communications [facility] W/NJX & G ANGIO IMG S&I PROTHROMB 05055 ROBBIN SIEGEL IN TIME 5 [facility] INC INC HEPATITIS 98808 ROBBIN O[place] CORE 5 [facility] ANTIBODY INC INC HBCAB TOTAL HEPATITIS 49400 ROBBIN O[place]ana SURF 5 [facility] [address] ROB[facility] SIEGEL HEPATITIS 5 [facility] B INC INC SURFACE ANTIGEN CRITICAL 42272 ROBBIN VARGAS CARE 5 [facility] ED P PATIENT ADDL 30 MIN CREATINE 16925 ROBBIN SIEGEL KINASE 5 [facility] TOTAL INC INC CYANOCOBA 84636 ROB[facility] SIEGEL ISSAC 5 [facility] VITAMIN INC INC B-12 HEPATITIS 14206 [facility] SIEGEL A 5 [facility] ANTIBODY INC INC HAAB HEMOGLOBI 85939 [facility] SIEGEL N 5 [facility] GLYCOSYLA INC INC CHRISTIE A1C BLOOD 96261 [facility] SIEGEL COUNT 5 [facility] COMPLETE INC INC AUTO&[place] [address] ROBBIN SIEGEL TROPONIN 5 [facility] QUANTITAT INC INC IMAN COLLECTIO 95645 [facility] SIEGEL N VENOUS 5 [facility] BLOOD INC INC VENIPUNCT URE COMPREHEN 22386 [facility] SIEGEL SIVE 5 [facility] [address] ROBBIN SIEGEL AMMONIA 5 [facility] INC INC CREATINE 66635 ROBBIN ROBBIN KINASE MB 5 [facility] [place] [address] ROBBIN SIEGEL FREE 5 [facility] [place] [address] ROBBIN SIEGEL THYROID 5 [facility] STIMULATI [place] [address] ROBBIN SIEGEL VITAMIN A 5 [facility] INC INC CRITICAL 03764 ROBBIN SIEGEL CARE 5 [facility] ILL/INJUR [facility]OSPITAL ED P P PATIENT INIT 30-74 MIN RADIOLOGI 37719 HIPOLITO Coy EXAM 5 MEDICAL MELY CHEST 2 IMAGING VIEWS ASS FRONTAL&L ATERAL HEPATITIS 05669 ROBBIN SIEGEL C 5 [facility] HOSP ANTIBODY INC INC ECG 09705 ROBBIN GRAHAMRUBIO ROUTINE 5 [facility] W/LEAST P 12 LDS I&R ONLY OPHTH 93918 [facility] 5 ANG ANG XM&EVAL COMPRHNSV ESTAB PT 1/> RADIOLOGI 22912 MELISSA LAIRD C 5 MEDICAL EXAMINATI SERV ON CHEST FOUNDATIO SINGLE N VIEW FRONTAL AMB A0427 BARRIE BARRIE SERVICE 5 FAYETTE FAYETTE ALS URBAN URBAN EMERGENCY COGOVT COGOVT TRANSPORT LEVEL 1 GROUND A0425 BARRIE BARRIE MILEAGE 5 FAYETTE FAYETTE PER URBAN URBAN STATUTE COGOVT COGOVT MILE MYOCARDIA 33525 [place] JORGE ALBERTO L SPECT 4 MEDICAL [place] MULTIPLE IMAGING STUDIES ASS ECHO 90518 MELISSA POOLE TTHRC R-T 4 MEDICAL 2D SERV W/WOM-MOD FOUNDATIO E COMPL N SPEC&COLR D CRITICAL 75376 [facility] CARE 4 MONCHO ILL/INJUR EMERGENCY ED PHYS PATIENT INIT 30-74 MIN RADIOLOGI 20915 HIPOLITO Coy 4 MEDICAL MELY EXAMINATI IMAGING ON CHEST ASS SINGLE VIEW FRONTAL ECG 41490 SAM VARGAS ROUTINE 4 ALHAJI ALHAJI ECG W/LEAST 12 LDS I&R ONLY AMB A0427 [facility]EVIEVE [facility] SERVICE 4 AMBULANCE AMBULANCE ALS SERVICE SERVICE EMERGENCY TRANSPORT LEVEL 1 GROUND A0425 [facility] 4 AMBULANCE AMBULANCE PER SERVICE SERVICE STATUTE MILE Encounters Encounter Start End Date Code Location Performer Type Date EMERGENCY 83061 [place] 7 7 [facility] DEPARTMEN INC T VISIT LOW/MODER SEVERITY [facility]OSPITAL ROBBIN - 7 7 [facility] OUTPATIEN INC T EMERGENCY 97802 DEPT 7 7 [facility] VISIT E HIGH [facility]OSPITALS SEVERITY& THREAT [facility] - 7 7 [facility] OUTPATIEN E T HOSPITALS EMERGENCY 90028 MELISSA MARTINEZ 7 7 MEDICAL DEPARTMEN SERV T VISIT FOUNDATIO HIGH/URGE N NT SEVERITY EMERGENCY 72171 [place] DEPT 7 7 [facility] VISIT INC HIGH SEVERITY& THREAT [facility] ROBBIN - 7 7 [facility] OUTPATIEN INC T EMERGENCY 72187 GABE POLK 6 6 PHYSICIAN NOHEMY [facility] T VISIT MODERATE SEVERITY OFFICE 63156 [facility] 6 6 PHYSICIAN ALHAJI T VISIT S GROUP 15 MINUTES [facility] 64592 [facility] DE[facility] 6 6 Y VISIT HOSPITAL HIGH SEVERITY& THREAT [facility] EMERGENCY 45200 MELISSA QURESHI 6 6 MEDICAL DEPARTMEN SERV T VISIT FOUNDATIO HIGH/URGE N NT SEVERITY EMERGENCY 47942 GABE MOORE 6 6 PHYSICIAN JR CHENG [facility] T VISIT HIGH/URGE NT SEVERITY HOSPITAL ROBBIN - 6 6 [facility] OUTPATIEN INC T [facility] 65448 [facility] PHYSICIAN ALHAJI T VISIT S GROUP 15 MINUTES HOSPITAL ROBBIN - 6 6 [facility] OUTPATIEN [facility] T EMERGENCY 89411 GABE VARGAS 6 6 PHYSICIAN ALHAJI [facility] T VISIT MODERATE SEVERITY EMERGENCY 98981 ROBBIN 6 6 [facility] T VISIT LOW/MODER SEVERITY HOSPITAL ROBBIN - [address] [facility] OUTPATIEN [facility] ROBBIN - [address] [facility] OUTPATIEN [facility] - 6 6 [facility] EM[facility] 10139 MELISSA ANGELAERS 6 6 MEDICAL JOSESITO [facility] T VISIT FOUNDATIO MODERATE N SEVERITY HOSPITAL UNIVERSIT - 6 6 [facility] ROBBIN - 5 5 [facility] OUTPATIEN [facility] EMERGENCY 66415 GABE VARGAS DEPT 5 5 PHYSICIAN ALHAJI VISIT S, PLLC HIGH SEVERITY& THREAT [facility] - [address] [facility]PATIEN [facility] OFFICE 13668 [facility] SCHULSTMARVIN OUTPATIEN 5 5 PHYSICIAN CAM T NEW 45 S GROUP MINUTES OFFICE 26235 [facility] SC[facility]RES OUTPATIEN 5 5 ANG ANG T VISIT 15 MINUTES EMERGENCY 56300 ROB[facility] VARGAS 5 5 [facility] T VISIT P HIGH/URGE NT SEVERITY HOSPITAL ROBBIN - [address] [facility] OUTPATIEN [facility] ROBBIN - 5 5 [facility] OUTPATIEN [facility] EMERGENCY 93658 [facility] DEPT 5 5 [place] I ALI VISIT EMERGENCY HIGH PHYS SEVERITY& THREAT FUNCJ OFFICE 52078 [facility] SAM OUTPATIEN 4 4 PHYSICIAN ALHAJI T NEW 30 S GROUP MINUTES EMERGENCY 47336 SAM VARGAS DEPT 4 4 ALHAJI ALHAJI VISIT HIGH SEVERITY& THREAT FUNCJ
--- OUTSIDE RECORDS SUMMARY | 2017-03-13 16:11 | External Medical Summary Rpt | CCD ---
Demographics Preferred Language Salvadorean Marital Status Unknown Restorationist Affiliation Unknown Race Unknown Ethnic Group Unknown Author Author , ALEIDA RAMSAY Address Unknown Phone [email or web address] Immunization Name Date Rout CVX Reac Dose Comm Prov Is Faci e tion ent ider Refu lity Give sed n Td 03-0 9 999 Hist H149 No H149 (dada 6-19 ori lt), 97 al Info adso rmat rbed ion - Sour ce Unsp ecif ied
--- OUTSIDE RECORDS SUMMARY | 2017-03-13 16:11 | External Medical Summary Rpt | CCD ---
Demographics Preferred Language Serbian Marital Status Unknown Gnosticism Affiliation Unknown Race Unknown Ethnic Group Unknown Author Author , ALEIDA RAMSAY Address Unknown Phone [email or web address] Immunization Name Date Rout CVX Reac Dose Comm Prov Is Faci e tion ent ider Refu lity Give sed n Td 03-0 9 999 Hist H149 No H149 (dada 6-19 ori lt), 97 al Info adso rmat rbed ion - Sour ce Unsp ecif ied
--- OUTSIDE RECORDS SUMMARY | 2017-03-13 16:11 | External Medical Summary Rpt | CCD ---
Author Author , DEVENDRA CARABALLOBRIAN Address Unknown Phone [email or web address] Care Team Providers Care Cigarette Book Maker Name Role Phone [facility] [place], Unavailable Unavailable [facility] [place], Unavailable Unavailable [facility] [place] AJAY LIS, AJAY Unavailable Unavailable LIS AYOOB AND, AYOOB AND Unavailable Unavailable BEINEKE MELY, BEINEKE Unavailable Unavailable MELY BESSON, BESSON Unavailable Unavailable BESSON GWENDOLYN, BESSON Unavailable Unavailable GWENDOLYN TYLER ALL, TYLER ALL Unavailable Unavailable ANDRE ALHAJI, ANDRE Unavailable Unavailable ALHAJI [facility] Unavailable Unavailable SERVICE, [facility] Unavailable Unavailable SERVICE, [facility] PAIGE LAVELLE, PAIGE Unavailable Unavailable [facility] Unavailable Unavailable [facility]IL[facility], [facility] TITUS, TITUS Unavailable Unavailable GEORGE, [...] Unavailable Unavailable ALHAJI MAURICE, MAURICE Unavailable Unavailable [facility] Un[facility] Unavailable INC, [facility] Unavailable Unavailable HOSPITAL P, [facility] AIME ANTOINE, AIME Unavailable Unavailable ANTOINE [facility], Unavailable Unavailable [facility] PAYAN GWENDOLYN, PAYAN GWENDOLYN Unavailable Unavailable DB CARL, DB CARL Unavailable Unavailable [facility] Unavailable Unavailable MEDICAL G, [facility] MEDICAL G AVA ROSALBA, AVA [...] Unavailable [facility] Unavailable Unavailable [facility]OSPITALS, [facility], Unavailable Unavailable [facility] Un[facility] [place] [facility], LANEXA SHA Unavailable Unavailable MARVIN ALHAJI, MARVIN Unavailable Unavailable ALHAJI XENOS TYLER, XENOS TYLER Unavailable Unavailable ZAGUROVSKAYA MAR, Unavailable Unavailable ZAGUROVSKAYA MAR Purpose Continuity of Care Document - 10-01-2013 through 2016 Problems Code Diagnosis DOS Provider Status I10 ESSENTIAL 01-09-2017 [facility], HYPERTENSIO [facility] N Z0289 ENCOUNTER 01-09-2017 [facility] FOR OTHER PHYSICIANS, ADMINISTRAT [facility] IMAN EXAMINATION S [id number] OTHER LONG 01-09-2017 [place] [facility] CURRENT INC DRUG THERAPY Z9114 PATIENTS 01-09-2017 [facility] OT PHYSICIANS, NONCOMPLIAN [facility] CE W/MEDICATIO N REGIMEN 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 HEALTHCARE 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 HOSPITALS ANGINA 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 HOSPITALS I4581 LONG QT 09-03-2016 [facility] I517 CARDIOMEGAL 09-03-2016 [facility] Y [facility] I7100 DISSECTION 09-03-2016 [place] [facility] OF SERV UNSPECIFIED FOUNDATION SITE OF AORTA I739 PERIPHERAL 09-03-2016 VASCULAR HEALTHCARE DISEASE HOSPITALS UNSPECIFIED M7989 OTHER 09-03-2016 [place] [facility] SPECIFIED SERV SOFT TISSUE FOUNDATION DISORDERS R079 CHEST PAIN 09-03-2016 UNSPECIFIED HEALTHCARE HOSPITALS R9431 ABNORMAL 09-03-2016 [facility] ELECTROCARD SERV IOGRAM FOUNDATION Z8673 PERSONAL HX 09-03-2016 [facility]PITALS INFARCT NO RESID DEFICIT 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 C45495 PAIN IN 09-02-2016 [facility] RIGHT LEG PHYSICIANS, [facility] R072 PRECORDIAL 09-02-2016 [facility] PAIN PHYSICIANS, [facility] R600 LOCALIZED 09-02-2016 [facility] EDEMA PHYSICIANS, [facility] R791 ABNORMAL 09-02-2016 [place] [facility] P R7989 OTHER SPEC 09-02-2016 [facility] ABNORMAL PHYSICIANS, FINDINGS [facility] BLOOD CHEMISTRY Z0389 ENCOUNTER 09-02-2016 [facility] MEDICAL SUSPCT DZ & IMAGING ASS COND RULED OUT A79078 PAIN IN 01-28-2016 [place] [facility] RIGHT [facility]OT [facility] 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 I7101 DISSECTION 01-27-2016 [place] OF [facility] P I719 AORTIC 01-27-2016 [facility] ANEURYSM PHYSICIANS, UNSPECIFIED [facility] SITE WITHOUT RUPTURE 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 R0789 OTHER CHEST 01-27-2016 [place] [facility] Z7901 MCC 01-27-2016 [facility] [place] NTS Z7982 DIRECTOR RECREATION CENTER 01-27-2016 [facility] Z951 PRESENCE OF 01-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 RY BYPASS GRAFT Z9989 DEPENDENCE 01-27-2016 [facility] ON OTHER [place] ENABLING MACHINES & DEVICES R55 SYNCOPE AND 01-06-2016 [facility] COLLAPSE PHYSICIANS, [facility] Z955 PRESENCE OF 01-06-2016 [facility] IMPLANT & GRAFT I639 CEREBRAL 01-03-2016 [facility] INFARCTION PHYSICIANS UNSPECIFIED GROUP [id number] COMPARTMENT 01-03-2016 [facility] SYNDROME PHYSICIANS UNSPECIFIED GROUP INITIAL ENCNTR G8918 OTHER ACUTE 01-01-2016 [facility] POSTPROCEDU INC RAL PAIN V30825 PAIN IN 01-01-2016 [place] RIGHT LOWER [facility] LEG INC 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 DYSPHAGIA 12-28-2015 PATIENT FOLLOWING AIDS INC CEREBRAL INFARCTION Z38931 OTHER 12-28-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 R1310 DYSPHAGIA 12-28-2015 PATIENT UNSPECIFIED AIDS INC R2681 UNSTEADINES 12-28-2015 PATIENT S ON FEET AIDS INC R269 UNSPECIFIED 12-28-2015 PATIENT AIDS INC ABNORMALITI ES OF GAIT AND MOBILITY R5381 OTHER 12-27-2015 [facility] Z59594 ENCOUNTER 12-13-2015 [facility] FOLLOW ION SURGERY CIRC SYS V48232 ENCOUNTER 12-13-2015 [facility] FLW SURG ION SKIN&SUBQ TISS Z9889 OTHER 12-13-2015 [facility] SPECIFIED SERV POSTPROCEDU FOUNDATION RAL STATES J90 PLEURAL 12-11-2015 [place] [facility] EFFUSION SERV NOT FOUNDATION ELSEWHERE CLASSIFIED R001 BRADYCARDIA 12-06-2015 [place] [facility] SERV UNSPECIFIED F[facility]ATION E79708 ELEVATED 12-01-2015 [place] [facility] WHITE BLOOD SERV CELL COUNT FOUNDATION UNSPECIFIED I447 LEFT 12-01-2015 [facility] BUNDLE-BRAN SERV CH BLOCK FOUNDATION UNSPECIFIED R0602 SHORTNESS 12-01-2015 [place] [facility] OF BREATH SERV [facility] R109 UNSPECIFIED 12-01-2015 [place] [facility] ABDOMINAL SERV PAIN FOUNDATION R932 ABNORMAL 12-01-2015 [facility] FIND ON DX SERV IMAGING FOUNDATION LIVER & BILI TRACT K810 ACUTE 11-30-2015 [facility] CHOLECYSTIT SERV IS FOUNDATION R112 NAUSEA WITH 11-30-2015 [facility] VOMITING SERV UNSPECIFIED FOUNDATION R509 FEVER 11-30-2015 [facility] UNSPECIFIED SERV FOUNDATION J9811 ATELECTASIS 11-29-2015 [facility] Z430 ENCOUNTER 11-29-2015 [facility] FOR [facility] ATTENTION FOUNDATION TO TRACHEOSTOM Y Z81062 ACUTE 11-25-2015 [facility] EMBOLISM & SERV THROMBOSIS FOUNDATION SUP VEINS RT UP EXT R0989 OTH SPEC SX 11-25-2015 [facility] & SIGNS SERV INVLV THE FOUNDATION CIRC & RESP SYS Z049 ENCOUNTER 11-25-2015 [facility] EXAMINATION SERV &OBSERVATIO FOUNDATION N FOR UNS REASON I083 COMB 11-23-2015 [place] [facility] RHEUMAT D/O SERV MITRAL FOUNDATION AORTC & TRICUSPID VALVES I371 NONRHEUMATI 11-23-2015 [facility] C PULMONARY SERV VALVE FOUNDATION INSUFFICIEN CY I619 NONTRAUMATI 11-23-2015 [facility] C SERV INTRACEREBR FOUNDATION AL HEMORRHAGE UNS I7771 DISSECTION 11-23-2015 [place] [facility] OF CAROTID SERV ARTERY FOUNDATION I998 OTHER 11-23-2015 [facility] DISORDER OF SERV [facility] CIRCULATORY SYSTEM [id number] TRAUMAT 11-23-2015 [facility] COMPARTMENT [facility] SYND RT FOUNDATION LOW EXTREM INIT ENC Z452 ENCOUNTER 11-23-2015 [facility] ADJUSTMENT& SERV MGMT FOUNDATION VASCULAR ACCESS DEVICE D62 ACUTE 11-22-2015 [facility] POSTHEMORRH SERV AGIC ANEMIA FOUNDATION E870 HYPEROSMOLA 11-22-2015 [facility] LITY AND SERV HYPERNATREM FOUNDATION IA I638 OTHER 11-22-2015 [facility] CEREBRAL SERV INFARCTION FOUNDATION J951 ACUTE 11-22-2015 [facility] PULMONARY SERV INSUFF [facility]OUNDATION FOLLOW THORACIC SURGERY R531 WEAKNESS 11-22-2015 [place] [facility] Z4659 ENCOUNTER 11-22-2015 [facility] FIT & [facility] ADJUST OTH FOUNDATION GI APPLIANCE & DEVICE Z4682 ENCOUNTER 11-22-2015 [facility]TING & SERV ADJUST [facility]OUND[facility] NON-VASCULA R CATHETER J984 OTHER 11-21-2015 [place] [facility] DISORDERS SERV OF LUNG FOUNDATION R609 EDEMA 11-21-2015 [facility] UNSPECIFIED SERV FOUNDATION R930 ABNORMAL 11-21-2015 [facility] FINDINGS ON SERV DX IMAGING FOUNDATION SKULL & HEAD NEC E8770 FLUID 2015 [facility] OVERLOAD SERV UNSPECIFIED FOUNDATION J811 CHRONIC 2015 [facility] PULMONARY SERV EDEMA FOUNDATION J9600 ACUTE 2015 [facility] RESPIRATORY SERV FAIL UNS FOUNDATION HYPOXIA/HYP ERCAPNIA M6282 RHABDOMYOLY 2015 [facility] SIS [facility] N179 ACUTE 2015 [facility] KIDNEY SERV FAILURE [facility]OUND[facility] UNSPECIFIED Z930 TRACHEOSTOM 2015 [place] [facility] Y STATUS SERV [facility] M6289 OTHER 11-17-2015 [facility] DISORDERS HOSPI OF MUSCLE E878 OTHER D/O 11-14-2015 [place] [facility] OF SERV ELECTROLYTE FOUNDATION AND FLUID BALANCE NEC J9691 RESPIRATORY 11-14-2015 [facility] FAILURE SERV UNSPECIFIED FOUNDATION WITH HYPOXIA R633 FEEDING 11-14-2015 [facility] DIFFICULTIE SERV S FOUNDATION R918 OTHER 11-12-2015 [facility] NONSPECIFIC SERV ABNORMAL FOUNDATION FINDING OF LUNG FIELD M28806 ACUTE 11-11-2015 [facility] EMBOLISM & [facility] THROMBOSIS HOSPI RIGHT POPLITEAL VEIN D649 ANEMIA 11-10-2015 [facility] UNSPECIFIED SERV FOUNDATION I743 EMBOLISM & 11-10-2015 [facility] THROMBOSIS SERV ART THE FOUNDATION LOWER EXTREMITIES J982 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 SERV FOUNDATION R739 HYPERGLYCEM 11-10-2015 [facility] IA SERV UNSPECIFIED FOUNDATION Z048 ENCOUNTER 11-10-2015 [place] [facility] EXAM & SERV OBSERVATION FOUNDATION OTHER SPEC REASONS E785 HYPERLIPIDE 11-09-2015 [facility] NIGEL PHYSICIANS UNSPECIFIED GROUP I209 ANGINA 11-09-2015 [facility] PECTORIS PHYSICIANS UNSPECIFIED GROUP I4901 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-09-2015 [facility] FIBRILLATIO N 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 ION I700 ATHEROSCLER 11-09-2015 [facility] I7102 DISSECTION 11-09-2015 [facility] OF SERV ABDOMINAL FOUNDATION AORTA 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 J189 PNEUMONIA 11-09-2015 [facility] ORGANISM R53388 ACUTE 11-09-2015 [facility] POSTPROCEDU SERV RAL FOUNDATION RESPIRATORY FAILURE R200 ANESTHESIA 11-09-2015 [facility] OF SKIN SERV FOUNDATION R570 CARDIOGENIC 11-09-2015 [facility] SHOCK [facility] F12079 THORACIC 11-08-2015 [place] [facility] ECTASIA IMAGING ASS M545 LOW BACK 05-04-2015 [facility] INC R030 ELEVATED 03-09-2015 [facility] BLOOD-PRESS AMBULANCE URE READING SERVICE WITHOUT DX HTN R071 CHEST PAIN 03-09-2015 [facility] ON AMBULANCE BREATHING SERVICE 75745 11-09-2014 [facility] 38122 HELICOBACTE 09-17-2014 [facility] INFECTION 80488 OTHER SPEC 09-17-2014 [facility] WITHOUT MENTION HEMORRHAGE 47832 UNS 09-17-2014 [facility] GASTRITIS&G PHYSICIANS ASTRODUODIT GROUP IS W/O MENTION HEMORR 60146 DIVERTICULO 09-17-2014 [facility] SIS OF PHYSICIANS COLON GROUP 5693 HEMORRHAGE 09-17-2014 [facility] OF RECTUM PHYSICIANS AND ANUS GROUP 5780 HEMATEMESIS 09-17-2014 [facility] PHYSICIANS GROUP 34707 HEMOPTYSIS 09-17-2014 [facility] UNSPECIFIED ANESTH OF THE BLUE 7921 NONSPECIFIC 09-17-2014 [facility] ABNORMAL ANESTH OF FINDING IN THE BLUE STOOL CONTENTS 5781 BLOOD IN 09-03-2014 [facility] STOOL PHYSICIANS GROUP 7871 HEARTBURN 09-03-2014 [facility] PHYSICIANS GROUP V7651 SPECIAL 09-03-2014 [facility] SCREENING PHYSICIANS FOR GROUP MALIGNANT NEOPLASMS COLON 32479 BORDERLINE 08-21-2014 [facility]UC OPEN ANGLE BL FINDINGS LOW RSK 4019 UNSPECIFIED 08-19-2014 [facility] P N 76184 COR 08-19-2014 [place] [facility] P TYPE VESSEL COWLITZ/KI T 79586 ASTHMA, 08-19-2014 [facility] HOSPITAL P UNSPECIFIED STATUS 32800 PAIN IN 08-19-2014 [place] [facility] IMAGING ASS REGION AND THIGH 7295 PAIN IN 08-19-2014 [place] SOFT MEDICAL TISSUES OF IMAGING ASS LIMB 10205 CHEST PAIN 08-19-2014 [facility] UNSPECIFIED AMBULANCE SERVICE 92322 ACUT FL 08-18-2014 [facility] MEDICAL G EPIS CARE UNS 5990 URINARY 08-18-2014 [place] [facility] INFECTION INC SITE NOT SPECIFIED 80333 ABDOMINAL 08-17-2014 [facility] UNSPECIFIED HOSPITAL P SITE V4589 OTHER 08-17-2014 [place] [facility] P OTHER 7991 RESPIRATORY 06-05-2014 [facility] ARREST [place] 65443 POISONING 06-05-2014 [facility] BY HEROIN N EMERGENCY PHYS 9779 POISONING 06-05-2014 [place] [facility] UNSPECIFIED SERV [facility] DRUG/MEDICI NAL SUBSTANCE E9800 POISN-ANALG 06-05-2014 [facility] ES-ANTIPYRE N EMERGENCY T-ANTIRHEUM PHYS -UNDETERM CAUSE 2724 OTHER AND 04-15-2014 [facility] UNSPECIFIED PHYSICIANS GROUP HYPERLIPIDE NIGEL 22796 CORONARY 02-26-2014 [facility] MEDICAL OSIS COWLITZ IMAGING ASS CORONARY ARTERY 42146 OTHER 02-25-2014 [place] [facility] DYSPNEA AND Twones [facility] [address] ACUT FL 02-24-2014 [facility] SUBENDOCARD N EMERGENCY IAL INFARCT PHYS INIT EPIS CARE 66383 SHORTNESS 02-24-2014 [facility] BREATH MEDICAL IMAGING ASS 5939 UNSPECIFIED 10-01-2013 [facility] DISORDER OF KIDNEY AND URETER 06407 PRECORDIAL 10-01-2013 [facility] AMBULANCE SERVICE Medications Na ND Rx [...] 00 0- 8- 00 07 MA ve PA 51 20 20 0 47 RT IL [...] NO 00 8 7- 07 MA ve PA 51 20 20 46 RT IL 70 [...] Procedure DOS Code Location Performer Comment NATRIURET 83395 [facility] IC 7 [facility] PEPTIDE E [place] [facility] [place] [address] [place] [facility] TROPONIN 7 [facility] QUANTITAT E E IMAN [facility] [place] [address] [place] MAGNESIUM 7 [facility]ALTH[facility] HEALTHCAR E [place] [facility] [address] [place] PHOSPHORU 7 [facility] HEALTHCAR S E E INORGANIC [facility] ECG 92391 [facility] ROUTINE 7 [facility] HEALTHCAR ECG E E W/LEAST [facility] 12 LDS TRCG ONLY W/O I&R DUP-SCAN 43483 [facility] XTR VEINS 7 [facility]ALTH[facility] HEALTHCAR E E UNILATERA [facility] L/[place] [address] [facility] ANGIOGRAP 7 [facility] HEALTHCAR HY CHEST E E W/CONTRAS [facility] T/NONCONT RAST PROTHROMB 92664 [facility] IN TIME 7 [facility] HEALTHCAR E E HOSPITALS HOSPITALS BASIC 80947 [facility] METABOLIC 7 [facility] HEALTHCAR PANEL E E CALCIUM [facility] TOTAL DRUG TST G0483 [facility] DEFINITV [address] ID E E METH P [facility] DAY 22/MORE DR LILIAM LOCM Q9967 [facility] [phone] [facility] HEALTHCAR MG/ML E E IODINE [facility] CONCENTRA TION PER ML INFUSION J7040 [facility] NORMAL 7 [facility] SALINE E E SOLUTION [facility] STERILE THROMBOPL 18172 [facility] ASTIN 7 [facility] HEALTHCAR TIME E E PARTIAL [facility] PLASMA/WH OLE BLOOD ECG 05968 MELISSA VAZQUEZ ROUTINE 7 MEDICAL ECG SERV W/LEAST FOUNDATIO 12 LDS N I&R ONLY RADIOLOGI 34717 [facility] C EXAM 7 [facility] HEALTHCAR CHEST 2 E E VIEWS [facility] FRONTAL&L ATERAL RADIOLOGI 48987 [facility] C EXAM 7 MEM HOSP MEM HOSP CHEST 2 INC INC VIEWS FRONTAL&L ATERAL CULTURE 31814 [facility] BACTERIAL 7 MEM [facility] MEM HOSP BLOOD INC INC AEROBIC W/ID ISOLATES AMB A[address] [facility] SERVICE 7 AMBULANCE AMBULANCE ALS SERVICE SERVICE EMERGENCY TRANSPORT LEVEL 1 UNCLASSIF J3490 [facility] IED DRUGS 7 MEM HOSP MEM HOSP INC INC ECG 94353 [facility] MIRANDA ROUTINE 7 [facility] W/LEAST P 12 LDS I&R ONLY CRITICAL 42591 [facility] 7 PHYSICIAN ILL/INJUR S, [facility] IN[facility] 30[facility]74 MIN GROUND A[address] [facility] MILEAGE 7 AMBULANCE AMBULANCE PER SERVICE SERVICE STATUTE MILE PROTHROMB 21623 [facility] IN TIME 7 MEM HOS[facility] MEM HOS[facility] INC INC FIBRIN 67744 [facility] DGRADJ 7 MEM HOSP MEM HOSP PRODUCTS INC INC D-DIMER QUAL/SEMI MICHELLE THERAPEUT 86181 [facility] IC 7 MEM H[facility] MEM [facility]OS[facility] PROPHYLAC INC INC TIC/DX INJECTION SUBQ/IM ECG 86742 [facility] ROUTINE 7 MEM HOSP MEM HOSP ECG INC INC W/LEAST 12 LDS TRCG ONLY W/O I&R COLLECTIO 73249 [facility] N VENOUS 7 MEM [facility] MEM HOSP BLOOD INC INC VENIPUNCT URE CREATINE 07849 [facility] KINASE 7 [facility] [place] [place] [address] [facility] TROPONIN 7 MEM HOSP MEM HOSP QUANTITAT INC INC IMAN BLOOD 37175 [facility] COUNT 7 MEM [facility] MEM HOSP COMPLETE INC INC AUTO&AUTO DIFRNTL WBC COMPREHEN 63555 [facility] SIVE 7 MEM H[facility] MEM HOS[facility] METABOLIC INC INC PANEL CREATINE 44161 [facility] KINASE MB 7 MEM HOS[facility] [place] [address] [facility] LACTATE 7 MEM HOSP MEM HOSP INC INC HOSPITAL G037[address] [facility] Y Y ON HOSPITAL HOSPITAL SERVICE PER HOUR ECG 95252 [place] [facility] ROUTINE 6 MEDICAL ECG SERV W/LEAST FOUNDATIO 12 LDS N I&[place] [address] [facility] TROPONIN 6 Y [facility] 62918 [facility] UNIVERS ROUTINE 6 Y Y ECG [facility] W/LEAST 12 LDS TRCG ONLY W/O I&R RADEX [address] [facility] ANKLE 6 Y Y [facility] MINIMUM [address] V[address]EX [address] [facility] FOOT 6 Y Y [facility] MINIMUM 3 VIEWS DRUG TST G[address] [facility] DEFINITV [address] ID HOSPITAL HOSPITAL METH P DAY 22/MORE DR CL BASIC [address] [facility] METABOLIC 6 Y Y [facility] CALCIUM TOTAL AMB A0431 AIR AIR SERVICE 6 METHODS METHODS CONVNTION [facility] AIR SRVC TRANSPORT [address] [facility] IN TIME 6 Y Y [facility]PITAL RADIOLOGI 51133 [facility] ROBBIN C 6 MEM HOSP MEM HOSP EXAMINATI INC INC ON CHEST [place] FRONTAL INFUSION J7040 [facility] 6 Y Y SALINE [facility] SOLUTION STERILE ANTIBODY [address] [facility] SCREEN 6 Y Y RBC [facility]PITAL SERUM TECHNIQUE BLOOD [address] [facility] TYPING 6 Y Y SEROLOGIC [facility] ABO CREATINE 30231 [facility] KINASE 6 [facility] [place] [address] [facility] ANGIOGRAP 6 MEM HOSP [facility] HY CHEST INC INC W/CONTRAS T/NONCONT RAST ECG [address] [facility] ROUTINE 6 Y Y ECG [facility] W/LEAST 12 LDS TRCG ONLY W/O I&[place] [address] [facility] TROPONIN 6 Y Y [facility] IMAN BLOOD [address] [facility] COUNT 6 Y Y [facility] AUTOMATED BLOOD 72261 [facility] COUNT 6 [facility] COMPLETE INC INC AUTO&AUTO DIFRNTL WBC COMPREHEN 86383 ROBBINKERRIE SIEGEL SIVE 6 MEM HOSP [facility] METABOLIC INC INC PANEL CREATINE 23234 [facility] KINASE MB 6 [facility] FRACTION INC INC ONLY COLLECTIO 77021 [facility] S[facility] N VENOUS 6 [facility] BLOOD INC INC VENIPUNCT URE GROUND A0425 [facility] MILEAGE 6 AMBULANCE [place] PER SERVICE STATUTE MILE PLATELETS P9035 [facility] PHERESIS 6 Y Y [facility] LEUKOCYTE S REDUCED EACH UNIT COMPATIBI [address] [facility] LITY EACH 6 Y Y UNIT [facility] ELECTRONI C AMB A0427 [facility] SERVICE 6 AMBULANCE [place] ALS SERVICE EMERGENCY TRANSPORT LEVEL 1 CRITICAL 27015 [facility] 6 PHYSICIAN ALHAJI ILL/INJUR S, PLLC ED PATIENT INIT 30-74 MIN BLOOD [address] [facility] TYPING 6 Y Y SEROLOGIC [facility] RH (D) [place] [address] [facility] INFUSION 6 Y Y THERAPY [facility] PROPHYLAX IS/DX EA HOUR CT THORAX 05614 [place] [facility] 6 MEDICAL W/CONTRAS IMAGING T ASS MATERIAL THROMBOPL [address] [facility] ASTIN 6 Y Y TIME [facility] PARTIAL PLASMA/WH OLE BLOOD ECG 60155 [facility] MIRANDA ROUTINE 6 [facility] W/LEAST P 12 LDS I&R ONLY ARTL 80213 MELISSA TITUS CATHJ/CAN 6 MEDICAL NULJ SERV MNTR/PEREYRA FOUNDATIO SFUSION N SPX PRQ INFUSION J7030 [facility] NORMAL 6 Y Y SALINE [facility] SOL[place] [address] [place] [address] [facility] INFUSION 6 Y Y THERAPY/P [facility] ROPHYLAXI S /DX 1ST TO 1 HR INITIAL 22309 ROBBIN SIEGEL OBSERVATI 6 [facility] CARE/DAY 50 MINUTES COLLECTIO 32725 ROBBIN SIEGEL N VENOUS 6 [facility] BLOOD INC INC VENIPUNCT URE ECG 42877 ROBBIN MIRANDA ROUTINE 6 [facility] W/LEAST P 12 LDS I&R ONLY RADIOLOGI 64016 [place] C 6 MEDICAL EXAMINATI IMAGING ON CHEST ASS [place] FRONTAL PROTHROMB 56319 ROBBIN SIEGEL IN TIME 6 [place] [address] [place] HEAD/BRAI 6 MEDICAL N W/O IMAGING CONTRAST ASS MATERIAL DRUG TST [id number] ROBBIN SIEGEL PRESUMP;C 6 [facility] PBL BEING INC INC READ DC OPT OBV ONLY THERAPEUT 52212 ROBBIN SIEGEL IC 6 [facility] PROPHYLAC INC INC TIC/DX INJECTION SUBQ/IM PROTHROMB 86009 ROBBIN SIEGEL IN TIME 6 [facility] INC COLLECTIO 45273 ROBBIN SIEGEL N VENOUS 6 [facility] BLOOD INC INC VENIPUNCT URE WALKER E0143 PATIENT [facility] 6 AIDS INC [facility] 64238 [facility] DISCHARGE 6 MEDICAL DAY SERV MANAGEMEN FOUNDATIO T > 30 N MIN SBSQ 49059 [facility] 6 MEDICAL CARE/DAY SERV 35 FOUNDATIO MINUTES N SBSQ 08-07-201 45895 [facility] 6 MEDICAL KER RAN CARE/DAY SERV 35 FOUNDATIO MINUTES N SBSQ 24443 [facility] 6 MEDICAL KER RAN CARE/DAY SERV 35 FOUNDATIO MINUTES N SBSQ 41875 [facility] 6 MEDICAL ANIRUDH CARE/DAY SERV 35 FOUNDATIO MINUTES N SBSQ 61634 [facility] 6 MEDICAL JUANY CARE/DAY SERV 35 FOUNDATIO MINUTES N SBSQ [address]25 [place] [address] MEDICAL JUANY CARE/DAY SERV 35 FOUNDATIO MINUTES N SBSQ 02637 [facility] 6 MEDICAL JUANY CARE/DAY SERV 35 FOUNDATIO MINUTES N SBSQ 70894 [place] [address] MEDICAL JUANY CARE/DAY SERV 35 FOUNDATIO MINUTES N SBSQ 39724 [place] [address] MEDICAL ROSEMARY CARE/DAY SERV 35 FOUNDATIO MINUTES N SBSQ [address]9750 [place] [address] MEDICAL ROSEMARY CARE/DAY SERV 35 FOUNDATIO MINUTES N SBSQ 81089 [place] [address] MEDICAL CARE/DAY SERV 35 FOUNDATIO MINUTES N SBSQ 91439 [place] [address] MEDICAL CARE/DAY SERV 35 FOUNDATIO MINUTES N SBSQ 00550 [place] [address] MEDICAL CARE/DAY SERV 35 FOUNDATIO MINUTES N SBSQ 74274 [facility] 6 MEDICAL CARE/DAY SERV 35 FOUNDATIO MINUTES N RADIOLOGI [address] [place] [facility] 6 MEDICAL EXAMINATI SERV ON CHEST FOUNDATIO SINGLE N VIEW FRONTAL INITIAL 55445 [facility] 6 MEDICAL CARE/DAY SERV 70 FOUNDATIO MINUTES N RADIOLOGI 21269 [place] JEIMY 6 MEDICAL AYA MAR EXAMINATI SERV ON CHEST FOUNDATIO SINGLE N [place]IEW FRONTAL ECG 01839 [place] LIM[place] CHI ROUTINE 6 MEDICAL ECG SERV W/LEAST FOUNDATIO 12 LDS N I&R ONLY SWALLOWIN 72677 [place] AYJAMESB AND G FUNCJ 6 MEDICAL W/CINERAD SERV IOGRAPY/V FOUNDATIO IDRADIOG N HEPATOBIL 48376 [place] EL RASHMIOULI IARY SYST 6 MEDICAL IMAGING SERV INCLUDING FOUNDATIO N GALLBLADD ER ECG 23074 [place] PAULINO ROUTINE 6 MEDICAL NAN ECG SERV W/LEAST FOUNDATIO 12 LDS N I&R ONLY RADIOLOGI 40611 [place] MARVIN C 6 MEDICAL ALHAJI EXAMINATI SERV ON CHEST FOUNDATIO SINGLE N VIEW FRONTAL ECG 06214 [place] MARK ANIRUDH ROUTINE 6 MEDICAL ECG SERV W/LEAST FOUNDATIO 12 LDS N I&[place] [address] [place] JAY DAVID ABDOMEN & 6 MEDICAL PELVIS SERV [place] [address] [place] CHRISTIE ABDOMINAL 6 MEDICAL LETY REAL SERV TOMMY TIME FOUNDATIO W/IMAGE N LIMITED RADIOLOGI 83119 [place] GOPAL C 6 MEDICAL EXAMINATI SERV ON CHEST FOUNDATIO SINGLE N VIEW FRONTAL ECG 23571 [place] MARK ANIRUDH ROUTINE 6 MEDICAL ECG SERV W/LEAST FOUNDATIO 12 LDS N I&R ONLY RADIOLOGI 50113 [place] C 6 MEDICAL MEDICAL EXAMINATI SERV SERV ON CHEST FOUNDATIO FOUNDATIO SINGLE N N VIEW FRONTAL RADEX ABD 48272 [place] JAY DAVID COMPL 6 MEDICAL AQT ABD SERV W/S/E/D FOUNDATIO VIEWS 1 N VIEW CH MRI BRAIN 41278 [place] RASLAU BRAIN 6 MEDICAL FLA STEM W/O SERV CONTRAST FOUNDATIO MATERIAL N DUP-SCAN 69361 [place] GRIFFITH FABIENNE XTR VEINS 6 MEDICAL COMPLETE SERV FOUNDATIO BILATERAL N STUDY SWALLOWIN 03035 [place] JAY DAVID G FUNCJ 6 MEDICAL W/CINERAD SERV IOGRAPY/V FOUNDATIO IDRADIOG N RADIOLOGI 92316 [place] GOPAL C 6 MEDICAL EXAMINATI SERV ON CHEST FOUNDATIO SINGLE N VIEW FRONTAL SBSQ 68223 [place] [facility] 6 MEDICAL REINALDO CARE/DAY SERV 15 FOUNDATIO MINUTES N RADEX 42794 [place] [facility] NOHEMY ABDOMEN 1 6 MEDICAL SERV [place] [address] [place] AVA NAVARRETE ANGIOGRAP 6 MEDICAL HY NECK SERV W/CONTRAS FOUNDATIO T/NONCONT N RAST RADIOLOGI 81894 [place] IVELISSEK C 6 MEDICAL AYA MAR EXAMINATI SERV ON CHEST FOUNDATIO SINGLE N VIEW FRONTAL ECHO 43687 [place] JUAN GWENDOLYN TTHRC R-T 6 MEDICAL 2D SERV W/WOM-MOD FOUNDATIO E COMPL N SPEC&[place] [address] [place] AVA NAVARRETE ANGIOGRAP 6 MEDICAL HY HEAD SERV W/CONTRAS FOUNDATIO T/NONCONT N RAST INSERTION [id number] [facility] [place] 6 Y Y [facility] SUPERIOR VENA CAVA PERQ SBSQ 71866 [place] [facility] 6 MEDICAL ANT CARE/DAY SERV 25 FOUNDATIO MINUTES N RADEX 47366 [place] [facility] ABDOMEN 1 6 MEDICAL SERV ANTEROPOS FOUNDATIO TERIOR N VIEW INITIAL 13158 [place] ECKERLE INPATIENT 6 MEDICAL GUNNER CONSULT SERV NEW/ESTAB FOUNDATIO PT 55 N MIN RADIOLOGI 09394 [place] ANDRE C 6 MEDICAL ALHAJI EXAMINATI SERV ON CHEST FOUNDATIO SINGLE N VIEW FRONTAL RADIOLOGI 22564 [place] ANDRE C 6 MEDICAL ALHAJI EXAMINATI SERV ON [place] [address] [place] RASLAU HEAD/BRAI 6 MEDICAL FLA N W/O SERV CONTRAST FOUNDATIO MATERIAL N CRITICAL 96115 [place] [facility] 6 MEDICAL ANT ILL/INJUR SERV ED FOUNDATIO PATIENT N INIT 30-74 MIN CRITICAL 61217 [place] [facility] 6 MEDICAL ANT ILL/INJUR SERV ED FOUNDATIO PATIENT N INIT 30-74 MIN RADIOLOGI 53902 [place] ANDRE C 6 MEDICAL ALHAJI EXAMINATI SERV ON CHEST FOUNDATIO SINGLE N VIEW FRONTAL RADIOLOGI 18224 [place] DANIELAURAK C 6 MEDICAL AYA MAR EXAMINATI SERV ON CHEST FOUNDATIO SINGLE N VIEW FRONTAL CRITICAL 73855 [place] [facility] 6 MEDICAL ANT ILL/INJUR SERV ED FOUNDATIO PATIENT N INIT 30-74 MIN RADIOLOGI 10908 [place] ANDRE C 6 MEDICAL ALHAJI EXAMINATI SERV ON CHEST FOUNDATIO SINGLE N VIEW FRONTAL ANES 82843 [place] AJAY NERVE 6 MEDICAL LIS MUSC SERVICES TENDON FASCIA & BURSAE UPPER LEG LEVEL III 51359 [facility] SURG 6 [place] [facility] PATHOLOGY [place] [facility] GROSS&ALHAJI ROSCOPIC EXAM DEBRIDEME 43779 [place] XENOS TYLER NT MUSCLE 6 MEDICAL & FASCIA SERV 20 SQ FOUNDATIO CM/< N DEBRIDEME 20096 [place] XENOS TYLER NT MUSCLE 6 MEDICAL &/FASCIA SERV EA ADDL FOUNDATIO 20 SQ CM N RADIOLOGI 98971 [place] JEIMY C 6 MEDICAL AYA MAR EXAMINATI SERV ON CHEST FOUNDATIO SINGLE N VIEW FRONTAL RADIOLOGI 67719 [place] [facility] NOHEMY C 6 MEDICAL EXAMINATI SERV ON CHEST FOUNDATIO SINGLE N VIEW FRONTAL RADIOLOGI 60512 [place] ORA GWENDOLYN C 6 MEDICAL EXAMINATI SERV ON CHEST FOUNDATIO SINGLE N VIEW FRONTAL RADIOLOGI 39055 [place] VINCEUNIO C 6 MEDICAL MAR EXAMINATI SERV ON CHEST FOUNDATIO SINGLE N VIEW FRONTAL CRITICAL 09591 [place] AIME CARE 6 MEDICAL ANTOINE ILL/INJUR SERV ED FOUNDATIO PATIENT N INIT 30-74 MIN CRITICAL 37670 [place] [facility] 6 MEDICAL ANTOINE ILL/INJUR SERV ED FOUNDATIO PATIENT N INIT 30-74 MIN RADIOLOGI 26406 [place] [facility] NO[facility]MY C 6 MEDICAL EXAMINATI SERV ON CHEST FOUNDATIO SINGLE N VIEW FRONTAL RADEX 09003 [place] AYOOB AND ABDOMEN 1 6 MEDICAL SERV ANTEROPOS FOUNDATIO TERIOR N VIEW RADEX 28486 [place] RIDGE ABDOMEN 1 6 MEDICAL ADR SERV ANTEROPOS FOUNDATIO TERIOR N VIEW ANES 99040 [place] ERNA NRV/MUS/T 6 MEDICAL Y ANTOINE ND/FASC SERVICES LOWER LEG/ANKLE /FOOT NOS RADIOLOGI 05542 [place] PAYAN GWENDOLYN C 6 MEDICAL EXAMINATI SERV ON CHEST FOUNDATIO SINGLE N VIEW FRONTAL DCMPRN 92776 [place] GRIFFITH FABIENNE FASCT LEG 6 MEDICAL SERV ANT&/LAT& FOUNDATIO PST CMPRT N CRITICAL 80231 [place] [facility] 6 MEDICAL ANTOINE ILL/INJUR SERV ED FOUNDATIO PATIENT N INIT 30-74 MIN CRITICAL 72798 [place] [facility] 6 MEDICAL ANTOINE ILL/INJUR SERV ED FOUNDATIO PATIENT N INIT 30-74 MIN EMBLC/THR 81943 [place] STAN MBC 6 MEDICAL ROWENA FEMORAL SERV POPLITEAL FOUNDATIO N AORTO-YUKO AC ART DIL LT [id number] [facility] CMN ILIAC 6 Y Y ART [facility] INTRALUM DEVICE PERQ APPR EXTIRPATI [id number] [facility] ON MATTER 6 Y Y RT EXT [facility] ILIAC ART OPEN APPRCH DIL RT [id number] [facility] 6 Y Y ART [facility] INTRALUM DEVICE PERQ APPR RADIOLOGI 19793 [place] ANDRE C 6 MEDICAL ALHAJI EXAMINATI SERV ON CHEST FOUNDATIO SINGLE N VIEW FRONTAL ANESTHESI 78045 [place] ADAM A THER 6 MEDICAL RANDI IVNTL SERVICES RADIOLOGI CORIN ARTERIAL INTRAVASC 27207 [place] STAN ULAR US 6 MEDICAL ROWENA NONCORONA SERV RY RS&I FOUNDATIO INTIAL N VESSEL REVSC 36181 [place] OPN/PRQ 6 MEDICAL MEDICAL ILIAC ART SERV SERV W/STNT FOUNDATIO FOUNDATIO PLMT & N N ANGIOPLST Y LEVEL III 34302 [facility] SURG 6 Y OF PATHOLOGY [place] [facility] GROSS&ALHAJI ROSCOPIC EXAM RADIOLOGI 94376 [place] PAYAN GWENDOLYN C 6 MEDICAL EXAMINATI SERV ON CHEST FOUNDATIO SINGLE N VIEW FRONTAL CTA ABDL 79878 [place] ANDRE AORTA&BI 6 MEDICAL ALHAJI ILIOFEM SERV W/CONTRAS FOUNDATIO T&POSTP N ECG 38475 [place] LIMA CHI ROUTINE 6 MEDICAL ECG SERV W/LEAST FOUNDATIO 12 LDS N I&R ONLY CRITICAL 17801 [place] [facility] 6 MEDICAL ANTOINE ILL/INJUR SERV ED FOUNDATIO PATIENT N INIT 30-74 MIN CRITICAL 12423 [facility] 6 MEDICAL SURJIT ILL/INJUR SERV ED FOUNDATIO PATIENT N INIT 30-[address] [facility] SERVICE 6 AMBULANCE AMBULANCE ALS SERVICE SERVICE EMERGENCY TRANSPORT LEVEL 1 SBSQ 46043 [facility] 6 PHYSICIAN MAT CARE/DAY S GROUP 25 MINUTES ECG 04905 MELISSA LIMA CHI ROUTINE 6 MEDICAL ECG SERV W/LEAST FOUNDATIO 12 LDS N I&[place] [address] MELISSA RASLAU ANGIOGRAP 6 MEDICAL FLA HY HEAD SERV W/CONTRAS FOUNDATIO T/NONCONT N RAST REPLACEME [id number] [facility] 6 Y Y [facility] W/SYNTH SUBST OPEN APPRCH GROUND A[address] [facility] MILEAGE 6 AMBULANCE AMBULANCE PER SERVICE SERVICE STATUTE MILE SPCL STN 77965 [facility] 2 I&R 6 Y OF MAY EXCPT [place] [facility]/ HOSPI ENZYME/IM CYT INITIAL 75661 [facility] 6 MEDICAL CARE/DAY SERV 70 FOUNDATIO MINUTES N CATH PLMT 84760 [facility] HRT & 6 PHYSICIAN MAT ARTS S GROUP W/NJX & ANGIO IMG S&I CT ANGIO 22712 MELISSA NICKELS ABD&PLVIS 6 MEDICAL REINALDO CNTRST SERV MTRL W/WO FOUNDATIO CNTRST N IMG LEVEL III 35350 [facility] SURG 6 Y OF MAY PATHOLOGY [place] [facility]OSS[place] [address] [place] RASLAU ANGIOGRAP 6 MEDICAL FLA HY NECK SERV W/CONTRAS FOUNDATIO T/[place] [address] MELISSA NICKELS ANGIOGRAP 6 MEDICAL REINALDO HY CHEST SERV W/CONTRAS [place]OUNDAT[place] [address] [facility] ABDOMEN & 6 MEDICAL [place] PELVIS IMAGING W/O ASS CONTRAST MATERIAL RADIOLOGI 91373 [place] JORGE ALBERTO C 6 MEDICAL SOU[place] EXAMINATI IMAGING ON CHEST ASS SINGLE VIEW FRONTAL GROUND A[address] [facility] MILEAGE 6 AMBULANCE AMBULANCE PER SERVICE SERVICE STATUTE MILE CT THORAX 44537 HIPOLITO CLARKECHER W/O 6 MEDICAL [place] CONTRAST IMAGING MATERIAL ASS RADEX ABD 91560 HIPOLITO AZUL COMPL 6 MEDICAL [place] AQT ABD IMAGING W/S/E/D ASS VIEWS 1 VIEW CH AMB A[address] [facility] SERVICE 6 AMBULANCE AMBULANCE ALS SERVICE SERVICE EMERGENCY TRANSPORT LEVEL 1 PHYSICAL 41659 [facility] SIEGEL THERAPY 5 [facility] EVALUATIO INC INC N RADIOLOGI 48100 [place] TYLER ALL C 5 MEDICAL EXAMINATI IMAGING ON CHEST ASS SINGLE VIEW FRONTAL AMB A[address] [facility] SERVICE 5 AMBULANCE AMBULANCE ALS SERVICE SERVICE EMERGENCY TRANSPORT LEVEL 1 GROUND A0425 [facility] AMBULANCE PER SERVICE SERVICE STATUTE MILE NONEMERG A0120 FEDERATED FEDERATED TRNSPRT: 5 MINI-BUS TRANSPORT TRANSPORT MTN ATION SER ATION SER AREA/OTH SYS ANES 65341 [facility] [place] LOWER 5 ANESTH SHE INTESTINE OF THE BLUE ENDOSCOPY DISTAL DUODENUM EGD 88866 ROBBIN SIEGEL TRANSORAL 5 [facility] BIOPSY INC INC SINGLE/MU LTIPLE SPECIAL 82754 [facility] STAIN 5 LLC LIAM GROUP 1 MICROORGA NISMS I&R COLONOSCO 22536 [facility] SUKHDEV PY FLX DX 5 PHYSICIAN CAM W/COLLJ [place] [address] [facility]REZ SURG 5 LLC LIAM PATHOLOGY GROSS&ALHAJI ROSCOPIC EXAM DUP-SCAN 15397 HIPOLITO AZUL XTR VEINS 5 MEDICAL [place] IMAGING UNILATERA ASS L/LIMITED STUDY RADIOLOGI 42644 [facility] Coy 5 MEDICAL MELY EXAMINATI IMAGING ON CHEST ASS SINGLE VIEW FRONTAL ECG 22318 ROBBIN KHAN JR ROUTINE 5 [facility] W/LEAST P 12 LDS I&R ONLY RADIOLOGI 55105 [facility] MEDICAL MELY EXAMINATI IMAGING ON PELVIS ASS 1/2 VIEWS GROUND A0425 GENEVIEVE VALLEJO MILEAGE 5 AMBULANCE AMBULANCE PER SERVICE SERVICE STATUTE MILE AMBULANCE A0429 [facility] 5 AMBULANCE AMBULANCE BLS SERVICE SERVICE EMERGENCY TRANSPORT CULTURE 43224 ROBBIN SIEGEL BACTERIAL 5 [facility] INC INC QUANTTATI VE COLONY COUNT URINE CATH PLMT 02017 [facility] CORRINEUJI L HRT & 5 [facility] [employer] [facility] W/NJX & G ANGIO IMG S&I PROTHROMB 12274 ROBBIN SIEGEL IN TIME 5 [facility] INC INC HEPATITIS 55260 ROBBIN Orellana CORE 5 [facility] ANTIBODY INC INC HBCAB TOTAL HEPATITIS 71152 ROBBIN [place] SURF 5 [facility] [place] [address] ROBBIN SIEGEL HEPATITIS 5 [facility] B INC INC SURFACE ANTIGEN CRITICAL 82845 ROBBIN VARGAS CARE 5 [facility] ED P PATIENT ADDL 30 MIN CREATINE 17901 ROBBIN SIEGEL KINASE 5 [facility] TOTAL INC INC CYANOCOBA 99527 ROBBIN SIEGEL ISSAC 5 [facility] VITAMIN INC INC B-12 HEPATITIS 33786 [facility] SIEGEL A 5 [facility] ANTIBODY INC INC HAAB HEMOGLOBI 21360 ROB[facility] SIEGEL N 5 [facility] GLYCOSYLA INC INC CHRISTIE A1C BLOOD 33502 [facility] SIEGEL COUNT 5 [facility] COMPLETE INC INC AUTO&[place] [address] ROBBIN SIEGEL TROPONIN 5 [facility] QUANTITAT INC INC IMAN COLLECTIO 87635 [facility] SIEGEL N VENOUS 5 [facility] BLOOD INC INC VENIPUNCT URE COMPREHEN 73988 ROB[facility] SIEGEL SIVE 5 [facility] [address] ROBBIN SIEGEL AMMONIA 5 [facility] INC INC CREATINE 13125 ROBBIN ROBBIN KINASE MB 5 [facility] [place] [address] ROBBIN SIEGEL FREE 5 [facility] [place] [address] ROBBIN SIEGEL THYROID 5 [facility] STIMULATI [place] [address] ROBBIN SIEGEL VITAMIN A 5 [facility] INC INC CRITICAL 23195 ROBBIN SIEGEL CARE 5 [facility] ILL/INJUR [facility] ED P P PATIENT INIT 30-74 MIN RADIOLOGI 40694 HIPOLITO Coy EXAM 5 MEDICAL MELY CHEST 2 IMAGING VIEWS ASS FRONTAL&L ATERAL HEPATITIS 54018 ROBBIN SIEGEL C 5 [facility] ANTIBODY INC INC ECG 68908 ROBBIN GRAHAMRUBIO ROUTINE 5 [facility] W/LEAST P 12 LDS I&R ONLY OPHTH 85844 [facility] ANG ANG XM&EVAL COMPRHNSV ESTAB PT 1/> RADIOLOGI 39694 MELISSA LAIRD C 5 MEDICAL EXAMINATI SERV ON CHEST FOUNDATIO SINGLE N VIEW FRONTAL AMB A0427 BARRIE BARRIE SERVICE 5 FAYETTE FAYETTE ALS URBAN URBAN EMERGENCY COGOVT COGOVT TRANSPORT LEVEL 1 GROUND A0425 BARRIE BARRIE MILEAGE 5 FAYETTE FAYETTE PER URBAN URBAN STATUTE COGOVT COGOVT MILE MYOCARDIA 09291 [place] JORGE ALBERTO L SPECT 4 MEDICAL [place] MULTIPLE IMAGING STUDIES ASS ECHO 15863 MELISSA POOLE TTHRC R-T 4 MEDICAL 2D SERV W/WOM-MOD FOUNDATIO E COMPL N SPEC&COLR D CRITICAL 99484 [facility] CARE 4 MONCHO ILL/INJUR EMERGENCY ED PHYS PATIENT INIT 30-74 MIN RADIOLOGI 00287 HIPOLITO Coy 4 MEDICAL MELY EXAMINATI IMAGING ON CHEST ASS SINGLE VIEW FRONTAL ECG 38841 SAM VARGAS ROUTINE 4 ALHAJI ALHAJI ECG W/LEAST 12 LDS I&R ONLY AMB A0427 [facility] 4 AMBULANCE AMBULANCE ALS SERVICE SERVICE EMERGENCY TRANSPORT LEVEL 1 GROUND A0425 [facility] 4 AMBULANCE AMBULANCE PER SERVICE SERVICE STATUTE MILE Encounters Encounter Start End Date Code Location Performer Type Date EMERGENCY 38399 [place] 7 7 [facility] DEPARTMEN INC T VISIT LOW/MODER SEVERITY [facility]OSPITAL [facility] - 7 7 [facility] OUTPATIEN INC T EMERGENCY 98104 DEPT 7 7 [facility] VIS[facility] SEVERITY& THREAT [facility] 7 [facility] OUTPATIEN E T HOSPITALS EMERGENCY 30530 MELISSA MARTINEZ 7 7 MEDICAL DEPARTMEN SERV T VISIT FOUNDATIO HIGH/URGE N NT SEVERITY EMERGENCY 40136 [place] DEPT 7 7 [facility] VISIT INC HIGH SEVERITY& THREAT [facility] ROBBIN - 7 7 [facility] OUTPATIEN INC T EMERGENCY 45695 GABE POLK 6 6 PHYSICIAN NOHEMY [facility] T VISIT MODERATE SEVERITY OFFICE 36418 [facility] 6 6 PHYSICIAN ALHAJI T VISIT S GROUP 15 MINUTES HOSPITAL UNIVERSIT - 6 6 [facility] 34949 [facility] DEPT 6 6 Y VISIT HOSPITAL HIGH SEVERITY& THREAT [facility] EMERGENCY 50805 MELISSA QURESHI 6 6 MEDICAL DEPARTMEN SERV T VISIT FOUNDATIO HIGH/URGE N NT SEVERITY EMERGENCY 17804 GABE MOORE 6 6 PHYSICIAN JR CHENG [facility] T VISIT HIGH/URGE NT SEVERITY HOSPITAL ROBBIN - 6 6 [facility] OUTPATIEN INC T OFFICE 15626 [facility] 6 6 PHYSICIAN ALHAJI T VISIT S GROUP 15 MINUTES HOSPITAL ROBBIN - 6 6 [facility] OUTPATIEN [facility] T EMERGENCY 65027 GABE VARGAS 6 6 PHYSICIAN ALHAJI [facility] T VISIT MODERATE SEVERITY EMERGENCY 19057 ROBBIN 6 6 [facility] T VISIT LOW/MODER SEVERITY HOSPITAL ROBBIN - 6 6 [facility] OUTPATIEN [facility] ROBBIN - 6 6 [facility] OUTPATIEN [facility] - 6 6 [facility] 85155 MELISSA ANGELAERS 6 6 MEDICAL JOSESITO [facility] T VISIT FOUNDATIO MODERATE N SEVERITY HOSPITAL UNIVERSIT - 6 6 [facility] ROBBIN - 5 5 [facility] OUTPATIEN PENDING SALE TO [facility] EMERGENCY 83552 GABE VARGAS DEPT 5 5 PHYSICIAN ALHAJI VISIT S, PLLC HIGH SEVERITY& THREAT [facility] [place] ROBBIN - 5 5 [facility] OUTPATIEN PENDING SALE TO [facility] OFFICE 48988 [facility] SCHULSTMARVIN OUTPATIEN 5 5 PHYSICIAN CAM T NEW 45 S GROUP MINUTES OFFICE 89779 [facility] SCIFRES OUTPATIEN 5 5 ANG ANG T VISIT 15 MINUTES EMERGENCY 75176 ROBBIN VARGAS 5 5 [facility] T VISIT P HIGH/URGE NT SEVERITY HOSPITAL ROBBIN - 5 5 [facility] OUTPATIEN PENDING [facility] ROBBIN - 5 5 [facility] OUT[facility]IEN PENDING S[facility] TO [facility] EMERGENCY 40034 [facility] DEPT 5 5 [place] I ALI VISIT EMERGENCY HIGH PHYS SEVERITY& THREAT FUNCJ OFFICE 69977 [facility] SAM OUTPATIEN 4 4 PHYSICIAN ALHAJI T NEW 30 S GROUP MINUTES EMERGENCY 07680 SAM VARGAS DEPT 4 4 ALHAJI ALHAJI VISIT HIGH SEVERITY& THREAT FUNCJ
--- OUTSIDE RECORDS SUMMARY | 2017-03-13 16:12 | External Medical Summary Rpt ---
Author Author RASHMIBRIAN Salazar, [employer] Organization [employer] Address Unknown Phone Unavailable Results Basic metabolic panel in Blood Observa Value Referen Units Interpr Notes Date tion ce etation Range Urea 7 - 18 mg/dL Normal No Feb 17 nitrogen informati 2016 6:15 [Mass/vol on in AM ume] in source Serum or data Plasma Calcium 8.5 - mg/dL Normal No Feb 17 [Mass/vol 10.1 informati 2017 6:15 ume] in on in AM Serum or source Plasma data Chloride 98 - 107 mmoL/L High No Mar 06 [Moles/vo informati 2016 6:15 lume] in on in AM Serum or source Plasma data Carbon 21.0 - mmoL/L Normal No Feb 17 dioxide, 32.0 informati 2017 6:15 total on in AM [Moles/vo source lume] in data Serum or Plasma Creatinin 0.70 - mg/dL Normal No Feb 17 e 1.30 informati 2017 6:15 [Mass/vol on in AM ume] in source Serum or data Plasma Creatinin 50 - 200 ML/MIN Normal No Feb 17 e renal informati 2017 6:15 clearance on in AM source predicted data by Cockcroft -Gault formula Estimated >60 ML/MIN No REFERENCE Feb 17 informati RANGE: 2017 6:15 glomerula on in >60 AM r source ML/MIN/1. filtratio data 73 SQUARE n rate METERSIf (GF this patient is -A merican, then multiply theresult by 1.210. Glucose 74 - 106 mg/dL Normal No Feb 17 [Mass/vol informati 2016 6:15 ume] in on in AM Serum or source Plasma data Potassium 3.5 - 5.1 mmoL/L Normal No Feb 17 informati 2016 6:15 [Moles/vo on in AM lume] in source Serum or data Plasma Sodium 136 - 145 mmoL/L Normal No Feb 17 [Moles/vo informati 2016 6:15 lume] in on in AM Serum or source Plasma data CBC W Auto Differential panel in Blood Observa Value Referen Units Interpr Notes Date tion ce etation Range Basophils 0 - 0.2 K/MM3 Normal No Mar 06 inform2016 6:15 [#/volume on in AM ] in source Blood by data Automated count Basophils 0.1 - 2.0 % Normal No Mar 06 /100 informati 2016 6:15 leukocyte on in AM s in source Blood by data Automated count Eosinophi 0.0 - 0.4 K/mm3 Normal No Mar 06 ls informati 2016 6:15 [#/volume on in AM ] in source Blood by data Automated count Eosinophi 0.1 - % Normal No Mar 06 ls/100 12.0 informati 2016 6:15 leukocyte on in AM s in source Blood by data Automated count Granulocy 1.3 - 8.0 K/mm3 Normal No Mar 06 kailee informati 2016 6:15 [#/volume on in AM ] in source Blood by data Automated count Granulocy 37.0 - % Normal No Mar 06 kailee/100 80.0 informati 2016 6:15 leukocyte on in AM s in source Blood by data Automated count Hematocri 42.0 - % Normal No Mar 06 t [Volume 52.0 informati 2016 6:15 on in AM Fraction] source of Blood data Hemoglobi 14.1 - g/dL Normal No Mar 06 n 18.0 informati 2016 6:15 [Mass/vol on in AM ume] in source Blood data Lymphocyt 0.7 - 4.5 K/mm3 Normal No Mar 06 es informati 2016 6:15 [#/volume on in AM ] in source Unspecifi data ed specimen by Automated count Lymphocyt 10 - 50 % Normal No Mar 06 es informati 2016 6:15 [#/volume on in AM ] in source Unspecifi data ed specimen by Automated count Erythrocy 27 - 31.2 pg High No Mar 06 te mean informati 2016 6:15 corpuscul on in AM ar source hemoglobi data n [Entitic mass] Erythrocy 31.8 - g/dl Low No Mar 06 te mean 35.4 informati 2016 6:15 corpuscul on in AM ar source hemoglobi data n concentra tion [Mass/vol ume] by Automated count Erythrocy 82.2 - fl High No Mar 06 te mean 97.8 informati 2016 6:15 corpuscul on in AM ar volume source [Entitic data volume] by Automated count Monocytes 0.1 - 1.0 K/mm3 Normal No Mar 062016 6:15 [#/volume on in AM ] in source Blood by data Automated count Monocytes 1.7 - 9.3 % Normal No Feb 17 /100 informati 2016 6:15 leukocyte on in AM s in source Blood by data Automated count Platelet 7.4 - fl Normal No Mar 06 mean 10.4 informati 2016 6:15 volume on in AM [Entitic source volume] data in Blood by Automated count Platelets 142 - 424 K/mm3 Normal No Mar 062016 6:15 [#/volume on in AM ] in source Blood data Erythrocy 4.6 - 6.2 M/mm3 Low No Mar 06 kailee ati 2016 6:15 [#/volume on in AM ] in source Amniotic data fluid Erythrocy 11.5 - % Normal No Mar 06 te 17.5 informati 2016 6:15 distribut on in AM ion width source [Entitic data volume] by Automated count Leukocyte 4.8 - K/MM3 Normal No Mar 06 s 10.8 2016 6:15 [#/volume on in AM ] in source Blood data Lipid 1996 panel in Serum or Plasma Observa Value Referen Units Interpr Notes Date tion ce etation Range COMMENTS TO DIRECTOR AGENCY [employer] STRATEGIC PARTNERSHIPS: PER [place] PROTOCOL Cholester < 200 mg/dL No No Feb 16 ol informati informati 2016 8:10 [Moles/vo on in on in AM lume] in source source Unspecifi data data ed specimen Cholester 40 - 60 MG/DL High No Mar 05 ol in HDL informati 2016 8:10 on in AM [Mass/vol source ume] in data Serum or Plasma Cholester 0 - 130 mg/dL Normal No Mar 05 ol in LDL informati 2016 8:10 on in AM [Mass/vol source ume] in data Serum or Plasma by calculati on Triglycer 30 - 200 mg/dL Normal No Mar 05 dewey 2016 8:10 [Moles/vo on in AM lume] in source Serum or data Plasma Cholester 0 - 40 No Normal No Mar 05 ol in informati informati 2016 8:10 VLDL on in on in AM [Mass/vol source source ume] in data data Serum or Plasma Cardiac enzymes Observa Value Referen Units Interpr [...] [place] DE LA CRUZ RN 03/05/17 0[address] [place] [facility] Creatine 39 - 308 U/L High No [...] Alkaline 46 - 116 U/L Normal No Mar 05 phosphata informati 2016 4:05 se on in AM [Enzymati source c data activity/ volume] in Serum or Plasma Bilirubin 0.2 - 1.0 mg/dL Normal No Mar 05 .total informati 2016 4:05 [Mass/vol on in AM ume] in source Serum or data Plasma Urea 7 - 18 mg/dL Normal No Mar 05 nitrogen informati 2016 4:05 [Mass/vol on in [...] Normal No Feb 16 e 1.30 informati 2017 4:05 [Mass/vol on in AM ume] in [...] Potassium 3.5 - 5.1 mmoL/L Low No Mar 05 informati 2016 4:05 [Moles/vo on in AM lume] in source Serum or data Plasma Sodium 136 - 145 mmoL/L Normal No Feb 16 [Moles/vo informati 2016 4:05 lume] in on in AM Serum or source Plasma data Aspartate 15 - 37 U/L Normal No Feb 16 informati 2016 4:05 aminotran on in AM sferase source [Enzymati data c activity/ volume] in Serum or Plasma Alanine 12 - 78 U/L Normal No Feb 16 aminotran informati 2016 4:05 sferase on in AM [Enzymati source c data activity/ volume] in Serum or Plasma Protein 6.4 - 8.2 gm/dL High No Feb 16 [Mass/vol informati [...] 0 - 0.2 K/MM3 Normal No Mar 05 informati 2016 4:05 [#/volume on in AM ] in source Blood by data Automated count Basophils 0.1 - 2.0 % Normal No Mar 05 /100 informati 2016 4:05 leukocyte on in AM s in source Blood by data Automated count Eosinophi 0.0 - 0.4 K/mm3 Normal No Mar 05 ls informati 2016 4:05 [#/volume on in AM ] in source Blood by data Automated count Eosinophi 0.1 - % Normal No Mar 05 ls/100 12.0 informati 2016 4:05 leukocyte on in AM s in source Blood by data Automated count Granulocy 1.3 - 8.0 K/mm3 Normal No Mar 05 kailee informati 2016 4:05 [#/volume on in AM ] in source Blood by data Automated count Granulocy 37.0 - % Normal No Mar 05 kailee/100 80.0 informati 2016 4:05 leukocyte on in AM [...] K/mm3 Normal No Mar 05 es informati 2017 4:05 [#/volume on in AM [...] No Mar 05 te mean 35.4 informati 2017 4:05 corpuscul on in AM ar source hemoglobi data n concentra tion [Mass/vol ume] by Automated count Erythrocy 82.2 - fl High No Mar 05 te mean 97.8 informati 2017 4:05 corpuscul on in AM ar volume source [Entitic data volume] by Automated count Monocytes 0.1 - 1.0 K/mm3 Normal No Mar 05 informati 2016 4:05 [#/volume on in AM ] in source Blood by data Automated count Monocytes 1.7 - 9.3 % Normal No Mar 05 /100 informati 2017 4:05 leukocyte on in AM s in source Blood by data Automated count Platelet 7.4 - fl Normal No Mar 05 mean 10.4 informati 2017 4:05 volume on in AM [Entitic source volume] data in Blood by Automated count Platelets 142 - 424 K/mm3 Normal No Mar 05 informati 2017 4:05 [#/volume on in AM ] in source Blood data Erythrocy 4.6 - 6.2 M/mm3 Low No Mar 05 kailee informati 2016 4:05 [#/volume on in AM ] in source Amniotic data fluid Erythrocy 11.5 - % Normal No Mar 05 te 17.5 informati 2017 4:05 distribut on in AM ion width source [Entitic data volume] by Automated count Leukocyte 4.8 - K/MM3 Normal No Feb 16 s 10.8 informati 2017 4:05 [#/volume on in AM ] in source Blood data
--- OUTSIDE RECORDS SUMMARY | 2017-03-13 16:12 | External Medical Summary Rpt ---
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
[2017-03-13 16:17] LABS: HEMOGLOBIN 14.4 g/dL (14.1-18.0); LYMPH # 1.6 K/mm3 (0.7-4.5); LYMPH % 21.8 % (10-50)
--- NOTE | 2017-03-13 17:38 | Emergency Room Report ---
See Addendum History of Present Illness Time Seen by [id number] Presenting Problem in Triage Pt arrived:Walked Presenting Problem:PT REPORTS CHEST PRESSURE AT THIS TIME. 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 N Clinical Suspician of Infection? N Mental Status: 1 - Regular (Normal Baseline) Sepsis Risk:Low Sepsis Risk Have you (or family members/close friends) recently traveled outside the [place]? N If Yes, where/when: Have you had exposure to infectious disease within the past month? N TB? Other? Specify: Source patient, RN notes reviewed, RN/MD Exam Limitations no limitations Comment This is a 51-year-old Afro-[place] gentleman brought to the emergency room by Manager Of Information's Department for evaluation of his chest pain and medical clearance. Patient was arrested on also any quadrants around 10:30 PM, however he advised that guardian at local [facility] that he developed chest pain 30 minutes prior to arrival to the emergency room, midsternal, radiating to the LEFT jaw and LEFT shoulder, associated with shortness of breath. The patient was admitted to this facility on 03/05/70 under similar circumstances, while being under arrest and complaining with chest pain. At that time his cardiac enzymes were elevated (troponin=0.16). Patient reportedly had more than 5 cardiac catheterizations, with the last one in October 2015 revealing an ascending aortic dissection for which patient was transferred to [facility] for surgery. Patient also has a history of RIGHT lower extremity vascular compromise with resultant fasciotomy post dissection repair. Patient advised that he has not been taking his medications in weeks. Review of medical chart reveals that on previous hospitalization patient was noncompliant on his medications as well, also not taking his medications for a long time. ALLERGIES Coded Allergies: hydrocodone (From LORTAB) (Mild, VOMITING 03/05/17) Home Medications Active Scripts LISINOPRIL (Lisinopril) 20 MG PO BID 30 Days Prov: 03/06/17 Carvedilol (Carvedilol 12.5MG) 12.5 MG PO BID 30 Days Prov: 03/06/17 DILTIAZEM HCL (Tiazac 180MG) 180 MG PO BID 30 Days Prov: 03/06/17 Reported Medications Aspirin 81 MG PO DAILY #30 Atorvastatin Calcium 80 MG PO DAILY #30 Sertraline Hcl (Zoloft 25MG) 25 MG PO DAILY Gabapentin (Gabapentin 600MG) 800 MG PO TID History Medical History General CAD? Yes Angina: Yes NH: Yes Hypertension? Yes Hyperlipidemia? Yes CHF? No DVT? Yes PE? No COPD? No Asthma? Yes Anemia? No GERD? No Gastric ulcers? No GI Bleed? No Hernia? No Thyroid Problems? No Hypothyroidism? No CVA? Yes Seizures? No Diabetes? No Renal Insuffiency? No End Stage Renal Disease? No UTI? No Stones? No BPH? No GB Disease: No Nephritic Syndrome? No Asplenia? No Hepatitis? No Sickle Cell Disease? No Arthritis? No Migraines? No Cataracts? No Glaucoma? No MRSA? No HIV? No TB? No Anxiety? No Depression? No Cancer? No More? No Immunization Hx DT/Tetanus Unknown Flu Refused Pneumonia Refuses Surgical Hx Previous Surgery?Y CARDIAC CATH X4 AAA RIGHT LEG FASCIOTOMY OPEN HEART SURGERY Family History Family Hx Diabetes Yes CAD Yes Hypertension Yes Hyperlipidemia Yes Cancer Yes TB No Social History Smoking Hx Smoker: Former Smoker Tobacco: No Packs/day N/A Alcohol Alcohol: Yes Review of Systems All Other Systems Reviewed and Negative Cardiovascular chest pain Physical Exam Vital Signs Vital Signs Date Time Temp Pulse Resp B/P Pulse O2 O2 Flow FiO2 Ox Delivery Rate 03/13 1839 87 03/13 183 98.2 87 18 177/100 03/13 183 98 ROOM AIR 03/13 183 98.2 87 18 177/100 98 ROOM AIR 03/13 181 98.3 90 18 195/103 98 03/13 1729 98.3 90 18 195/103 98 03/13 1643 90 16 176/98 98 03/13 1557 98.0 95 18 197/97 97 General Appearance normal appearance, WD/WN, mild distress Respiratory Status Yes: trachea midline, chest symmetrical, non tender chest. No: respiratory distress. Lung Sounds bilateral: normal breath sounds, lungs clear. Cardiovascular normal exam, regular rate/rhythm, no peripheral edema, no gallop, no JVD, no murmur, no rub, normal peripheral pulses Peripheral Pulses Pulses normal Yes Gastrointestinal normal bowel sounds, normal exam, non tender, soft, no organomegaly Back normal inspection, no CVA tenderness, no vertebral tenderness Extremities non-tender, normal range of motion, normal inspection Neurologic alert, brusher operator II-XII nml as tested, normal exam, oriented x 3 Mental status normal mood/affect Skin normal color, warm/dry, midsternal surgical scar, consistent with open- heart surgery Medical Decision Making LABS/Meds/Orders Pt receiving controlled substance in ED? No Comment 1715-case discussed with Dr. Harrison Hankins, advised of patient's presentation and findings, elevated cardiac enzymes, at a higher level (0.20) than a week ago (0.16). Dr. Hankins agreeable with consultation/admission, and plans to continue serial cardiac enzymes, and reevaluate later on. 1720-case discussed with Dr. Thomas, covering for Dr. Quintanilla, advised of the above, agreeable with admission. Case/care transferred to Dr. Hankins/Dr. Thomas/Dr. Quintanilla at this time. I will write temporary admission orders per hospital protocol. Upon patient's presentation to the floor, the unit nurse will contact PCP and vein access technician for full inpatient admission noticed. Obviously patient has multiple cardiac risk factors, however his last cardiac catheterization in October 2015 revealed no coronary disease. Results/Orders Laboratory Tests 03/13/17 1605: Amylase 57, Lipase 103 03/13/17 1605: Sodium 143, Potassium 4.2, Chloride 108 H, Carbon Dioxide 27, BUN 15, Creatinine 1.3, Estimated Creat Clear 75, Estimated GFR (MDRD) 58, Glucose 89, Calcium 9.1, Total Bilirubin 0.4, AST 20, ALT 22, Alkaline Phosphatase 104, Creatine Kinase 390 H, CK-MB (CK-2) Rel Index 2.0, CK and CKMB Interp 7.7 H, Troponin I 1.20 H, Total Protein 8.1, Albumin 3.6, Globulin 4.5 H, Albumin/ Globulin Ratio 0.8 L, D-Dimer 1800 *H, WBC 7.2, RBC 4.36 L, Hgb 14.4, Hct 45.5 , MCV 104.1 H, RDW 12.3, Plt Count 215, MPV 7.9, Gran % 61.3, Gran # 4.4, Lymphocytes % 21.8, Monocytes % 7.9, Eosinophils % 8.1, Basophils % 0.9, Lymphocytes # 1.6, Monocytes # 0.6, Eosinophils # 0.6 H, Basophils # 0.1, PUBS MCHC 31.6 L, MCH 32.9 H 03/13/17 1603: PT 10.2, INR 0.94 Current Medication Orders Sig/Paul Start time Last Medication Dose Route Stop Time Status Admin Warfarin Sodium 5 MG 1100 03/14 1100 UNV PO Clopidogrel Bisulfate 75 MG DAILY 03/14 0900 UNV PO Carvedilol 12.5 MG BID 03/13 2100 UNV 03/13 PO 2029 Diltiazem HCl 180 MG BID 03/13 2100 UNV 03/13 PO 2031 Enoxaparin Sodium 80 MG BID 03/13 2100 UNV SC Gabapentin 800 MG TID 03/13 2100 UNV 03/13 PO 2031 Lisinopril 20 MG BID 03/13 2100 UNV 03/13 PO 2032 Influenza Virus 0.5 ML PRN PRN 03/13 1800 UNV Vaccine Quadrival IM Nicotine 21 MG DAILYP PRN 03/13 1800 UNV TD Sodium Chloride 1,000 ML .[id number] 03/13 1800 UNV 03/13 IV 1837 Aspirin 81 MG DAILY 03/13 1757 UNV PO Clopidogrel Bisulfate 0 .STK-MED ONE 03/13 1721 DC PO Enoxaparin Sodium 0 .STK-MED ONE 03/13 1721 DC SC Nitroglycerin 0 .STK-MED ONE 03/13 1721 DC .ROUTE Amlodipine Besylate 0 .STK-MED ONE 03/13 1720 DC .ROUTE Metoprolol Tartrate 0 .STK-MED ONE 03/13 1720 DC .ROUTE Amlodipine Besylate 5 MG ONCE ONE 03/13 1700 DC 03/13 PO 03/13 1701 172 Clopidogrel Bisulfate 300 MG ONCE ONE 03/13 1700 DC 03/13 PO 03/13 1701 172 Enoxaparin Sodium 80 MG ONCE ONE 03/13 1700 DC 03/13 SC 03/13 1701 172 Metoprolol Tartrate 25 MG ONCE ONE 03/13 1700 DC 03/13 PO 03/13 1701 1723 Nitroglycerin 1 IN ONCE ONE 03/13 1700 DC 03/13 TP 03/13 1701 1723 Aspirin 0 .STK-MED ONE 03/13 1637 DC .ROUTE Aspirin 325 MG ONCE ONE 03/13 1600 DC 03/13 PO 03/13 1601 1637 Sodium Chloride 10 ML PRN PRN 03/13 1600 AC IV 03/14 1558 Orders Procedure Date/time Status COMPLETE METABOLIC PANEL 03/14 0600 Active CBC WITH AUTO DIFF 03/14 0600 Active CARDIAC ENZYMES 03/13 2000 Complete ADMITTED PT IS ACTUALLY IN BED 03/13 1834 Active Decision to admit 03/13 1736 Active PROTHROMBIN TIME 03/13 1649 Complete URINALYSIS/COMPLETE 03/13 1622 Complete DRUG ABUSE SCREEN (10) 03/13 1622 Complete ELECTROCARDIOGRAM REQUEST 03/13 1559 Active CHEST-PORTABLE 03/13 1559 Active IV SALINE LOCK 03/13 1559 Active SNAKER 03/13 1559 Active LIPASE 03/13 1559 Complete D-DIMER 03/13 1559 Complete COMPLETE METABOLIC PANEL 03/13 1559 Complete CBC WITH AUTO DIFF 03/13 1559 Complete CARDIAC ENZYMES 03/13 1559 Complete AMYLASE 03/13 1559 Complete ADMIT PATIENT 03/13 UNK Active PULSE OXIMETRY REQUEST 03/13 UNK Active OXYGEN REQUEST 03/13 UNK Active VITAL SIGNS 03/13 UNK Active PRINTING ROLLER HANDLER 03/13 UNK Active POM NURSE CHRISTIE HOSE ORDER 03/13 UNK Active CODE STATUS 03/13 UNK Active PATIENT ACTIVITY ORDER 03/13 UNK Active SPECIALTY [facility] PHYS CONSULT 03/13 UNK Active CM/EKG CM/decorator inspector Rhythm Normal Sinus Rhythm Rate 88 Ectopy No Comments LBBB EKG rate (88), NSR, rhythm (LBBB, regular), no ectopy, compared w/(date of old) (same) XRAY/CT/US XRAY/CT/US XRAY chest XR interpretation by discussed w/radiologist Xray Results no infiltrates, normal heart size, normal lung inflation ovidio Departure Departure Time of Disposition 1735 Disposition Still a Patient Clinical Impression Primary Impression: Chest pain Qualifiers: Chest pain type: unspecified Qualified Code: R07.9 - Chest pain, unspecified Secondary Impressions: Cardiac enzymes elevated, Cocaine abuse, Noncompliance Condition STABLE ED Critical Care Critical Care No at [id number]
--- NOTE | 2017-03-13 17:38 | Emergency Room Report ---
See Addendum History of Present Illness Time Seen by [id number] Presenting Problem in Triage Pt arrived:Walked Presenting Problem:PT REPORTS CHEST PRESSURE AT THIS TIME. 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 PT BROUGHT TO ER BY [facility] FOR MEDICAL CLEARANCE Onset of symptoms date/time:03/13/17/ or onset unknown for:MEDICAL HX UNKNOWN Treatment Prior to Arrival: [employer]P [employer] Provided by: Sepsis Risk Assessment: Temp: 98.3 B/P: 195/103 MAP: 130 Pulse: 90 Resp: 18 Recent fever? N Clinical Suspician of Infection? N Mental Status: 1 - Regular (Normal Baseline) Sepsis Risk:Low Sepsis Risk Have you (or family members/close friends) recently traveled outside the [place]? N If Yes, where/when: Have you had exposure to infectious disease within the past month? N TB? Other? Specify: Source patient, RN notes reviewed, RN/MD Exam Limitations no limitations Comment This is a 51-year-old Afro-Botswanan gentleman brought to the emergency room by [facility] for evaluation of his chest pain and medical clearance. Patient was arrested on also any quadrants around 10:30 PM, however he advised that guardian at local half-way that he developed chest pain 30 minutes prior to arrival to the emergency room, midsternal, radiating to the LEFT jaw and LEFT shoulder, associated with shortness of breath. The patient was admitted to this facility on 03/05/70 under similar circumstances, while being under arrest and complaining with chest pain. At that time his cardiac enzymes were elevated (troponin=0.16). Patient reportedly had more than 5 cardiac catheterizations, with the last one in October 2015 revealing an ascending aortic dissection for which patient was transferred to [facility] for surgery. Patient also has a history of RIGHT lower extremity vascular compromise with resultant fasciotomy post dissection repair. Patient advised that he has not been taking his medications in weeks. Review of medical chart reveals that on previous hospitalization patient was noncompliant on his medications as well, also not taking his medications for a long time. ALLERGIES Coded Allergies: hydrocodone (From LORTAB) (Mild, VOMITING 03/05/17) Home Medications Active Scripts LISINOPRIL (Lisinopril) 20 MG PO BID 30 Days Prov: 03/06/17 Carvedilol (Carvedilol 12.5MG) 12.5 MG PO BID 30 Days Prov: 03/06/17 DILTIAZEM HCL (Tiazac 180MG) 180 MG PO BID 30 Days Prov: 03/06/17 Reported Medications Aspirin 81 MG PO DAILY #30 Atorvastatin Calcium 80 MG PO DAILY #30 Sertraline Hcl (Zoloft 25MG) 25 MG PO DAILY Gabapentin (Gabapentin 600MG) 800 MG PO TID History Medical History General CAD? Yes Angina: Yes AL: Yes Hypertension? Yes Hyperlipidemia? Yes CHF? No DVT? Yes PE? No COPD? No Asthma? Yes Anemia? No GERD? No Gastric ulcers? No GI Bleed? No Hernia? No Thyroid Problems? No Hypothyroidism? No CVA? Yes Seizures? No Diabetes? No Renal Insuffiency? No End Stage Renal Disease? No UTI? No Stones? No BPH? No GB Disease: No Nephritic Syndrome? No Asplenia? No Hepatitis? No Sickle Cell Disease? No Arthritis? No Migraines? No Cataracts? No Glaucoma? No MRSA? No HIV? No TB? No Anxiety? No Depression? No Cancer? No More? No Immunization Hx DT/Tetanus Unknown Flu Refused Pneumonia Refuses Surgical Hx Previous Surgery?Y CARDIAC CATH X4 AAA RIGHT LEG FASCIOTOMY OPEN HEART SURGERY Family History Family Hx Diabetes Yes CAD Yes Hypertension Yes Hyperlipidemia Yes Cancer Yes TB No Social History Smoking Hx Smoker: Former Smoker Tobacco: No Packs/day N/A Alcohol Alcohol: Yes Review of Systems All Other Systems Reviewed and Negative Cardiovascular chest pain Physical Exam Vital Signs Vital Signs Date Time Temp Pulse Resp B/P Pulse O2 O2 Flow FiO2 Ox Delivery Rate 03/13 1839 87 03/13 183 98.2 87 18 177/100 03/13 183 98 ROOM AIR 03/13 183 98.2 87 18 177/100 98 ROOM AIR 03/13 181 98.3 90 18 195/103 98 03/13 1729 98.3 90 18 195/103 98 03/13 1643 90 16 176/98 98 03/13 1557 98.0 95 18 197/97 97 General Appearance normal appearance, WD/WN, mild distress Respiratory Status Yes: trachea midline, chest symmetrical, non tender chest. No: respiratory distress. Lung Sounds bilateral: normal breath sounds, lungs clear. Cardiovascular normal exam, regular rate/rhythm, no peripheral edema, no gallop, no JVD, no murmur, no rub, normal peripheral pulses Peripheral Pulses Pulses normal Yes Gastrointestinal normal bowel sounds, normal exam, non tender, soft, no organomegaly Back normal inspection, no CVA tenderness, no vertebral tenderness Extremities non-tender, normal range of motion, normal inspection Neurologic alert, customer loyalty representative II-XII nml as tested, normal exam, oriented x 3 Mental status normal mood/affect Skin normal color, warm/dry, midsternal surgical scar, consistent with open- heart surgery Medical Decision Making LABS/Meds/Orders Pt receiving controlled substance in ED? No Comment 1715-case discussed with Dr. Harrison Hankins, advised of patient's presentation and findings, elevated cardiac enzymes, at a higher level (0.20) than a week ago (0.16). Dr. Hankins agreeable with consultation/admission, and plans to continue serial cardiac enzymes, and reevaluate later on. 1720-case discussed with Dr. Thomas, covering for Dr. Quintanilla, advised of the above, agreeable with admission. Case/care transferred to Dr. Hankins/Dr. Thomas/Dr. Quintanilla at this time. I will write temporary admission orders per hospital protocol. Upon patient's presentation to the floor, the unit nurse will contact PCP and customer acquisition specialist for full inpatient admission noticed. Obviously patient has multiple cardiac risk factors, however his last cardiac catheterization in October 2015 revealed no coronary disease. Results/Orders Laboratory Tests 03/13/17 1605: Amylase 57, Lipase 103 03/13/17 1605: Sodium 143, Potassium 4.2, Chloride 108 H, Carbon Dioxide 27, BUN 15, Creatinine 1.3, Estimated Creat Clear 75, Estimated GFR (MDRD) 58, Glucose 89, Calcium 9.1, Total Bilirubin 0.4, AST 20, ALT 22, Alkaline Phosphatase 104, Creatine Kinase 390 H, CK-MB (CK-2) Rel Index 2.0, CK and CKMB Interp 7.7 H, Troponin I 1.20 H, Total Protein 8.1, Albumin 3.6, Globulin 4.5 H, Albumin/ Globulin Ratio 0.8 L, D-Dimer 1800 *H, WBC 7.2, RBC 4.36 L, Hgb 14.4, Hct 45.5 , MCV 104.1 H, RDW 12.3, Plt Count 215, MPV 7.9, Gran % 61.3, Gran # 4.4, Lymphocytes % 21.8, Monocytes % 7.9, Eosinophils % 8.1, Basophils % 0.9, Lymphocytes # 1.6, Monocytes # 0.6, Eosinophils # 0.6 H, Basophils # 0.1, PUBS MCHC 31.6 L, MCH 32.9 H 03/13/17 1603: PT 10.2, INR 0.94 Current Medication Orders Sig/Paul Start time Last Medication Dose Route Stop Time Status Admin Warfarin Sodium 5 MG 1100 03/14 1100 UNV PO Clopidogrel Bisulfate 75 MG DAILY 03/14 0900 UNV PO Carvedilol 12.5 MG BID 03/13 2100 UNV 03/13 PO 2029 Diltiazem HCl 180 MG BID 03/13 2100 UNV 03/13 PO 2031 Enoxaparin Sodium 80 MG BID 03/13 2100 UNV SC Gabapentin 800 MG TID 03/13 2100 UNV 03/13 PO 2031 Lisinopril 20 MG BID 03/13 2100 UNV 03/13 PO 2032 Influenza Virus 0.5 ML PRN PRN 03/13 1800 UNV Vaccine Quadrival IM Nicotine 21 MG DAILYP PRN 03/13 1800 UNV TD Sodium Chloride 1,000 ML .[id number] 03/13 1800 UNV 03/13 IV 1837 Aspirin 81 MG DAILY 03/13 1757 UNV PO Clopidogrel Bisulfate 0 .STK-MED ONE 03/13 1721 DC PO Enoxaparin Sodium 0 .STK-MED ONE 03/13 1721 DC SC Nitroglycerin 0 .STK-MED ONE 03/13 1721 DC .ROUTE Amlodipine Besylate 0 .STK-MED ONE 03/13 1720 DC .ROUTE Metoprolol Tartrate 0 .STK-MED ONE 03/13 1720 DC .ROUTE Amlodipine Besylate 5 MG ONCE ONE 03/13 1700 DC 03/13 PO 03/13 1701 172 Clopidogrel Bisulfate 300 MG ONCE ONE 03/13 1700 DC 03/13 PO 03/13 1701 172 Enoxaparin Sodium 80 MG ONCE ONE 03/13 1700 DC 03/13 SC 03/13 1701 172 Metoprolol Tartrate 25 MG ONCE ONE 03/13 1700 DC 03/13 PO 03/13 1701 1723 Nitroglycerin 1 IN ONCE ONE 03/13 1700 DC 03/13 TP 03/13 1701 1723 Aspirin 0 .STK-MED ONE 03/13 1637 DC .ROUTE Aspirin 325 MG ONCE ONE 03/13 1600 DC 03/13 PO 03/13 1601 1637 Sodium Chloride 10 ML PRN PRN 03/13 1600 AC IV 03/14 1558 Orders Procedure Date/time Status COMPLETE METABOLIC PANEL 03/14 0600 Active CBC WITH AUTO DIFF 03/14 0600 Active CARDIAC ENZYMES 03/13 2000 Complete ADMITTED PT IS ACTUALLY IN BED 03/13 1834 Active Decision to admit 03/13 1736 Active PROTHROMBIN TIME 03/13 1649 Complete URINALYSIS/COMPLETE 03/13 1622 Complete DRUG ABUSE SCREEN (10) 03/13 1622 Complete ELECTROCARDIOGRAM REQUEST 03/13 1559 Active CHEST-PORTABLE 03/13 1559 Active IV SALINE LOCK 03/13 1559 Active DRUM SANDER SETTER 03/13 1559 Active LIPASE 03/13 1559 Complete D-DIMER 03/13 1559 Complete COMPLETE METABOLIC PANEL 03/13 1559 Complete CBC WITH AUTO DIFF 03/13 1559 Complete CARDIAC ENZYMES 03/13 1559 Complete AMYLASE 03/13 1559 Complete ADMIT PATIENT 03/13 UNK Active PULSE OXIMETRY REQUEST 03/13 UNK Active OXYGEN REQUEST 03/13 UNK Active VITAL SIGNS 03/13 UNK Active FIELD STAFF 03/13 UNK Active POM NURSE CHRISTIE HOSE ORDER 03/13 UNK Active CODE STATUS 03/13 UNK Active PATIENT ACTIVITY ORDER 03/13 UNK Active SPECIALTY CLINIC PHYS CONSULT 03/13 UNK Active CM/EKG CM/sample shoe inspector and reworker Rhythm Normal Sinus Rhythm Rate 88 Ectopy No Comments LBBB EKG rate (88), NSR, rhythm (LBBB, regular), no ectopy, compared w/(date of old) (same) XRAY/CT/US XRAY/CT/US XRAY chest XR interpretation by discussed w/radiologist Xray Results no infiltrates, normal heart size, normal lung inflation ovidio Departure Departure Time of Disposition 1735 Disposition Still a Patient Clinical Impression Primary Impression: Chest pain Qualifiers: Chest pain type: unspecified Qualified Code: R07.9 - Chest pain, unspecified Secondary Impressions: Cardiac enzymes elevated, Cocaine abuse, Noncompliance Condition STABLE ED Critical Care Critical Care No at [id number]
--- OUTSIDE RECORDS SUMMARY | 2017-03-13 17:49 | External Medical Summary Rpt | CCD ---
Demographics Preferred Language Israeli Marital Status Unknown Mandaen Affiliation Unknown Race Unknown Ethnic Group Unknown Author Author ALEIDA Address Unknown Phone Purpose Continuity of Care Document - through 2016
--- OUTSIDE RECORDS SUMMARY | 2017-03-13 17:49 | External Medical Summary Rpt | CCD ---
Author Author , DEVENDRA Organization DEVENDRA Address Unknown Phone [email or web address] Providers Care Senior Communications Specialist Name Role Phone Simba Quintanilla MD, Unavailable Unavailable Simba Quintanilla MD Purpose Continuity of Care Document - 09-10-2012 through 2016 Problems Code Diagnosis DOS Provider Status 401.9 401.9 [facility] 410.71 AC 09-10-2012 [facility] IN[facility]ARCT,[facility] ENDO INFARCT,INI TIAL EPIS 493.90 493.90 09-10-2012 [place] [facility], [facility] UNSPECIFIED Hospital Allergies, Adverse Reactions, Alerts [...] t Range on CBC w auto diff (03-13-2017 16:05) Automat = 0.1 0-0.2 complet ed 017 K/MM3 ed blood 16:05 basophi l count (count/ vo Baso % = 0.9 % 0.1-2.0 complet 017 ed 16:05 Automat = 0.6 0.0-0.4 complet ed 017 K/mm3 ed blood 16:05 eosinop hil count Automat = 8.1 % 0.1-12. complet ed 017 0 ed blood 16:05 eosinop hils/10 0 leukocy t Blood = 4.4 1.3-8.0 complet granulo 017 K/mm3 ed cytes 16:05 automat ed count (numb Granulo = 61.3 37.0-80 complet cyte 017 % .0 ed percent 16:05 age Blood = 45.5 42.0-52 complet hematoc 017 % .0 ed rit 16:05 (volume fractio n) Blood = 14.4 14.1-18 complet hemoglo 017 g/dL .0 ed bin 16:05 measure ment (mass/v olum Absolut = 1.6 0.7-4.5 complet e 017 K/mm3 ed lymphoc 16:05 yte count Lymphoc = 21.8 10-50 complet yte 017 % ed count, 16:05 blood, automat ed Mean = 32.9 27-31.2 complet corpusc 017 pg ed ular 16:05 hemoglo bin (MCH) determ Automat = 31.6 31.8-35 complet ed 017 g/dl .4 ed erythro 16:05 cyte mean corpusc ular h Automat = 104.1 82.2-97 complet ed 017 fl .8 ed erythro 16:05 cyte mean corpusc ular v Absolut = 0.6 0.1-1.0 complet e 017 K/mm3 ed monocyt 16:05 e count Austin % = 7.9 % 1.7-9.3 complet 017 ed 16:05 Automat 2 = 7.9 7.4-10. complet ed 017 fl 4 ed blood 16:05 platele t mean volume lakshmi Blood = 215 142-424 complet platele 017 K/mm3 ed t count 16:05 Red = 4.36 4.6-6.2 complet blood 017 M/mm3 ed cell 16:05 count Automat = 12.3 11.5-17 complet ed 017 % .5 ed erythro 16:05 cyte distrib ution width Blood = 7.2 4.8-10. complet leukocy 017 K/MM3 8 ed kailee 16:05 count (number /volume ) Amylase ser/plas (03-13-2017 16:05) Amylase = 57 25-115 complet 017 U/L ed ser/jose 16:05 s Lipase measurement (03-13-2017 16:05) Lipase = 103 73-393 complet measure 017 U/L ed ment 16:05 Comprehensive metabolic panel (03-13-2017 16:05) Serum = 0.8 1.1-1.8 complet or 017 ed plasma 16:05 albumin /globul in mass ra Serum = 3.6 3.4-5.0 complet or 017 gm/dL ed plasma 16:05 albumin measure ment (mas Serum = 104 46-116 complet or 017 U/L ed plasma 16:05 alkalin e phospha tase lakshmi Serum = 0.4 0.2-1.0 complet or 017 mg/dL ed plasma 16:05 total bilirub in measure m Serum = 15 7-18 complet or 017 mg/dL ed plasma 16:05 urea nitroge n measure men Serum = 9.1 8.5-10. complet or 017 mg/dL 1 ed plasma 16:05 calcium measure ment (mas Serum 03-13-2 = 108 98-107 complet or 017 mmoL/L ed plasma 16:05 chlorid e measure ment (mo Carbon 03-13-2 = 27 21.0-32 complet dioxide 017 mmoL/L .0 ed 16:05 measure ment Serum 03-13-2 = 1.3 0.70-1. complet or 017 mg/dL 30 ed plasma 16:05 creatin ine measure ment ( Estimat 03-13-2 = 75 50-200 complet ion of 017 ML/MIN ed creatin 16:05 ine renal clearan ce Estimat 03-13-2 = 58 >60 complet ed 017 ML/MIN ed glomeru 16:05 lar filtrat ion rate (GF Comment: REFERENCE RANGE: >60 ML/MIN/1.73 SQUARE METERS Comment: If this patient is -Bahraini, then multiply the Comment: result by 1.210. Serum 03-13-2 = 4.5 1.3-3.2 complet globuli 017 gm/dL ed n 16:05 measure ment (mass/v olume) Serum 03-13-2 = 89 74-106 complet or 017 mg/dL ed plasma 16:05 glucose measure ment (mas Serum 2 = 4.2 3.5-5.1 complet potassi 017 mmoL/L ed um 16:05 measure ment Comment: POTASSIUM MAY BE FALSELY ELEVATED DUE TO SLIGHT HEMOLYSIS Serum 03-13-2 = 143 136-145 complet sodium 017 mmoL/L ed measure 16:05 ment Serum 03-13-2 = 20 15-37 complet or 017 U/L ed plasma 16:05 asparta te aminotr ansfera Comment: AST MAY BE FALSELY ELEVATED DUE TO SLIGHT HEMOLYSIS ALT 03-13-2 = 22 12-78 complet (SGPT) 017 U/L ed ser/jose 16:05 s Protein = 8.1 6.4-8.2 complet total 017 gm/dL ed ser/jose 16:05 s D-dimer (03-13-2017 16:05) D-dimer = 1800 0-400 complet 017 ng/mL ed 16:05 Comment: NOTIFICATION RESULT Comment: The D-Dimer values are presented in units of mass(ng/mL) of Comment: D-Dimer units(DDU). Comment: Comment: This test has been FDA approved as an aid in the assessment Comment: and evaluation of suspected DIC, and thromboembolic events Comment: including PE and DVT. However, it does not have approval Comment: for cut-off values for the exclusion of these conditions. Cardiac enzymes (03-13-2017 16:05) Serum 2 = 1.20 0.00-0. complet or 017 ng/mL 06 ed plasma 16:05 troponi n i.cardi ac measu Comment: CRITICAL RESULTS Comment: RESULTS CALLED TO: MYLESQuangJOSS 03/13/17 1651 Michelle Larios Comment: > 0.5 IS CONSISTENT WITH MYOCARDIAL ISCHEMIA OR INFARCTION Serum 2 = 390 39-308 complet or 017 U/L ed plasma 16:05 creatin e kinase measure m Serum = 7.7 0.0-3.6 complet or 017 ng/mL ed plasma 16:05 creatin e kinase MB measu Serum = 2.0 0-4.0 complet or 017 U/L ed plasma 16:05 creatin e kinase MB (CK-M Whole blood INR measurement (03-13-2017 16:03) Comment: IS PATIENT ON ANTICOAGULANTS? Y Comment: LIST ANTICOAGULANTS: Comment: WARFARIN Whole = 0.94 0.9-1.1 complet blood 017 ed INR 16:03 measure ment Comment: INDICATION INR RANGE Comment: Comment: THERAPY FOR DVT, PE, ATRIAL FIB; 2.0 - 3.0 Comment: PROPHYLAXIS FOR VTE Comment: Comment: THERAPY FOR MECHANICAL HEART 2.5 - 3.5 Comment: VALVE; PREVENTION OF SYSTEMIC Comment: EMBOLISM SECONDARY TO AMI Prothro = 10.2 9.4-11. complet mbin 017 SECONDS 8 ed time 16:03 (PT) in platele t poor p CBC w auto diff (03-06-2017 06:15) Blood [...] blood 06:15 platele t mean volume lakshmi [place] % = 7.5 % 1.7-9.3 complet 017 [...] blood 06:15 basophi l count (count/ vo Basic metabolic panel (03-06-2017 06:15) Serum 03-06-2 = 143 136-145 complet sodium 017 mmoL/L [...] SQUARE METERS Comment: If this patient is -Bahraini, then multiply the Comment: result by 1.210. [...] plasma 06:15 calcium measure ment (mas Serum 2 = 15 7-18 complet or 017 mg/dL ed plasma 06:15 urea nitroge n measure men Lipid profile (03-05-2017 08:10) Comment: COMMENTS TO WELDER APPRENTICE COMBINATION: PER [place] PROTOCOL Serum = 6.6 0-40 complet or [...] 017 mg/dL ed christine 08:10 measure ment Comprehensive metabolic panel (03-05-2017 04:05) Protein = [...] SQUARE METERS Comment: If this patient is -Bahraini, then multiply the Comment: result by 1.210. [...] Comment: CRITICAL RESULTS Comment: RESULTS CALLED TO: eKnya DE LA CRUZ RN 03/05/17 045 Gutierrez Das Comment: > 0.5 IS CONSISTENT WITH MYOCARDIAL ISCHEMIA OR INFARCTION Serum = 518 39-308 complet or 017 U/L ed plasma 04:05 creatin e kinase measure m Serum = 11.2 0.0-3.6 complet or 017 ng/mL ed plasma 04:05 creatin e kinase MB measu Comment: CRITICAL RESULTS Comment: RESULTS CALLED TO: Kenya DE LA CRUZ RN 03/05/17 045Gutierrez Bernabe Serum = 2.2 0-4.0 complet or 017 U/L ed plasma 04:05 creatin e kinase MB (CK-M CBC w auto diff (03-05-2017 04:05) Blood [...] blood 04:05 platele t mean volume lakshmi [place] % = 6.6 % 1.7-9.3 complet 017 [...] blood 04:05 basophi l count (count/ vo Activated partial thromboplastin time (a (03-05-2017 04:05) [...] OF SYSTEMIC Comment: EMBOLISM SECONDARY TO AMI NT-proBNP SerPl-mCnc (09-03-2016 02:01) NT-proB 574 0-899 complet HEARING CONSULTANT 017 pg/mL ed SerPl-m 02:01 Cnc Phosphate SerPl-mCnc (09-03-2016 02:01) Phospha 2.8 2.5-4.5 complet te 017 mg/dL ed SerPl-m 02:01 Cnc Magnesium SerPl-mCnc (09-03-2016 02:01) Magnesi 04-16-2 2.2 1.9-2.4 complet um 017 mg/dL ed SerPl-m 02:01 Cnc COMPREHENSIVE METABOLIC PANEL (09-10-2012 18:40) Glucose 09-10-2 98 74-106 complet 013 mg/dL ed Bld-mCn 18:40 c BUN 09-10-2 16 7-18 complet Bld-mCn 013 mg/dL ed c 18:40 Creat 09-10-2 1.6 0.8-1.3 complet SerPl-m 013 mg/dL ed Cnc 18:40 GFR 09-10-2 47 Greater complet (ESTIMA 013 ML/MIN than ed CHRISTIE) 18:40 60 Sodium 09-10-2 140 136-145 complet SerPl-s 013 mmoL/L ed Cnc 18:40 Potassi 09-10-2 4.4 3.5-5.1 complet um 013 mmoL/L ed SerPl-s 18:40 Cnc Chlorid 09-10-2 103 98-107 complet e 013 mmoL/L ed SerPl-s 18:40 Cnc CO2 09-10-2 30 21.0-32 complet SerPl-s 013 mmoL/L .0 ed Cnc 18:40 Calcium 09-10-2 9.2 8.5-10. complet 013 mg/dL 1 ed SerPl-m 18:40 Cnc Prot 23-2 7.5 6.4-8.2 complet SerPl-m 013 gm/dL ed Cnc 18:40 Albumin 09-10-2 3.8 3.4-5.0 complet 013 gm/dL ed SerPl-m [...] 013 K/mm3 ed Bld 18:40 Auto Lymphoc 09-10-2 2.1 0.7-4.5 complet ytes Fr 013 K/mm3 ed Bld 18:40 Auto Monocyt 09-10-2 0.5 0.1-1.0 complet es # 013 K/mm3 ed Bld 18:40 Auto Eosinop 09-10-2 0.6 0.0-0.4 complet hil # 013 K/mm3 ed Bld 18:40 Auto Basophi 2 0.1 0-0.2 complet ls # 013 K/MM3 ed Bld 18:40 Auto Encounters Encounter Start End Date Code Location Performer Type Date Emergency ARMIDA Quintanilla MD (ER) 3 18:12 3 22:52 [facility]
--- OUTSIDE RECORDS SUMMARY | 2017-03-13 17:49 | External Medical Summary Rpt | CCD ---
Author Author , DEVENDRA Organization DEVENDRA Address Unknown Phone [email or web address] Providers Care Note Teller Name Role Phone Simba Quintanilla MD, Unavailable Unavailable Simba Quintanilla MD Purpose Continuity of Care Document - 09-10-2012 through 2016 Problems Code Diagnosis DOS Provider Status 401.9 401.9 [facility]71 410.71 AC 09-10-2012 [facility]CT,[facility] ENDO INFARCT,INI TIAL EPIS 493.90 493.90 09-10-2012 [place] [facility]HMA, [facility] UNSPECIFIED Hospital Allergies, Adverse Reactions, Alerts [...] 017 K/mm3 ed monocyt 16:05 e count Wilson % = 7.9 % 1.7-9.3 complet 017 [...] SQUARE METERS Comment: If this patient is -French, then multiply the Comment: result by 1.210. [...] blood 06:15 platele t mean volume lakshmi Wilson % = 7.5 % 1.7-9.3 complet 017 [...] SQUARE METERS Comment: If this patient is -French, then multiply the Comment: result by 1.210. [...] Lipid profile (03-05-2017 08:10) Comment: COMMENTS TO RIGHT OF WAY WORKER: PER [place] PROTOCOL Serum = 6.6 0-40 complet or [...] SQUARE METERS Comment: If this patient is -French, then multiply the Comment: result by 1.210. 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
--- OUTSIDE RECORDS SUMMARY | 2017-03-13 17:49 | External Medical Summary Rpt | CCD ---
Demographics Preferred Language Nigerian Marital Status Unknown Latter Day Affiliation Unknown Race Unknown Ethnic Group Unknown Author Author , ALEIDA RAMSAY Address Unknown Phone [email or web address] Immunization Name Date Rout CVX Reac Dose Comm Prov Is Faci e tion ent ider Refu lity Give sed n Td 03-0 9 999 Hist H149 No H149 (dada 6-19 ori lt), 97 al Info adso rmat rbed ion - Sour ce Unsp ecif ied
--- OUTSIDE RECORDS SUMMARY | 2017-03-13 17:49 | External Medical Summary Rpt | CCD ---
Demographics Preferred Language Citizen Of [place] Marital Status Unknown Presybeterian Affiliation Unknown Race Unknown Ethnic Group Unknown Author Author ALEIDA Address Unknown Phone Purpose Continuity of Care Document - through 2016
--- OUTSIDE RECORDS SUMMARY | 2017-03-13 17:49 | External Medical Summary Rpt | CCD ---
Demographics Preferred Language [place] Islander Marital Status Unknown Mosque Affiliation Unknown Race Unknown Ethnic Group Unknown Author Author , ALEIDA RAMSAY Address Unknown Phone [email or web address] Immunization Name Date Rout CVX Reac Dose Comm Prov Is Faci e tion ent ider Refu lity Give sed n Td 03-0 9 999 Hist H149 No H149 (dada 6-19 ori lt), 97 al Info adso rmat rbed ion - Sour ce Unsp ecif ied
--- OUTSIDE RECORDS SUMMARY | 2017-03-13 17:50 | External Medical Summary Rpt ---
Author Author DEVENDRA Salazar, DEVENDRA [employer] Address Unknown Phone Unavailable Results Fibrin D-dimer FEU [Mass/volume] in Platelet poor plasma Observa Value Referen Units Interpr Notes Date tion ce etation Range Fibrin 0 - 400 ng/mL High Mar 13 D-dimer alert NOTIFICAT 2017 4:05 FEU ION PM [Mass/vol RESULT ume] in The Platelet D-Dimer poor values plasma are presented in units of mass(ng/m L) ofD-Dimer units(DDU ).This test has been FDA approved as an aid in the assessmen tand evaluatio n of suspected DIC, and thromboem bolic eventsinc luding PE and DVT. However, it does not have approvalf or cut-off values for the exclusion of these condition s. Cardiac enzymes Observa Value Referen Units Interpr Notes Date tion ce etation Range Creatine 0 - 4.0 U/L Normal No Mar 13 kinase.MB informati 2017 4:05 /Creatine on in PM source kinase.to data nola [Ratio] in Serum or Plasma Creatine 0.0 - 3.6 ng/mL High No Mar 13 kinase.MB informati 2017 4:05 on in PM [Mass/vol source ume] in data Serum or Plasma Creatine 39 - 308 U/L High No Mar 13 kinase informati 2017 4:05 [Enzymati on in PM c source activity/ data volume] in Serum or Plasma Troponin 0.00 - ng/mL High Mar 13 I.cardiac 0.06 2017 4:05 CRITICAL PM [Mass/vol RESULTS ume] in Serum or RESU Plasma LTS CALLED TO: HALEY 03/13/17 1651 Ric,[place] nda> 0.5 IS CONSISTEN T WITH MYOCARDIA L ISCHEMIA OR INFARCTIO N Comprehensive metabolic 2000 panel in Serum or Plasma Observa Value Referen Units Interpr Notes Date tion ce etation Range Albumin/G 1.1 - 1.8 No Low No Oct 24 lobulin informati informati 2017 4:05 [Mass on in on in PM ratio] in source source Serum or data data Plasma Albumin 3.4 - 5.0 gm/dL Normal No Feb 24 [Mass/vol informati 2017 4:05 ume] in on in PM Serum or source Plasma data Alkaline 46 - 116 U/L Normal No Feb 24 phosphata informati 2017 4:05 se on in PM [Enzymati source c data activity/ volume] in Serum or Plasma Bilirubin 0.2 - 1.0 mg/dL Normal No Feb 24 .total informati 2016 4:05 [Mass/vol on in PM ume] in source Serum or data Plasma Urea 7 - 18 mg/dL Normal No Feb 24 nitrogen informati 2017 4:05 [Mass/vol on in PM ume] in source Serum or data Plasma Calcium 8.5 - mg/dL Normal No Feb 24 [Mass/vol 10.1 informati 2017 4:05 ume] in on in PM Serum or source Plasma data Chloride 98 - 107 mmoL/L High No Feb 24 [Moles/vo informati 2016 4:05 lume] in on in PM Serum or source Plasma data Carbon 21.0 - mmoL/L Normal No Feb 24 dioxide, 32.0 informati 2017 4:05 total on in PM [Moles/vo source lume] in data Serum or Plasma Creatinin 0.70 - mg/dL Normal No Feb 24 e 1.30 informati 2017 4:05 [Mass/vol on in PM ume] in source Serum or data Plasma Creatinin 50 - 200 ML/MIN Normal No Feb 24 e renal informati 2017 4:05 clearance on in PM source predicted data by Cockcroft -Gault formula Estimated >60 ML/MIN No REFERENCE Oct 24 informati RANGE: 2017 4:05 glomerula on in >60 PM r source ML/MIN/1. filtratio data 73 SQUARE n rate METERSIf (GF this patient is -A merican, then multiply theresult by 1.210. Globulin 1.3 - 3.2 gm/dL High No Feb 24 [Mass/vol informati 2017 4:05 ume] in on in PM Serum source data Glucose 74 - 106 mg/dL Normal No Mar 13 [Mass/vol informati 2016 4:05 ume] in on in PM Serum or source Plasma data Potassium 3.5 - 5.1 mmoL/L Normal POTASSIUM Mar 13September 4:05 [Moles/vo FALSELY PM lume] in ELEVATED Serum or DUE TO Plasma SLIGHT HEMOLYSIS Sodium 136 - 145 mmoL/L Normal No Mar 13 [Moles/vo informati 2016 4:05 lume] in on in PM Serum or source Plasma data Aspartate 15 - 37 U/L Normal AST SeptemberMar 132016 4:05 aminotran FALSELY PM sferase ELEVATED [Enzymati DUE TO c SLIGHT activity/ HEMOLYSIS volume] in Serum or Plasma Alanine 12 - 78 U/L Normal No Mar 13 aminotran informati 2016 4:05 sferase on in PM [Enzymati source c data activity/ volume] in Serum or Plasma Protein 6.4 - 8.2 gm/dL Normal No Mar 13 [Mass/vol informati 2016 4:05 ume] in on in PM Serum or source Plasma data Amylase [Enzymatic activity/volume] in Serum or Plasma Observa Value Referen Units Interpr Notes Date tion ce etation Range Amylase 25 - 115 U/L Normal No Mar 13 [Enzymati informati 2016 4:05 c on in PM activity/ source volume] data in Serum or Plasma Lipase [Enzymatic activity/volume] in Serum or Plasma Observa Value Referen Units Interpr Notes tion ce etation Range Lipase 73 - 393 U/L Normal No Mar 13 [Enzymati informati 2016 4:05 c on in PM activity/ source volume] data in Serum or Plasma CBC W Auto Differential panel in Blood Observa Value Referen Units Interpr Notes Date tion ce etation Range Basophils 0 - 0.2 K/MM3 Normal No Mar 13 informati 2016 4:05 [#/volume on in PM ] in source Blood by data Automated count Basophils 0.1 - 2.0 % Normal No Mar 13 / informati 2016 4:05 leukocyte on in PM s in source Blood by data Automated count Eosinophi 0.0 - 0.4 K/mm3 High No Mar 13 ls informati 2016 4:05 [#/volume on in PM ] in source Blood by data Automated count Eosinophi 0.1 - % Normal No Mar 13 ls/100 12.0 informati 2016 4:05 leukocyte on in PM s in source Blood by data Automated count Granulocy 1.3 - 8.0 K/mm3 Normal No Feb 24 kailee informati 2016 4:05 [#/volume on in PM ] in source Blood by data Automated count Granulocy 37.0 - % Normal No Feb 24 kailee/100 80.0 informati 2017 4:05 leukocyte on in PM s in source Blood by data Automated count Hematocri 42.0 - % Normal No Mar 13 t [Volume 52.0 informati 2016 4:05 on in PM Fraction] source of Blood data Hemoglobi 14.1 - g/dL Normal No Mar 13 n 18.0 informati 2016 4:05 [Mass/vol on in PM ume] in source Blood data Lymphocyt 0.7 - 4.5 K/mm3 Normal No Mar 13 es informati 2016 4:05 [#/volume on in PM ] in source Unspecifi data ed specimen by Automated count Lymphocyt 10 - 50 % Normal No Mar 13 es informati 2016 4:05 [#/volume on in PM ] in source Unspecifi data ed specimen by Automated count Erythrocy 27 - 31.2 pg High No Mar 13 te mean informati 2016 4:05 corpuscul on in PM ar source hemoglobi data n [Entitic mass] Erythrocy 31.8 - g/dl Low No Mar 13 te mean 35.4 informati 2016 4:05 corpuscul on in PM ar source hemoglobi data n concentra tion [Mass/vol ume] by Automated count Erythrocy 82.2 - fl High No Mar 13 te mean 97.8 informati 2016 4:05 corpuscul on in PM ar volume source [Entitic data volume] by Automated count Monocytes 0.1 - 1.0 K/mm3 Normal No Mar 13 informati 2016 4:05 [#/volume on in PM ] in source Blood by data Automated count Monocytes 1.7 - 9.3 % Normal No Mar 13 /100 informati 2017 4:05 leukocyte on in PM s in source Blood by data Automated count Platelet 7.4 - fl Normal No Mar 13 mean 10.4 informati 2016 4:05 volume on in PM [Entitic source volume] data in Blood by Automated count Platelets 142 - 424 K/mm3 No No Mar 13 informati informati 2016 4:05 [#/volume on in on in PM ] in source source Blood data data Erythrocy 4.6 - 6.2 M/mm3 Low No Mar 13 kailee informati 2016 4:05 [#/volume on in PM ] in source Amniotic data fluid Erythrocy 11.5 - % Normal No Mar 13 te 17.5 informati 2017 4:05 distribut on in PM ion width source [Entitic data volume] by Automated count Leukocyte 4.8 - K/MM3 Normal No Feb 24 s 10.8 informati 2016 4:05 [#/volume on in PM ] in source Blood data INR in Blood by Coagulation assay Observa Value Referen Units Interpr Notes Date tion ce etation Range IS PATIENT ON ANTICOAGULANTS? Y LIST ANTICOAGULANTS: WARFARIN INR in 0.9 - 1.1 No Normal INDICATIO Mar 13 Blood by informati N 2016 4:03 Coagulati on in PM on assay source INR data RANGETHER APY FOR DVT, PE, ATRIAL FIB; 2.0 - 3.0PROPHY LAXIS FOR VTETHERAP Y FOR MECHANICA L HEART 2.5 - 3.5VALVE; PREVENTIO N OF SYSTEMICE MBOLISM SECONDARY TO AMI Prothromb 9.4 - SECONDS Normal No Mar 13 in time 11.8 informati 2016 4:03 (PT) in on in PM Platelet source poor data plasma by Coagulati on assay Basic metabolic panel in Blood Observa Value Referen Units Interpr Notes Date tion ce etation Range Urea 7 - 18 mg/dL Normal No Mar 06 nitrogen informati 2016 6:15 [Mass/vol on in AM ume] in source Serum or data Plasma Calcium 8.5 - mg/dL Normal No Mar 06 [Mass/vol 10.1 informati 2017 6:15 ume] in on in AM Serum or source Plasma data Chloride 98 - 107 mmoL/L High No Mar 06 [Moles/vo informati 2017 6:15 lume] in on in AM Serum or source Plasma data Carbon 21.0 - mmoL/L Normal No Mar 06 dioxide, 32.0 informati 2016 6:15 total on in AM [Moles/vo source lume] in data Serum or Plasma Creatinin 0.70 - mg/dL Normal No Mar 06 e 1.30 informati 2017 6:15 [Mass/vol on in AM ume] in source Serum or data Plasma Creatinin 50 - 200 ML/MIN Normal No Mar 06 e renal informati 2016 6:15 clearance on in AM source predicted data by Cockcroft -Gault formula Estimated >60 ML/MIN No REFERENCE Mar 06 informati RANGE: 2017 6:15 glomerula on in >60 AM r source ML/MIN/1. filtratio data 73 SQUARE n rate METERSIf (GF this patient is -A merican, then multiply theresult by 1.210. Glucose 74 - 106 mg/dL Normal No Mar 06 [Mass/vol informati 2016 6:15 ume] in on in AM Serum or source Plasma data Potassium 3.5 - 5.1 mmoL/L Normal No Mar 06 inform2016 6:15 [Moles/vo on in AM lume] in source Serum or data Plasma Sodium 136 - 145 mmoL/L Normal No Mar 06 [Moles/vo informati 2016 6:15 [...] - 2.0 % Normal No Mar 06 / informati 2016 6:15 leukocyte on in AM s in source Blood by data Automated count Eosinophi 0.0 - 0.4 K/mm3 Normal No Mar 06 ls 2016 6:15 [#/volume on in AM ] [...] Normal No Mar 06 t [Volume 52.0 inform2016 6:15 on in AM Fraction] source of Blood data Hemoglobi 14.1 - g/dL Normal No Mar 06 n 18.0 informati 2016 6:15 [Mass/vol on in AM ume] in source Blood data Lymphocyt 0.7 - 4.5 K/mm3 Normal No Mar 06 es informati 2017 6:15 [#/volume on in AM ] in source Unspecifi data ed specimen by Automated count Lymphocyt 10 - 50 % Normal No Mar 06 es informati 2017 6:15 [#/volume on in AM ] in source Unspecifi data ed specimen by Automated count Erythrocy 27 - 31.2 pg High No Mar 06 te mean informati 2016 6:15 corpuscul on in AM ar source hemoglobi data n [Entitic mass] Erythrocy 31.8 - g/dl Low No Mar 06 te mean 35.4 informati 2017 6:15 corpuscul on in AM ar source hemoglobi data n concentra tion [Mass/vol ume] by Automated count Erythrocy 82.2 - fl High No Mar 06 te mean 97.8 informati 2016 6:15 corpuscul on in AM ar volume source [Entitic data volume] by Automated count Monocytes 0.1 - 1.0 K/mm3 Normal No Mar 06 informati 2016 6:15 [#/volume on in AM ] in source Blood by data Automated count Monocytes 1.7 - 9.3 % Normal No Feb 17 /100 informati 2017 6:15 leukocyte on in AM s in source Blood by data Automated count Platelet 7.4 - fl Normal No Mar 06 mean 10.4 informati 2016 6:15 volume on in AM [Entitic source volume] data in Blood by Automated count Platelets 142 - 424 K/mm3 Normal No Mar 06 inform2016 6:15 [#/volume on in AM ] in source Blood data Erythrocy 4.6 - 6.2 M/mm3 Low No Mar 06 kailee informati 2016 6:15 [#/volume on in AM ] in source Amniotic data fluid Erythrocy 11.5 - % Normal No Mar 06 te 17.5 informati 2016 6:15 distribut on in AM ion width source [Entitic data volume] by Automated count Leukocyte 4.8 - K/MM3 Normal No Mar 06 s 10.8 informati 2016 6:15 [#/volume on in AM ] in source Blood data Lipid 1996 panel in Serum or Plasma Observa Value Referen Units Interpr Notes Date tion ce etation Range COMMENTS TO HEAD ROSE GROWER: PER [place] PROTOCOL Cholester < 200 mg/dL No No Feb 16 ol informati informati 2017 8:10 [Moles/vo on in on in AM lume] in source source Unspecifi data data ed specimen Cholester 40 - 60 MG/DL High No Mar 05 ol in HDL informati 2017 8:10 on in AM [Mass/vol source ume] in data Serum or Plasma Cholester 0 - 130 mg/dL Normal No Mar 05 ol in LDL informati 2016 8:10 on in AM [Mass/vol source ume] in data Serum or Plasma by calculati on Triglycer 30 - 200 mg/dL Normal No Feb 16 dewey informati 2016 8:10 [Moles/vo on in AM lume] [...] No No Mar 05 kinase.MB informati informati 2017 4:05 /Creatine on in on in AM source source kinase.to data data nola [Ratio] in Serum or Plasma Creatine 0.0 - 3.6 ng/mL High Mar 05 kinase.MB alert 2016 4:05 CRITICAL AM [Mass/vol RESULTS ume] in Serum or RESU Plasma LTS CALLED TO: [place] DE LA CRUZ RN 03/05/17 0451 [place] Das hn Creatine 39 - 308 U/L High [...] Albumin/G 1.1 - 1.8 No Low No Feb 16 lobulin informati informati 2016 4:05 [Mass on in on in AM ratio] in source source Serum or data data Plasma Albumin 3.4 - 5.0 gm/dL Normal No Feb 16 [Mass/vol informati 2016 4:05 [...] Plasma Calcium 8.5 - mg/dL Normal No Mar 05 [Mass/vol 10.1 informati 2016 4:05 ume] in on in AM Serum or source Plasma data Chloride 98 - 107 mmoL/L Normal No Mar 05 [Moles/vo informati 2016 4:05 lume] in on in AM Serum or source Plasma data Carbon 21.0 - mmoL/L Normal No Mar 05 dioxide, 32.0 informati 2017 4:05 total on in AM [Moles/vo source lume] in data Serum or Plasma Creatinin 0.70 - mg/dL Normal No Feb 16 e 1.30 informati 2016 4:05 [Mass/vol on in AM ume] in source Serum or data Plasma Creatinin 50 - 200 ML/MIN Normal No Feb 16 e renal informati 2016 4:05 clearance on in AM source predicted [...] Glucose 74 - 106 mg/dL High No Mar 05 [Mass/vol informati 2016 4:05 ume] in on in AM Serum or source Plasma data Potassium 3.5 - 5.1 mmoL/L Low No Mar 05 informati 2016 4:05 [Moles/vo on in AM lume] in source Serum or data Plasma Sodium 136 - 145 mmoL/L Normal No Mar 05 [Moles/vo inform2016 4:05 lume] in on in AM Serum or source Plasma data Aspartate 15 - 37 U/L Normal No Mar 05 inform2016 4:05 aminotran on in AM sferase source [Enzymati data c activity/ volume] in Serum or Plasma Alanine 12 - 78 U/L Normal No Mar 05 aminotran informati 2016 4:05 sferase on in [...] Normal No Mar 05 mean 10.4 informati 2016 4:05 volume on in AM [Entitic source [...] Normal No Mar 05 s 10.8 informati 2016 4:05 [#/volume on in AM ] in source Blood data
--- OUTSIDE RECORDS SUMMARY | 2017-03-13 17:50 | External Medical Summary Rpt ---
Author Author DEVENDRA Salazar, [employer]A [employer] Organization [employer] Address Unknown Phone Unavailable [...] Plasma LTS CALLED TO: HALEY 03/13/17 1651 Ric,[place] nda> 0.5 IS CONSISTEN T WITH MYOCARDIA [...] Date tion ce etation Range COMMENTS TO [employer]PER[employer]ELINE [employer]INTENANCE: PER [place] PROTOCOL Cholester < 200 mg/dL No No [...]
[2017-03-13 18:32] VITALS: BP 177/100
[2017-03-13 18:39] VITALS: BP 177/100
[2017-03-13 20:01] VITALS: BP 146/95
[2017-03-13 23:43] VITALS: BP 122/72
[2017-03-14 01:34] LABS: URINE BILIRUBIN - DIPSTICK NEGATIVE (NEG); URINE BLOOD NEGATIVE (NEG)
[2017-03-14 02:10] LABS: AMPHETAMINES/METAMPHETAMINES NEGATIVE ng/mL (<1000)
[2017-03-14 04:10] VITALS: BP 112/55
[2017-03-14 07:07] LABS: LYMPH # 1.5 K/mm3 (0.7-4.5); LYMPH % 33.4 % (10-50)
--- NOTE | 2017-03-14 07:23 | PHARMACY CLINIC NOTE ---
Patient Demographics Patient Demographics Admission date: 03/13/17 Date: 03/14/17 Time: 07 Allergies Coded Allergies: hydrocodone (From LORTAB) (Mild, VOMITING 03/05/17) HEIGHT- FT: 5 IN: 9.00 K.679 VTE General Information Labs: Laboratory Tests 03/13 03/13 1605 1603 Coagulation PT (9.4 - 11.8 SECONDS) 10.2 INR (0.9 - 1.1) 0.94 Hematology Hgb (14.1 - 18.0 g/dL) 14.4 Hct (42.0 - 52.0 %) 45.5 Plt Count (142 - 424 K/mm3) 215 Disclaimer The following section includes nursing documentation that has been pulled in for pharmacy review. Patient's VTE score: 2 Patient's VTE Risk: VERY LOW RISK Clinical trial participant? No VTE prophylaxis [id number] VTE prophylaxis ordered? Yes Type of prophylaxis/treatment: CHRISTIE at 0722
[2017-03-14 07:28] LABS: HEMOGLOBIN 12.8 g/dL (14.1-18.0)
--- NOTE | 2017-03-14 07:54 | RADIOLOGY REPORT PS360 ---
CHEST-PORTABLE HISTORY: chest pain ORDERING PHYSICIAN: Isaias Rausch MD PATIENT AGE: 51 years COMPARISON: 03/05/2017 FINDINGS: There has been a prior median sternotomy. Normal heart size. No evidence of CHF. Surgical clips are present in the right axilla. There are low lung volumes with evidence of old granulomatous disease. Vascular crowding is present in the lung bases. No lobar consolidation or collapse. No acute bony anomalies. IMPRESSION: As above, no acute finding.
[2017-03-14 08:00] VITALS: BP 133/80
[2017-03-14 09:25] VITALS: BP 133/80
--- NOTE | 2017-03-14 11:31 | CONSULT NOTE ---
Standard Demographics Patient Demo Date of Consultation: 03/14/17 Referring Provider: Thomas Quintanilla MD Reason for Consultation: Elevated troponin, Malignant HTN PRIMARY DIAGNOSIS: CHEST PAIN, ELEVATED TROPONINS Problem list Problem list: 1. Previous hospitalizations for elevated troponins A. Reportedly has have >5 cardiac cath B. 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 Cardiac cath Results: 1. The left main artery normal 2. The left anterior descending artery mild proximal 20% stenosis 3. The circumflex artery nondominant normal 4. The right coronary artery dominant normal 5. The SLAUGHTER ventriculogram reveals hyperdynamic ejection fraction 80% 6. The left ventricular end-diastolic pressure 10 mmHg 7. The ascending aorta is mildly dilated and has a dissection flap on the right side of the ascending aorta 8. Brachiocephalic is normal 9. The left subclavian artery is compromised ostially that has normal antegrade flow 10. The left subclavian artery has antegrade flow however the ostium was not adequately visualized 11. The right renal artery is singular and widely patent without compromise 12. The left renal artery appears patent but was not completely identified on this angiogram. There appears to be some compromise from the dissection 13. The inferior mesenteric arteries patent but is ostially compromised. There is normal flow distally C. s/p Asc Aortic dissection repair D. RIGHT lower extremity vascular compromise with resultant fasciotomy post dissection repair. Chronic limb pain. 2. Malignant hypertension A. Chronic hypertensive changes by electrocardiogram B. Echocardiogram, 03/05/17, preliminary report shows hyperdynamic LEFT ventricular ejection fraction with severe left ventricular hypertrophy. Interventricular septal thickness estimated at 2.3 cm without evidence of outflow obstruction. 3. History of crack cocaine use 4. Tobacco use 5. Alcohol use 6. medication non-compliance History of present illness: History of present illness: 51 yo BM admitted for Chest pain. Pt states he has been unable to get his medications since hospital discharge this month. He does relate intermittent chest pain which is resolved with nitroglycerin. The patient does continue to smoke and continues to use cocaine. In the emergency room yesterday patient's blood work revealed elevated troponin along with his severely elevated blood pressure. He was admitted and restarted on his home medications with improvement in symptoms. Electrocardiogram is sinus rhythm with left ventricular hypertrophy and hypertensive changes. Patient has had several admissions in the past for similar circumstances and has had several cardiac cath's patient has legal issues which are contributing to his recurrent chest pain. Currently on his prescribed medications his blood pressure is well-controlled and he has no chest pain. In the past revealing no significant coronary artery disease. Past Medical History: General: Hypertension Yes CVA Yes Seizures No TB No COPD No Asthma Yes Diabetes No Angina Yes NV Yes Hyperlipidemia Yes Urinary No Cancer No Rheumatic H.D. No Ulcers No MRSA No GB Disease No Past Surgical HX: Previous Surgery?Y CARDIAC CATH X4 AAA RIGHT LEG FASCIOTOMY OPEN HEART SURGERY Allergies Coded Allergies: hydrocodone (From LORTAB) (Mild, VOMITING 03/05/17) Home medications: Active Scripts LISINOPRIL (Lisinopril) 20 MG PO BID 30 Days Prov: 03/06/17 Carvedilol (Carvedilol 12.5MG) 12.5 MG PO BID 30 Days Prov: 03/06/17 DILTIAZEM HCL (Tiazac 180MG) 180 MG PO BID 30 Days Prov: 03/06/17 Reported Medications Aspirin 81 MG PO DAILY #30 Atorvastatin Calcium 80 MG PO DAILY #30 Sertraline Hcl (Zoloft 25MG) 25 MG PO DAILY Gabapentin (Gabapentin 600MG) 800 MG PO TID Current Medications: Current Medications Warfarin Sodium 5 MG 1100 PO (DC) Clopidogrel Bisulfate 75 MG DAILY PO Gabapentin 800 MG TID PO Sodium Chloride 1,000 ML .STK-MED ONE IV (DC) Carvedilol 12.5 MG BID PO Diltiazem HCl 180 MG BID PO Enoxaparin Sodium 80 MG BID SC Gabapentin 800 MG TID PO (DC) Lisinopril 20 MG BID PO Influenza Virus Vaccine Quadrival 0.5 ML PRN PRN IM Nicotine 21 MG DAILYP PRN TD Sodium Chloride 1,000 ML .[id number] IV Aspirin 81 MG DAILY PO Clopidogrel Bisulfate 0 .STK-MED ONE PO (DC) Enoxaparin Sodium 0 .STK-MED ONE SC (DC) Nitroglycerin 0 .STK-MED ONE .ROUTE (DC) Amlodipine Besylate 0 .STK-MED ONE .ROUTE (DC) Metoprolol Tartrate 0 .STK-MED ONE .ROUTE (DC) Amlodipine Besylate 5 MG ONCE ONE PO (DC) Clopidogrel Bisulfate 300 MG ONCE ONE PO (DC) Enoxaparin Sodium 80 MG ONCE ONE SC (DC) Metoprolol Tartrate 25 MG ONCE ONE PO (DC) Nitroglycerin 1 IN ONCE ONE TP (DC) Aspirin 0 .STK-MED ONE .ROUTE (DC) Aspirin 325 MG ONCE ONE PO (DC) Sodium Chloride 10 ML PRN PRN IV Immunization HX DT/Tetanus Unknown Flu Refused Pneumonia Refuses TB Test in last year No Family history Family HX Family Hx Insignificant No Diabetes Yes CAD Yes Hypertension Yes Hyperlipidemia Yes Cancer Yes TB No Social Hx: Smoking HX Tobacco No Type Cigarettes Packs/day < 1 PACK Are you/the child exposed to second-hand smoke: Yes Alcohol Alcohol: Yes How much do you drink 1-2 Drinks Per Day For how long Longer Than 5 Years When was your last drink 48-72 Hours Ago Hx of Drug Use Drug Use? No Patien't marital status is Review of systems: Constitutional No: no symptoms reported. Respiratory No: no symptoms reported. Cardiovascular see HPI, chest pain Gastrointestinal/Abdominal No no symptoms reported Genitourinary No: no symptoms reported. Musculoskeletal muscle pain. Neurological No: no symptoms reported. Exam: Admission Vital Signs: 1ST Vital Signs Result Date Time Pulse Ox 97 03/13 1557 B/P 197/97 03/13 155 Temp 98.0 03/13 155 Pulse 95 03/13 1557 Resp 18 03/13 1557 O2 Delivery ROOM AIR 03/13 183 Last Vital Signs: Vital Signs Result Date Time Pulse Ox 100 03/14 925 B/P 133/80 03/14 925 Temp 98.3 03/14 925 Pulse 66 03/14 925 Resp 22 03/14 925 O2 Delivery ROOM AIR 03/14 0800 Exam General appearance: alert, awake, no acute distress Neck: no carotid bruit, no JVD Cardiovascular: regular rate & rhythm Respiratory: clear to auscultation ABD: soft Extremities: moves all, no peripheral edema Neuro: alert, intact, oriented Laboratory data: Laboratory Tests 03/14/17 0620: Sodium 143, Potassium 4.0, Chloride 109 H, Carbon Dioxide 29, BUN 10, Creatinine 1.2, Estimated Creat Clear 79, Estimated GFR (MDRD) 64, Glucose 95, Calcium 8.6, Total Bilirubin 0.8, AST 14 L, ALT 17, Alkaline Phosphatase 85, Total Protein 6.5, Albumin 2.9 L, Globulin 3.6 H, Albumin/Globulin Ratio 0.8 L, WBC 4.5 L, RBC 3.92 L, Hgb 12.8 L, Hct 40.5 L, MCV 103.3 H, RDW 12.3, Plt Count 194, MPV 8.3, Gran % 48.0, Gran # 2.2, Lymphocytes % 33.4, Monocytes % 8.6, Eosinophils % 8.9, Basophils % 1.2, Lymphocytes # 1.5, Monocytes # 0.4, Eosinophils # 0.4, Basophils # 0.1, PUBS MCHC 31.5 L, MCH 32.5 H 03/14/17 0111: Opiates Screen NEGATIVE, Urine Methadone Screen NEGATIVE, Barbiturates NEGATIVE, Phencyclidine Screen NEGATIVE, Amphetamines Screen NEGATIVE, Benzodiazepines Screen NEGATIVE, Cocaine Screen POSITIVE H, Marijuana (THC) Screen POSITIVE H, Urine Color YELLOW, Urine Appearance CLEAR, Urine pH 7.0, Ur Specific [place] 1.010, Urine Protein NEGATIVE, Urine Ketones NEGATIVE, Urine Blood NEGATIVE, Urine Nitrate NEGATIVE, Urine Bilirubin NEGATIVE, Urine Urobilinogen 0.2, Ur Leukocyte Esterase NEGATIVE, Urine WBC 3-5, Urine Bacteria 1+, Urine Mucus 1+, Urine Glucose NEGATIVE 03/13/171954: Creatine Kinase 310 H, CK-MB (CK-2) Rel Index 1.9, CK and CKMB Interp 5.9 H, Troponin I 1.04 H 03/13/17 1605: Amylase 57, Lipase 103 03/13/17 1605: Sodium 143, Potassium 4.2, Chloride 108 H, Carbon Dioxide 27, BUN 15, Creatinine 1.3, Estimated Creat Clear 75, Estimated GFR (MDRD) 58, Glucose 89, Calcium 9.1, Total Bilirubin 0.4, AST 20, ALT 22, Alkaline Phosphatase 104, Creatine Kinase 390 H, CK-MB (CK-2) Rel Index 2.0, CK and CKMB Interp 7.7 H, Troponin I 1.20 H, Total Protein 8.1, Albumin 3.6, Globulin 4.5 H, Albumin/ Globulin Ratio 0.8 L, D-Dimer 1800 *H, WBC 7.2, RBC 4.36 L, Hgb 14.4, Hct 45.5 , MCV 104.1 H, RDW 12.3, Plt Count 215, MPV 7.9, Gran % 61.3, Gran # 4.4, Lymphocytes % 21.8, Monocytes % 7.9, Eosinophils % 8.1, Basophils % 0.9, Lymphocytes # 1.6, Monocytes # 0.6, Eosinophils # 0.6 H, Basophils # 0.1, PUBS MCHC 31.6 L, MCH 32.9 H 03/13/17 1603: PT 10.2, INR 0.94 Plan: Assessment: 1. Elevated troponin secondary to medication noncompliance and cocaine use. Previous similar presentations have resulted in cardiac cath without significant coronary disease. Last one in 2016. At this point, cardiac status is stable and would not recommend further evaluation at this time. Patient must maintain compliance with his medications (lisinopril, diltiazem and carvedilol) with addition of isosorbide 30 mg daily for suspected endothelial dysfunction as a source of his chest pain. Strongly encouraged discontinuation of cocaine use. 2. Hypertension, malignant 3. Medication noncompliance 4. Polysubstance abuse. Recommendations: Discussed with Dr. Hankins. See recommendations above. Patient may be discharged from a cardiac standpoint and ready by Dr. Quintanilla. at 0153
[2017-03-14 12:00] VITALS: BP 135/77
--- NOTE | 2017-03-14 12:02 | Discharge Summary Standard ---
Demographics: Admit date: 03/13/17 Chief complaint: chest pain PRIMARY DIAGNOSIS: CHEST PAIN, ELEVATED TROPONINS Allergies: Coded Allergies: hydrocodone (From LORTAB) (Mild, VOMITING 03/05/17) History of present illness: History of present illness: 51 yo BM admitted for Chest pain. Pt states he has been unable to get his medications since hospital discharge this month. He does relate intermittent chest pain which is resolved with nitroglycerin. The patient does continue to smoke and continues to use cocaine. In the emergency room yesterday patient's blood work revealed elevated troponin along with his severely elevated blood pressure. He was admitted and restarted on his home medications with improvement in symptoms. Electrocardiogram is sinus rhythm with left ventricular hypertrophy and hypertensive changes. Patient has had several admissions in the past for similar circumstances and has had several cardiac cath's patient has legal issues which are contributing to his recurrent chest pain. Currently on his prescribed medications his blood pressure is well-controlled and he has no chest pain. In the past revealing no significant coronary artery disease. Past medical history: Family HX Diabetes Yes CAD Yes Hypertension Yes Hyperlipidemia Yes Cancer Yes TB No Immunization HX DT/Tetanus Unknown Flu Refused Pneumonia Refuses TB Test in last year No General CAD? Yes Angina: Yes MA: Yes Hypertension? Yes Hyperlipidemia? Yes CHF? No DVT? Yes PE? No COPD? No Asthma? Yes Anemia? No GERD? No Gastric ulcers? No GI Bleed? No Hernia? No Thyroid Problems? No Hypothyroidism? No CVA? Yes Seizures? No Diabetes? No Renal Insuffiency? No UTI? No Stones? No BPH? No GB Disease: No Nephritic Syndrome? No Asplenia? No Hepatitis? No Sickle Cell Disease? No Arthritis? No Migraines? No Cataracts? No Glaucoma? No MRSA? No HIV? No TB? No Anxiety? No Depression? No Cancer? No More? No Past Surgical HX Previous Surgery?Y CARDIAC CATH X4 AAA RIGHT LEG FASCIOTOMY OPEN HEART SURGERY Current home meds: Active Scripts LISINOPRIL (Lisinopril) 20 MG PO BID 30 Days Prov: 03/06/17 Carvedilol (Carvedilol 12.5MG) 12.5 MG PO BID 30 Days Prov: 03/06/17 DILTIAZEM HCL (Tiazac 180MG) 180 MG PO BID 30 Days Prov: 03/06/17 Reported Medications Aspirin 81 MG PO DAILY #30 Atorvastatin Calcium 80 MG PO DAILY #30 Sertraline Hcl (Zoloft 25MG) 25 MG PO DAILY Gabapentin (Gabapentin 600MG) 800 MG PO TID Social Hx: Smoking HX Tobacco No Type Cigarettes Packs/day < 1 PACK Are you/the child exposed to second-hand smoke: Yes Alcohol Alcohol: Yes How much do you drink 1-2 Drinks Per Day For how long Longer Than 5 Years When was your last drink 48-72 Hours Ago Hx of Drug Use Drug Use? No Review of systems: Constitutional see HPI. Respiratory see HPI. Cardiovascular see HPI, chest pain Gastrointestinal/Abdominal No no symptoms reported Genitourinary No: no symptoms reported. Musculoskeletal No: no symptoms reported. Neurological No: see HPI. Psychiatric No: no symptoms reported. Exam: Lab data for last 24 hours: Laboratory Tests 03/14/17 0620: Sodium 143, Potassium 4.0, Chloride 109 H, Carbon Dioxide 29, BUN 10, Creatinine 1.2, Estimated Creat Clear 79, Estimated GFR (MDRD) 64, Glucose 95, Calcium 8.6, Total Bilirubin 0.8, AST 14 L, ALT 17, Alkaline Phosphatase 85, Total Protein 6.5, Albumin 2.9 L, Globulin 3.6 H, Albumin/Globulin Ratio 0.8 L, WBC 4.5 L, RBC 3.92 L, Hgb 12.8 L, Hct 40.5 L, MCV 103.3 H, RDW 12.3, Plt Count 194, MPV 8.3, Gran % 48.0, Gran # 2.2, Lymphocytes % 33.4, Monocytes % 8.6, Eosinophils % 8.9, Basophils % 1.2, Lymphocytes # 1.5, Monocytes # 0.4, Eosinophils # 0.4, Basophils # 0.1, PUBS MCHC 31.5 L, MCH 32.5 H 03/14/17 0111: Opiates Screen NEGATIVE, Urine Methadone Screen NEGATIVE, Barbiturates NEGATIVE, Phencyclidine Screen NEGATIVE, Amphetamines Screen NEGATIVE, Benzodiazepines Screen NEGATIVE, Cocaine Screen POSITIVE H, Marijuana (THC) Screen POSITIVE H, Urine Color YELLOW, Urine Appearance CLEAR, Urine pH 7.0, Ur Specific [place] 1.010, Urine Protein NEGATIVE, Urine Ketones NEGATIVE, Urine Blood NEGATIVE, Urine Nitrate NEGATIVE, Urine Bilirubin NEGATIVE, Urine Urobilinogen 0.2, Ur Leukocyte Esterase NEGATIVE, Urine WBC 3-5, Urine Bacteria 1+, Urine Mucus 1+, Urine Glucose NEGATIVE 03/13/171954: Creatine Kinase 310 H, CK-MB (CK-2) Rel Index 1.9, CK and CKMB Interp 5.9 H, Troponin I 1.04 H 03/13/17 1605: Amylase 57, Lipase 103 03/13/17 1605: Sodium 143, Potassium 4.2, Chloride 108 H, Carbon Dioxide 27, BUN 15, Creatinine 1.3, Estimated Creat Clear 75, Estimated GFR (MDRD) 58, Glucose 89, Calcium 9.1, Total Bilirubin 0.4, AST 20, ALT 22, Alkaline Phosphatase 104, Creatine Kinase 390 H, CK-MB (CK-2) Rel Index 2.0, CK and CKMB Interp 7.7 H, Troponin I 1.20 H, Total Protein 8.1, Albumin 3.6, Globulin 4.5 H, Albumin/ Globulin Ratio 0.8 L, D-Dimer 1800 *H, WBC 7.2, RBC 4.36 L, Hgb 14.4, Hct 45.5 , MCV 104.1 H, RDW 12.3, Plt Count 215, MPV 7.9, Gran % 61.3, Gran # 4.4, Lymphocytes % 21.8, Monocytes % 7.9, Eosinophils % 8.1, Basophils % 0.9, Lymphocytes # 1.6, Monocytes # 0.6, Eosinophils # 0.6 H, Basophils # 0.1, PUBS MCHC 31.6 L, MCH 32.9 H 03/13/17 1603: PT 10.2, INR 0.94 Admission vital signs: 1ST Vital Signs Result Date Time Pulse Ox 97 03/13 155 B/P 197/97 03/13 155 Temp 98.0 03/13 155 Pulse 95 03/13 155 Resp 18 03/13 155 O2 Delivery ROOM AIR 03/13 1832 Exam General appearance: normal appearance, active, no acute distress Eyes: normal exam ENT: normal exam Neck: normal inspection, no carotid bruit, full range of motion Cardiovascular: normal exam, regular rate & rhythm, normal peripheral pulses Respiratory: normal exam, clear to auscultation, good air movement, no respiratory distress ABD: normal exam, normal bowel sounds, soft Genitourinary: normal voiding & quantity Extremities: normal exam, moves all, warm Musculoskeletal: normal exam, normal gait Skin: normal exam, intact Neuro: normal exam, alert, no deficit, oriented Hospital Course Hospital Course: ct chest to r/o pe: IMPRESSION: 1. No evidence of pulmonary embolus. 2. Prior aortic graft placement at the root of the aorta with persistent type a aortic dissection extending into the right innominate and left subclavian artery. The dissection is incompletely evaluated as this study was tailored for the pulmonary arteries and not the aorta cardiology consult: Plan: Assessment: 1. Elevated troponin secondary to medication noncompliance and cocaine use. Previous similar presentations have resulted in cardiac cath without significant coronary disease. Last one in 2016. At this point, cardiac status is stable and would not recommend further evaluation at this time. Patient must maintain compliance with his medications (lisinopril, diltiazem and carvedilol) with addition of isosorbide 30 mg daily for suspected endothelial dysfunction as a source of his chest pain. Strongly encouraged discontinuation of cocaine use. 2. Hypertension, malignant 3. Medication noncompliance 4. Polysubstance abuse. pt can dc to police custody. instucted to take home meds as ordered Medications Medications: Discharge meds are as noted. Follow up Follow up in office in: 4 WEEKS with: Irena RAMÍREZ,Jefferson Friedman Comment: irena cummings round later, ok to dc per cardiology at 1511
--- NOTE | 2017-03-14 12:59 | RADIOLOGY REPORT PS360 ---
CTA-CHEST HISTORY: CHEST PAIN,ELEVATED TROPONINS ORDERING PHYSICIAN: Jefferson Quintanilla MD PATIENT AGE: 51 years TECHNIQUE: Helical acquisition obtained following the bolus administration of 60 mL of Isovue 370 followed by a saline bolus. Axial, sagittal, and coronal reformatted images are generated and reviewed. COMPARISON: 01/27/2016 FINDINGS: The study was tailored for the pulmonary arteries. The aorta and therefore is not well opacified in this patient with a history of aortic dissection and aortic surgery. No evidence of pulmonary embolus. Persistent filling defect/intimal flap is noted within the right innominate artery extending into the left subclavian artery. There has been prior aortic graft placement. There is left ventricular hypertrophy. The aortic dissection is not well demonstrated distally due to lack of IV contrast. True and false lumen once again noted with a small true lumen as before. No lobar consolidation or collapse. IMPRESSION: 1. No evidence of pulmonary embolus. 2. Prior aortic graft placement at the root of the aorta with persistent type a aortic dissection extending into the right innominate and left subclavian artery. The dissection is incompletely evaluated as this study was tailored for the pulmonary arteries and not the aorta.
[2017-03-14 15:35] VITALS: BP 135/77
== END 2017-03-14 15:45 | disposition home or self-care (01) ==
LOC: ER 15:57 → 2ND 17:43
PROVIDERS: Emergency Medicine
DX: R07.9 Chest pain, unspecified (principal); Z72.0 Tobacco use; I10 Essential (primary) hypertension; T46.4X6A Underdosing of angiotensin-converting-enzyme inhibitors, initial encounter; T46.1X6A Underdosing of calcium-channel blockers, initial encounter; T44.7X6A Underdosing of beta-adrenoreceptor antagonists, initial encounter; T46.3X6A Underdosing of coronary vasodilators, initial encounter; Z91.128 Patient's intentional underdosing of medication regimen for other reason; F14.10 Cocaine abuse, uncomplicated
CPT/HCPCS: G0378; Q9967